=== PATIENT | female | born 1940 | race Caucasian/White ===

== ENCOUNTER → 2017-02-04 | Outpatient (CLI) | payer OTHER ==
[~2017-02-04] MED LIST: ASPCH81; AZIT250T PO; B-COCAP2 PO; BUSP15TA70 PO; CALC-20 PO; CHOL2000 PO; CLTP PO; HYDR25TA5 PO; LISI-461 PO; LISI40TA PO; MULT-506 PO; WLLSRUNK
[2017-02-04 14:19] LABS: ALT/SGPT 26 U/L (12-78); AST/SGOT 15 U/L (15-37); BLOOD UREA NITROGEN 12 mg/dl (7-18); BUN/CREATININE RATIO 14.5 (10-20); CALCIUM 9.7 mg/dl (8.5-10.1); CARBON DIOXIDE 26 mmol/L (21-32); CHLORIDE 102 mmol/L (98-107); CREATININE 0.82 mg/dl (0.60-1.20); GLUCOSE 100 mg/dl (70-99); POTASSIUM 4.6 mmol/L (3.5-5.1); SODIUM 137 mmol/L (136-145)
[2017-02-04 14:21] LABS: ALB/GLOB RATIO 1.2 (0.9-2); ALKALINE PHOSPHATASE 74 U/L (45-117); CHOLESTEROL 214 mg/dl (0-200); HDL CHOLESTEROL 71 mg/dl; LDL CHOLESTEROL CALCULATED 117 mg/dl; TRIGLYCERIDES 128 mg/dl (0-150); VERY LOW DENSITY LIPOPROT CALC 26 mg/dl
[2017-02-04 14:31] LABS: ESTIMATED AVERAGE GLUCOSE 114 mg/dl; HA1C FLAG Normal (Normal)
--- NOTE | 2017-02-11 06:29 | CODING QUERY MEDICAL NECESSITY ---
SUPPORTING DIAGNOSIS NEEDED Jean ANA, A supporting diagnosis is required for the test/procedure performed on this patient in order for us to be reimbursed by the patient's insurance. Please provide a supporting diagnosis for the following test/procedure listed below next to the test name along with your signature. *If there is no additional diagnosis for this patient that would support the following test/procedure please document that below next to the test/procedure. Test(s)/Procedure(s) that require a supporting diagnosis: * 12541 GLYCATED HEMOGLOBIN DIAGNOSIS: DATE OF SERVICE: 02/04/17 Provider Signature: Date: Thank you Sigifredo Baker [facility] Information Management Once completed, please kindly fax back to [phone] For questions please call [phone]
== END | disposition home or self-care (01) ==
LOC: C.LABBC 11:15
PROVIDERS: ATTEND Physician Assistant Medical
DX: Z00.00 Encounter for general adult medical examination without abnormal findings (principal); I10 Essential (primary) hypertension; E78.5 Hyperlipidemia, unspecified; M85.80 Other specified disorders of bone density and structure, unspecified site; R73.03 Prediabetes

== ENCOUNTER 2017-05-15 11:35 | Emergency (ER) | payer OTHER ==
[~2017-05-15] VITALS: Ht 165.1 cm; Wt 69.0 kg
[~2017-05-15 11:35] MED LIST changes: -BUSP15TA70 PO; -CALC-20 PO; -CHOL2000 PO; -HYDR25TA5 PO; -LISI40TA PO
[2017-05-15 11:37] VITALS: TEMP 36.5; Ht 165.1 cm; Wt 69.0 kg
[2017-05-15] MEDS ORDERED: XYLOCAINE 1%/SOD BICARB 20 ML VIAL INFIL ONE (11:50)
[2017-05-15] MEDS ORDERED: BUPIVACAINE 0.5 % 5 MG/1 ML PF 10ML VIAL ONE (11:51)
[2017-05-15] MEDS ORDERED: CALC-20 PO (12:09)
[2017-05-15] MEDS ORDERED: CHOL2000 PO (12:09)
[2017-05-15] MEDS ORDERED: BUSP15TA70 PO (12:09)
[2017-05-15] MEDS ORDERED: MULT-506 PO (12:09)
[2017-05-15] MEDS ORDERED: HYDR25TA5 PO (12:09)
[2017-05-15] MEDS ORDERED: LISI40TA PO (12:09)
--- NOTE | 2017-05-15 13:02 | EMERGENCY ROOM VISIT NOTE ---
ED Visit Note First contact with patient: 11:48 Chief Complaint: "Cut pinky on right hand/knife". History of Present Illness: This patient is a 77-year-old female who presents to the Emergency Department via private vehicle for evaluation of their right fifth digit laceration. Patient sustained the laceration while slicing onions and garlic, and had the knife down in the water to clean it, when she reached her hand into the dishwater and sliced her finger. They report a moderate amount of bleeding initially. They deny any numbness or tingling into the distal extremity. They report no decreased range of motion of the affected digit. Patient rates her current discomfort as a 0/10. Patient's Tetanus status is believed to be currently up-to-date. Medications: As noted below Allergies: Amoxicillin PMH: No pertinent SHx: Patient lives locally. ROS: All pertinent positive and negative review of systems are appropriately documented in the History of Present Illness. Physical Exam: VITAL SIGNS - Vital signs and nursing notes were reviewed. Stable. Hypertensive. GENERAL -77-year-old female appearing her stated age who is in no acute distress. Communicates well with provider and answers questions appropriately. SKIN - There is a 2 cm long laceration noted over the right fifth digit PIP joint. The edges gape apart with traction. No foreign bodies appreciated. Upon further examination there are no deep structures including vessel, tendon, or bony structures appreciated. There is no active bleeding noted. MUSCULOSKELETAL - Laceration as described above. +5/5 strength appreciated of the affected digit. Full range of motion of the affected digit. NEUROLOGIC - Spinothalamic tract was found to be intact with ability to discriminate sharp versus dull sensation. VASCULAR - Capillary refill was brisk. ED Course: Patient was seen and evaluated by myself. Risks and benefits of performing primary wound closure versus no repair were discussed with the patient who verbalizes understanding. Verbal consent was obtained prior to performing the procedure. She was offered x-ray, and declined. 4 cc of 50/50 ratio 1% buffered lidocaine and 0.5% bupivacaine was used to perform a digital block of the right fifth digit. The wound was cleansed and prepped in the typical sterile fashion utilizing normal saline and Betadine. The wound was sterilely draped. Once proper anesthetization was established, the wound was further examined and demonstrated no deep involvement. The wound was copiously irrigated with normal saline and Betadine. The wound was closed using 4 simple, 5-0 nylon sutures with the wound edges being well approximated. Patient tolerated the procedure well. No complications were met. The wound was cleansed and dressed with a Bacitracin dressing. A metal splint was applied to the finger for comfort. Patient educated on worrisome symptoms for return visit to the Emergency Department. Patient discharged to home in good condition. In the evaluation and treatment of this patient, the following differential diagnoses were considered: Finger Fracture, Finger Dislocation, Finger Sprain, Finger Contusion, [place] Finger, or Mallet Finger. Current/Historical Medications Scheduled Buspirone Hcl (Buspar), 15 MG PO DAILY Calcium Carbonate-Vitamin D (Calcium 600 + D), 1 TAB PO DAILY Cholecalciferol (Vitamin D3), 1 CAP PO DAILY Hydrochlorothiazide (Hydrochlorothiazide), Unknown Dose PO DAILY Lisinopril (Zestril), 40 MG PO QAM Multivitamin (Multivitamin), 1 TAB PO DAILY Allergies Coded Allergies: Amoxicillin (Unverified Allergy, Unknown, rash, 05/15/17) Vital Signs Date Time Temp Pulse Resp B/P (MAP) Pulse Ox O2 Delivery O2 Flow Rate FiO2 05/15/17 13:14 73 20 134/80 96 05/15/17 11:37 36.5 98 16 154/75 94 Room Air Departure Information Impression Primary Impression: Laceration Dispostion Home / Self-Care Condition GOOD Referrals Lea Traore M.D. (PCP) Patient Instructions My [facility] Additional Instructions Discharge Instructions: You have received 4 sutures on your finger. These sutures are NOT dissolvable and WILL need to be removed by a health care provider in 12 days. You can return to the Emergency Department or contact your Primary Care Provider to have the sutures removed. Please wear the splint for comfort until the sutures are removed. Proper wound care is essential for adequate wound healing and infection prevention. You can shower and clean the wound with soap and water. Do not scour over the wound, pat dry with a towel. Do not submerse the wound (i.e. bathe or dish wash) until the sutures have been removed. You can use an antibiotic ointment with a dressing over the wound for the next 3-4 days. After this time you may leave the wound dry and open to the air. If crust develops over the wound you can use a Q-tip to apply a 1:1 peroxide:water solution to clean the wound. Look for signs of infection of the wound including: increased pain, swelling, foul discharge, streaking, or increased temperature. If any of these are noticed you should return to the Emergency Department for further assessment and treatment. As with any laceration you may have received nerve damage to the surrounding tissues. This damage may or may not be permanent. You should keep the area covered with sunscreen for the first 6 months to 1 year when at risk for exposure to help minimize scarring. You can also use scar reducing creams or Vitamin E oil to help minimize scarring. For pain control, you can use the following [id number] medicines (if >12 yo): - Regular strength (325mg/tab) Tylenol (acetaminophen) 2 tabs every 4-6 hours as needed. Do not exceed 12 tablets in a 24 hour period. Avoid taking more than 3 grams (3000 mg) of Tylenol per day. This includes any other sources of acetaminophen you may take on a regular basis. Return to the emergency department if your symptoms worsen despite treatment course outlined above.
[2017-05-15 13:14] VITALS: BP 134/80; PULSE 73; O2SAT 96
== END 2017-05-15 13:16 | disposition home or self-care (01) ==
LOC: C.EDB 11:38 → C.EDD 13:16
DX: S61.216A Laceration without foreign body of right little finger without damage to nail, initial encounter (principal); Y93.G1 Activity, food preparation and clean up; Z79.899 Other long term (current) drug therapy

== ENCOUNTER 2017-05-27 10:55 | Emergency (ER) | payer OTHER ==
[~2017-05-27] VITALS: Ht 165.1 cm; Wt 69.4 kg
[~2017-05-27 10:55] MED LIST changes: -ASPCH81; -AZIT250T PO; -B-COCAP2 PO; +BUSP15TA70 PO; +CALC-20 PO; +CHOL2000 PO; -CLTP PO; +HYDR25TA5 PO; -LISI-461 PO; +LISI40TA PO; -WLLSRUNK
[2017-05-27 10:58] VITALS: TEMP 36.6; Ht 165.1 cm; Wt 69.4 kg
[2017-05-27 11:16] VITALS: BP 134/76; PULSE 88; O2SAT 98
--- NOTE | 2017-05-27 22:22 | EMERGENCY ROOM VISIT NOTE ---
History First contact with patient: 11:02 Chief Complaint: SUTURE/STAPLE REMOVAL Stated Complaint: REMOVAL OF STITCHES History of Present Illness The patient is a 77 year old female who presents to the Emergency Room for suture removal from a right fifth finger laceration that was repaired in our department 12 days ago. The patient denies any wound complications. Review of Systems Noncontributory Past Medical/Surgical History Well documented on previous visit Social History Smoking Status: Former Smoker Marital Status: Occupation Status: retired Current/Historical Medications Scheduled Buspirone Hcl (Buspar), 15 MG PO DAILY Calcium Carbonate-Vitamin D (Calcium 600 + D), 1 TAB PO DAILY Cholecalciferol (Vitamin D3), 1 CAP PO DAILY Hydrochlorothiazide (Hydrochlorothiazide), Unknown Dose PO DAILY Lisinopril (Zestril), 40 MG PO QAM Multivitamin (Multivitamin), 1 TAB PO DAILY Physical Exam Vital Signs Date Time Temp Pulse Resp B/P (MAP) Pulse Ox O2 Delivery O2 Flow Rate FiO2 05/27/17 11:16 88 16 98 05/27/17 10:58 36.6 86 18 152/90 96 Room Air Pain Rating (0-10): 0 Physical Exam MUSCULOSKELETAL: Examination of the right fifth finger shows excellent wound healing. All sutures were removed without any complications. Medical Decision & Procedures ED Course The patient was provided additional verbal wound care instructions. Avoid any undue stress on the wound, and follow-up with PCP as needed. Medical Decision Impression Primary Impression: Encounter for removal of sutures Additional Impression: Laceration of right little finger Departure Information Dispostion Home / Self-Care Condition GOOD Referrals No Doctor, Assigned (PCP) Forms HOME CARE DOCUMENTATION FORM, IMPORTANT VISIT INFORMATION Patient Instructions [facility] Problem Qualifiers Additional Impression: Laceration of right little finger Encounter type: subsequent encounter Damage to nail status: without damage Foreign body presence: without foreign body Qualified Codes: S61.216D - Laceration without foreign body of right little finger without damage to nail, subsequent encounter
== END 2017-05-27 11:17 | disposition home or self-care (01) ==
LOC: C.EDB 10:58 → C.EDD 11:17
DX: Z48.02 Encounter for removal of sutures (principal); S61.216D Laceration without foreign body of right little finger without damage to nail, subsequent encounter; Y93.G1 Activity, food preparation and clean up; Z87.891 Personal history of nicotine dependence

== ENCOUNTER → 2017-09-01 | Outpatient (CLI) | payer OTHER | END | disposition home or self-care (01) | LOC: C.MAMM 13:22 | PROVIDERS: ATTEND Internal Medicine | DX: Z12.31 Encounter for screening mammogram for malignant neoplasm of breast (principal); M85.851 Other specified disorders of bone density and structure, right thigh; M85.852 Other specified disorders of bone density and structure, left thigh; M85.88 Other specified disorders of bone density and structure, other site ==

== ENCOUNTER → 2018-01-09 | Outpatient (CLI) | payer OTHER ==
--- NOTE | 2018-01-12 15:09 | MAMMOGRAPHY REPORT ---
BILATERAL DIGITAL SCREENING MAMMOGRAM TOMOSYNTHESIS WITH CAD: 01/09/2018 TECHNIQUE: Breast tomosynthesis in addition to standard 2D mammography was performed. Current study was also evaluated with a Computer Aided Detection (CAD) system. COMPARISON: Comparison is made to exams dated: 04/17/2016 mammogram, 01/24/2014 mammogram, 01/03/2012 ma mmogram, 01/01/2011 mammogram, 12/04/2009 mammogram - [facility], and 07/26/2008. BREAST COMPOSITION: There are scattered areas of fibroglandular density in both breasts. FINDINGS: No suspicious masses, calcifications, or areas of architectural distortion are noted in ei ther breast. There has been no significant interval change compared to prior exams. IMPRESSION: ACR BI-RADS CATEGORY 1: NEGATIVE There is no mammographic evidence of malignancy. A 1 year screening mammogram is recommended. The pa tient will receive written notification of the results. Approximately 10% of breast cancers are not detected with mammography. A negative mammographic report should not delay biopsy if a clinically suggestive mass is present. Emma Gastelum M.D. ah/:01/09/2018 15:57:17 Clinical Application Consultant: Mary PERLA(R)(M), [facility] letter sent: Normal 1/2 BI-RADS Code: ACR BI-RADS Category 1: Negative
== END | disposition home or self-care (01) ==
LOC: C.MAMM 14:50
PROVIDERS: ATTEND Internal Medicine
DX: Z12.31 Encounter for screening mammogram for malignant neoplasm of breast (principal)

== ENCOUNTER 2020-03-20 08:32 | Observation (INO) ==
[2020-03-20] MEDS ORDERED: SODIUM CHLORIDE 0.9% 1000ML 1,000 ML IV ONE (08:55)
[2020-03-20 09:03] LABS: Basophils # (auto) 0.02 K/uL (0-0.2); Basophils % (auto) 0.2 %; Eosinophils # (auto) 0.04 K/uL (0-0.5); Eosinophils % (auto) 0.3 %; Hematocrit (blood only) 42.6 % (37-47); Hemoglobin 14.9 g/dL (12.0-16.0); Immature Granulocytes # (auto) 0.05 K/uL (0.00-0.02); Immature Granulocytes % (auto) 0.4 %; Lymphocytes # (auto) 2.24 K/uL (1.2-3.4); Lymphocytes % (auto) 18.4 %; Mean Corpuscular Hemoglobin 30.8 pg (25-34); Mean Platelet Volume 8.3 fL (7.4-10.4); Monocytes # (auto) 1.27 K/uL (0.11-0.59); Monocytes % (auto) 10.4 %; Neutrophils # (auto) 8.57 K/uL (1.4-6.5); Neutrophils % (auto) 70.3 %; Platelet Count 546 K/uL (130-400); RDW Coefficient of Variation 12.9 % (11.5-14.5); RDW Standard Deviation 41.3 fL (36.4-46.3); Red Blood Count 4.84 M/uL (4.2-5.4); White Blood Count 12.19 K/uL (4.8-10.8)
[2020-03-20] MEDS ORDERED: CEFEPIME 2,000 MG/20 ML VIAL IV STA (09:04)
[2020-03-20] MEDS ORDERED: metroNIDAZOLE 500 MG/100 ML BAG IV STA (09:04)
[2020-03-20 09:21] LABS: Albumin Level 3.5 gm/dl (3.4-5.0); BUN Creatinine Ratio 14.4 (10-20); Calcium 9.4 mg/dl (8.5-10.1); Creatinine Clr Calc Pharmacy 54.9 ml/min; Est GFR (African American) 81.2; Est GFR (Non-African American) 70.1; Potassium 3.8 mmol/L (3.5-5.1)
[2020-03-20 09:24] LABS: Albumin Globulin Ratio 0.7 (0.9-2); Bilirubin,Total 0.4 mg/dl (0.2-1); Globulin 4.8 gm/dl (2.5-4.0); Total Protein 8.3 gm/dl (6.4-8.2)
[2020-03-20 10:02] LABS: Appearance Urine Clear (Clear); Bilirubin Urine Negative (Negative); Blood Urine Negative (Negative); Color Urine Yellow; Glucose Urine UA Negative (Negative); Ketones Urine Negative (Negative); Leukocyte Esterase Urine Negative (Negative); Nitrite Urine Negative (Negative); Protein Urine Negative (Negative); Specific Gravity Urine 1.031 (1.000-1.030); Urobilinogen Urine Negative (Negative); pH Urine 6.5 (4.5-7.5)
--- NOTE | 2020-03-20 11:16 | Emergency Department Note ---
History of Present Illness General Chief Complaint: Abdominal Pain Stated Complaint: ABD PAIN Time Seen by Provider: 03/20/20 08:53 Source: patient Mode of arrival: ambulatory Limitations: no limitations History of Present Illness Maximum Pain Intensity: 3 This is a 79-year-old female who presents to the ED with a chief complaint of a perforated appendix. The patient states that she has had some abdominal discomf ort for a few weeks. For the past week she has felt bloated. The patient had some tenderness when her PCP evaluated her a week ago. A CT scan was done this morning that showed a perforated appendix. The patient states that she did eat Busch for breakfast this morning. Her appetite has not been as good as usual. She denies any nausea, vomiting or diarrhea. No fevers. No other symptoms. Home Medications Home Medications Medication Instructions Recorded Confirmed Type calcium carbonate 600 mg calcium 600 mg PO DAILY tab 02/12/19 03/20/20 History (1,500 mg) tablet cholecalciferol (vitamin D3) 50 2,000 units PO DAILY 03/09/19 03/20/20 History mcg (2,000 unit) capsule diphenhydramine 25 1 tab PO Q6H PRN 03/09/19 03/20/20 History mg-acetaminophen 500 mg tablet lisinopril 40 mg tablet 40 mg PO DAILY #90 tab 03/16/19 03/20/20 Rx buspirone 5 mg tablet 5 mg PO BID #180 tab 08/26/19 03/20/20 Rx amlodipine 5 mg tablet 5 mg PO DAILY #90 tab 09/13/19 03/20/20 Rx loratadine 10 mg capsule 10 mg PO DAILY cap 09/14/19 03/20/20 History multivitamin 1 tab PO DAILY 09/14/19 03/20/20 History albuterol sulfate 90 mcg/actuation 2 puffs INH Q6H PRN #8.5 gm 10/07/19 03/20/20 Rx aerosol inhaler gabapentin 300 mg capsule 300 mg PO HS #90 cap 12/03/19 03/20/20 Rx budesonide-formoterol HFA 160 2 puffs INH BID #10.2 gm 02/15/20 03/20/20 Rx mcg-4.5 mcg/actuation aerosol inhaler Allergies Allergy/AdvReac Type Severity Reaction Status Date / Time amoxicillin Allergy Unknown rash Verified 03/14/20 11:03 Past Med/Surg History Medical History Actinic keratosis (Chronic) Anxiety (Chronic) COPD (chronic obstructive pulmonary disease) (Chronic) Dyslipidemia (Chronic) Hypertension (Chronic) Impaired fasting glucose (Chronic) Osteoporosis (Chronic) not agreeable to Rx Peripheral neuropathy (Chronic) chronic symptoms, no testing has been done to verify Seborrheic keratosis (Chronic) Vitamin D deficiency (Chronic) Surgical History H/O tubal ligation History of section Family History Father Diabetes Other Stroke Social History Smoking Status: Former smoker Tobacco Type: Cigarettes Age Started Using Tobacco: 17; Age Quit Using Tobacco: 65; packs per day: 1; Cigarettes Per Day: 20; Hx Alcohol Use: Yes Alcohol type: wine Alcohol Intake Frequency: 4 or More x per/Week Alcohol Intake Frequency Comment: 2 glasses of wine daily Hx Substance Use: No Preferred Language: Malaysian Communication Ability: Effective Hearing Ability: Normal Desktop Publishing Operator Required: No Beliefs That Will Affect Care: None marital status: Current Living Situation: Spouse current occupational status: retired Other Information That Helps Us Care for You: No Feels Safe at Home: Yes Safety Concerns: Feels Safe At This Time Seatbelt Use: always Sunscreen Use: Yes Review of Systems A total of 10 systems reviewed and were otherwise negative Physical Exam Vital Signs: Vital Signs - 24 hr 03/20/20 08:36 03/20/20 09:57 Temperature 36.9 C Temperature Source Oral Pulse Rate 102 H Respiratory Rate 16 Respiratory Effort / Characteristics Non-Labored Respiratory Depth Normal Blood Pressure 151/84 H Blood Pressure Fabi n 106 Pulse Oximetry 97 95 Oxygen Delivery Me thod Room Air Sepsis Recent Feve r Within 48 Hours No Sepsis New/Unexpla ined Change in Men grazyna Status No Sepsis Action Take n by Nursing No Action Required Physical Exam: CONSTITUTIONAL/VITAL SIGNS: Reviewed / noted above. GENERAL: Non-toxic in appearance. INTEGUMENTARY: Warm, dry, and [place]. HEAD: Normocephalic. EYES: without scleral icterus or trauma. ENT/OROPHARYNX: clear and moist. LYMPHADENOPATHY/NECK: Is supple without lymphadenopathy or meningismus. RESPIRATORY: Lungs clear and equal. CARDIOVASCULAR: Regular rate and rhythm. GI/ABDOMEN: Soft and tender in the right lower quadrant. No organomegaly or pulsatile mass. No rebound or guarding. Normal bowel sounds. EXTREMITIES: Warm and well perfused. BACK: No CVA tenderness. NEUROLOGICAL: Intact without focal deficits. PSYCHIATRIC: normal affect. MUSCULOSKELETAL: Normally developed with good muscle tone. TRIAGE NURSING DOCUMENTATION REVIEWED. Course Administered Medications Ciprofloxacin (Cipro / D5w) 400 mg in 200 mls @ 100 mls/hr IV Q12H OSMAN; Protocol Stop: 03/30/20 11:59 Last Admin: 03/20/20 12:26 Dose: 100 mls/hr Documented by: [id number] Sodium Chloride (Nss 1000ml) 1,000 mls @ 100 mls/hr IV .Q10H OSMAN Stop: 04/19/20 11:59 Last Admin: 03/20/20 12:26 Dose: 100 mls/hr Documented by: [id number] Discontinued Medications Sodium Chloride (Nss 1000ml) 1,000 mls @ 999 mls/hr IV .Q1H1M ONE Stop: 03/20/20 09:55 Last Infusion: 03/20/20 10:31 Dose: 0 mls/hr Documented by: [id number] Admin: 03/20/20 09:26 Dose: 999 mls/hr Documented by: [id number] Cefepime HCl (Maxipime) 2,000 mg in 20 mls @ 5 mls/min IV NOW STA; Protocol Stop: 03/20/20 09:07 Last Admin: 03/20/20 09:26 Dose: 5 mls/min Documented by: [id number] Metronidazole (Flagyl) 500 mg in 100 mls @ 100 mls/hr IV NOW STA Stop: 03/20/20 10:03 Last Infusion: 03/20/20 10:31 Dose: 0 mls/hr Documented by: [id number] Admin: 03/20/20 09:26 Dose: 100 mls/hr Documented by: [id number] Medical Decision Making Differential Diagnosis Differential considered: pancreatitis, hepatitis, acute cholecystitis, AAA, UTI, pyelonephritis, kidney stones, appendicitis, diverticulitis, shingles, bowel obstruction, mesenteric ischemia, intussusception,hernia, testicular torsion, ovarian torsion, ruptured ovarian cyst,ectopic , . Medical Records Attestation: I reviewed the patient's medical records. Home Medications Current Medication List: was personally reviewed by me Laboratory Data Attestation: I reviewed the patient's lab results. Result diagrams: 03/20/20 08:52 03/20/20 08:52 Lab Results 03/20/20 03/20/20 03/20/20 Range/Units 08:52 08:52 09:50 WBC 12.19 H (4.8-10.8) K/uL RBC 4.84 (4.2-5.4) M/uL Hgb 14.9 (12.0-16.0) g/dL Hct 42.6 (37-47) % MCV 88.0 (80-100) fL MCH 30.8 (25-34) pg MCHC 35.0 (32-36) g/dL RDW Std Deviation 41.3 (36.4-46.3) fL RDW Coeff of Kisha 12.9 (11.5-14.5) % Plt Count 546 H (130-400) K/uL MPV 8.3 (7.4-10.4) fL Immature Gran % (Auto) 0.4 % Neut % (Auto) 70.3 % Lymph % (Auto) 18.4 % [place] % (Auto) 10.4 % Eos % (Auto) 0.3 % Baso % (Auto) 0.2 % Neut # (Auto) 8.57 H (1.4-6.5) K/uL Lymph # (Auto) 2.24 (1.2-3.4) K/uL [place] # (Auto) 1.27 H (0.11-0.59) K/uL Eos # (Auto) 0.04 (0-0.5) K/uL Baso # (Auto) 0.02 (0-0.2) K/uL Immature Gran # (Auto) 0.05 H (0.00-0.02) K/uL Sodium 130 L (136-145) mmol/L Potassium 3.8 (3.5-5.1) mmol/L Chloride 97 L (98-107) mmol/L Carbon Dioxide 24 (21-32) mmol/L Anion Gap 9.0 (3-11) BUN 12 (7-18) mg/dl Creatinine 0.81 (0.6-1.2) mg/dl Est Cr Clr Drug Dosing 54.9 ml/min Est GFR ( Amer) 81.2 Est GFR (Non-Af Amer) 70.1 BUN/Creatinine Ratio 14.4 (10-20) Glucose 121 H (70-99) mg/dl Calcium 9.4 (8.5-10.1) mg/dl Total Bilirubin 0.4 (0.2-1) mg/dl AST 14 L (15-37) U/L ALT 33 (12-78) U/L Alkaline Phosphatase 98 (45-117) U/L Total Protein 8.3 H (6.4-8.2) gm/dl Albumin 3.5 (3.4-5.0) gm/dl Globulin 4.8 H (2.5-4.0) gm/dl Albumin/Globulin Ratio 0.7 L (0.9-2) Lipase 366 (73-393) U/L Urine Color Yellow Urine Appearance Clear (Clear) Urine pH 6.5 (4.5-7.5) Ur Specific [place] 1.031 H (1.000-1.030) Urine Protein Negative (Negative) Urine Glucose (UA) Negative (Negative) Urine Ketones Negative (Negative) Urine Blood Negative (Negative) Urine Nitrite Negative (Negative) Urine Bilirubin Negative (Negative) Urine Urobilinogen Negative (Negative) Ur Leukocyte Esterase Negative (Negative) Imaging Data Attestation: I personally reviewed and interpreted this imaging study as follows: Radiologist's Impression: CT scan of the abdomen pelvis: IMPRESSION: Findings suggestive of perforated acute appendicitis with multiple small periappendiceal abscesses adjacent to the appendiceal tip that measure up to 2 cm. Moderate inflammation. No free air. An underlying appendiceal mass is con sidered less likely but cannot be excluded by CT. Prominent ileocolic lymph nodes which are probably reactive. Surgical consultation is recommended. This finding will be called/faxed to the ordering provider at time of dictation. Blood Pressure Blood Pressure Findings: Elevated blood pressure Blood Pressure Disposition: Referred to patients primary care provider MDM Narrative This is a 79-year-old female who presents to the ED with a chief complaint of abdominal pain. A CT scan shows a perforated appendix. The blood work as noted above. The white count is elevated. The patient was started on IV cefepime and IV Flagyl. She was given IV fluids. She was seen by the surgical service who admitted her for inpatient antibiotics. Impression & Plan Acute perforated appendicitis Discharge Plan Visit Data *Final* Discharge Date/Time: 03/20/20 11:08 Chief Complaint: Abdominal Pain Stated Complaint: ABD PAIN ED Provider: Wilmar Garvin Discharge Problem: Acute perforated appendicitis Patient Disposition: Admitted As Inpatient Discharge Instructions Interventions: ED Discharge Assessment Last Done: 03/20/20 11:08
[2020-03-20] MEDS ORDERED: ALBUTEROL HFA 8 GM INHALER INH PRN (11:39)
[2020-03-20] MEDS ORDERED: MoRPHine SULFATE 2 MG/ML CARP IV PRN (11:39)
[2020-03-20] MEDS ORDERED: ACETAMINOPHEN 325 MG TAB PO PRN (11:39)
[2020-03-20] MEDS ORDERED: MoRPHine SULFATE 4 MG/ML 1 ML CARP\\VIAL IV PRN (11:39)
[2020-03-20] MEDS ORDERED: ONDANSETRON INJ 2 MG/ML 2 ML VIAL IV PRN (11:39)
--- NOTE | 2020-03-20 11:47 | Hospitalist Consultation ---
Date of Consultation March 20, 2020 Assessment & Plan (1) Perforated appendicitis: Admitted by general surgery service for perforated appendicitis with periappendiceal abscesses -Admitted to medical/surgical floor -Start IV Cipro and Flagyl, IV fluids -Keeping n.p.o. for surgery likely tomorrow -We will see if needs COVID testing preoperatively -Check preoperative ECG although she is completely asymptomatic from a cardiovascular standpoint is very active, can achieve at least 4 METS without any anginal symptoms, renal function is intact and she is average risk for an intermediate risk procedure to proceed with the procedure especially given the urgent nature with intraperitoneal abscesses -Pain control as needed (2) Hyponatremia: None and review of old labs shows that she is typically mildly hyponatremic -Could be side effect of lisinopril -Likely exacerbated by some dehydration from recent infection -Hydrate with normal saline -Follow BMP in the morning (3) Hypertension: Blood pressures are controlled -Continue home amlodipine and lisinopril (4) Peripheral neuropathy: Continue home gabapentin Question if actually has claudication given long history of smoking and has leg cramps as her symptoms but does say that is relieved with gabapentin (5) Vitamin D deficiency: Continue home calcium plus vitamin D (6) Osteoporosis: On calcium and vitamin D as above (7) Impaired fasting glucose: Recent hemoglobin A1c was 5.7% which is barely into the prediabetes range -Follow as an outpatient No need for Accu-Cheks here (8) Dyslipidemia: Noted in chart but not on medication for this (9) COPD (chronic obstructive pulmonary disease): No acute exacerbation -Continue home Symbicort (10) Anxiety: No acute exacerbation, well controlled -Continue home BuSpar (11) DVT prophylaxis: Add on SCDs, hold on chemical anticoagulation given upcoming surgery Disposition-admitted to medical/surgical floor, hospitalist service will follow along Full code-patient reports that if her prognosis is poor on life support, she would not want prolonged life support was present at the bedside for this discussion and agrees History of Present Illness Reason for Consultation: Medical management Requesting Physician: Dr. Reardon Attending Physician: Torey Reardon MD, FACS History of Present Illness This patient is a 79-year-old female with a history of HTN, anxiety disorder, COPD, peripheral neuropathy, osteoporosis, dyslipidemia, and prediabetes, who presents to the hospital after 3-week subacute presentation of right lower quadrant pain. She reports having a low-grade fever and just not feeling well about 3 weeks ago and actually had a COVID test that was negative at that time. Since then, she is continued to have mild right lower quadrant pain which then progressed to bloating and sharper pains in the last few days. She saw her primary care physician a week ago who ordered blood work which showed a mild leukocytosis. When the pain worsened, she came to the ER was found to have a ruptured appendicitis with multiple periappendiceal abscesses but no free air. She was afebrile. Continue to have a leukocytosis, was mildly hyponatremic. She will be admitted for acute perforated appendicitis with intraperitoneal abscesses. Hospitalist service was consulted for medical management. ROS: Patient denies any lightheadedness or chest pain, no shortness of breath or cough, no bright red blood or melena per rectum, no nausea or vomiting. She has been a little bit more fatigued than usual. Some mild headaches occasionally for which she took Tylenol. Denies any urinary symptoms of urinary urgency or d ysuria or frequency. Allergies Allergy/AdvReac Type Severity Reaction Status Date / Time amoxicillin Allergy Unknown rash Verified 03/14/20 11:03 Home Medications Home Medications Medication Instructions Recorded Confirmed Type calcium carbonate 600 mg calcium 600 mg PO DAILY tab 02/12/19 03/20/20 History (1,500 mg) tablet cholecalciferol (vitamin D3) 50 2,000 units PO DAILY 03/09/19 03/20/20 History mcg (2,000 unit) capsule diphenhydramine 25 1 tab PO Q6H PRN 03/09/19 03/20/20 History mg-acetaminophen 500 mg tablet lisinopril 40 mg tablet 40 mg PO DAILY #90 tab 03/16/19 03/20/20 Rx buspirone 5 mg tablet 5 mg PO BID #180 tab 08/26/19 03/20/20 Rx amlodipine 5 mg tablet 5 mg PO DAILY #90 tab 09/13/19 03/20/20 Rx loratadine 10 mg capsule 10 mg PO DAILY cap 09/14/19 03/20/20 History multivitamin 1 tab PO DAILY 09/14/19 03/20/20 History albuterol sulfate 90 mcg/actuation 2 puffs INH Q6H PRN #8.5 gm 10/07/19 03/20/20 Rx aerosol inhaler gabapentin 300 mg capsule 300 mg PO HS #90 cap 12/03/19 03/20/20 Rx budesonide-formoterol HFA 160 2 puffs INH BID #10.2 gm 02/15/20 03/20/20 Rx mcg-4.5 mcg/actuation aerosol inhaler Patient History Medical History Actinic keratosis (Chronic) Anxiety (Chronic) COPD (chronic obstructive pulmonary disease) (Chronic) Dyslipidemia (Chronic) Hypertension (Chronic) Impaired fasting glucose (Chronic) Osteoporosis (Chronic) not agreeable to Rx Peripheral neuropathy (Chronic) chronic symptoms, no testing has been done to verify Seborrheic keratosis (Chronic) Vitamin D deficiency (Chronic) Surgical History H/O tubal ligation History of section Family History Father Diabetes Other Stroke Social History Smoking Status: Former smoker Tobacco Type: Cigarettes Age Started Using Tobacco: 17; Age Quit Using Tobacco: 65; packs per day: 1; Cigarettes Per Day: 20; Hx Alcohol Use: Yes Alcohol type: wine Alcohol Intake Frequency: 4 or More x per/Week Alcohol Intake Frequency Comment: 2 glasses of wine daily Hx Substance Use: No Preferred Language: British Communication Ability: Effective Hearing Ability: Normal Lab Manager Required: No Beliefs That Will Affect Care: None marital status: Current Living Situation: Spouse current occupational status: retired Other Information That Helps Us Care for You: No Feels Safe at Home: Yes Safety Concerns: Feels Safe At This Time Seatbelt Use: always Sunscreen Use: Yes Review of Systems Review of Systems: All systems reviewed & are unremarkable except as noted in HPI & below Physical Exam Constitutional: WD/WN, vitals as above Eyes: PERRL, conjunctivae normal, anicteric sclerae ENMT: external ear and nose normal, oropharynx normal Neck: trachea midline, no thyromegaly Respiratory: normal respiratory effort, lungs clear to auscultation Cardiovascular: RRR, no murmur, no edema Chest (Breasts): Chest: normal inspection of chest Gastrointestinal (Abdomen): normal bowel sounds, soft, nontender, no hepatosplenomegaly Musculoskeletal: Extremities: extremities normal to inspection; no cyanosis and no clubbing Skin: no rashes, warm and dry Neurologic: moves all extremities and awake; no focal motor deficits Psychiatric: A+Ox3, euthymic affect Lymphatic: no lymphedema Results & Data Results & Data ([facility]) Vital Signs (Past 12 Hours) Vital Signs Temp Pulse Pulse Resp BP BP Pulse Ox 03/20/20 10:32 86 18 155/83 H 96 03/20/20 09:57 95 03/20/20 08:36 36.9 C 102 H 16 151/84 H 97 Laboratory Results 03/20/20 03/20/20 03/20/20 Range/Units 09:50 08:52 08:52 WBC 12.19 H (4.8-10.8) K/uL RBC 4.84 (4.2-5.4) M/uL Hgb 14.9 (12.0-16.0) g/dL Hct 42.6 (37-47) % MCV 88.0 (80-100) fL MCH 30.8 (25-34) pg MCHC 35.0 (32-36) g/dL RDW Std Deviation 41.3 (36.4-46.3) fL RDW Coeff of Kisha 12.9 (11.5-14.5) % Plt Count 546 H (130-400) K/uL MPV 8.3 (7.4-10.4) fL Immature Gran % (Auto) 0.4 % Neut % (Auto) 70.3 % Lymph % (Auto) 18.4 % [place] % (Auto) 10.4 % Eos % (Auto) 0.3 % Baso % (Auto) 0.2 % Neut # (Auto) 8.57 H (1.4-6.5) K/uL Lymph # (Auto) 2.24 (1.2-3.4) K/uL [place] # (Auto) 1.27 H (0.11-0.59) K/uL Eos # (Auto) 0.04 (0-0.5) K/uL Baso # (Auto) 0.02 (0-0.2) K/uL Immature Gran # (Auto) 0.05 H (0.00-0.02) K/uL Sodium 130 L (136-145) mmol/L Potassium 3.8 (3.5-5.1) mmol/L Chloride 97 L (98-107) mmol/L Carbon Dioxide 24 (21-32) mmol/L Anion Gap 9.0 (3-11) BUN 12 (7-18) mg/dl Creatinine 0.81 (0.6-1.2) mg/dl Est Cr Clr Drug Dosing 54.9 ml/min Est GFR ( Amer) 81.2 Est GFR (Non-Af Amer) 70.1 BUN/Creatinine Ratio 14.4 (10-20) Glucose 121 H (70-99) mg/dl Calcium 9.4 (8.5-10.1) mg/dl Total Bilirubin 0.4 (0.2-1) mg/dl AST 14 L (15-37) U/L ALT 33 (12-78) U/L Alkaline Phosphatase 98 (45-117) U/L Total Protein 8.3 H (6.4-8.2) gm/dl Albumin 3.5 (3.4-5.0) gm/dl Globulin 4.8 H (2.5-4.0) gm/dl Albumin/Globulin Ratio 0.7 L (0.9-2) Lipase 366 (73-393) U/L Urine Color Yellow Urine Appearance Clear (Clear) Urine pH 6.5 (4.5-7.5) Ur Specific [place] 1.031 H (1.000-1.030) Urine Protein Negative (Negative) Urine Glucose (UA) Negative (Negative) Urine Ketones Negative (Negative) Urine Blood Negative (Negative) Urine Nitrite Negative (Negative) Urine Bilirubin Negative (Negative) Urine Urobilinogen Negative (Negative) Ur Leukocyte Esterase Negative (Negative) Diagnostic Findings CT OF THE ABDOMEN AND PELVIS WITH CONTRAST CLINICAL HISTORY: R10.31 Right lower quadrant pain. COMPARISON STUDY: Right upper quadrant ultrasound December 03, 2012. TECHNIQUE: Following IV administration of 94 mL of Optiray-320, axial images of the abdomen and pelvis were obtained from the lung bases to the proximal femurs. Images were reviewed in the axial, sagittal, and coronal planes. IV contrast was administered without complication. Automated exposure control was utilized for the study. A dose lowering technique was utilized adhering to the principles of ALARA. Oral contrast was administered. CT DOSE: 476.56 mGy.cm FINDINGS: No pneumatosis, free air or portal venous gas is present. The liver, spleen, adrenal glands and pancreas are unremarkable. There is no biliary or pancreatic ductal dilatation. Gallstones within the gallbladder fundus are noted without evidence for acute cholecystitis. A few bilateral renal cysts are noted. There are multiple subcentimeter renal lesions which are too small to characterize. There is no hydronephrosis. There is no evidence for a bowel obstruction. The appendiceal tip is obscured likely dilated with wall thickening. Multiloculated rim-enhancing fluid collections adjacent to the appendiceal tip are noted. These fluid collections measure up to 2 cm in size. There is moderate adjacent inflammation. There is no free air. Cholecystectomy within the sacrum are incidentally noted. A few prominent ileocolic lymph nodes are noted. Measure up to 8 mm in short axis diameter. IMPRESSION: Findings suggestive of perforated acute appendicitis with multiple small periappendiceal abscesses adjacent to the appendiceal tip that measure up to 2 cm. Moderate inflammation. No free air. An underlying appendiceal mass is considered less likely but cannot be excluded by CT. Prominent ileocolic lymph nodes which are probably reactive. Surgical consultation is recommended. This finding will be called/faxed to the ordering provider at time of dictation. PG Care Time/CCT Total # of Minutes Spent Total Time Spent with Patient: Total time spent is greater than 50% in coordination of care (as documented) at patient's floor/unit and/or counseling patient: Coding Level of Care Code 59773 Inpt Consult Level 3 Diagnoses Perforated appendicitis K35.32 Hyponatremia E87.1 Hypertension I10 Peripheral neuropathy G62.9 Vitamin D deficiency E55.9 Osteoporosis M81.0 Impaired fasting glucose R73.01 Dyslipidemia E78.5 COPD (chronic obstructive pulmonary disease) J44.9 Anxiety F41.9 DVT prophylaxis Z29.9
--- NOTE | 2020-03-20 12:01 | History & Physical Report ---
Date of Service March 20, 2020 Assessment & Plan (1) Perforated appendicitis: This is a 79y M with a PMH of HTN, HLD, anxiety, and COPD who presents to the [facility] ED on 03/20/20 with abdominal discomfort over the past 3 weeks. Her PCP ordered her a CT scan which revealed findings suggestive of perforated acute appendicitis with multiple small periappendiceal abscesses adjacent to the appendiceal tip that measure up to 2 cm. In the ED patient with low grade temp of 37.7 and a WBC: 12. She appears comfortable on examination, but she is mildly bloated and is tender to palpation in the RLQ. Due to findings of perforation with multiple small flo-appendiceal abscesses we will opt for a trial of conservative management as surgical intervention may be made more difficult with the acute inflammation and phlegmounous change. Will keep patient NPO with ice chips and start her on IV Cipro/Flagyl. Pending progress we may obtain a repeat CT scan in a few days. Appreciate medicine consultation for medical management during her hospitalization. Patient agreeable with the plan. Admission and Anticipated Discharge Date Admission Date: March 20, 2020 History of Present Illness Primary Care Provider: Lea Traore MD This is a 79y M with a PMH of HTN, HLD, anxiety, and COPD who presents to the [facility] ED on 03/20/20 with abdominal discomfort. Patient reports she has been feeling unwell for the past 3 weeks. It started with bilateral abdominal discomfort that has now progressed mostly to the right side. She went to her PCP office on 03/14 for a physical and was tender to palpation in the RLQ. Her PCP ordered labs, which revealed an elevated WBC count, so she ordered a CT a/p for further evaluation. The CT a/p showed findings suggestive of perforated acute appendicitis with multiple small periappendiceal abscesses adjacent to the appendiceal tip that measure up to 2 cm. She came to the ED for further eval uation once study was read. Patient reports + bloating & a decrease in appetite. She denies any nausea/vomiting, change in bowel habits, chills, chest pain, or shortness of breath. She believes she may have had a low grade temp a couple wks ago, but nothing since. She has had 2 colonoscopy's, last was in 2011 she says was unremarkable. Her surgical history includes a . Surgery was consult ed for further evaluation. Allergies Allergy/AdvReac Type Severity Reaction Status Date / Time amoxicillin Allergy Unknown rash Verified 03/14/20 11:03 Home Medications Home Medications Medication Instructions Recorded Confirmed Type calcium carbonate 600 mg calcium 600 mg PO DAILY tab 02/12/19 03/20/20 History (1,500 mg) tablet cholecalciferol (vitamin D3) 50 2,000 units PO DAILY 03/09/19 03/20/20 History mcg (2,000 unit) capsule diphenhydramine 25 1 tab PO Q6H PRN 03/09/19 03/20/20 History mg-acetaminophen 500 mg tablet lisinopril 40 mg tablet 40 mg PO DAILY #90 tab 03/16/19 03/20/20 Rx buspirone 5 mg tablet 5 mg PO BID #180 tab 08/26/19 03/20/20 Rx amlodipine 5 mg tablet 5 mg PO DAILY #90 tab 09/13/19 03/20/20 Rx loratadine 10 mg capsule 10 mg PO DAILY cap 09/14/19 03/20/20 History multivitamin 1 tab PO DAILY 09/14/19 03/20/20 History albuterol sulfate 90 mcg/actuation 2 puffs INH Q6H PRN #8.5 gm 10/07/19 03/20/20 Rx aerosol inhaler gabapentin 300 mg capsule 300 mg PO HS #90 cap 12/03/19 03/20/20 Rx budesonide-formoterol HFA 160 2 puffs INH BID #10.2 gm 02/15/20 03/20/20 Rx mcg-4.5 mcg/actuation aerosol inhaler Past Med/Surg History Medical History Actinic keratosis (Chronic) Anxiety (Chronic) COPD (chronic obstructive pulmonary disease) (Chronic) Dyslipidemia (Chronic) Hypertension (Chronic) Impaired fasting glucose (Chronic) Osteoporosis (Chronic) not agreeable to Rx Peripheral neuropathy (Chronic) chronic symptoms, no testing has been done to verify Seborrheic keratosis (Chronic) Vitamin D deficiency (Chronic) Surgical History H/O tubal ligation History of section Family History Father Diabetes Social History Smoking Status: Never smoker Age Started Using Tobacco: 17; Age Quit Using Tobacco: 65; packs per day: 1; Cigarettes Per Day: 20; Hx Alcohol Use: Yes Alcohol type: wine Hx Substance Use: No Preferred Language: Spanish Communication Ability: Effective Hearing Ability: Normal Institute Scientist Required: No Beliefs That Will Affect Care: None marital status: Current Living Situation: Spouse current occupational status: retired Other Information That Helps Us Care for You: No Feels Safe at Home: Yes Safety Concerns: Feels Safe At This Time Seatbelt Use: always Sunscreen Use: Yes Review of Systems Constitutional: + anorexia; no fever and no chills Respiratory: no dyspnea Cardiovascular: no chest pain Gastrointestinal: + abdominal pain (right lower abdominal pain) and + bloating; no nausea, no vomiting and no change in bowel habits Physical Exam Physical Exam: awake/alert Constitutional: well developed and well nourished; no acute distress Respiratory: normal respiratory effort Gastrointestinal (Abdomen): Inspection/Auscultation: + abdomen distended (mild abdominal bloat) and + abdominal surgical scar (infraumbilical midline scar from prior ) Percussion/Palpation: + abdomen tender (ttp RLQ) and abdomen soft Results & Data Results & Data ([facility]) Vital Signs (Past 12 Hours) Vital Signs Temp Pulse Pulse Resp BP BP Pulse Ox 03/20/20 10:32 86 18 155/83 H 96 03/20/20 09:57 95 03/20/20 08:36 36.9 C 102 H 16 151/[address] OF THE ABDOMEN AND PELVIS WITH CONTRAST CLINICAL HISTORY: R10.31 Right lower quadrant pain. COMPARISON STUDY: Right upper quadrant ultrasound December 03, 2012. TECHNIQUE: Following IV administration of 94 mL of Optiray-320, axial images of the abdomen and pelvis were obtained from the lung bases to the proximal femurs. Images were reviewed in the axial, sagittal, and coronal planes. IV contrast was administered without complication. Automated exposure control was utilized for the study. A dose lowering technique was utilized adhering to the principles of ALARA. Oral contrast was administered. CT DOSE: 476.56 mGy.cm FINDINGS: No pneumatosis, free air or portal venous gas is present. The liver, spleen, adrenal glands and pancreas are unremarkable. There is no biliary or pancreatic ductal dilatation. Gallstones within the gallbladder fundus are noted without evidence for acute cholecystitis. A few bilateral renal cysts are noted. There are multiple subcentimeter renal lesions which are too small to characterize. There is no hydronephrosis. There is no evidence for a bowel obstruction. The appendiceal tip is obscured likely dilated with wall thickening. Multiloculated rim-enhancing fluid collections adjacent to the appendiceal tip are noted. These fluid collections measure up to 2 cm in size. There is moderate adjacent inflammation. There is no free air. Cholecystectomy within the sacrum are incidentally noted. A few prominent ileocolic lymph nodes are noted. Measure up to 8 mm in short axis diameter. IMPRESSION: Findings suggestive of perforated acute appendicitis with multiple small periappendiceal abscesses adjacent to the appendiceal tip that measure up to 2 cm. Moderate inflammation. No free air. An underlying appendiceal mass is considered less likely but cannot be excluded by CT. Prominent ileocolic lymph nodes which are probably reactive. Surgical consultation is recommended. This finding will be called/faxed to the ordering provider at time of dictation. ACT 112: Negative or not required by law. Electronically signed by: Mike Traore M.D. 03/20/2020 7:26 AM PG Care Time/CCT Total # of Minutes Spent Total Time Spent with Patient: Total time spent is greater than 50% in coordination of care (as documented) at patient's floor/unit and/or counseling patient: Coding Level of Care Code 09585 Initial Inpt Care Lvl 1 Diagnoses Perforated appendicitis K35.32
[2020-03-20] MEDS: CIPROFLOXACIN / D5W 400 MG/200 ML BAG IV SCH ×2 (12:26→23:57)
[2020-03-20] MEDS: SODIUM CHLORIDE 0.9% 1000ML 1,000 ML IV SCH ×2 (12:26→22:03)
[2020-03-20] MEDS: lisinopriL 40 MG TAB PO SCH (16:14)
[2020-03-20] MEDS: AMLODIPINE BESYLATE 5 MG TAB PO SCH (17:00)
[2020-03-20] MEDS: metroNIDAZOLE 500 MG/100 ML BAG IV SCH (17:37)
[2020-03-20] MEDS: GABAPENTIN 300 MG CAP PO SCH (20:22)
[2020-03-21] MEDS: metroNIDAZOLE 500 MG/100 ML BAG IV SCH ×3 (02:12→17:05)
--- NOTE | 2020-03-21 06:16 | Surgery Progress Note ---
Date of Service March 21, 2020 Assessment & Plan (1) Acute perforated appendicitis: Patient is afebrile and her vital signs are stable She appears normal and is resting without taking any pain medication Her abdomen is soft, some tenderness in the right lower quadrant with deep palpation We will give her clear liquids and possibly advance to full liquids for dinner Add yogurt at her request We will keep on IV antibiotics most of this week Results & Data Vital Signs (Past 12 Hours) Vital Signs Temp Pulse Resp BP Pulse Ox 03/21/20 03:07 36.6 C 69 16 123/70 96 03/20/20 23:49 36.7 C 70 16 126/74 94 03/20/20 20:24 36.7 C 80 16 132/73 97 PG Care Time/CCT Total # of Minutes Spent Total Time Spent with Patient: Total time spent is greater than 50% in coordination of care (as documented) at patient's floor/unit and/or counseling patient: Coding Level of Care Code 22425 Subseq Hosp Care Lvl 3 Diagnoses Acute perforated appendicitis K35.32
[2020-03-21 06:40] LABS: Hematocrit (blood only) 37.8 % (37-47); Hemoglobin 12.8 g/dL (12.0-16.0); Mean Corpuscular Hemoglobin 29.6 pg (25-34); Mean Corpuscular Hgb Conc 33.9 g/dL (32-36); Mean Corpuscular Volume 87.3 fL (80-100); Mean Platelet Volume 8.4 fL (7.4-10.4); Platelet Count 437 K/uL (130-400); RDW Coefficient of Variation 12.8 % (11.5-14.5); RDW Standard Deviation 41.6 fL (36.4-46.3); Red Blood Count 4.33 M/uL (4.2-5.4); White Blood Count 8.91 K/uL (4.8-10.8)
[2020-03-21 07:14] LABS: BUN Creatinine Ratio 13.1 (10-20); Calcium 8.4 mg/dl (8.5-10.1); Creatinine Clr Calc Pharmacy 75.4 ml/min; Est GFR (African American) 102.5; Est GFR (Non-African American) 88.4; Potassium 4.3 mmol/L (3.5-5.1)
--- NOTE | 2020-03-21 07:55 | Hospitalist Progress Note ---
Date of Service March 21, 2020 Assessment & Plan (1) Perforated appendicitis: Admitted by general surgery service for perforated appendicitis with periappendiceal abscesses Cipro and Flagyl, IV fluids -Given CT report patient looks remarkably well. Plans may be for medical management of this however surveillance CT scan in the future could be plan to evaluate for abscess formation. Medical risk optimization is complete the patient can proceed to surgery however general surgery is reevaluating the need for aggressive management versus medical management (2) Hyponatremia: 130->137 now resolved (3) Hypertension: Blood pressures are controlled -Continue home amlodipine and lisinopril (4) Peripheral neuropathy: Continue home gabapentin Question if actually has claudication given long history of smoking and has leg cramps as her symptoms but does say that is relieved with gabapentin (5) Vitamin D deficiency: Continue home calcium plus vitamin D (6) Osteoporosis: On calcium and vitamin D as above (7) Impaired fasting glucose: Recent hemoglobin A1c was 5.7% which is barely into the prediabetes range -Follow as an outpatient No need for Accu-Cheks here (8) Dyslipidemia: Noted in chart but not on medication for this (9) COPD (chronic obstructive pulmonary disease): No acute exacerbation -Continue home Symbicort (10) Anxiety: No acute exacerbation, well controlled -Continue home BuSpar (11) DVT prophylaxis: SCDs, hold on chemical anticoagulation given pending surgery Disposition-admitted to medical/surgical floor, hospitalist service will follow along Full code-patient reports that if her prognosis is poor on life support, she w ould not want prolonged life support was present at the bedside for this discussion and agrees Admission and Anticipated Discharge Date Admission Date: March 20, 2020 Subjective Patient looks remarkably well she is up walking about the room she is little to no abdominal pain at all accompanied by her Review of Systems Review of Systems: Mild distress and fatigue no headache, blurry or double vision no speech or swallowing issues no chest pain, pressure or palpitations no shortness of breath, cough or wheezes Very mild to minimal abdominal pain, without nausea or vomiting, diarrhea no dysuria, hematuria or frequency no focal joint pain or swelling no back pain, CVA tenderness or radicular pain no bruising, bleeding or rashes no focal signs of weakness or numbness or altered sensation no complaints or anxiety or depression Physical Exam Physical Exam: The patient appeared well nourished and normally developed. Vital signs as documented. Head exam is normocephalic atraumatic no scleral icterus Neck is without JVD, thyromegaly, or carotid bruits. Lungs are clear to auscultation, no focal loss of breath sounds Cardiac exam, Rhythm is regular.. No murmurs, rubs or gallops. Abdominal exam reveals normal bowel sounds, soft very mild tenderness right low er quadrant Extremities are nonedematous and both pedal pulses are normal. Neurologic exam is alert and oriented, no focal loss of strength or sensation Skin is without bruises or rashes Psychologically is without concerns for anxiety or depression Results & Data Results & Data ([facility]) Vital Signs (Past 12 Hours) Vital Signs Temp Pulse Resp BP Pulse Ox 03/21/20 07:30 97.9 F 72 16 133/80 98 03/21/20 07:20 97.9 F 72 16 133/80 98 03/21/20 03:07 97.9 F 69 16 123/70 96 03/20/20 23:49 98.1 F 70 16 126/74 94 03/20/20 20:24 98.1 F 80 16 132/73 97 PG Care Time/CCT Total # of Minutes Spent Total Time Spent with Patient: Total time spent is greater than 50% in coordination of care (as documented) at patient's floor/unit and/or counseling p atient: Coding Level of Care Code 33630 Subseq Hosp Care Lvl 2 Diagnoses Perforated appendicitis K35.32 Hyponatremia E87.1 Hypertension I10 Peripheral neuropathy G62.9 Vitamin D deficiency E55.9 Osteoporosis M81.0 Impaired fasting glucose R73.01 Dyslipidemia E78.5 COPD (chronic obstructive pulmonary disease) J44.9 Anxiety F41.9 DVT prophylaxis Z29.9
[2020-03-21] MEDS: lisinopriL 40 MG TAB PO SCH (08:37)
[2020-03-21] MEDS: LORATADINE 10 MG TAB PO SCH (08:37)
[2020-03-21] MEDS: FLUTICASONE/VILANTEROL 100/25MCG 14 PUFFS/INHALER INH SCH (08:37)
[2020-03-21] MEDS: AMLODIPINE BESYLATE 5 MG TAB PO SCH (08:55)
[2020-03-21] MEDS: SODIUM CHLORIDE 0.9% 1000ML 1,000 ML IV SCH ×2 (10:21→23:37)
[2020-03-21] MEDS: CIPROFLOXACIN / D5W 400 MG/200 ML BAG IV SCH ×2 (11:45→23:31)
[2020-03-21] MEDS: GABAPENTIN 300 MG CAP PO SCH (20:53)
[2020-03-22] MEDS: metroNIDAZOLE 500 MG/100 ML BAG IV SCH ×3 (01:31→18:05)
[2020-03-22 06:26] LABS: Hematocrit (blood only) 39.6 % (37-47); Hemoglobin 13.3 g/dL (12.0-16.0); Mean Corpuscular Hemoglobin 29.3 pg (25-34); Mean Corpuscular Hgb Conc 33.6 g/dL (32-36); Mean Corpuscular Volume 87.2 fL (80-100); Mean Platelet Volume 8.2 fL (7.4-10.4); Platelet Count 423 K/uL (130-400); RDW Coefficient of Variation 12.7 % (11.5-14.5); RDW Standard Deviation 41.2 fL (36.4-46.3); Red Blood Count 4.54 M/uL (4.2-5.4); White Blood Count 8.33 K/uL (4.8-10.8)
[2020-03-22 06:54] LABS: BUN Creatinine Ratio 10.2 (10-20); Calcium 8.6 mg/dl (8.5-10.1); Creatinine Clr Calc Pharmacy 75.4 ml/min; Est GFR (African American) 102.5; Est GFR (Non-African American) 88.4; Potassium 4.1 mmol/L (3.5-5.1)
--- NOTE | 2020-03-22 07:34 | Surgery Progress Note ---
Date of Service March 22, 2020 Assessment & Plan (1) Acute perforated appendicitis: Patient is doing very well We will advance her to regular diet Continue her IV antibiotics today and likely change to p.o. antibiotics tomorrow Possible discharge home tomorrow CT scan is scheduled for next Friday unless patient would show clinical changes Subjective Patient is afebrile Alert with no complaints Tolerating full liquids Review of Systems Review of Systems: All systems reviewed & are unremarkable except as noted in HPI & below Physical Exam Constitutional: well developed; no acute distress Respiratory: normal respiratory effort; no respiratory distress Cardiovascular: Rate/Rhythm: regular rate Gastrointestinal (Abdomen): Abdomen is soft min tenderness Skin: no rashes, warm and dry Neurologic: awake Psychiatric: Orientation: alert Results & Data Vital Signs (Past 12 Hours) Vital Signs Temp Pulse Resp BP Pulse Ox 03/21/20 23:40 37.1 C 70 16 153/80 H 97 03/21/20 20:00 36.9 C 77 18 153/73 H 93 PG Care Time/CCT Total # of Minutes Spent Total Time Spent with Patient: Total time spent is greater than 50% in coordination of care (as documented) at patient's floor/unit and/or counseling patient: Coding Level of Care Code 51682 Inpt Consult Level 3 Diagnoses Acute perforated appendicitis K35.32
[2020-03-22] MEDS: FLUTICASONE/VILANTEROL 100/25MCG 14 PUFFS/INHALER INH SCH (08:50)
[2020-03-22] MEDS: lisinopriL 40 MG TAB PO SCH (08:51)
[2020-03-22] MEDS: AMLODIPINE BESYLATE 5 MG TAB PO SCH (08:51)
[2020-03-22] MEDS: LORATADINE 10 MG TAB PO SCH (08:51)
--- NOTE | 2020-03-22 09:04 | Hospitalist Progress Note ---
Date of Service March 22, 2020 Assessment & Plan (1) Perforated appendicitis: Admitted by general surgery service for perforated appendicitis with periappendiceal abscesses Cipro and Flagyl, IV fluids CT Abd/pelvis 03/20/20 IMPRESSION: Findings suggestive of perforated acute appendicitis with multiple small periappendiceal abscesses adjacent to the appendiceal tip that measure up to 2 cm. Moderate inflammation. No free air. An underlying appendiceal mass is considered less likely but cannot be excluded by CT. Prominent ileocolic lymph nodes which are probably reactive. Patient has done well will likely need surveillance CT scan as an outpatient anticipate discharge on oral antibiotics in the next few days based on surgical recommendation (2) Hyponatremia: 130->138 now resolved (3) Hypertension: Blood pressures are controlled -Continue home amlodipine and lisinopril (4) Peripheral neuropathy: Continue home gabapentin Question if actually has claudication given long history of smoking and has leg cramps as her symptoms but does say that is relieved with gabapentin (5) Vitamin D deficiency: Continue home calcium plus vitamin D (6) Osteoporosis: On calcium and vitamin D as above (7) Impaired fasting glucose: Recent hemoglobin A1c was 5.7% which is barely into the prediabetes range -Follow as an outpatient No need for Accu-Cheks here (8) Dyslipidemia: Noted in chart but not on medication for this (9) COPD (chronic obstructive pulmonary disease): No acute exacerbation -Continue home Symbicort (10) Anxiety: No acute exacerbation, well controlled -Continue home BuSpar (11) DVT prophylaxis: SCDs, hold on chemical anticoagulation given pending surgery Disposition-admitted to medical/surgical floor, hospitalist service will follow along Full code-patient reports that if her prognosis is poor on life support, she would not want prolonged life support was present at the bedside for this discussion and agrees Admission and Anticipated Discharge Date Admission Date: March 20, 2020 Subjective Patient active in the room tolerating diet without issue having bowel movements without issue Review of Systems Review of Systems: Mild distress and fatigue no headache, blurry or double vision no speech or swallowing issues no chest pain, pressure or palpitations no shortness of breath, cough or wheezes Resolution of minimal abdominal pain, without nausea or vomiting, diarrhea no dysuria, hematuria or frequency no focal joint pain or swelling no back pain, CVA tenderness or radicular pain no bruising, bleeding or rashes no focal signs of weakness or numbness or altered sensation no complaints or anxiety or depression Physical Exam Physical Exam: The patient appeared well nourished and normally developed. Vital signs as documented. Head exam is normocephalic atraumatic no scleral icterus Neck is without JVD, thyromegaly, or carotid bruits. Lungs are clear to auscultation, no focal loss of breath sounds Cardiac exam, Rhythm is regular.. No murmurs, rubs or gallops. Abdominal exam reveals normal bowel sounds, soft now she is nontender Extremities are nonedematous and both pedal pulses are normal. Neurologic exam is alert and oriented, no focal loss of strength or sensation Skin is without bruises or rashes Psychologically is without concerns for anxiety or depression Results & Data Results & Data ([facility]) Vital Signs (Past 12 Hours) Vital Signs Temp Pulse Resp BP Pulse Ox 03/22/20 08:23 97.5 F L 64 16 166/88 H 97 03/21/20 23:40 98.8 F 70 16 153/80 H 97 PG Care Time/CCT Total # of Minutes Spent Total Time Spent with Patient: Total time spent is greater than 50% in coordination of care (as documented) at patient's floor/unit and/or counseling p atient: Coding Level of Care Code 79306 Subseq Hosp Care Lvl 2 Diagnoses Perforated appendicitis K35.32 Hyponatremia E87.1 Hypertension I10 Peripheral neuropathy G62.9 Vitamin D deficiency E55.9 Osteoporosis M81.0 Impaired fasting glucose R73.01 Dyslipidemia E78.5 COPD (chronic obstructive pulmonary disease) J44.9 Anxiety F41.9 DVT prophylaxis Z29.9
[2020-03-22] MEDS: CIPROFLOXACIN / D5W 400 MG/200 ML BAG IV SCH ×2 (11:53→23:23)
--- NOTE | 2020-03-22 16:44 | Electrocardiogram Report ---
Test Reason : Blood Pressure : / mmHG Vent. Rate : 083 BPM Atrial Rate : 083 BPM P-R Int : 146 ms QRS Dur : 092 ms QT Int : 388 ms P-R-T Axes : 078 074 063 degrees QTc Int : 455 ms Sinus rhythm with occasional Premature ventricular complexes Possible Anterior infarct , age undetermined Abnormal ECG When compared with ECG of 06-JAN-1995 09:50, No significant change was found Confirmed by Rangel Bajwa ([id number]) on 03/22/2020 4:44:33 PM Referred By: REFERRED SELF Confirmed By:Rangel Bajwa
[2020-03-22] MEDS: GABAPENTIN 300 MG CAP PO SCH (20:27)
[2020-03-22] MEDS ORDERED: LORazepam 0.5 MG TAB PO ONE (21:00)
[2020-03-23] MEDS: metroNIDAZOLE 500 MG/100 ML BAG IV SCH (01:29)
[2020-03-23 06:01] LABS: Hematocrit (blood only) 38.7 % (37-47); Hemoglobin 13.2 g/dL (12.0-16.0); Mean Corpuscular Hemoglobin 29.8 pg (25-34); Mean Corpuscular Hgb Conc 34.1 g/dL (32-36); Mean Corpuscular Volume 87.4 fL (80-100); Mean Platelet Volume 8.2 fL (7.4-10.4); Platelet Count 430 K/uL (130-400); RDW Coefficient of Variation 12.6 % (11.5-14.5); RDW Standard Deviation 40.9 fL (36.4-46.3); Red Blood Count 4.43 M/uL (4.2-5.4); White Blood Count 7.63 K/uL (4.8-10.8)
[2020-03-23 06:42] LABS: BUN Creatinine Ratio 13.8 (10-20); Calcium 8.7 mg/dl (8.5-10.1); Creatinine Clr Calc Pharmacy 65.4 ml/min; Est GFR (African American) 97.8; Est GFR (Non-African American) 84.4; Potassium 4.7 mmol/L (3.5-5.1)
[2020-03-23] MEDS: AMLODIPINE BESYLATE 5 MG TAB PO SCH (07:32)
[2020-03-23] MEDS: LORATADINE 10 MG TAB PO SCH (07:32)
[2020-03-23] MEDS: FLUTICASONE/VILANTEROL 100/25MCG 14 PUFFS/INHALER INH SCH (07:32)
[2020-03-23] MEDS: lisinopriL 40 MG TAB PO SCH (07:32)
--- NOTE | 2020-03-23 09:00 | Discharge Summary (DS) ---
DATE OF DISCHARGE: 03/23/2020 PRINCIPAL DIAGNOSIS: Ruptured appendix. HISTORY OF PRESENT ILLNESS: The patient is a 79-year-old female admitted with a ruptured appendix with phlegmon. No drainable abscess. She has been doing quite well on antibiotics IV and we have been able to advance her diet. She is for discharge home today to be followed in the surgical clinic within 1-2 weeks and have a repeat CAT scan next week and be placed on oral ciprofloxacin and Flagyl.
== END 2020-03-23 10:01 | disposition home or self-care (01) ==
LOC: ED 08:32 → INTOOBSV 10:24 → 3E 10:24

== ENCOUNTER 2020-05-08 10:56 | Observation (INO) ==
--- NOTE | 2020-04-26 13:51 | Anesthesiology Consultation ---
Date of Service April 26, 2020 Assessment & Plan (1) Encounter for pre-operative examination: Chart Review Chart Review: Pending: Refer to Additional Notes / Consult section (pending response from PCP re: EKG ) and Patient NOT seen in Pre Admission Testing Discussed EKG showing possible anterior infarct with Dr. Echols. Dr. Echols recommends sending note to PCP inquiring if further work up needed prior to surgery or if patient can proceed as scheduled. Did send note through [email or web address]- will await response. Per nursing assessment 04/26/2020, patient denies any recent travel. No known Covid positive contacts or Covid related symptoms. Scheduled for preop COVID testing 05/03/2020. Colonoscopy 04/05/2020 = done under [facility]. No anesthesia issues noted per record. Patient admitted to [facility] 03/20/2020 = patient with abdominal discomfort x3 weeks. PCP ordered a CT scan which revealed findings suggestive of perforated acute appendicitis with multiple small flo-appendiceal abscesses. It was decided to trial conservative management past surgical intervention may be more difficult with the acute inflammation and phlegmounous change. Patient discharged 03/23/2020had been doing well on IV antibiotics and was able to advance her diet. Patient to continue oral ciprofloxacin and Flagyl and follow-up with surgery in 1 to 2 weeks. History Surgery Operation Date: 05/08/20 11:00 Proposed Procedures p Laparoscopic Appendectomy Possible Open Appendectomy - Torey Reardon MD, FACS Height/Weight Height: 5 ft 5.5 in Weight: 63.503 kg Allergies Allergy/AdvReac Type Severity Reaction Status Date / Time amoxicillin Allergy Mild rash Verified 04/26/20 10:27 Medications Home Medications Medication Instructions Recorded Confirmed Last Taken calcium carbonate 600 mg calcium 600 mg PO QAM tab 02/12/19 04/26/20 03/26/20 (1,500 mg) tablet cholecalciferol (vitamin D3) 50 2,000 units PO DAILY 03/09/19 04/26/20 04/04/20 mcg (2,000 unit) capsule diphenhydramine 25 1 tab PO HS PRN 03/09/19 04/26/20 04/02/20 mg-acetaminophen 500 mg tablet buspirone 5 mg tablet 5 mg PO BID #180 tab 08/26/19 04/26/20 04/05/20 loratadine 10 mg capsule 10 mg PO QAM cap 09/14/19 04/26/20 04/04/20 multivitamin 1 tab PO QAM 09/14/19 04/26/20 04/04/20 albuterol sulfate 90 mcg/actuation 2 puffs INH Q6H PRN #8.5 gm 10/07/19 04/26/20 Unknown aerosol inhaler gabapentin 300 mg capsule 300 mg PO HS #90 cap 12/03/19 04/26/20 04/04/20 budesonide-formoterol HFA 160 2 puffs INH BID #10.2 gm 02/15/20 04/26/20 04/05/20 mcg-4.5 mcg/actuation aerosol inhaler nystatin 100,000 unit/mL oral 5 ml PO QID 10 Days #200 ml 03/28/20 04/26/20 04/05/20 suspension amlodipine 5 mg PO QAM 04/26/20 04/26/20 Unknown lisinopril 40 mg PO QAM 04/26/20 04/26/20 Unknown Past Medical History Medical History Anxiety COPD (chronic obstructive pulmonary disease) Dyslipidemia Hypertension Impaired fasting glucose Hgb A1C on 02/2020= 5.7 Osteoporosis not agreeable to Rx Peripheral neuropathy Vitamin D deficiency Past Family History Family History Father Diabetes Family history of diabetes mellitus Other Stroke Past Surgical History Surgical History H/O tubal ligation History of cataract surgery RT/LEFT History of section X 1 History of colonoscopy 04/05/2020 History of tooth extraction Social History Smoking Status: Former smoker tobacco type: cigarettes Do You Dip or Chew Tobacco: No Smoking End Date: 2005 Hx Alcohol Use: Yes Alcohol type: wine alcohol intake frequency: a few times a week Hx Substance Use: No substance use type: does not use Testing Laboratory Results 03/23/20= WBC: 7.63 H/H: 13.2/38.7 PLATELETS: 430 SODIUM: 138 POTASSIUM: 4.7 CHLORIDE: 108 CO2: 26 BUN: 9 CREATININE: 0.68 GLUCOSE: 96 Electrocardiogram Date: 03/20/20 Sinus rhythm with occasional PVCs at 83 bpm. Possible anterior infarct, age undetermined. Compared to EKG from January 06, 1995no significant change was found per cardio. (EKG done while patient was admittedper hospitalist note patient is very active and can achieve at least 4 METS without any anginal symptoms.)
[2020-05-06 19:12] LABS: SARS CoV2 RNA (COVID-19) NOT DETECTED (NOT DETECTED)
[~2020-05-08 10:56] MED LIST changes: -BUSP15TA70 PO; -CALC-20 PO; -CHOL2000 PO; -HYDR25TA5 PO; -LISI40TA PO; +LR 15ML/HR IV SCH; -MULT-506 PO; +cefOXitin 2,000 MG in DEXTROSE 5% 50 ML IV SCH
[2020-05-08] MEDS ORDERED: DEXAMETHASONE SOD INJ 4 MG/ML VIAL ONE (11:03)
[2020-05-08] MEDS ORDERED: PROPOFOL IV EMULSION 10 MG/ML 20 ML VIAL IV ONE ×2 (11:03→11:15)
[2020-05-08] MEDS ORDERED: LIDOCAINE HCL 2% 2 ML VIAL/AMP(20MG/ML) INFIL ONE (11:03)
[2020-05-08] MEDS ORDERED: ONDANSETRON INJ 2 MG/ML 2 ML VIAL ONE (11:03)
[2020-05-08] MEDS ORDERED: fentaNYL citrate 100 MCG/2 ML VIAL ONE ×2 (11:03→12:26)
--- NOTE | 2020-05-08 11:35 | History & Physical Bridge Note ---
Date of Service May 08, 2020 History & Physical Bridge Note I have examined the patient, reviewed the History & Physical and in the interval since the performance of the History & Physical I have noted the following changes of clinical significance: no changes noted
[2020-05-08] MEDS ORDERED: ATROPINE SULFATE 0.1 MG/ML 10ML SYR IV PRN (11:44)
[2020-05-08] MEDS ORDERED: ONDANSETRON INJ 2 MG/ML 2 ML VIAL IV PRN ×2 (11:44→14:21)
[2020-05-08] MEDS ORDERED: fentaNYL citrate 100 MCG/2 ML VIAL IV PRN (11:44)
[2020-05-08] MEDS ORDERED: ePHEDrine sulfate 50 MG/ML AMP IV PRN (11:44)
[2020-05-08] MEDS ORDERED: PROMETHAZINE HCL 6.25 MG in SODIUM CHLORIDE 0.9% 50 ML IV PRN (11:44)
[2020-05-08] MEDS ORDERED: BUPIVACAINE 0.5 % 5 MG/1 ML MPF 30ML VIAL ONE (11:50)
[2020-05-08] MEDS ORDERED: ROCURONIUM BROMIDE 10 MG/ML 5 ML VIAL IV ONE (12:46)
--- NOTE | 2020-05-08 13:02 | Post Operative Brief Note ---
PG Immediate Post Op with CF Date of Surgery May 08, 2020 Pre & Post Diagnosis Operation Date: 05/08/20 12:10 Pre-Op Diagnosis: Perforated Appendix Post-Op Diagnosis: Perforated Appendix I identified the patient and participated in the time-out.: Yes Procedure Operation Date: 05/08/20 12:10 Actual Procedures p Laparoscopic Appendectomy(Not Applicable) - Torye Reardon MD, FACS Surgeon Torey Reardon MD, FACS Respiratory Care Technician Tono Roa Estimated Blood Loss 10 Findings Consistent with Post-Op Diagnosis Specimens Specimen Description: A. Appendix
[2020-05-08] MEDS ORDERED: ACETAMINOPHEN 1,000 MG/100 ML VIAL IV ONE (13:03)
--- NOTE | 2020-05-08 13:18 | Operative Report (OR) ---
DATE OF OPERATION: 05/08/2020 NAME OF OPERATION: Laparoscopic appendectomy. PREOPERATIVE DIAGNOSIS: History of perforated appendix with phlegmon. POSTOPERATIVE DIAGNOSIS: History of perforated appendix with phlegmon. STAFF SURGEON: Torey Reardon MD. SCRAP METAL PROCESSING WORKER: Sigifredo Roa PA-C. ANESTHESIA: General. DESCRIPTION OF PROCEDURE: The patient was brought in the operating room and placed on the operating table in supine position. Darby catheter was placed. Her abdomen was prepped and draped in usual fashion. My assistant purchasing manager helped with prepping, draping, removal of the appendix and closure of the wounds. 0.5% plain Marcaine was used to anesthetize skin and subcutaneous tissue at all incisions. Incision was made above the umbilicus, carrying dissection down to the fascia, placing a Veress needle producing pneumoperitoneum. An 11 mm port placed at this level under visualization. The patient did have adhesions to the anterior abdominal wall from prior surgery. A 5 mm port was placed suprapubically and a 12 mm port placed in the left lower quadrant. lysis of adhesions was performed and then the cecum was reflected identifying the base of the appendix, which appeared to be normal. It was transected using an Endo-BRIGITTE stapler. Then using 2 more loads, we transected the mesoappendix. The tip of the appendix obviously had ruptured and it was very adherent to the right lateral retroperitoneal area, but it was dissected free and then the appendix placed into an Endobag and removed through the left lower quadrant site. After appropriate irrigation and hemostasis, a #15 round Arnie-Ramos drain was placed in through the 5 mm suprapubic port site into the right lower quadrant, secured using 3-0 nylon suture. All ports were then removed. The fascial defects at the umbilicus and left lower quadrant closed using 0 Vicryl suture. Skin reapproximated using subcuticular 4-0 Monocryl, Steri-Strips in the left lower quadrant, Dermabond at the umbilical site. The patient was transferred to recovery room in stable condition. I attest to the content of the Intraoperative Record and any orders documented therein. Any exception s are noted below.
[2020-05-08] MEDS ORDERED: NEOSTIGMINE METHYLSULFATE 5 MG/5 ML SYR ONE (13:27)
[2020-05-08] MEDS ORDERED: GLYCOPYRROLATE 0.2 MG/ML VIAL ONE (13:27)
--- NOTE | 2020-05-08 13:46 | Anesthesiology Progress Note ---
Date of Service May 08, 2020 Anesthesia Post Procedure Vital Signs Vital Signs: Temp Pulse Pulse Resp BP BP Pulse Ox 05/08/20 13:40 36.7 C 79 16 148/75 H 96 05/08/20 13:30 79 16 150/72 H 100 05/08/20 13:20 79 16 152/85 H 100 05/08/20 13:12 36.8 C 83 16 159/80 H 100 05/08/20 11:28 36.8 C 80 20 157/85 H 95 Transfer of Care Handoff Completed per policy Notes Mental Status: alert / awake / arousable Patient Amnestic to Procedure: Yes Nausea / Vomiting: adequately controlled Pain: adequately controlled Airway Patency, RR, SpO2: stable & adequate BP & HR: stable & adequate Hydration State: stable & adequate Anesthetic Complications: no major complications apparent
[2020-05-08] MEDS ORDERED: PROMETHAZINE HCL 12.5 MG in SODIUM CHLORIDE 0.9% 50 ML IV PRN (14:21)
[2020-05-08] MEDS ORDERED: HYDROCODONE/ACETAMOPHEN 5/325MG TAB PO PRN ×2 (14:21)
[2020-05-08] MEDS ORDERED: HYDROmorphone INJ 1 MG/ML SYRINGE IV PRN (14:21)
[2020-05-08] MEDS ORDERED: HYDROmorphone INJ 0.5 MG/0.5 ML SYR IV PRN (14:21)
[2020-05-08] MEDS ORDERED: ALBUTEROL HFA 8 GM INHALER INH PRN (14:21)
[2020-05-08] MEDS ORDERED: ACETAMINOPHEN 325 MG TAB PO PRN (14:21)
[2020-05-08] MEDS ORDERED: SODIUM CHLORIDE 0.9% 1000ML 1,000 ML IV SCH (15:00)
--- NOTE | 2020-05-08 16:46 | Hospitalist Consultation ---
Date of Consultation May 08, 2020 Assessment & Plan (1) Perforated appendicitis: s/p lap appendectomy Pain control, dvt proph per primary montitor for acute blood loss anemia - cbc am (2) Peripheral neuropathy: Continue home gabapentin (3) Hypertension: Continue home lisinopril, amlodipine (4) COPD (chronic obstructive pulmonary disease): Continue home inhalers (5) Anxiety: Continue home buspar Supervising Physician Co-Signing Physician Notes Patient seen and examined with Cristiana CASE. I agree with their exam findings, review of systems, assessment and plan. I personally reviewed the lab work and imaging as well. patient recovering well from surgery, pain well controlled, tolerating clears breathing well - Acute appendicitis, s/p lap appy: pain control, diet per surgery - HTN, neuropathy, COPD, anxiety chronic issues are stable, continue home medications check labs in the AM, likely will be ready for discharge on 05/09 History of Present Illness Attending Physician: Torey Reardon MD, FACS History of Present Illness Ms. Escamilla is s/p lap appe with Dr. Reardon today. She reports feeling pretty well, no nausea, eating crackers, not passing gas yet. 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 Family: stroke Allergies Allergy/AdvReac Type Severity Reaction Status Date / Time amoxicillin Allergy Mild rash Verified 05/08/20 11:20 Home Medications Home Medications Medication Instructions Recorded Confirmed Type calcium carbonate 600 mg calcium 600 mg PO QAM tab 02/12/19 05/08/20 History (1,500 mg) tablet cholecalciferol (vitamin D3) 50 2,000 units PO DAILY 03/09/19 05/08/20 History mcg (2,000 unit) capsule diphenhydramine 25 1 tab PO HS PRN 03/09/19 05/08/20 History mg-acetaminophen 500 mg tablet buspirone 5 mg tablet 5 mg PO BID #180 tab 08/26/19 05/08/20 Rx loratadine 10 mg capsule 10 mg PO QAM cap 09/14/19 05/08/20 History multivitamin 1 tab PO QAM 09/14/19 05/08/20 History albuterol sulfate 90 mcg/actuation 2 puffs INH Q6H PRN #8.5 gm 10/07/19 05/08/20 Rx aerosol inhaler gabapentin 300 mg capsule 300 mg PO HS #90 cap 12/03/19 05/08/20 Rx budesonide-formoterol HFA 160 2 puffs INH BID #10.2 gm 02/15/20 05/08/20 Rx mcg-4.5 mcg/actuation aerosol inhaler amlodipine 5 mg PO QAM 04/26/20 05/08/20 History lisinopril 40 mg PO QAM 04/26/20 05/08/20 History ciprofloxacin HCl 500 mg PO BID #10 tab 05/09/20 Rx hydrocodone-acetaminophen [[place]] 1 - 2 tab PO Q6H PRN #20 tab 05/09/20 Rx Patient History Medical History Anxiety COPD (chronic obstructive pulmonary disease) Dyslipidemia Hypertension Impaired fasting glucose Hgb A1C on 02/2020= 5.7 Osteoporosis not agreeable to Rx Peripheral neuropathy Vitamin D deficiency Surgical History H/O tubal ligation History of cataract surgery RT/LEFT History of section X 1 History of colonoscopy 04/05/2020 History of tooth extraction Family History Father Diabetes Family history of diabetes mellitus Other Stroke Social History Smoking Status: Former smoker Tobacco Type: Cigarettes Age Started Using Tobacco: 17; Age Quit Using Tobacco: 65; packs per day: 1; Second Hand Exposure: Yes (as a child); Hx Alcohol Use: Yes Alcohol type: wine Alcohol Intake Frequency: 4 or More x per/Week Alcohol Intake Frequency Comment: 2 glasses of wine daily Hx Substance Use: No Preferred Language: Puerto Rican Communication Ability: Effective Visual Impairment: No Limitations Hearing Ability: Normal [employer] Equipment Operator Required: No Beliefs That Will Affect Care: None marital status: Current Living Situation: Spouse current occupational status: retired Feels Safe at Home: Yes Seatbelt Use: always Sunscreen Use: Yes Review of Systems Constitutional: no fever, no chills and no body aches Respiratory: no cough and no dyspnea Cardiovascular: no chest pain, no dyspnea and no palpitations Gastrointestinal: no abdominal pain and no vomiting Genitourinary: no dysuria and no urinary hesitancy Musculoskeletal: no back pain and no joint pain Integumentary: no rash Neurologic: no localized weakness and no loss of sensation Physical Exam Physical Exam: General: no distress Eyes: normal inspection, PERLL Respiratory: chest non tender, clear to auscultation, normal breath sounds, no respiratory distress, no accessory muscle use Cardiac: regular rate and rhythm, no rub or gallop, no murmur, no edema, no jvd GI/: hypoactive bowel sounds, no abd pain or tenderness, soft, non distended Extremities: normal range of motion, normal strength, non tender Neuro/Psych: alert and oriented x 3, normal mood and affect Skin: normal color, dry Results & Data Results & Data ([facility]) Vital Signs (Past 12 Hours) Vital Signs Temp Pulse Pulse Pulse Resp BP BP 05/08/20 15:59 36.5 C 83 16 146/66 H 05/08/20 15:00 36.4 C L 76 16 155/78 H 05/08/20 14:43 36.3 C L 73 16 153/78 H 05/08/20 14:05 36.8 C 74 16 137/75 05/08/20 13:55 78 16 148/78 H 05/08/20 13:40 36.7 C 79 16 148/75 H 05/08/20 13:30 79 16 150/72 H 05/08/20 13:20 79 16 152/85 H 05/08/20 13:12 36.8 C 83 16 159/80 H 05/08/20 11:28 36.8 C 80 20 157/85 H Pulse Ox 05/08/20 15:59 90 05/08/20 15:00 92 05/08/20 14:43 91 05/08/20 14:05 94 05/08/20 13:55 93 05/08/20 13:40 96 05/08/20 13:30 100 05/08/20 13:20 100 05/08/20 13:12 100 05/08/20 11:28 95 PG Care Time/CCT Total # of Minutes Spent Total Time Spent with Patient: Total time spent is greater than 50% in coordination of care (as documented) at patient's floor/unit and/or counseling patient: Coding Level of Care Code 49809 Inpt Consult Level 4 Diagnoses Perforated appendicitis K35.32 Peripheral neuropathy G62.9 Hypertension I10 COPD (chronic obstructive pulmonary disease) J44.9 Anxiety F41.9
[2020-05-08] MEDS ORDERED: GABAPENTIN 300 MG CAP PO SCH (21:00)
[2020-05-09 05:44] LABS: Hematocrit (blood only) 39.1 % (37-47); Hemoglobin 13.2 g/dL (12.0-16.0); Immature Granulocytes # (auto) 0.01 K/uL (0.00-0.02); Immature Granulocytes % (auto) 0.1 %; Lymphocytes # (auto) 1.17 K/uL (1.2-3.4); Lymphocytes % (auto) 16.4 %; Mean Corpuscular Hemoglobin 29.1 pg (25-34); Mean Corpuscular Hgb Conc 33.8 g/dL (32-36); Mean Corpuscular Volume 86.3 fL (80-100); Mean Platelet Volume 8.1 fL (7.4-10.4); Monocytes # (auto) 0.93 K/uL (0.11-0.59); Neutrophils # (auto) 5.04 K/uL (1.4-6.5); Neutrophils % (auto) 70.5 %; Platelet Count 321 K/uL (130-400); RDW Coefficient of Variation 14.5 % (11.5-14.5); RDW Standard Deviation 45.6 fL (36.4-46.3); Red Blood Count 4.53 M/uL (4.2-5.4); White Blood Count 7.15 K/uL (4.8-10.8)
[2020-05-09 06:23] LABS: Albumin Level 3.1 gm/dl (3.4-5.0); BUN Creatinine Ratio 13.7 (10-20); Calcium 8.6 mg/dl (8.5-10.1); Creatinine Clr Calc Pharmacy 55.3 ml/min; Est GFR (African American) 85.7; Potassium 4.2 mmol/L (3.5-5.1)
[2020-05-09 06:26] LABS: Bilirubin,Total 0.5 mg/dl (0.2-1); Globulin 3.2 gm/dl (2.5-4.0); Phosphorus 3.9 mg/dl (2.5-4.9); Total Protein 6.3 gm/dl (6.4-8.2)
[2020-05-09] MEDS ORDERED: HEPARIN SOD 5,000 UNIT/0.5 ML VIAL SQ SCH (09:00)
[2020-05-09] MEDS ORDERED: FLUTICASONE/VILANTEROL 100/25MCG 14 PUFFS/INHALER INH SCH (09:00)
[2020-05-09] MEDS ORDERED: AMLODIPINE BESYLATE 5 MG TAB PO SCH (09:00)
[2020-05-09] MEDS ORDERED: LORATADINE 10 MG TAB PO SCH (09:00)
[2020-05-09] MEDS ORDERED: lisinopriL 40 MG TAB PO SCH (09:00)
[2020-05-09] MEDS ORDERED: CALCIUM CARBONATE 1250MG TAB PO SCH (09:00)
--- NOTE | 2020-05-10 11:26 | Discharge Summary (DS) ---
PRINCIPAL DIAGNOSIS: Appendicitis. HISTORY OF PRESENT ILLNESS: The patient is a 80-year-old female who had been admitted to the hospital with a ruptured appendix and phlegmon, treated with IV antibiotics, then oral antibiotics, now for removal of her appendix. HOSPITAL COURSE: The patient was brought into the hospital on 05/08/2020. She underwent laparoscopic appendectomy with drain placement. She has done very well overnight and felt stable for discharge home with the drain, to be seen in the surgical office within 2-3 days.
== END 2020-05-09 11:05 | disposition home or self-care (01) ==
LOC: ASU 10:56 → 3N 13:03 → INTOOBSV 13:03

== ENCOUNTER 2022-11-27 16:01 | Inpatient (IN) ==
--- NOTE | 2022-11-27 16:11 | ED Triage Note ---
Date of Service November 27, 2022 History of Present Illness This patient was briefly evaluated while in triage. An abbreviated physical exam was performed. This patient is a 82-year-old Female, history of metastatic cancer (primary lung cancer, who presents to the ED for evaluation of jaundice. The patient reports that she has an obstructed common bile duct. She is scheduled for an ERCP tomorrow by Dr. Nielsen. The patient reports generalized lower back pain, rating her discomfort a 4 out of 10 Physical Exam CONSTITUTIONAL: Healthy and well nourished. Alert and oriented X 3. Patient does not appear in any acute distress HEENT: No significant scleral icterus or conjunctival injection/pallor NECK: Full active range of motion without discomfort. LYMPHATICS: No cervical chain adenopathy. RESPIRATORY: Clear to auscultation bilaterally with no wheezing, crackles, rhonchi or stridor. CARDIOVASCULAR: Regular rate and rhythm with no murmurs, rubs or gallops. GASTROINTESTINAL: Bowel sounds present in all quadrants. Patient does not have any focal abdominal tenderness to palpation MUSCULOSKELETAL: Full range of motion of all joints without discomfort. INTEGUMENTARY: No rash or other significant dermatologic conditions noted. HEMATOLOGIC: No ecchymosis or petechiae. PSYCHIATRIC: Positive affect. NEUROLOGIC: No focal neurologic deficits noted. Initial orders for labs and / or imaging were placed and patient was placed in the waiting area until a bed is available. Please see further documentation for the full ED course.
--- NOTE | 2022-11-27 16:15 | Emergency Department Note ---
Impression & Plan Biliary obstruction, Jaundice, Metastatic adenocarcinoma, Transaminitis ED Provider Note NAME: KRISTIE CHAMBERS AGE: 82 SEX: F : 1940 ARRIVES VIA: Walk-In INFORMANT: Patient, ED PROVIDER(S): Uri Wolf MD CHIEF COMPLAINT: Biliary obstruction, jaundice MEDICAL DECISION MAKING: Patient presents due to concern for jaundice as well as a biliary obstruction. Repeat blood work was obtained along with a COVID swab. The patient declined any pain medication at this time. It is through the on-call hospitalist service . Patient was already made aware several subspecialist Dr. Nielsen with GI will plan to perform ERCP tomorrow as well as patient's oncologist Dr. Stokes. Lower today shows a normal white count hemoglobin with mild thrombocytosis of 433. Initial sodium at 124. Total bilirubin today of 18 with alk phos of 1500. I did speak with the on-call hospitalist service Wilmar Reynolds PA-C and the patient was admitted by Dr. Sun. Prior /Outside records reviewed: The patient did have blood work completed yesterday which I reviewed and the patient had a normal white count normal hemoglobin. The patient did have bilirubin of 16 with transaminitis AST ALT alk phos all elevated. Patient did have blood work completed today. Patient did have a CT completed yesterday which shows development of moderate to severe intra and extrahepatic biliary ductal dilatation and abrupt caliber change of the CBD at the level of the pancreatic head likely due to biliary obstruction I did review the patient's most recent's palliative care note from Dr. Howard from yesterday the patient does have a known history of metastatic adenocarcinoma of the lung. Differential diagnosis: Biliary obstruction, biliary stricture, choledocholithiasis, mass, hepatitis among others were considered Diagnostics, as interpreted by me: ECG: None Cardiac monitoring: An order was placed for continuous cardiac monitoring. The monitor shows a rate of 82 with sinus rhythm. Patient was placed on pulse oximetry Medical decision rules: None Imaging studies: See below HPI: Patient presents due to concern for outpatient testing that showed the patient recently does have a biliary obstruction with associated transaminitis and elevated bilirubin. The patient is undergoing treatment currently just radiation for known metastatic adenocarcinoma of the lung. The patient did see Martine Howard with palliative care yesterday and was prescribed pain medication as well as something for sleep. The patient has been taking some Aleve typically twice daily for general aches and pains and the patient states that she primarily does have chronic pain related to back and rib pain. The patient does have known bony metastases. The patient denies any recent falls or trauma. The patient most recently noticed the jaundice approximate 3 days ago which spurred the further testing. Patient is a former smoker. PAST MEDICAL HISTORY: See Below PAST SURGICAL HISTORY: See Below SOCIAL HISTORY: See Below HOME MEDICATIONS: See Below ALLERGIES: See Below VITALS: See Below PHYSICAL EXAMINATION: GENERAL: NAD, wearing a mask, non-toxic. EYE EXAM: Scleral icterus noted PERRL, no anisocoria and EOM's grossly intact w/o pain. NECK: Supple, no nuchal rigidity, no adenopathy, non-tender. No signs of meningismus. FROM of the neck with good chin to chest and neck extension. No stridor. LUNGS: Clear to auscultation. Normal chest wall mechanics. HEART: NSR, no MRG. ABDOMEN: Abdomen soft, non-tender, no masses, no rebound or guarding. BACK: No CVA TTP. SKIN: Jaundice of the skin noted. UPPER EXTREMITIES: Upper extremities are grossly normal. LOWER EXTREMITIES: Grossly normal, no edema. NEURO EXAM: A&O x3, cranial nerves II-XII grossly intact, normal speech, moves all 4 extremities. Past Med/Surg History Medical History Actinic keratosis Anxiety Chronic venous insufficiency COPD (chronic obstructive pulmonary disease) Dyslipidemia GERD (gastroesophageal reflux disease) Hypertension Impaired fasting glucose Osteoporosis Peripheral arterial disease Peripheral neuropathy Seborrheic keratosis Vitamin D deficiency Surgical History H/O tubal ligation History of cataract surgery History of section History of colonoscopy History of tooth extraction S/P laparoscopic appendectomy (04/2020) Family History Father Diabetes Family history of diabetes mellitus Mother No problems noted. Sister No problems noted. Brother Lung cancer Brother No problems noted. Brother No problems noted. Son No problems noted. Daughter No problems noted. Other Stroke Denies family history of Ovarian cancer Prostate cancer Myocardial infarction Breast cancer Colorectal cancer Social History Smoking Status: Light tobacco smoker Tobacco Type: Cigarettes Age Started Using Tobacco: 17; Age Quit Using Tobacco: 65; packs per day: 1; Second Hand Exposure: Yes (as a child); Hx Alcohol Use: Yes Alcohol type: wine Alcohol Intake Frequency: 4 or More x per/Week Alcohol Intake Frequency Comment: 2 glasses of wine daily Hx Substance Use: No Preferred Language: Polish Communication Ability: Effective Visual Impairment: No Limitations Hearing Ability: Normal [employer] Teacher Required: No Beliefs That Will Affect Care: None marital status: Current Living Situation: Spouse current occupational status: retired 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 permanant contacts Allergies Allergies Allergy/AdvReac Type Severity Reaction Status Date / Time amoxicillin Allergy Intermediate rash Verified 11/27/22 17:00 tramadol AdvReac Intermediate loss of Verified 11/27/22 17:00 apetite Home Meds Home Medications Medication Instructions Recorded Confirmed calcium carbonate 600 mg calcium 600 mg PO QAM 02/12/19 11/27/22 (1,500 mg) tablet cholecalciferol (vitamin D3) 50 2,000 units PO DAILY 03/09/19 11/27/22 mcg (2,000 unit) capsule diphenhydramine 25 1 tab PO HS PRN Sleep 03/09/19 11/27/22 mg-acetaminophen 500 mg tablet (Tylenol PM Extra Strength) loratadine 10 mg capsule 10 mg PO QAM 09/14/19 11/27/22 multivitamin 1 tab PO QAM 09/14/19 11/27/22 magnesium oxide 400 mg (241.3 mg 400 mg PO DAILY 05/08/21 11/27/22 magnesium) tablet naproxen sodium 220 mg capsule 220 mg PO BID PRN Pain 10/18/22 11/27/22 (Aleve) hydrocodone 5 mg-acetaminophen 325 1 tab PO Q4H PRN Pain 11/27/22 11/27/22 mg tablet mirtazapine 7.5 mg tablet 7.5 mg PO HS 11/27/22 11/27/22 sennosides 8.6 mg tablet (Senokot) 8.6 mg PO HS 11/27/22 11/27/22 Previous Rx's Medication Instructions Recorded albuterol sulfate 90 mcg/actuation 2 puffs inhalation Q6H PRN 10/07/19 aerosol inhaler (Ventolin HFA) shortness of breath or wheezing #8.5 grams Symbicort 160 mcg-4.5 2 puff inhalation BID #10.2 grams 11/26/21 mcg/actuation HFA aerosol inhaler (budesonide-formoterol) lisinopril 40 mg tablet 40 mg PO DAILY #90 tabs 05/07/22 pantoprazole 40 mg tablet,delayed 40 mg PO DAILY #90 tabs 05/22/22 release buspirone 5 mg tablet 5 mg PO BID #180 tabs 09/02/22 rosuvastatin 10 mg tablet 10 mg PO DAILY #30 tabs 10/01/22 amlodipine 5 mg tablet 5 mg PO DAILY #90 tabs 10/07/22 gabapentin 400 mg capsule 400 mg PO HS #90 caps 11/01/22 Results & Data (ED) Vital Signs Vital Signs - 24 hr 11/27/22 16:07 Temperature 36.6 C Temperature Source Temporal Artery Scan Pulse Rate 90 Respiratory Rate 18 Respiratory Effort / Characteristics Non-Labored Spontaneous Respiratory Depth Normal Respiratory Pattern Regular Blood Pressure 134/76 Blood Pressure Mean 95 Blood Pressure Position Sitting Pulse Oximetry 97 Oxygen Delivery Method Room Air Sepsis Recent Fever Within 48 Hours No Sepsis New/Unexplained Change in Mental Status N/A Sepsis Action Taken by Nursing No Action Required Laboratory Data 11/27/22 16:41 11/27/22 21:38 Lab Results 11/27/22 11/27/22 11/27/22 Range/Units 16:41 16:41 16:41 WBC 8.05 (4.8-10.8) K/ul RBC 4.30 (4.20-5.40) M/uL Hgb 12.4 (12.0-16.0) g/dl Hct 33.5 L (37.0-47.0) % MCV 77.9 L (80.0-100.0) fL MCH 28.8 (25.0-34.0) pg MCHC 37.0 H (32.0-36.0) g/dL RDW Std Deviation 45.4 (36.4-46.3) fL RDW Coeff of Kisha 16.5 H (11.5-14.5) % Plt Count 433 H (130-400) K/uL MPV 8.9 L (9.4-12.4) fL Immature Gran % (Auto) 0.4 % Neut % (Auto) 71.2 % Lymph % (Auto) 10.9 % [place] % (Auto) 15.9 % Eos % (Auto) 1.2 % Baso % (Auto) 0.4 % Neut # (Auto) 5.73 (1.40-6.50) K/uL Lymph # (Auto) 0.88 L (1.2-3.4) K/uL [place] # (Auto) 1.28 H (0.11-0.59) K/uL Eos # (Auto) 0.10 (0-0.50) K/uL Baso # (Auto) 0.03 (0-0.2) K/uL Immature Gran # (Auto) 0.03 (0.01-0.20) K/uL PT 12.4 H (9.0-12.0) Seconds INR 1.2 H (0.9-1.1) Sodium 124 L (136-145) mmol/L Potassium 3.9 (3.5-5.1) mmol/L Chloride 91 L (98-107) mmol/L Carbon Dioxide 24 (21-32) mmol/L Anion Gap 9 (3-11) BUN 18 (6-23) mg/dl Creatinine 0.77 (0.6-1.2) mg/dl Est Cr Clr Drug Dosing Not Reportable Est GFR ( Amer) 84.5 ml/min Est GFR (Non-Af Amer) 72.9 ml/min BUN/Creatinine Ratio 23.4 H (10-20) Glucose 111 H (70-99(Fasting)) mg/dl Calcium 9.4 (8.6-10.3) mg/dl Total Bilirubin 18.2 H (0.2-1.0) mg/dl AST 317 H (13-39) U/L ALT 396 H (7-52) U/L Alkaline Phosphatase 1559 H (34-104) U/L Total Protein 6.1 (6.0-8.3) gm/dl Albumin 3.5 (3.4-5.0) gm/dl Globulin 2.6 (2.5-4.0) gm/dl Albumin/Globulin Ratio 1.3 (0.9-2) Lipase TNP SARS-CoV-2, RNA, NAAT (NEGATIVE) 11/27/22 Range/Units 17:00 WBC (4.8-10.8) K/ul RBC (4.20-5.40) M/uL Hgb (12.0-16.0) g/dl Hct (37.0-47.0) % MCV (80.0-100.0) fL MCH (25.0-34.0) pg MCHC (32.0-36.0) g/dL RDW Std Deviation (36.4-46.3) fL RDW Coeff of Kisha (11.5-14.5) % Plt Count (130-400) K/uL MPV (9.4-12.4) fL Immature Gran % (Auto) % Neut % (Auto) % Lymph % (Auto) % [place] % (Auto) % Eos % (Auto) % Baso % (Auto) % Neut # (Auto) (1.40-6.50) K/uL Lymph # (Auto) (1.2-3.4) K/uL [place] # (Auto) (0.11-0.59) K/uL Eos # (Auto) (0-0.50) K/uL Baso # (Auto) (0-0.2) K/uL Immature Gran # (Auto) (0.01-0.20) K/uL PT (9.0-12.0) Seconds INR (0.9-1.1) Sodium (136-145) mmol/L Potassium (3.5-5.1) mmol/L Chloride (98-107) mmol/L Carbon Dioxide (21-32) mmol/L Anion Gap (3-11) BUN (6-23) mg/dl Creatinine (0.6-1.2) mg/dl Est Cr Clr Drug Dosing Est GFR ( Amer) ml/min Est GFR (Non-Af Amer) ml/min BUN/Creatinine Ratio (10-20) Glucose (70-99(Fasting)) mg/dl Calcium (8.6-10.3) mg/dl Total Bilirubin (0.2-1.0) mg/dl AST (13-39) U/L ALT (7-52) U/L Alkaline Phosphatase (34-104) U/L Total Protein (6.0-8.3) gm/dl Albumin (3.4-5.0) gm/dl Globulin (2.5-4.0) gm/dl Albumin/Globulin Ratio (0.9-2) Lipase SARS-CoV-2, RNA, NAAT NEGATIVE (NEGATIVE) Administered Medications Buspirone HCl (Buspirone 5 Mg Tab) 5 mg PO BID OSMAN Stop: 12/27/22 20:59 Last Admin: 11/27/22 21:21 Dose: 5 mg Documented By: [id number] Gabapentin (Gabapentin 100 Mg Cap) 200 mg PO HS OSMAN Stop: 12/27/22 20:59 Last Admin: 11/27/22 21:21 Dose: 200 mg Documented By: [id number] Mirtazapine (Mirtazapine Tab 15 Mg Tab) 7.5 mg PO HS OSMAN Stop: 12/27/22 20:59 Last Admin: 11/27/22 21:18 Dose: 7.5 mg Documented By: [id number] Morphine Sulfate (Morphine Sulfate 2 Mg/Ml Carp) 1 mg IV Q3H PRN PRN Reason: Pain (4,5,6+) Stop: 12/11/22 18:12 Last Admin: 11/27/22 20:40 Dose: 1 mg Documented By: [id number] Discontinued Medications Pantoprazole Sodium 40 mg/ (Syringe) 10 mls @ 5 mls/min IV NOW ONE Stop: 11/27/22 18:31 Last Admin: 11/27/22 18:36 Dose: 5 mls/min Documented By: [id number] Naproxen (Naproxen 250 Mg Tab) 250 mg PO NOW STA Stop: 11/27/22 18:18 Last Admin: 11/27/22 18:36 Dose: 250 mg Documented By: [id number] Discharge Plan Visit Data Chief Complaint: Referred by Doctor Stated Complaint: JAUNDICE REF BY DR AGARWAL ED Provider: Uri Wolf Discharge Problem: Biliary obstruction, Jaundice, Metastatic adenocarcinoma, Transaminitis Discharge Instructions Interventions: ED Discharge Assessment Last Done: 11/27/22 20:48
[2022-11-27 17:00] LABS: Basophils # (auto) 0.03 K/uL (0-0.2); Basophils % (auto) 0.4 %; Eosinophils % (auto) 1.2 %; Hematocrit (blood only) 33.5 % (37.0-47.0); Hemoglobin 12.4 g/dl (12.0-16.0); Immature Granulocytes # (auto) 0.03 K/uL (0.01-0.20); Immature Granulocytes % (auto) 0.4 %; Lymphocytes # (auto) 0.88 K/uL (1.2-3.4); Lymphocytes % (auto) 10.9 %; Mean Corpuscular Hemoglobin 28.8 pg (25.0-34.0); Mean Corpuscular Volume 77.9 fL (80.0-100.0); Mean Platelet Volume 8.9 fL (9.4-12.4); Monocytes # (auto) 1.28 K/uL (0.11-0.59); Monocytes % (auto) 15.9 %; Neutrophils # (auto) 5.73 K/uL (1.40-6.50); Neutrophils % (auto) 71.2 %; Platelet Count 433 K/uL (130-400); RDW Coefficient of Variation 16.5 % (11.5-14.5); RDW Standard Deviation 45.4 fL (36.4-46.3); White Blood Count 8.05 K/ul (4.8-10.8)
[2022-11-27 17:25] LABS: INR 1.2 (0.9-1.1); Prothrombin Time 12.4 Seconds (9.0-12.0)
--- NOTE | 2022-11-27 17:28 | History & Physical Report ---
Date of Service November 27, 2022 Assessment & Plan (1) Biliary obstruction: Plan: -Admit to med/tele -The patient is currently afebrile, hemodynamically stable, and stable on RA -Patient with significant jaundice with biliary obstruction at the pancreatic head found on CT of the abd/pelvis today -Patient is currently asymptomatic and without abdominal pain -GI (Dr. 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 Stokes and Rad Onc -Had her second dose of radiation therapy today, not currently on chemotherapy -Oncology consulted and following -Continue home pain regimen as prescribed by palliative med but with reduced dose of HS gabapentin due to hepatic function -Will hold tylenol at this time due to her hepatic function (4) GERD (gastroesophageal reflux disease): Plan: -Continue omeprazole (5) Hypertension: Plan: -Stable -Continue amlodipine and lisinopril (6) Dyslipidemia: Plan: -Hold statin with transaminitis (7) COPD (chronic obstructive pulmonary disease): Plan: -Stable on RA -Continue home breathing treatments -Incentive spirometry ordered (8) Anxiety: Plan: -Continue buspar Plan The patient was discussed with Dr. 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 Stokes of Oncology due to abnormal CT results. The patient reportedly had an acute onset of jaundice and labs were obtained yesterday showing significantly elevated LFT's. Due to these results the patient was sent for a CT of the abd/pelvis w/wo contrast which was read as "1. Interval development of moderate to severe intra and extrahepatic biliary ductal dilatation with abrupt caliber change of the CBD at the level the pancreatic head. This biliary obstruction is likely due to a pancreatic head lesion. GI consultation for consideration for ERCP is recommended. 2. Two pancreatic lesions, as described above. Given multiplicity, metastatic lung cancer is favored. However, a pancreatic adenocarcinomas could appear similar. 3. Progression of metastatic disease since CT of October 30, 2022, including adrenal, renal, skeletal and soft tissue metastases.". Due to these results Dr. Stokes contacted Dr. Nielsen of [facility] who is assisting with coordination of an ERCP. In the ED today the patient was found to be afebrile, hemodynamically stable, and stable on RA. Labs were remarkable for a CBC with WBC WNL, stable Hgb, platelets of 433, lymphocyte count of 0.88, cr of 0.77, sodium of 124 (down from 127 on 11/26 and 136 on 11/06), chloride of 91, elevated LFTS with total bili of 18, AST of 315, ALT of 396, and alk phos of 1559. At the time of the exam the patient was sitting in bed in no acute distress with her family sitting bedisde. She confirmed the recent history of acute Jaundice over the past 48 hours. She denies recent fevers, chills, headache, changes in vision, hearing, taste, and smell, chest pain, SOB, abd pain, vomiting, dysuria, hematuria, melena, LE swelling, and recent trauma. She states that her appetite has been very poor lately, she will try and make her self eat when she is not hungry and will occasionally vomit. Please refer to Dr. Sun's attestation for any changes to the treatment plan Allergies Allergy/AdvReac Type Severity Reaction Status Date / Time amoxicillin Allergy Intermediate rash Verified 11/27/22 17:00 tramadol AdvReac Intermediate loss of Verified 11/27/22 17:00 apetite Home Medications Medication Instructions Recorded Confirmed Type calcium carbonate 600 mg calcium 600 mg PO QAM 02/12/19 11/27/22 History (1,500 mg) tablet cholecalciferol (vitamin D3) 50 2,000 units PO DAILY 03/09/19 11/27/22 History mcg (2,000 unit) capsule diphenhydramine 25 1 tab PO HS PRN Sleep 03/09/19 11/27/22 History mg-acetaminophen 500 mg tablet (Tylenol PM Extra Strength) loratadine 10 mg capsule 10 mg PO QAM 09/14/19 11/27/22 History multivitamin 1 tab PO QAM 09/14/19 11/27/22 History albuterol sulfate 90 mcg/actuation 2 puffs inhalation Q6H PRN 10/07/19 11/27/22 Rx aerosol inhaler (Ventolin HFA) shortness of breath or wheezing #8.5 grams magnesium oxide 400 mg (241.3 mg 400 mg PO DAILY 05/08/21 11/27/22 History magnesium) tablet Symbicort 160 mcg-4.5 2 puff inhalation BID #10.2 grams 11/26/21 11/27/22 Rx mcg/actuation HFA aerosol inhaler (budesonide-formoterol) lisinopril 40 mg tablet 40 mg PO DAILY #90 tabs 05/07/22 11/27/22 Rx pantoprazole 40 mg tablet,delayed 40 mg PO DAILY #90 tabs 05/22/22 11/27/22 Rx release buspirone 5 mg tablet 5 mg PO BID #180 tabs 09/02/22 11/27/22 Rx rosuvastatin 10 mg tablet 10 mg PO DAILY #30 tabs 10/01/22 11/27/22 Rx amlodipine 5 mg tablet 5 mg PO DAILY #90 tabs 10/07/22 11/27/22 Rx naproxen sodium 220 mg capsule 220 mg PO BID PRN Pain 10/18/22 11/27/22 History (Aleve) gabapentin 400 mg capsule 400 mg PO HS #90 caps 11/01/22 11/27/22 Rx hydrocodone 5 mg-acetaminophen 325 1 tab PO Q4H PRN Pain 11/27/22 11/27/22 History mg tablet mirtazapine 7.5 mg tablet 7.5 mg PO HS 11/27/22 11/27/22 History sennosides 8.6 mg tablet (Senokot) 8.6 mg PO HS 11/27/22 11/27/22 History Past Med/Surg History Medical History Actinic keratosis Anxiety Chronic venous insufficiency COPD (chronic obstructive pulmonary disease) Dyslipidemia GERD (gastroesophageal reflux disease) Hypertension Impaired fasting glucose Osteoporosis declines Rx Peripheral arterial disease Peripheral neuropathy Seborrheic keratosis Vitamin D deficiency Surgical History H/O tubal ligation History of cataract surgery RT/LEFT History of section X 1 History of colonoscopy 04/05/2020 History of tooth extraction S/P laparoscopic appendectomy (04/2020) Family History Father Diabetes Family history of diabetes mellitus Mother No problems noted. Sister No problems noted. Brother Lung cancer Brother No problems noted. Brother No problems noted. Son No problems noted. Daughter No problems noted. Other Stroke Denies family history of Ovarian cancer Prostate cancer Myocardial infarction Breast cancer Colorectal cancer Social History Smoking Status: Light tobacco smoker Tobacco Type: Cigarettes Age Started Using Tobacco: 17; Age Quit Using Tobacco: 65; packs per day: 1; Second Hand Exposure: Yes (as a child); Hx Alcohol Use: Yes Alcohol type: wine Alcohol Intake Frequency: 4 or More x per/Week Alcohol Intake Frequency Comment: 2 glasses of wine daily Hx Substance Use: No Preferred Language: Maori Communication Ability: Effective Visual Impairment: No Limitations Hearing Ability: Normal Project Structural Engineer Required: No Beliefs That Will Affect Care: None marital status: Current Living Situation: Spouse current occupational status: retired 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 permanant contacts Physical Exam Physical Exam: Physical Exam: General: In no acute distress, stated age, chronically ill appearing HEENT: Normocephalic, atraumatic, + scleral icterus, pupils around round, symmetrical, and reactive to light, dry mucus membranes, trachea midline, no thyromegaly Chest/Pulm: No respiratory distress, symmetrical chest expansion, scattered rhonchi and wheezing throughout Cardiac: RRR, no murmurs noted Abdomen: Negative for ascites and bruising, hyperactive bowel sounds, soft, non-tender to palpation throughout Musculoskeletal: Symmetrical and without signs of acute trauma, upper and lower extremities with full ROM, no atrophy, spasticity, or flaccidity Extremities: Radial, dorsalis pedis, and posterior tibial pulses are intact and symmetrical, no edema noted in the BL LE's Skin: + jaundice throughout Neuro: Alert and oriented to person, place, month, year, and president, no focal defects, no tremors noted Psych: No acute distress, calm and cooperative during the exam Results & Data Results & Data Vital Signs (Past 12 Hours) Vital Signs Temp Pulse Resp BP Pulse Ox O2 Del Method 11/27/22 16:07 36.6 C 90 18 134/76 97 Room Air Laboratory Results Abnormal lab results 11/27/22 11/27/22 11/27/22 Range/Units 16:41 16:41 16:41 Hct 33.5 L (37.0-47.0) % MCV 77.9 L (80.0-100.0) fL MCHC 37.0 H (32.0-36.0) g/dL RDW Coeff of Kisha 16.5 H (11.5-14.5) % Plt Count 433 H (130-400) K/uL MPV 8.9 L (9.4-12.4) fL Lymph # (Auto) 0.88 L (1.2-3.4) K/uL [place] # (Auto) 1.28 H (0.11-0.59) K/uL PT 12.4 H (9.0-12.0) Seconds INR 1.2 H (0.9-1.1) Sodium 124 L (136-145) mmol/L Chloride 91 L (98-107) mmol/L BUN/Creatinine Ratio 23.4 H (10-20) Glucose 111 H (70-99(Fasting)) mg/dl Total Bilirubin 18.2 H (0.2-1.0) mg/dl AST 317 H (13-39) U/L ALT 396 H (7-52) U/L Alkaline Phosphatase 1559 H (34-104) U/L Diagnostic Findings CT OF THE ABDOMEN AND PELVIS WITH AND WITHOUT CONTRAST LIVER PROTOCOL CLINICAL HISTORY: Lung adenocarcinoma (C34.11). Abrupt onset jaundice. COMPARISON STUDY: CT of the abdomen and pelvis October 30, 2022. TECHNIQUE: Unenhanced, arterial and venous phase imaging of the abdomen and pelvis was performed. Intravenous injection of 87 cc of Optiray 350 IV was uneventful. Automated exposure control was utilized for the study. A dose lowering technique was utilized adhering to the principles of ALARA. Oral contrast was administered. CT DOSE: 685.21 mGy.cm FINDINGS: No pneumatosis, free air or portal venous gas is present. There has been interval development of moderate to severe intra and extrahepatic biliary ductal dilatation. The common bile duct measures 1.8 cm in caliber. There is abrupt caliber change of the proximal to mid common bile duct on axial image 122 of 386. This is adjacent to a 1.8 cm hypodense pancreatic head lesion. This lesion probably results in obstruction of the CBD. There is associated pancreatic ductal dilatation. The pancreatic duct measures 7 mm in caliber. There is an additional pancreatic lesion measuring 1.4 cm within the uncinate process. A subtle 1 cm hypervascular segment 8 hepatic lesion is indeterminate. No additional hepatic lesions are present. Liver morphology is normal. Spleen is unremarkable. Bilateral adrenal lesions have increased in size since prior CT of October 30, 2022. The right adrenal lesion measures 2.6 cm. Multiple hypodense bilateral renal lesions suggest renal metastases. There are additional numerous renal cysts. There is no hydronephrosis. No evidence for a bowel obstruction. No ascites is present. Multiple skeletal lesions are again noted with several lower thoracic and lumbar spine pathologic fractures. These lesions have mildly increased since prior CT and MRI. No new pathologic fractures are present. Subcutaneous nodules of the lower back and left anterior abdominal wall likely reflect implants. IMPRESSION: 1. Interval development of moderate to severe intra and extrahepatic biliary ductal dilatation with abrupt caliber change of the CBD at the level the pancreatic head. This biliary obstruction is likely due to a pancreatic head lesion. GI consultation for consideration for ERCP is recommended. 2. Two pancreatic lesions, as described above. Given multiplicity, metastatic lung cancer is favored. However, a pancreatic adenocarcinomas could appear similar. 3. Progression of metastatic disease since CT of October 30, 2022, including adrenal, renal, skeletal and soft tissue metastases. Supervising Physician Co-Signing Physician Notes I personally saw and examined the patient. I verified all garcía points and agree with Wilmar Reynolds PA-C with the following exceptions and/or additions: 82 year old female with metastatic lung adenocarcinoma with increasing jaundice for the last 4 days. Having chronic back pain since diagnosis but no new abdominal pain in the last few days - mild pain over right ribs only. No fever or chills. O/E A&Ox3, icteric sclera, generalized jaundice. HS RRR, no murmurs, Chest CTAB, Abdo SNT A/P Obstructive jaundice / pancreatic mass - elevated bilirubin to pancreatic mass. Stop further NSAIDs. Oncology discussed with GI and planning on ERCP tomorrow. Clear liquids then NPO after midnight Acute hyponatremia -Urine osm/Na low - suspect from poor sodium oral intake and more free water. Should improve with NSS. Repeat Na 126. Overnight to make sure she is ready for surgery will give 50ml hypertonic saline IV and repeat level in AM. PG Care Time/CCT Total # of Minutes Spent Total Time Spent with Patient: Total time spent is greater than 50% in coordination of care (as documented) at patient's floor/unit and/or counseling patient: C[place] [address] INT INP/OBS CARE 3/75MIN Patient Type Established Medical Decision Making High Complexity Diagnoses Biliary obstruction K83.1 Hyponatremia E87.1 Metastatic adenocarcinoma C79.9 GERD (gastroesophageal reflux disease) K21.9 Hypertension I10 Dyslipidemia E78.5 COPD (chronic obstructive pulmonary disease) J44.9 Anxiety F41.9
[2022-11-27 17:31] LABS: Alanine Aminotransferase 396 U/L (7-52); Albumin Globulin Ratio 1.3 (0.9-2); Albumin Level 3.5 gm/dl (3.4-5.0); Alkaline Phosphatase 1559 U/L (34-104); Anion Gap 9 (3-11); Aspartate Aminotransferase 317 U/L (13-39); BUN Creatinine Ratio 23.4 (10-20); Bilirubin,Total 18.2 mg/dl (0.2-1.0); Blood Urea Nitrogen 18 mg/dl (6-23); Calcium 9.4 mg/dl (8.6-10.3); Carbon Dioxide 24 mmol/L (21-32); Chloride 91 mmol/L (98-107); Est GFR (African American) 84.5 ml/min; Est GFR (Non-African American) 72.9 ml/min; Globulin 2.6 gm/dl (2.5-4.0); Glucose 111 mg/dl (70-99(Fasting)); Potassium 3.9 mmol/L (3.5-5.1); Sodium 124 mmol/L (136-145); Total Protein 6.1 gm/dl (6.0-8.3)
[2022-11-27] MEDS ORDERED: MoRPHine SULFATE 2 MG/ML CARP IV PRN (18:13)
[2022-11-27] MEDS ORDERED: NAPROXEN 250 MG TAB PO STA (18:17)
[2022-11-27] MEDS ORDERED: PANTOprazole 40 MG in SYRINGE 0 ML IV ONE (18:30)
[2022-11-27] MEDS ORDERED: ALBUTEROL HFA 8 GM INHALER INH PRN (20:47)
[2022-11-27] MEDS: MIRTAZAPINE TAB 15 MG TAB PO SCH (21:18)
[2022-11-27] MEDS: busPIRone 5 MG TAB PO SCH (21:21)
[2022-11-27] MEDS: GABAPENTIN 100 MG CAP PO SCH (21:21)
[2022-11-27] MEDS ORDERED: PHYTONADIONE 2.5 MG in DEXTROSE 5% 50 ML IV ONE (22:30)
[2022-11-27 22:44] LABS: Appearance Urine Clear (Clear); Bacteria Urine Automated 2+ (Negative); Blood Urine Negative (Negative); Color Urine Dark Yellow; Epithelial Cell Urine Auto 20-30 /lpf (0-5); Glucose Urine UA Negative (Negative); Ketones Urine Negative (Negative); Leukocyte Esterase Urine Trace (Negative); Nitrite Urine Negative (Negative); Protein Urine Negative (Negative); RBC Urine Automated 0-4 /hpf (0-4); Specific Gravity Urine 1.021 (1.000-1.030); Urobilinogen Urine Negative (Negative)
[2022-11-27 22:54] LABS: Bilirubin Urine 2+ (Negative)
[2022-11-28] MEDS ORDERED: STAT IV STA (00:05)
[2022-11-28] MEDS ORDERED: SODIUM CHLORIDE 3 % 50 ML IV ONE (00:05)
--- NOTE | 2022-11-28 06:54 | Anesthesiology Consultation ---
Date of Service November 28, 2022 Assessment & Plan (1) Encounter for pre-operative examination: Chart Review Chart Review: Patient NOT seen in Pre Admission Testing Consults Requested none History Surgery Operation Date: 11/28/22 11:15 Proposed Procedures p Endoscopic Retrograde Cholangiopancreatogram - Tommy Nielsen DO Height/Weight Height: 5 ft 5 in Weight: 57 kg Allergies Allergy/AdvReac Type Severity Reaction Status Date / Time amoxicillin Allergy Intermediate rash Verified 11/27/22 17:00 tramadol AdvReac Intermediate loss of Verified 11/27/22 17:00 apetite Medications Home Medications Medication Instructions Recorded Confirmed Last Taken calcium carbonate 600 mg calcium 600 mg PO QAM 02/12/19 11/27/22 11/26/22 (1,500 mg) tablet cholecalciferol (vitamin D3) 50 2,000 units PO DAILY 03/09/19 11/27/22 11/26/22 mcg (2,000 unit) capsule diphenhydramine 25 1 tab PO HS PRN Sleep 03/09/19 11/27/22 05/07/20 23:00 mg-acetaminophen 500 mg tablet (Tylenol PM Extra Strength) loratadine 10 mg capsule 10 mg PO QAM 09/14/19 11/27/22 11/26/22 multivitamin 1 tab PO QAM 09/14/19 11/27/22 11/27/22 albuterol sulfate 90 mcg/actuation 2 puffs inhalation Q6H PRN 10/07/19 11/27/22 Unknown aerosol inhaler (Ventolin HFA) shortness of breath or wheezing #8.5 grams magnesium oxide 400 mg (241.3 mg 400 mg PO DAILY 05/08/21 11/27/22 11/26/22 magnesium) tablet Symbicort 160 mcg-4.5 2 puff inhalation BID #10.2 grams 11/26/21 11/27/22 11/27/22 08:00 mcg/actuation HFA aerosol inhaler (budesonide-formoterol) lisinopril 40 mg tablet 40 mg PO DAILY #90 tabs 05/07/22 11/27/22 11/27/22 pantoprazole 40 mg tablet,delayed 40 mg PO DAILY #90 tabs 05/22/22 11/27/22 11/27/22 release buspirone 5 mg tablet 5 mg PO BID #180 tabs 09/02/22 11/27/22 11/27/22 08:00 rosuvastatin 10 mg tablet 10 mg PO DAILY #30 tabs 10/01/22 11/27/22 11/27/22 amlodipine 5 mg tablet 5 mg PO DAILY #90 tabs 10/07/22 11/27/22 11/27/22 naproxen sodium 220 mg capsule 220 mg PO BID PRN Pain 10/18/22 11/27/22 Unknown (Aleve) gabapentin 400 mg capsule 400 mg PO HS #90 caps 11/01/22 11/27/22 11/26/22 hydrocodone 5 mg-acetaminophen 325 1 tab PO Q4H PRN Pain 11/27/22 11/27/22 Unknown mg tablet mirtazapine 7.5 mg tablet 7.5 mg PO HS 11/27/22 11/27/22 11/26/22 sennosides 8.6 mg tablet (Senokot) 8.6 mg PO HS 11/27/22 11/27/22 11/26/22 Active Medications Generic Name Dose Route Start Last Admin Trade Name Freq PRN Reason Stop Dose Admin Buspirone HCl 5 mg 11/27/22 21:00 11/27/22 21:21 Buspirone 5 Mg Tab PO 12/27/22 20:59 5 mg BID OSMAN Administration Gabapentin 200 mg 11/27/22 21:00 11/27/22 21:21 Gabapentin 100 Mg Cap PO 12/27/22 20:59 200 mg HS OSMAN Administration Mirtazapine 7.5 mg 11/27/22 21:00 11/27/22 21:18 Mirtazapine Tab 15 Mg Tab PO 12/27/22 20:59 7.5 mg HS OSMAN Administration Morphine Sulfate 1 mg 11/27/22 18:13 11/27/22 20:40 Morphine Sulfate 2 Mg/Ml Carp IV 12/11/22 18:12 1 mg Q3H PRN Administration Pain (4,5,6+) Past Medical History Medical History Actinic keratosis Anxiety Chronic venous insufficiency COPD (chronic obstructive pulmonary disease) Dyslipidemia GERD (gastroesophageal reflux disease) Hypertension Impaired fasting glucose Osteoporosis declines Rx Peripheral arterial disease Peripheral neuropathy Seborrheic keratosis Vitamin D deficiency Past Family History Family History Father Diabetes Family history of diabetes mellitus Mother No problems noted. Sister No problems noted. Brother Lung cancer Brother No problems noted. Brother No problems noted. Son No problems noted. Daughter No problems noted. Other Stroke Denies family history of Ovarian cancer Prostate cancer Myocardial infarction Breast cancer Colorectal cancer Past Surgical History Surgical History H/O tubal ligation History of cataract surgery RT/LEFT History of section X 1 History of colonoscopy 04/05/2020 History of tooth extraction S/P laparoscopic appendectomy (04/2020) Social History Smoking Status: Light tobacco smoker tobacco type: cigarettes Hx Alcohol Use: Yes Alcohol type: wine alcohol intake frequency: other Alcohol Intake Frequency Comment: a glass of wine with dinner but has not had any for a while Hx Substance Use: No substance use type: does not use Physical Exam Vital Signs Last Vital Signs Temp 97.7 F 11/28/22 02:30 Pulse 75 11/28/22 02:30 Resp 18 11/28/22 02:30 BP 114/59 L 11/28/22 02:30 Pulse Ox 96 11/28/22 02:30 O2 Del Method Nasal Cannula 11/28/22 02:30 O2 Flow Rate 1 11/28/22 02:30 Testing Laboratory Results 11/27/22 16:41 11/27/22 21:38 PT 12.4 Seconds (9.0-12.0) H 11/27/22 16:41 INR 1.2 (0.9-1.1) H 11/27/22 16:41 Urine Color Dark Yellow 11/27/22 20:11 Urine Appearance Clear (Clear) 11/27/22 20:11 Urine pH 6.0 (4.5-7.5) 11/27/22 20:11 Ur Specific [place] 1.021 (1.000-1.030) 11/27/22 20:11 Urine Protein Negative (Negative) 11/27/22 20:11 Urine Glucose (UA) Negative (Negative) 11/27/22 20:11 Urine Ketones Negative (Negative) 11/27/22 20:11 Urine Nitrite Negative (Negative) 11/27/22 20:11 Ur Leukocyte Esterase Trace (Negative) H 11/27/22 20:11 Urine WBC (Auto) 1-5 /hpf (0-5) 11/27/22 20:11 Urine RBC (Auto) 0-4 /hpf (0-4) 11/27/22 20:11 U Hyaline Cast (Auto) 1-5 /lpf (0-5) 11/27/22 20:11 U Epithel Cells (Auto) 20-30 /lpf (0-5) H 11/27/22 20:11 Urine Bacteria (Auto) 2+ (Negative) H 11/27/22 20:11 Electrocardiogram Date: 03/20/20 Findings: + NSR @ with PVCs
[2022-11-28 07:38] LABS: Basophils # (auto) 0.03 K/uL (0-0.2); Basophils % (auto) 0.5 %; Eosinophils # (auto) 0.23 K/uL (0-0.50); Hematocrit (blood only) 30.8 % (37.0-47.0); Hemoglobin 11.2 g/dl (12.0-16.0); Immature Granulocytes # (auto) 0.03 K/uL (0.01-0.20); Immature Granulocytes % (auto) 0.5 %; Lymphocytes # (auto) 0.54 K/uL (1.2-3.4); Lymphocytes % (auto) 9.3 %; Mean Corpuscular Hemoglobin 28.8 pg (25.0-34.0); Mean Corpuscular Hgb Conc 36.4 g/dL (32.0-36.0); Mean Corpuscular Volume 79.2 fL (80.0-100.0); Monocytes # (auto) 1.26 K/uL (0.11-0.59); Monocytes % (auto) 21.7 %; Neutrophils # (auto) 3.71 K/uL (1.40-6.50); Platelet Count 405 K/uL (130-400); RDW Coefficient of Variation 16.8 % (11.5-14.5); Red Blood Count 3.89 M/uL (4.20-5.40)
[2022-11-28] MEDS: FLUTICASONE/VILANTEROL 200/25MCG 14 PUFFS/INHALER INH SCH (08:05)
[2022-11-28] MEDS: PANTOprazole 40 MG TAB PO SCH (08:05)
[2022-11-28] MEDS: amLODIPine BESYLATE 5 MG TAB PO SCH (08:05)
[2022-11-28] MEDS: LORATADINE 10 MG TAB PO SCH (08:05)
[2022-11-28 08:09] LABS: INR 1.1 (0.9-1.1); Partial Thromboplastin Time 28.5 Seconds (21.0-31.0); Prothrombin Time 11.2 Seconds (9.0-12.0)
[2022-11-28] MEDS ORDERED: INDOMETHACIN 50 MG SUPP PR ONE (08:20)
[2022-11-28 08:29] LABS: Albumin Globulin Ratio 1.3 (0.9-2); BUN Creatinine Ratio 19.4 (10-20); Creatinine Clr Calc Pharmacy 60.3 ml/min; Est GFR (African American) 96.2 ml/min; Globulin 2.3 gm/dl (2.5-4.0); Magnesium 1.7 mg/dl (1.7-2.4); Potassium 3.8 mmol/L (3.5-5.1); Total Protein 5.3 gm/dl (6.0-8.3)
[2022-11-28] MEDS: busPIRone 5 MG TAB PO SCH ×2 (08:47→21:20)
[2022-11-28] MEDS: SODIUM CHLORIDE 0.9% 1000ML 1,000 ML IV SCH (08:47)
--- NOTE | 2022-11-28 09:17 | Gastrointestinal Consultation ---
Date of Consultation November 28, 2022 Assessment & Plan (1) Metastatic adenocarcinoma: (2) Biliary obstruction: Pt is a 82 yo female w metastatic lung adenocarcinoma currently seen for obstructive jaundice 2/2 pancreas mass. - NPO - ERCP w biliary stent placement today w Dr. Tommy Nielsen - Trend LFTs - Symptomatic management otherwise Supervising Physician Co-Signing Physician Notes I saw and evaluated the patient. We were consulted by medical oncology for evaluation of obstructive for enzymes related to metastatic lung cancer to her pancreas. ERCP has been requested for decompression. PE: Scleral icterus noted No RUQ tenderness Impression: Patient presents with biliary obstruction from metastatic lung cancer, given the situation we will proceed with ERCP for biliary decompression and placement of a permanent metal stent. I discussed the risks and benefits of the procedure with the patient and her to include bleeding, infection, perforation, pain, failed biliary cannulation and need for follow-up studies. History of Present Illness Reason for Consultation: Obstructive jaundice Requesting Physician: Dr. Torey Olson Attending Physician: Dr. Tommy Nielsen History of Present Illness Pt is a 82 yo female w PMHx of lung adenocarcinoma w bone mets, COPD, HTN, dyslipidemia, GERD, anxiety who was referred to ED w new jaundice, and labs showing elevated LFTs. Labs showed mild anemia , LFTs: 17, AST 332, ALT 361, Alk phose 1342. OP CT showed mod to severe intra/extrahepatic biliary ductal dilation w abrup caliber change of CBD at level of pancreas head. Biliary obstruction like related to pancreatic head lesion. Pancreatic lesions x 2 suspected it may be related to lung mets, vs pancreatic adenocarcinoma. Metastasis also noted in adrenal, renal, skeletal, soft tissue areas. Pt denies fever, chills, CP, SOB, abd pain ,n/v. Allergies Allergy/AdvReac Type Severity Reaction Status Date / Time amoxicillin Allergy Intermediate rash Verified 11/27/22 17:00 tramadol AdvReac Intermediate loss of Verified 11/27/22 17:00 apetite Home Medications Medication Instructions Recorded Confirmed Type calcium carbonate 600 mg calcium 600 mg PO QAM 02/12/19 11/27/22 History (1,500 mg) tablet cholecalciferol (vitamin D3) 50 2,000 units PO DAILY 03/09/19 11/27/22 History mcg (2,000 unit) capsule diphenhydramine 25 1 tab PO HS PRN Sleep 03/09/19 11/27/22 History mg-acetaminophen 500 mg tablet (Tylenol PM Extra Strength) loratadine 10 mg capsule 10 mg PO QAM 09/14/19 11/27/22 History multivitamin 1 tab PO QAM 09/14/19 11/27/22 History albuterol sulfate 90 mcg/actuation 2 puffs inhalation Q6H PRN 10/07/19 11/27/22 Rx aerosol inhaler (Ventolin HFA) shortness of breath or wheezing #8.5 grams magnesium oxide 400 mg (241.3 mg 400 mg PO DAILY 05/08/21 11/27/22 History magnesium) tablet Symbicort 160 mcg-4.5 2 puff inhalation BID #10.2 grams 11/26/21 11/27/22 Rx mcg/actuation HFA aerosol inhaler (budesonide-formoterol) lisinopril 40 mg tablet 40 mg PO DAILY #90 tabs 05/07/22 11/27/22 Rx pantoprazole 40 mg tablet,delayed 40 mg PO DAILY #90 tabs 05/22/22 11/27/22 Rx release buspirone 5 mg tablet 5 mg PO BID #180 tabs 09/02/22 11/27/22 Rx rosuvastatin 10 mg tablet 10 mg PO DAILY #30 tabs 10/01/22 11/27/22 Rx amlodipine 5 mg tablet 5 mg PO DAILY #90 tabs 10/07/22 11/27/22 Rx naproxen sodium 220 mg capsule 220 mg PO BID PRN Pain 10/18/22 11/27/22 History (Aleve) gabapentin 400 mg capsule 400 mg PO HS #90 caps 11/01/22 11/27/22 Rx hydrocodone 5 mg-acetaminophen 325 1 tab PO Q4H PRN Pain 11/27/22 11/27/22 History mg tablet mirtazapine 7.5 mg tablet 7.5 mg PO HS 11/27/22 11/27/22 History sennosides 8.6 mg tablet (Senokot) 8.6 mg PO HS 11/27/22 11/27/22 History Patient History Medical History Actinic keratosis Anxiety Chronic venous insufficiency COPD (chronic obstructive pulmonary disease) Dyslipidemia GERD (gastroesophageal reflux disease) Hypertension Impaired fasting glucose Osteoporosis declines Rx Peripheral arterial disease Peripheral neuropathy Seborrheic keratosis Vitamin D deficiency Surgical History H/O tubal ligation History of cataract surgery RT/LEFT History of section X 1 History of colonoscopy 04/05/2020 History of tooth extraction S/P laparoscopic appendectomy (04/2020) Family History Father Diabetes Family history of diabetes mellitus Mother No problems noted. Sister No problems noted. Brother Lung cancer Brother No problems noted. Brother No problems noted. Son No problems noted. Daughter No problems noted. Other Stroke Denies family history of Ovarian cancer Prostate cancer Myocardial infarction Breast cancer Colorectal cancer Social History Smoking Status: Light tobacco smoker Tobacco Type: Cigarettes Age Started Using Tobacco: 17; Age Quit Using Tobacco: 65; packs per day: 1; Second Hand Exposure: Yes (as a child); Hx Alcohol Use: Yes Alcohol type: wine Alcohol Intake Frequency: 4 or More x per/Week Alcohol Intake Frequency Comment: 2 glasses of wine daily Hx Substance Use: No Preferred Language: Tunisian Communication Ability: Effective Visual Impairment: No Limitations Hearing Ability: Normal Project Manager Industrial Required: No Beliefs That Will Affect Care: None marital status: Current Living Situation: Spouse current occupational status: retired 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 permanant contacts Review of Systems Review of Systems: All systems reviewed & are unremarkable except as noted in HPI & below Physical Exam Constitutional: WD/WN, vitals as above well groomed, cooperative and comfortable Eyes: PERLLA, EOMs intact, icteric sclera ENMT: external ear and nose normal, oropharynx normal Respiratory: normal respiratory effort, lungs clear to auscultation Cardiovascular: RRR, no murmur, no edema Gastrointestinal (Abdomen): normal bowel sounds, soft, nontender, no hepatosplenomegaly Skin: no rashes, warm and dry + jaundice Psychiatric: A+Ox3, euthymic affect Lymphatic: no lymphedema Results & Data Vital Signs (Past 12 Hours) Vital Signs Temp Pulse Pulse Pulse Resp BP Pulse Ox 11/28/22 07:49 36.4 C L 80 18 131/72 98 11/28/22 07:25 79 11/28/22 02:30 36.5 C 75 18 114/59 L 96 11/27/22 23:50 97 H 11/28/22 01:18 36.4 C L 73 18 114/65 90 11/28/22 01:01 36.6 C 76 18 104/63 94 11/27/22 23:36 36.6 C 81 18 132/72 93 11/27/22 22:30 80 18 11/27/22 22:00 82 27 H 11/27/22 21:30 79 19 11/27/22 21:30 79 O2 Del Method O2 Flow Rate 11/28/22 07:49 Room Air 11/28/22 07:25 11/28/22 02:30 Nasal Cannula 1 11/27/22 23:50 11/28/22 01:18 Room Air 11/28/22 01:01 Room Air 11/27/22 23:36 Room Air 11/27/22 22:30 11/27/22 22:00 11/27/22 21:30 11/27/22 21:30 Laboratory Results Laboratory Results - last 24 hr 11/27/22 11/27/22 11/27/22 16:41 16:41 16:41 WBC 8.05 RBC 4.30 Hgb 12.4 Hct 33.5 L MCV 77.9 L MCH 28.8 MCHC 37.0 H RDW Std Deviation 45.4 RDW Coeff of Kisha 16.5 H Plt Count 433 H MPV 8.9 L Immature Gran % (Auto) 0.4 Neut % (Auto) 71.2 Lymph % (Auto) 10.9 Nance % (Auto) 15.9 Eos % (Auto) 1.2 Baso % (Auto) 0.4 Neut # (Auto) 5.73 Lymph # (Auto) 0.88 L Nance # (Auto) 1.28 H Eos # (Auto) 0.10 Baso # (Auto) 0.03 Immature Gran # (Auto) 0.03 PT 12.4 H INR 1.2 H APTT PTT Ratio Sodium 124 L Potassium 3.9 Chloride 91 L Carbon Dioxide 24 Anion Gap 9 BUN 18 Creatinine 0.77 Est Cr Clr Drug Dosing Not Reportable Est GFR ( Amer) 84.5 Est GFR (Non-Af Amer) 72.9 BUN/Creatinine Ratio 23.4 H Glucose 111 H Osmolality Calcium 9.4 Magnesium Iron TIBC Unsaturated IBC Transferrin % Sat Total Bilirubin 18.2 H AST 317 H ALT 396 H Alkaline Phosphatase 1559 H Total Protein 6.1 Albumin 3.5 Globulin 2.6 Albumin/Globulin Ratio 1.3 Lipase TNP TSH Cortisol AM Sample Urine Color Urine Appearance Urine pH Ur Specific [place] Urine Protein Urine Glucose (UA) Urine Ketones Urine Blood Urine Nitrite Urine Bilirubin Urine Urobilinogen Ur Leukocyte Esterase Urine WBC (Auto) Urine RBC (Auto) U Hyaline Cast (Auto) U Epithel Cells (Auto) Urine Bacteria (Auto) Urine Osmolality Ur Random Sodium SARS-CoV-2, RNA, NAAT 11/27/22 11/27/22 11/27/22 17:00 18:06 18:06 WBC RBC Hgb Hct MCV MCH MCHC RDW Std Deviation RDW Coeff of Kisha Plt Count MPV Immature Gran % (Auto) Neut % (Auto) Lymph % (Auto) Nance % (Auto) Eos % (Auto) Baso % (Auto) Neut # (Auto) Lymph # (Auto) Nance # (Auto) Eos # (Auto) Baso # (Auto) Immature Gran # (Auto) PT INR APTT PTT Ratio Sodium Potassium Chloride Carbon Dioxide Anion Gap BUN Creatinine Est Cr Clr Drug Dosing Est GFR ( Amer) Est GFR (Non-Af Amer) BUN/Creatinine Ratio Glucose Osmolality 267 L Calcium Magnesium Iron TIBC Unsaturated IBC Transferrin % Sat Total Bilirubin AST ALT Alkaline Phosphatase Total Protein Albumin Globulin Albumin/Globulin Ratio Lipase TNP TSH Cortisol AM Sample Urine Color Urine Appearance Urine pH Ur Specific [place] Urine Protein Urine Glucose (UA) Urine Ketones Urine Blood Urine Nitrite Urine Bilirubin Urine Urobilinogen Ur Leukocyte Esterase Urine WBC (Auto) Urine RBC (Auto) U Hyaline Cast (Auto) U Epithel Cells (Auto) Urine Bacteria (Auto) Urine Osmolality Ur Random Sodium SARS-CoV-2, RNA, NAAT NEGATIVE 11/27/22 11/27/22 11/27/22 18:06 20:11 20:11 WBC RBC Hgb Hct MCV MCH MCHC RDW Std Deviation RDW Coeff of Kisha Plt Count MPV Immature Gran % (Auto) Neut % (Auto) Lymph % (Auto) Nance % (Auto) Eos % (Auto) Baso % (Auto) Neut # (Auto) Lymph # (Auto) Nance # (Auto) Eos # (Auto) Baso # (Auto) Immature Gran # (Auto) PT INR APTT PTT Ratio Sodium Potassium Chloride Carbon Dioxide Anion Gap BUN Creatinine Est Cr Clr Drug Dosing Est GFR ( Amer) Est GFR (Non-Af Amer) BUN/Creatinine Ratio Glucose Osmolality Calcium Magnesium Iron TIBC Unsaturated IBC Transferrin % Sat Total Bilirubin AST ALT Alkaline Phosphatase Total Protein Albumin Globulin Albumin/Globulin Ratio Lipase TSH 0.552 Cortisol AM Sample Urine Color Dark Yellow Urine Appearance Clear Urine pH 6.0 Ur Specific [place] 1.021 Urine Protein Negative Urine Glucose (UA) Negative Urine Ketones Negative Urine Blood Negative Urine Nitrite Negative Urine Bilirubin 2+ H Urine Urobilinogen Negative Ur Leukocyte Esterase Trace H Urine WBC (Auto) 1-5 Urine RBC (Auto) 0-4 U Hyaline Cast (Auto) 1-5 U Epithel Cells (Auto) 20-30 H Urine Bacteria (Auto) 2+ H Urine Osmolality 207 L Ur Random Sodium SARS-CoV-2, RNA, NAAT 11/27/22 11/27/22 11/28/22 20:11 21:38 07:17 WBC 5.80 RBC 3.89 L Hgb 11.2 L Hct 30.8 L MCV 79.2 L MCH 28.8 MCHC 36.4 H RDW Std Deviation 47.0 H RDW Coeff of Kisha 16.8 H Plt Count 405 H MPV 9.0 L Immature Gran % (Auto) 0.5 Neut % (Auto) 64.0 Lymph % (Auto) 9.3 Nance % (Auto) 21.7 Eos % (Auto) 4.0 Baso % (Auto) 0.5 Neut # (Auto) 3.71 Lymph # (Auto) 0.54 L Nance # (Auto) 1.26 H Eos # (Auto) 0.23 Baso # (Auto) 0.03 Immature Gran # (Auto) 0.03 PT INR APTT PTT Ratio Sodium 126 L Potassium Chloride Carbon Dioxide Anion Gap BUN Creatinine Est Cr Clr Drug Dosing Est GFR ( Amer) Est GFR (Non-Af Amer) BUN/Creatinine Ratio Glucose Osmolality Calcium Magnesium Iron TIBC Unsaturated IBC Transferrin % Sat Total Bilirubin AST ALT Alkaline Phosphatase Total Protein Albumin Globulin Albumin/Globulin Ratio Lipase TSH Cortisol AM Sample Urine Color Urine Appearance Urine pH Ur Specific [place] Urine Protein Urine Glucose (UA) Urine Ketones Urine Blood Urine Nitrite Urine Bilirubin Urine Urobilinogen Ur Leukocyte Esterase Urine WBC (Auto) Urine RBC (Auto) U Hyaline Cast (Auto) U Epithel Cells (Auto) Urine Bacteria (Auto) Urine Osmolality Ur Random Sodium 10 SARS-CoV-2, RNA, NAAT 11/28/22 11/28/22 11/28/22 07:17 07:17 07:17 WBC RBC Hgb Hct MCV MCH MCHC RDW Std Deviation RDW Coeff of Kisha Plt Count MPV Immature Gran % (Auto) Neut % (Auto) Lymph % (Auto) Nance % (Auto) Eos % (Auto) Baso % (Auto) Neut # (Auto) Lymph # (Auto) Nance # (Auto) Eos # (Auto) Baso # (Auto) Immature Gran # (Auto) PT 11.2 INR 1.1 APTT 28.5 PTT Ratio 1.0 Sodium 130 L Potassium 3.8 Chloride 97 L Carbon Dioxide 24 Anion Gap 9 BUN 13 Creatinine 0.67 Est Cr Clr Drug Dosing 60.3 Est GFR ( Amer) 96.2 Est GFR (Non-Af Amer) 83.0 BUN/Creatinine Ratio 19.4 Glucose 96 Osmolality Calcium 9.0 Magnesium 1.7 Iron 145 TIBC 230 L Unsaturated IBC 85 L Transferrin % Sat 63 H Total Bilirubin 17.0 H AST 331 H ALT 361 H Alkaline Phosphatase 1342 H Total Protein 5.3 L Albumin 3.0 L Globulin 2.3 L Albumin/Globulin Ratio 1.3 Lipase TSH Cortisol AM Sample 17.82 Urine Color Urine Appearance Urine pH Ur Specific [place] Urine Protein Urine Glucose (UA) Urine Ketones Urine Blood Urine Nitrite Urine Bilirubin Urine Urobilinogen Ur Leukocyte Esterase Urine WBC (Auto) Urine RBC (Auto) U Hyaline Cast (Auto) U Epithel Cells (Auto) Urine Bacteria (Auto) Urine Osmolality Ur Random Sodium SARS-CoV-2, RNA, NAAT Diagnostic Findings [place], [place] [phone] CT Scan Report Patient:KRISTIE CHAMBERS Admit Date:11/27/22 MR#:[id number] Address1:[address] [place] [address] Acct ID:[id number] Address2: Date:1940 [facility] Zip:[place] [id number] Age:82 Location:CT Sex:F Room/Bed: Att Phy:Eriberto Stokes MD Diagnosis:Lung adenoca (C34.11) Brigida Phy:Lea Traore MD Service Date:11/27/22 [facility] Phy: Interpreting Phy:Mike Traore MDAdmit Phy: Ordering Phy:Eriberto Stokes MD cc: ~ CT OF THE ABDOMEN AND PELVIS WITH AND WITHOUT CONTRAST LIVER PROTOCOL CLINICAL HISTORY: Lung adenocarcinoma (C34.11). Abrupt onset jaundice. COMPARISON STUDY: CT of the abdomen and pelvis October 30, 2022. TECHNIQUE: Unenhanced, arterial and venous phase imaging of the abdomen and pelvis was performed. Intravenous injection of 87 cc of Optiray 350 IV was uneventful. Automated exposure control was utilized for the study. A dose lowering technique was utilized adhering to the principles of ALARA. Oral contrast was administered. CT DOSE: 685.21 mGy.cm FINDINGS: No pneumatosis, free air or portal venous gas is present. There has been interval development of moderate to severe intra and extrahepatic biliary ductal dilatation. The common bile duct measures 1.8 cm in caliber. There is abrupt caliber change of the proximal to mid common bile duct on axial image 122 of 386. This is adjacent to a 1.8 cm hypodense pancreatic head lesion. This lesion probably results in obstruction of the CBD. There is associated pancreatic ductal dilatation. The pancreatic duct measures 7 mm in caliber. There is an additional pancreatic lesion measuring 1.4 cm within the uncinate process. A subtle 1 cm hypervascular segment 8 hepatic lesion is indeterminate. No additional hepatic lesions are present. Liver morphology is normal. Spleen is unremarkable. Bilateral adrenal lesions have increased in size since prior CT of October 30, 2022. The right adrenal lesion measures 2.6 cm. Multiple hypodense bilateral renal lesions suggest renal metastases. There are additional numerous renal cysts. There is no hydronephrosis. No evidence for a bowel obstruction. No ascites is present. Multiple skeletal lesions are again noted with several lower thoracic and lumbar spine pathologic fractures. These lesions have mildly increased since prior CT and MRI. No new pathologic fractures are present. Subcutaneous nodules of the lower back and left anterior abdominal wall likely reflect implants. IMPRESSION: 1. Interval development of moderate to severe intra and extrahepatic biliary ductal dilatation with abrupt caliber change of the CBD at the level the pancreatic head. This biliary obstruction is likely due to a pancreatic head lesion. GI consultation for consideration for ERCP is recommended. 2. Two pancreatic lesions, as described above. Given multiplicity, metastatic lung cancer is favored. However, a pancreatic adenocarcinomas could appear similar. 3. Progression of metastatic disease since CT of October 30, 2022, including adrenal, renal, skeletal and soft tissue metastases.
--- NOTE | 2022-11-28 10:03 | Consultation ---
Date of Consultation November 28, 2022 Assessment & Plan (1) Metastatic adenocarcinoma: Widespread metastatic process including bilateral parotid involvement, a suggestive 3 cm right upper lung mass as possible primary though bilateral nodular metastatic-like densities in both lungs, significant mediastinal alley involvement, widespread skeletal metastases, and involvement of the adrenals and kidneys. There is an equivocal liver lesion. At first presentation there were a number of pancreatic lesions none that were particularly enlarged at that time. While a provisional FNA of the left parotid had labeled this as a possible salivary gland tumor, more generous biopsy from the right parotid gland was co nsistent with a lung origin adenocarcinoma. The immediate issue is common bile duct obstruction from a pancreatic head mass but in the context of multiple lesions within the pancreas and other organs, the histology from the right parotid gland biopsy, overall impression is that this may be a lung met to the pancreas rather than a primary pancreatic malignancy. Functionally, immediate management is independent of our academic discussions of the possible underlying pathophysiologic process but have to do more with the mechanical obstruction of the common bile duct which must be relieved for us to be able to entertain possible systemic therapy. Plan is for ERCP and stenting but if that is unsuccessful we will have to consider transfer to an institution where a transhepatic drain can be placed. Patient has been receiving palliative radiation to the back and anticipate that we will complete that next week. As [facility] report becomes available we will transition to a discussion of systemic options. Despite her dramatic presentation she actually has underlying reasonably good health and adequate performance status to consider palliative treatment options. Plan 1. Need to immediately reestablish adequate biliary drainage. Hope we can place a stent with pending ERCP but if not may need transfer for a transhepatic drain 2. If she is sufficiently stable, could continue her palliative radiation even while an inpatient 3. Awaiting additional [facility] for review and based on the indicators for [facility], targeted therapy will be evolving some potential treatment plans that can be offered to her as an outpatient. Would need reestablish adequate hepatic function before we can offer at least some of those options to her. If we can get successful disease response may want to adjunctively give bone directed therapy as well 4. Overall she has a challenging prognosis and yet surprisingly good performance status and underlying functionality at least prior to the specific evolution of issues this week. She is in conversation with palliative care and that will be an important component of her overall management with the an ticipation that at some point based on her choice or further evolution of her case it may become the exclusive focus of care History of Present Illness Reason for Consultation: Patient with metastatic adenocarcinoma presumed of lung origin presenting with acute common bile duct obstruction from a pancreatic head mass Attending Physician: Torey Olson MD History of Present Illness Longtime smoker who had presented with neck masses and widespread skeletal metastases earlier this year. Ultimate biopsy of a right neck/parotid mass showed adenocarcinoma consistent with a lung primary. Liver enzymes were essentially normal November 06, 2022 but have rapidly evolved in obstructive pattern with outpatient labs 11/26/2022 showing a bilirubin of 16.8, alk phos is 1493, AST 258 and ALT 408. This was accompanied by CT scan on 11/27/2022 showing severe common bile duct obstruction with a rapidly enlarging head of the pancreas mass. Allergies Allergy/AdvReac Type Severity Reaction Status Date / Time amoxicillin Allergy Intermediate rash Verified 11/27/22 17:00 tramadol AdvReac Intermediate loss of Verified 11/27/22 17:00 apetite Home Medications Medication Instructions Recorded Confirmed Type calcium carbonate 600 mg calcium 600 mg PO QAM 02/12/19 11/27/22 History (1,500 mg) tablet cholecalciferol (vitamin D3) 50 2,000 units PO DAILY 03/09/19 11/27/22 History mcg (2,000 unit) capsule diphenhydramine 25 1 tab PO HS PRN Sleep 03/09/19 11/27/22 History mg-acetaminophen 500 mg tablet (Tylenol PM Extra Strength) loratadine 10 mg capsule 10 mg PO QAM 09/14/19 11/27/22 History multivitamin 1 tab PO QAM 09/14/19 11/27/22 History albuterol sulfate 90 mcg/actuation 2 puffs inhalation Q6H PRN 10/07/19 11/27/22 Rx aerosol inhaler (Ventolin HFA) shortness of breath or wheezing #8.5 grams magnesium oxide 400 mg (241.3 mg 400 mg PO DAILY 05/08/21 11/27/22 History magnesium) tablet Symbicort 160 mcg-4.5 2 puff inhalation BID #10.2 grams 11/26/21 11/27/22 Rx mcg/actuation HFA aerosol inhaler (budesonide-formoterol) lisinopril 40 mg tablet 40 mg PO DAILY #90 tabs 05/07/22 11/27/22 Rx pantoprazole 40 mg tablet,delayed 40 mg PO DAILY #90 tabs 05/22/22 11/27/22 Rx release buspirone 5 mg tablet 5 mg PO BID #180 tabs 09/02/22 11/27/22 Rx rosuvastatin 10 mg tablet 10 mg PO DAILY #30 tabs 10/01/22 11/27/22 Rx amlodipine 5 mg tablet 5 mg PO DAILY #90 tabs 10/07/22 11/27/22 Rx naproxen sodium 220 mg capsule 220 mg PO BID PRN Pain 10/18/22 11/27/22 History (Aleve) gabapentin 400 mg capsule 400 mg PO HS #90 caps 11/01/22 11/27/22 Rx hydrocodone 5 mg-acetaminophen 325 1 tab PO Q4H PRN Pain 11/27/22 11/27/22 History mg tablet mirtazapine 7.5 mg tablet 7.5 mg PO HS 11/27/22 11/27/22 History sennosides 8.6 mg tablet (Senokot) 8.6 mg PO HS 11/27/22 11/27/22 History Patient History Medical History Actinic keratosis Anxiety Chronic venous insufficiency COPD (chronic obstructive pulmonary disease) Dyslipidemia GERD (gastroesophageal reflux disease) Hypertension Impaired fasting glucose Osteoporosis declines Rx Peripheral arterial disease Peripheral neuropathy Seborrheic keratosis Vitamin D deficiency Surgical History H/O tubal ligation History of cataract surgery RT/LEFT History of section X 1 History of colonoscopy 04/05/2020 History of tooth extraction S/P laparoscopic appendectomy (04/2020) Family History Father Diabetes Family history of diabetes mellitus Mother No problems noted. Sister No problems noted. Brother Lung cancer Brother No problems noted. Brother No problems noted. Son No problems noted. Daughter No problems noted. Other Stroke Denies family history of Ovarian cancer Prostate cancer Myocardial infarction Breast cancer Colorectal cancer Social History Smoking Status: Light tobacco smoker Tobacco Type: Cigarettes Age Started Using Tobacco: 17; Age Quit Using Tobacco: 65; packs per day: 1; Second Hand Exposure: Yes (as a child); Hx Alcohol Use: Yes Alcohol type: wine Alcohol Intake Frequency: 4 or More x per/Week Alcohol Intake Frequency Comment: 2 glasses of wine daily Hx Substance Use: No Preferred Language: Ecuadorean Communication Ability: Effective Visual Impairment: No Limitations Hearing Ability: Normal Gate Guard Required: No Beliefs That Will Affect Care: None marital status: Current Living Situation: Spouse current occupational status: retired 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 permanant contacts Physical Exam Physical Exam: Jaundiced but nontoxic with stable vital signs. Results & Data Vital Signs (Past 12 Hours) Vital Signs Temp Pulse Pulse Pulse Resp BP Pulse Ox 11/28/22 07:49 36.4 C L 80 18 131/72 98 11/28/22 07:25 79 11/28/22 02:30 36.5 C 75 18 114/59 L 96 11/27/22 23:50 97 H 11/28/22 01:18 36.4 C L 73 18 114/65 90 11/28/22 01:01 36.6 C 76 18 104/63 94 11/27/22 23:36 36.6 C 81 18 132/72 93 11/27/22 22:30 80 18 11/27/22 22:00 82 27 H O2 Del Method O2 Flow Rate 11/28/22 07:49 Room Air 11/28/22 07:25 11/28/22 02:30 Nasal Cannula 1 11/27/22 23:50 11/28/22 01:18 Room Air 11/28/22 01:01 Room Air 11/27/22 23:36 Room Air 11/27/22 22:30 11/27/22 22:00 PG Care Time/CCT Total # of Minutes Spent Total Time Spent with Patient: Total time spent is greater than 50% in coordination of care (as documented) at patient's floor/unit and/or counseling patient: Coding Level of Care Code 74736 IN/OBS CONSULT LVL 3,45M Diagnoses Metastatic adenocarcinoma C79.9
[2022-11-28] MEDS ORDERED: fentaNYL citrate PF 100 MCG/2 ML VIAL ONE (11:49)
[2022-11-28] MEDS ORDERED: ONDANSETRON INJ 2 MG/ML 2 ML VIAL ONE (11:53)
[2022-11-28] MEDS ORDERED: PROPOFOL IV EMULSION 10 MG/ML 20 ML VIAL IV ONE (11:53)
[2022-11-28] MEDS ORDERED: SUCCINYLCHOLINE CHLORIDE 20 MG/ML 10 ML VIAL IV ONE (11:53)
[2022-11-28] MEDS ORDERED: ROCURONIUM BROMIDE 10 MG/ML 5 ML VIAL IV ONE (11:53)
[2022-11-28] MEDS ORDERED: LIDOCAINE 2% MPF LOCAL 5 ML VIAL ONE (11:53)
[2022-11-28] MEDS ORDERED: CIPROFLOXACIN 400MG / 200ML D5W IV ONE (12:10)
[2022-11-28] MEDS ORDERED: LARYING-O-JET KIT (LTA) ONE (12:47)
--- NOTE | 2022-11-28 13:22 | GI REPORT ---
Patient Name: Karoline Escamilla Procedure Date: 11/28/2022 12:19 PM Date of : 1940 Admit Type: Inpatient Age: 82 Gender: Female Attending MD: Tommy Nielsen DO, Procedure: ERCP Providers: Tommy Nielsen DO Referring MD: Eriberto Stokes Md, Torey Olson Indications: Jaundice Medicines: General Anesthesia Complications: No immediate complications. Estimated blood loss: Minimal. Estimated Blood Loss: Estimated blood loss was minimal. Procedure: Pre-Anesthesia Assessment: - Prior to the procedure, a History and Physical was performed, and patient medications, allergies and sensitivities were reviewed. The patient's tolerance of previous anesthesia was reviewed. - The risks and benefits of the procedure and the sedation options and risks were discussed with the patient. All questions were answered and informed consent was obtained. - Patient identification and proposed procedure were verified prior to the procedure by the physician, the nurse and the patient support representative. The procedure was verified in the procedure room. - Pre-procedure physical examination revealed no contraindications to sedation. - ASA Grade Assessment: IV - A patient with severe systemic disease that is a constant threat to life. - After reviewing the risks and benefits, the patient was deemed in satisfactory condition to undergo the procedure. - The anesthesia plan was to use general anesthesia. - Immediately prior to administration of medications, the patient was re-assessed for adequacy to receive sedatives. - The heart rate, respiratory rate, oxygen saturations, blood pressure, adequacy of pulmonary ventilation, and response to care were monitored throughout the procedure. - The physical status of the patient was re-assessed after the procedure. After obtaining informed consent, the scope was passed under direct vision. Throughout the procedure, the patient's blood pressure, pulse, and oxygen saturations were monitored continuously. The Duodenoscope was introduced through the mouth, and advanced to the duodenum and used to inject contrast into the bile duct. The ERCP was accomplished without difficulty. The patient tolerated the procedure well. Findings: The benefits sales consultant film was normal. The esophagus was successfully intubated under direct vision without detailed examination of the pharynx, larynx, and associated structures, and upper GI tract. The upper GI tract was grossly normal. The major papilla was on the rim of a diverticulum. The bile duct was deeply cannulated with the short-nosed traction sphincterotome and 0.025 in Angled Acrobat 2 guidewire, PD not cannulated or injected). Contrast was injected. I personally interpreted the bile duct images. Contrast extended to the hepatic ducts. The upper third of the main bile duct contained a single segmental stenosis 20 mm in length. Biliary sphincterotomy was made with a monofilament Fusion OMNI sphincterotome using ERBE electrocautery. There was no post-sphincterotomy bleeding. One 10 Fr by 8 cm biliary stent ([place] Viabil) was placed 8 cm into the common bile duct. Dark bile and contrast flowed through the stent. The stent was in good position. The endoscope was withdrawn from the patient. Impression: - The major papilla was on the rim of a diverticulum. - A single segmental biliary stricture was found in the upper third of the main bile duct. The stricture was malignant appearing. - A biliary sphincterotomy was performed. - One covered metal biliary stent was placed into the common bile duct. Recommendation: - [facility] care. - Clear liquid diet today. - Use broad spectrum antibiotics for 3 days. Tommy Nielsen D.O. Tommy Nielsen, 11/28/2022 1:22:25 PM This report has been signed electronically. Note Initiated On: 11/28/2022 12:19 PM Number of Addenda: 0 I attest to the content of the Intraoperative Record and orders documented therein, exceptions below {[id number]}
--- NOTE | 2022-11-28 13:27 | Post Operative Brief Note ---
Immediate Post Op Note v1 Date of Surgery November 28, 2022 Pre & Post Diagnosis Operation Date: 11/28/22 11:15 Pre-Op Diagnosis: ABNORMAL CT RESULTS Post-Op Diagnosis: Bile duct stent placed I identified the patient and participated in the time-out.: Yes Procedure Operation Date: 11/28/22 11:15 Actual Procedures p Endoscopic Retrograde Cholangiopancreato - Tommy Nielsen DO Surgeon Tommy Nielsen DO Certified Coatings Inspector none Estimated Blood Loss 0 Findings Consistent with Post-Op Diagnosis
--- NOTE | 2022-11-28 13:28 | Communication Note ---
Date of Service: November 28, 2022 Patient underwent ERCP today for biliary stricture as noted on her CT. It appears she has a stricture in the upper portion of her common bile duct consistent with her metastatic disease. We did perform a biliary sphincterotomy and placed a covered metal stent this afternoon. Recommendations Ciprofloxacin x3 days Clear liquid diet today Avoid nonsteroidals and anticoagulation for 5 days please Atarax as needed for itching Please call with any additional questions or concerns
[2022-11-28] MEDS: CIPROFLOXACIN / D5W 400 MG/200 ML BAG IV SCH (14:20)
--- NOTE | 2022-11-28 14:26 | Fluoroscopy Report ---
[place] ERCP biliary ductal CLINICAL HISTORY: Duct exploration for bile duct dilatation. COMPARISON STUDY: Abdomen and pelvis CT 11/27/2022. FLUOROSCOPY TIME: 2.1 minutes. FLUOROSCOPY IMAGES: 6 Ka,r: 25.3 mGy FINDINGS: The ampulla was cannulated and contrast was injected into the common bile duct. Focal stric ture/narrowing within the proximal common bile duct. This is followed by placement of a metallic comm on bile duct stent which traverses the area of narrowing. IMPRESSION: Fluoroscopic assistance as above. ACT 112: Negative or not required by law. Electronically signed by: Jon Shi M.D. 11/28/2022 2:23 PM
[2022-11-28] MEDS ORDERED: LORazepam 2 MG/1 ML VIAL IV PRN (15:14)
--- NOTE | 2022-11-28 15:25 | Hospitalist Progress Note ---
Date of Service November 28, 2022 Assessment & Plan (1) Biliary obstruction: Plan: Appears to be due to metastatic external compression of the common bile duct. She underwent ERCP with placement of a stent today, November 28. Known underlying lung cancer with metastatic disease. Appreciate gastroenterology consultation and assistance. Serial labs ordered. 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 Sodium improved to 130. Serial labs ordered. (3) Metastatic adenocarcinoma: Plan: Following with Dr. Stokes and Rad Onc. Pain control measures. (4) GERD (gastroesophageal reflux disease): Plan: Stable. Continue omeprazole (5) Hypertension: Plan: Stable . Continue amlodipine and lisinopril (6) Dyslipidemia: Plan: -Hold statin temporarily until LFTs normalize (7) COPD (chronic obstructive pulmonary disease): Plan: No current exacerbation. Continue home breathing treatments (8) Anxiety: Plan: Continue buspar. IV Ativan as needed (9) Urinary tract infection: Plan: Gram-negative's isolated. Now on intravenous Cipro, day 1. Will tailor antibiotics according to culture results and sensitivities Plan Hopeful discharge back home when cleared by gastroenterology Admission and Anticipated Discharge Date Admission Date: November 27, 2022 Subjective The patient was seen this morning before she went for ERCP. She was alert and oriented in no acute distress. was in attendance. She subsequently had ERCP today with placement of a common bile duct stent due to a stricture which probably is related to underlying metastatic malignancy. She was also found to have a UTI with gram-negative bacilli. She is now on intravenous Cipro. Ativan has been administered for anxiety. Sodium has improved to 130. Review of Systems Review of Systems: Constitutional-no fever or chills ENT-no blurred vision, no double vision, no epistaxis, no sore throat Respiratory-no cough, no wheezing, no shortness of breath Cardiac-no palpitations, no chest pain, no syncope GI-no nausea, vomiting, diarrhea, melena, hematochezia -no urinary retention, no urinary incontinence, no dysuria, no hematuria Musculoskeletal-no joint pain, no muscle tenderness Skin-mildly pruritic from jaundice Neuro-no isolated weakness, no paresthesia, no weakness Psych-no depression, no anxiety Physical Exam Physical Exam: General-alert and oriented x3, no fevers, no chills HEENT-head atraumatic and normocephalic, scleral icterus noted pupils equal and reactive to light, extraocular muscles intact Neck-no lymphadenopathy or thyromegaly, trachea midline Chest-clear to auscultation percussion. No rales wheezing or rhonchi Cardiac-regular rate and rhythm, normal S1 and S2 Abdomen-normal bowel sounds, nontender, no hepatosplenomegaly Extremities-no cyanosis, clubbing, or edema Neuro-cranial nerves II through XII intact, motor and sensory function within normal limits, strength symmetrical , no focal deficits Psych-normal affect, normal mood Results & Data Results & Data Vital Signs (Past 12 Hours) Vital Signs Temp Pulse Pulse Pulse Resp BP Pulse Ox 11/28/22 14:23 36.4 C L 85 18 116/68 93 11/28/22 13:45 36.5 C 82 12 123/60 92 11/28/22 13:35 85 16 126/61 92 11/28/22 13:25 81 14 142/70 H 98 11/28/22 13:15 87 15 138/70 98 11/28/22 13:08 36.4 C L 92 H 15 103/63 97 11/28/22 12:00 36.9 C 87 16 124/68 92 11/28/22 07:49 36.4 C L 80 18 131/72 98 11/28/22 07:25 79 O2 Del Method O2 Flow Rate 11/28/22 14:23 Room Air 11/28/22 13:45 Room Air 11/28/22 13:35 Room Air 11/28/22 13:25 Oxymask 4 11/28/22 13:15 Oxymask 4 11/28/22 13:08 Oxymask 6 11/28/22 12:00 Room Air 11/28/22 07:49 Room Air 11/28/22 07:25 Laboratory Results 11/28/22 07:17 11/28/22 07:17 PG Care Time/CCT Total # of Minutes Spent Total Time Spent with Patient: Total time spent is greater than 50% in coordination of care (as documented) at patient's floor/unit and/or counseling patient: Coding Level of Care Code 20706 SUB INP/OBS CARE 3/50MIN Diagnoses Biliary obstruction K83.1 Hyponatremia E87.1 Metastatic adenocarcinoma C79.9 GERD (gastroesophageal reflux disease) K21.9 Hypertension I10 Dyslipidemia E78.5 COPD (chronic obstructive pulmonary disease) J44.9 Anxiety F41.9 Urinary tract infection N39.0
[2022-11-28] MEDS: oxyCODONE HCL IR 5 MG TAB (IMMEDIATE RELEASE) PO PRN (18:11)
[2022-11-28] MEDS ORDERED: CIPROFLOXACIN / D5W 200 MG/100 ML BAG IV SCH (21:00)
[2022-11-28] MEDS: MIRTAZAPINE TAB 15 MG TAB PO SCH (21:20)
[2022-11-28] MEDS: GABAPENTIN 100 MG CAP PO SCH (21:20)
[2022-11-29] MEDS: oxyCODONE HCL IR 5 MG TAB (IMMEDIATE RELEASE) PO PRN ×3 (00:05→12:20)
[2022-11-29] MEDS: SODIUM CHLORIDE 0.9% 1000ML 1,000 ML IV SCH ×2 (00:07→13:03)
[2022-11-29] MEDS: CIPROFLOXACIN / D5W 400 MG/200 ML BAG IV SCH ×2 (00:07→12:58)
[2022-11-29 07:02] LABS: Basophils # (auto) 0.02 K/uL (0-0.2); Basophils % (auto) 0.3 %; Eosinophils # (auto) 0.16 K/uL (0-0.50); Eosinophils % (auto) 2.1 %; Hemoglobin 9.5 g/dl (12.0-16.0); Immature Granulocytes # (auto) 0.05 K/uL (0.01-0.20); Immature Granulocytes % (auto) 0.7 %; Lymphocytes # (auto) 0.92 K/uL (1.2-3.4); Mean Corpuscular Hemoglobin 28.6 pg (25.0-34.0); Mean Corpuscular Hgb Conc 35.2 g/dL (32.0-36.0); Mean Corpuscular Volume 81.3 fL (80.0-100.0); Monocytes % (auto) 15.7 %; Neutrophils # (auto) 5.29 K/uL (1.40-6.50); Neutrophils % (auto) 69.2 %; Platelet Count 382 K/uL (130-400); RDW Coefficient of Variation 16.9 % (11.5-14.5); RDW Standard Deviation 49.4 fL (36.4-46.3); Red Blood Count 3.32 M/uL (4.20-5.40); White Blood Count 7.64 K/ul (4.8-10.8)
[2022-11-29 07:32] LABS: Albumin Globulin Ratio 1.3 (0.9-2); Albumin Level 2.7 gm/dl (3.4-5.0); Bilirubin,Total 7.7 mg/dl (0.2-1.0); Creatinine Clr Calc Pharmacy 73.4 ml/min; Est GFR (African American) 102.7 ml/min; Est GFR (Non-African American) 88.6 ml/min; Globulin 2.1 gm/dl (2.5-4.0); Magnesium 1.4 mg/dl (1.7-2.4); Potassium 3.9 mmol/L (3.5-5.1); Total Protein 4.8 gm/dl (6.0-8.3)
[2022-11-29] MEDS: FLUTICASONE/VILANTEROL 200/25MCG 14 PUFFS/INHALER INH SCH (08:05)
[2022-11-29] MEDS: LORATADINE 10 MG TAB PO SCH (08:06)
[2022-11-29] MEDS: busPIRone 5 MG TAB PO SCH (08:06)
[2022-11-29] MEDS: PANTOprazole 40 MG TAB PO SCH (08:06)
[2022-11-29] MEDS: amLODIPine BESYLATE 5 MG TAB PO SCH (08:06)
[2022-11-29] MEDS ORDERED: MAGNESIUM SULFATE / D5W 1 GM/100 ML BAG IV ONE (09:34)
--- NOTE | 2022-11-29 11:47 | Discharge Summary ---
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 Stokes of Oncology due to abnormal CT results. The patient reportedly had an acute onset of jaundice and labs were obtained yesterday showing significantly elevated LFT's. Due to these results the patient was sent for a CT of the abd/pelvis w/wo contrast which was read as "1. Interval development of moderate to severe intra and extrahepatic biliary ductal dilatation with abrupt caliber change of the CBD at the level the pancreatic head. This biliary obstruction is likely due to a pancreatic head lesion. GI consultation for consideration for ERCP is recommended. 2. Two pancreatic lesions, as described above. Given multiplicity, metastatic lung cancer is favored. However, a pancreatic adenocarcinomas could appear similar. 3. Progression of metastatic disease since CT of October 30, 2022, including adrenal, renal, skeletal and soft tissue metastases.". Due to these results Dr. Stokes contacted Dr. Nielsen of [facility] who is assisting with coordination of an ERCP. In the ED today the patient was found to be afebrile, hemodynamically stable, and stable on RA. Labs were remarkable for a CBC with WBC WNL, stable Hgb, platelets of 433, lymphocyte count of 0.88, cr of 0.77, sodium of 124 (down from 127 on 11/26 and 136 on 11/06), chloride of 91, elevated LFTS with total bili of 18, AST of 315, ALT of 396, and alk phos of 1559. At the time of the exam the patient was sitting in bed in no acute distress with her family sitting bedisde. She confirmed the recent history of acute Jaundice over the past 48 hours. She denies recent fevers, chills, headache, changes in vision, hearing, taste, and smell, chest pain, SOB, abd pain, vomiting, dysuria, hematuria, melena, LE swelling, and recent trauma. She states that her appetite has been very poor lately, she will try and make her self eat when she is not hungry and will occasionally vomit. Please refer to Dr. Sun's attestation for any changes to the treatment plan Principal Diagnosis Obstructive jaundice, external compression of common bile duct due to presumed metastatic cancer, Klebsiella UTI, SIADH with hypoosmolar hyponatremia, hypomagnesemia Discharge Exam General-alert and oriented x3, no fevers, no chills HEENT-head atraumatic and normocephalic, scleral icterus noted, pupils equal and reactive to light, extraocular muscles intact Neck-no lymphadenopathy or thyromegaly, trachea midline Chest-clear to auscultation percussion. No rales wheezing or rhonchi Cardiac-regular rate and rhythm, normal S1 and S2 Abdomen-normal bowel sounds, nontender, no hepatosplenomegaly Extremities-no cyanosis, clubbing, or edema Skinjaundiced Neuro-cranial nerves II through XII intact, motor and sensory function within normal limits, strength symmetrical , no focal deficits Psych-normal affect, normal mood Discharge Data Allergies Allergy/AdvReac Type Severity Reaction Status Date / Time amoxicillin Allergy Intermediate rash Verified 11/27/22 17:00 tramadol AdvReac Intermediate loss of Verified 11/27/22 17:00 apetite Consultations 11/27/22 17:31 Consult Gastroenterology Routine Consult Oncology Routine 11/27/22 23:14 ED Decision to Admit Stat Procedures Performed Operation Date: 11/28/22 11:15 Actual Procedures p Endoscopic Retrograde Cholangiopancreato - Tommy Nielsen DO Ordered Studies 11/28/22 [place] ERCP biliary ductal Routine Hospital Course (1) Biliary obstruction: Appears to be due to metastatic external compression of the common bile duct. She underwent ERCP with placement of a stent on November 28. Known underlying lung cancer with metastatic disease. Appreciate gastroenterology consultation and assistance. Serial labs ordered. She is mildly pruritic from the jaundice. 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 Sodium improved to 132. Serial labs ordered. (3) Metastatic adenocarcinoma: Following with Dr. Stokes and Rad Onc. Pain control measures. (4) GERD (gastroesophageal reflux disease): Stable. Continue omeprazole (5) Hypertension: Stable . Continue amlodipine and lisinopril (6) Dyslipidemia: Hold statin temporarily until LFTs normalize (7) COPD (chronic obstructive pulmonary disease): No current exacerbation. Continue home breathing treatments (8) Anxiety: Continue buspar. IV Ativan as needed (9) Urinary tract infection: Gram-negative's isolated. Cultures revealed Klebsiella sensitive to Cipro. She was treated with intravenous Cipro while hospitalized, day 2. Home on oral Cipro for several more days. Plan Discharge to home todayNovember 29 Total Time Total Time Spent Total Time Spent (In Minutes): 40 minutes Discharge Plan Discharge Items Patient Disposition: Home - Self-Care Reason For Visit: ABNORMAL CT RESULTS Discharge Diagnosis: Obstructive jaundice due to external compression of common bile duct from metastatic malignancy, Klebsiella UTI, SIADH with hyponatremia and hyperosmolar state Activity: Resume your previous activity Non-emergency contact: Primary Care Provider Call non-emergency contact if: you have any medication questions and your symptoms worsen Follow-up/Referrals: Lea Traore MD [Primary Care Provider] - Diet: Regular and Heart Healthy Addtl Attending Provider Instructions: Take Cipro antibiotic for 3 more days. Continue radiation treatments. Follow- up with primary care provider within 1 week and your oncologist as scheduled Pending Studies at Discharge: No Stand-Alone Forms: My [facility] [employer], Smoking Cessation Medications and DC Order Prescriptions: New ciprofloxacin HCl [Cipro] 250 mg tablet 250 mg PO BID Qty: 6 0RF Continued albuterol sulfate [Ventolin HFA] 90 mcg/actuation HFA aerosol inhaler 2 puffs INH Q6H PRN (Reason: shortness of breath or wheezing) Qty: 8.5 1RF Symbicort 160-4.5 mcg/actuation HFA aerosol inhaler 2 puff INH BID Qty: 10.2 11RF lisinopril 40 mg tablet 40 mg PO DAILY Qty: 90 3RF buspirone 5 mg tablet 5 mg PO BID Qty: 180 3RF amlodipine 5 mg tablet 5 mg PO DAILY Qty: 90 3RF gabapentin 400 mg capsule 400 mg PO HS Qty: 90 3RF magnesium oxide 400 mg (241.3 mg magnesium) tablet 400 mg PO DAILY pantoprazole 40 mg tablet,delayed release (DR/EC) 40 mg PO DAILY Qty: 90 3RF multivitamin Tablet 1 tab PO QAM calcium carbonate 600 mg calcium (1,500 mg) tablet 600 mg PO QAM diphenhydramine-acetaminophen [Tylenol PM Extra Strength] 25-500 mg tablet 1 tab PO HS PRN (Reason: Sleep) cholecalciferol (vitamin D3) 2,000 unit capsule 2,000 units PO DAILY loratadine 10 mg capsule 10 mg PO QAM Patient Comments: QAM rosuvastatin 10 mg tablet 10 mg PO DAILY Qty: 30 2RF naproxen sodium [Aleve] 220 mg capsule 220 mg PO BID PRN (Reason: Pain) sennosides [Senokot] 8.6 mg Tablet 8.6 mg PO HS hydrocodone-acetaminophen 5-325 mg tablet 1 tab PO Q4H PRN (Reason: Pain) mirtazapine 7.5 mg tablet 7.5 mg PO HS Discharge Orders: Discharge Order (Routine); Ordered 11/29/22 Ordered By: Torey Olson Admission Data Admit Date/Time: 11/27/22 17:30 Attending Provider: Torey Olson Admit Provider: Ventura Sun Primary Care Provider: Lea Traore Other Providers: Tommy Nielsen ; Eriberto Stokes ; Ventura Sun Coding Level of Care Code 95068 INP/OBS DISCH >30 MIN Diagnoses Biliary obstruction K83.1 Hyponatremia E87.1 Metastatic adenocarcinoma C79.9 GERD (gastroesophageal reflux disease) K21.9 Hypertension I10 Dyslipidemia E78.5 COPD (chronic obstructive pulmonary disease) J44.9 Anxiety F41.9 Urinary tract infection N39.0
--- NOTE | 2022-11-29 12:45 | Gastroenterology Progress Note ---
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 Advance diet as tolerated. 2. GI will sign off. 3. Please notify us if new/worsening GI issues. Admission and Anticipated Discharge Date Admission Date: November 27, 2022 Supervising Physician Co-Signing Physician Notes I interviewed and examined pt, reviewed chart and labs. Pt without complaint, improved bili. Follow daily LFT's, hgb. Subjective 82 yr female w metastatic lung adenocarcinoma. Underwent ERCP w stenting yesterday. LFTs much improved today. T Bili 17->7. Pt has chronic abd pain, well controlled at the time of exam. Abd soft, non di stended. Hb 11.2->9.5. BUN normal. No gross Bleeding. Tolerating clear liquids well. Review of Systems Review of Systems: ROS: Gen: Denies weakness, fevers, weight loss Eyes: No eye redness, or pain, no recent vision changes Resp: No SOB, no cough Cardio: No palpitations/irregular beats, no chest pain GI: No abdominal pain, no nausea/vomiting : Denies pain on urination Skin: + jaundice and itching -> improved. Physical Exam Constitutional: WD/WN, vitals as above Eyes: + scleral abnormality (mild icterus) and PERRL ENMT: external ear and nose normal, oropharynx normal Neck: trachea midline, no thyromegaly Respiratory: normal respiratory effort, lungs clear to auscultation Cardiovascular: RRR, no murmur, no edema Gastrointestinal (Abdomen): soft, normal BS, non distended, mild diffuse tenderness Neurologic: patellar DTR's 2+ bilat, sensation intact Lymphatic: no cervical or axillary lymphadenopathy Results & Data Vital Signs (Past 12 Hours) Vital Signs Temp Pulse Pulse Resp BP Pulse Ox O2 Del Method 11/29/22 11:13 36.7 C 86 19 109/66 92 Room Air 11/29/22 08:15 36.8 C 77 18 124/66 93 Room Air 11/29/22 07:03 79 11/29/22 02:57 36.8 C 73 16 121/55 L 92 Room Air Laboratory Results WBC 7.4, Hb 9.5, Hct 27, Plts 382, PT 11, INR 1, Na 132, K 3.9, Cl 101, CO2 26, BUN 11, Cr 55. T Bili 7.7, AST 124, ALT 237, Alk Phos 1060 Diagnostic Findings ERCP yesterday w malignant appearing stricture in upper 1/3 of the main bile duct. Sphincterotomy, stented w a covered metal stent.
== END 2022-11-29 15:49 | disposition home or self-care (01) | DRG 445 ==
LOC: ED 16:01 → EDINP 17:30 → SUATTDRO 17:30 → 2N 20:48

== ENCOUNTER 2022-12-15 10:36 | Observation (INO) ==
--- NOTE | 2022-12-15 11:14 | Emergency Department Note ---
Impression & Plan Pleural effusion, SOB (shortness of breath), Hypoxia ED Provider Note NAME: KRISTIE CHAMBERS AGE: 82 SEX: F : 1940 ARRIVES VIA: Walk-In INFORMANT: Patient, ED PROVIDER(S): João Payan DO CHIEF COMPLAINT: Shortness of breath HPI: The patient is an 82-year-old female who was recently diagnosed with lung cancer who presented to the emergency department for an evaluation of difficulty breathing. At home she is noticed that her oxygen saturation has been dropping. She noticed it to be in the low 80s today. She denies having any hemoptysis. She denies having any new cough but she has had a cough since this diagnosis. She notices no swelling in her legs. She has no chest pain. The patient noticed no fevers. She was told to come to the emergency department if breathing became worse after this diagnosis of lung cancer as well as her recent port placement. ROS: See above HPI for pertinent positives & negatives. A total of 10 systems reviewed and were otherwise negative. PAST MEDICAL HISTORY: See Below PAST SURGICAL HISTORY: See Below FAMILY HISTORY: See Below SOCIAL HISTORY: See Below HOME MEDICATIONS: See Below ALLERGIES: See Below VITALS: See Below PHYSICAL EXAMINATION: GENERAL: Patient is awake alert in no acute distress patient is resting comfortably and showing no signs of anxiety EYES: The conjunctivae are clear. The pupils are round and reactive. EARS, NOSE, MOUTH AND THROAT: The nose is without any evidence of any deformity. Mucous membranes are moist. NECK: The neck is nontender and supple. RESPIRATORY: Diminished breath sounds are noted in the right lung field. There is no tachypnea or conversational dyspnea. CARDIOVASCULAR: Regular rate and rhythm noted there no murmurs rubs or gallops normal S1 normal S2. GASTROINTESTINAL: The abdomen is soft. Abdomen is nontender. MUSCULOSKELETAL/EXTREMITIES: There is no evidence of gross deformity full range of motion is noted in the hips and shoulders. SKIN: There is no obvious evidence of any rash. There are no petechiae, pallor or cyanosis noted. Port was noted in the right chest wall. NEUROLOGIC: Patient is awake alert and oriented x3 MEDICAL DECISION MAKING: The patient is an 82-year-old female who recently was diagnosed with lung cancer. The lung cancer does appear to be metastatic at this point at least to the musculoskeletal system as well as possibly intra-abdominal. She also has positive lymph nodes. The patient's had radiation to some of these metastatic lesions for pain. The patient presented because of shortness of breath and was found to have significant hypoxia. The patient was placed on supplemental oxygen with significant improvement of her symptoms. I discussed the patient's laboratory and radiographic studies with her and her family member. Apparently she does have a large pleural effusion on CT. I discussed this diagnosis with the patient and her family. This may require thoracentesis but also may recur if it is malignant effusion. I discussed patient's condition with the on-call [facility] hospitalist. Triage Nursing notes reviewed. Prior medical records reviewed Vital Signs: reviewed and remarkable for hypoxia Differential diagnosis: Reactive airway disease, pneumonia, pneumothorax, COPD, CHF, infections, cardiac ischemia, pulmonary embolism, musculoskeletal, gastrointestinal, as well as other pathologies. ER treatment provided: See below Diagnostics interpreted by me: ECG: EKG was obtained in the emergency department. My interpretation is normal sinus rhythm at 93 bpm. There was no ectopy. There is no acute ST segment abnormalities noted. This was compared to a tracing from December 10, 2022. No changes were noted. Cardiac Monitoring: An order was placed for continuous cardiac monitoring. The monitor shows a rate of 88 bpm with sinus rhythm. Laboratory studies: As stated above and show below. Imaging studies: See below. Radiographic imaging was reviewed by myself Consultation(s): I discussed this case with Dr. Sun who is on-call for the [facility] hospitalist group. 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 biliary stent placement *2 WEEKS AGO AT [facility] History of tooth extraction Port-A-Cath in place (12/12/22) Insertion of Access Port with Fluoroscopy(Not Applicable) - Ryan Valverde DO S/P laparoscopic appendectomy (04/2020) 05/08/2020 Grade 1 view, MAC 3, ETT 7. Family History Father Diabetes Family history of diabetes mellitus Mother No problems noted. Sister No problems noted. Brother Lung cancer Brother No problems noted. Brother No problems noted. Son No problems noted. Daughter No problems noted. Other No family history of adverse response to anesthesia Stroke Denies family history of Ovarian cancer Prostate cancer Myocardial infarction Breast cancer Colorectal cancer Social History Smoking Status: Former smoker Tobacco Type: Cigarettes Age Started Using Tobacco: 17; Age Quit Using Tobacco: 65; packs per day: 1; Cigarettes Per Day: QUIT A FEW MONTHS AGO; Second Hand Exposure: No; Hx Alcohol Use: Yes Alcohol type: wine Alcohol Intake Frequency: 4 or More x per/Week Alcohol Intake Frequency Comment: 2 glasses of wine daily Hx Substance Use: No Preferred Language: Estonian Communication Ability: Effective Visual Impairment: No Limitations Hearing Ability: Normal Survival Specialist Required: No Beliefs That Will Affect Care: None marital status: Current Living Situation: Spouse current occupational status: retired 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 How many Children do You have: 2 Feels Safe at Home: Yes Childhood Exposure to Second-Hand Smoke: Yes caffeine: Yes during the past year weight has: remained stable Dental Care, Regularly: No Seatbelt Use: always Assistive Devices: Denture - Upper and Denture - Lower Allergies Allergies Allergy/AdvReac Type Severity Reaction Status Date / Time amoxicillin Allergy Intermediate rash Verified 12/15/22 13:13 tramadol AdvReac Intermediate loss of Verified 12/15/22 13:13 apetite Home Meds Home Medications Medication Instructions Recorded Confirmed calcium carbonate 600 mg calcium 600 mg PO QAM 02/12/19 12/15/22 (1,500 mg) tablet loratadine 10 mg capsule 10 mg PO QAM 09/14/19 12/15/22 multivitamin 1 tab PO QAM 09/14/19 12/15/22 magnesium oxide 400 mg (241.3 mg 400 mg PO HS 05/08/21 12/15/22 magnesium) tablet naproxen sodium 220 mg capsule 220 mg PO BID 10/18/22 12/15/22 (Aleve) mirtazapine 7.5 mg tablet 7.5 mg PO HS 11/27/22 12/15/22 sennosides 8.6 mg tablet (Senokot) 8.6 mg PO HS 11/27/22 12/15/22 amlodipine 5 mg tablet 5 mg PO QAM 12/10/22 12/15/22 cholecalciferol (vitamin D3) 25 25 mcg PO BID 12/10/22 12/15/22 mcg (1,000 unit) tablet (Vitamin D3) lisinopril 40 mg tablet 40 mg PO QAM 12/10/22 12/15/22 pantoprazole 40 mg tablet,delayed 40 mg PO QAM 12/10/22 12/15/22 release polyethylene glycol 3350 17 17 g PO QAM PRN Constipation 12/10/22 12/15/22 gram/dose oral powder (Miralax) rosuvastatin 10 mg tablet 10 mg PO QAM 12/10/22 12/15/22 Previous Rx's Medication Instructions Recorded albuterol sulfate 90 mcg/actuation 2 puffs inhalation Q6H PRN 10/07/19 aerosol inhaler (Ventolin HFA) shortness of breath or wheezing #8.5 grams Symbicort 160 mcg-4.5 2 puff inhalation BID #10.2 grams 11/26/21 mcg/actuation HFA aerosol inhaler (budesonide-formoterol) buspirone 5 mg tablet 5 mg PO BID #180 tabs 09/02/22 gabapentin 400 mg capsule 400 mg PO HS #90 caps 11/01/22 hydrocodone 5 mg-acetaminophen 325 1 tab PO Q4H PRN Pain #60 tabs 12/05/22 mg tablet Results & Data (ED) Vital Signs Vital Signs - 24 hr 12/15/22 10:39 12/15/22 11:15 12/15/22 11:15 Temperature 37.0 C Temperature Source Temporal Artery Scan Pulse Rate 102 H Pulse Rate from SpO2 Sensor Respiratory Rate 18 Respiratory Effort / Characteristics Respiratory Depth Normal Respiratory Pattern Blood Pressure 139/57 L Blood Pressure Mean 84 Pulse Oximetry 82 L 92 Oxygen Delivery Method Room Air Nasal Cannula Oxygen Flow Rate 3 Sepsis Recent Fever Within 48 Hours No Sepsis New/Unexplained Change in Mental Status N/A Sepsis Action Taken by Nursing No Action Required Oxygen Flow Rate - Titration 3 Pulse Oximetry Post Tiitration 92 12/15/22 11:14 12/15/22 11:44 12/15/22 11:30 Temperature Temperature Source Pulse Rate 90 85 Pulse Rate from SpO2 Sensor 86 Respiratory Rate 21 Respiratory Effort / Characteristics Spontaneous Short of Breath SOB on Exertion Respiratory Depth Shallow Respiratory Pattern Regular Blood Pressure Blood Pressure Mean Pulse Oximetry 93 Oxygen Delivery Method Nasal Cannula Nasal Cannula Oxygen Flow Rate 2 2 Sepsis Recent Fever Within 48 Hours Sepsis New/Unexplained Change in Mental Status Sepsis Action Taken by Nursing Oxygen Flow Rate - Titration Pulse Oximetry Post Tiitration 12/15/22 12:00 12/15/22 12:30 12/15/22 12:34 Temperature Temperature Source Pulse Rate 85 88 Pulse Rate from SpO2 Sensor 84 88 Respiratory Rate 24 21 Respiratory Effort / Characteristics Respiratory Depth Respiratory Pattern Blood Pressure 145/80 H Blood Pressure Mean 101 Pulse Oximetry 93 91 Oxygen Delivery Method Oxygen Flow Rate Sepsis Recent Fever Within 48 Hours Sepsis New/Unexplained Change in Mental Status Sepsis Action Taken by Nursing Oxygen Flow Rate - Titration Pulse Oximetry Post Tiitration 12/15/22 12:34 Temperature Temperature Source Pulse Rate 88 Pulse Rate from SpO2 Sensor 88 Respiratory Rate 22 Respiratory Effort / Characteristics Respiratory Depth Respiratory Pattern Blood Pressure Blood Pressure Mean Pulse Oximetry 93 Oxygen Delivery Method Nasal Cannula Oxygen Flow Rate 2 Sepsis Recent Fever Within 48 Hours Sepsis New/Unexplained Change in Mental Status Sepsis Action Taken by Nursing Oxygen Flow Rate - Titration Pulse Oximetry Post Tiitration Home Medications Current Medication List: was personally reviewed by me Laboratory Data Attestation: I reviewed the patient's lab results. 12/15/22 10:52 12/15/22 10:52 Lab Results 12/15/22 12/15/22 12/15/22 Range/Units 10:52 10:52 10:53 WBC 5.79 (4.8-10.8) K/ul RBC 3.21 L (4.20-5.40) M/uL Hgb 9.7 L (12.0-16.0) g/dl Hct 29.5 L (37.0-47.0) % MCV 91.9 (80.0-100.0) fL MCH 30.2 (25.0-34.0) pg MCHC 32.9 (32.0-36.0) g/dL RDW Std Deviation 56.2 H (36.4-46.3) fL RDW Coeff of Kisha 17.4 H (11.5-14.5) % Plt Count 244 (130-400) K/uL MPV 8.7 L (9.4-12.4) fL Immature Gran % (Auto) 0.3 % Neut % (Auto) 78.8 % Lymph % (Auto) 2.8 % [place] % (Auto) 16.8 % Eos % (Auto) 1.0 % Baso % (Auto) 0.3 % Neut # (Auto) 4.56 (1.40-6.50) K/uL Lymph # (Auto) 0.16 L (1.2-3.4) K/uL [place] # (Auto) 0.97 H (0.11-0.59) K/uL Eos # (Auto) 0.06 (0-0.50) K/uL Baso # (Auto) 0.02 (0-0.2) K/uL Immature Gran # (Auto) 0.02 (0.01-0.20) K/uL PT 11.0 (9.0-12.0) Seconds INR 1.0 (0.9-1.1) APTT 31.7 H (21.0-31.0) Seconds PTT Ratio 1.1 VBG pH (7.36-7.41) VBG pCO2 (38-50) mmHg VBG pO2 mmHg VBG HCO3 mmol/L VBG O2 Saturation % VBG Base Excess mEq/L Sodium 134 L (136-145) mmol/L Potassium 3.8 (3.5-5.1) mmol/L Chloride 103 (98-107) mmol/L Carbon Dioxide 25 (21-32) mmol/L Anion Gap 6 (3-11) BUN 12 (6-23) mg/dl Creatinine 0.44 L (0.6-1.2) mg/dl Est Cr Clr Drug Dosing Not Reportable Est GFR ( Amer) 110.5 ml/min Est GFR (Non-Af Amer) 95.3 ml/min BUN/Creatinine Ratio 27.3 H (10-20) Glucose 116 H (70-99(Fasting)) mg/dl Calcium 8.4 L (8.6-10.3) mg/dl Magnesium 1.7 (1.7-2.4) mg/dl Total Bilirubin 1.8 H (0.2-1.0) mg/dl AST 18 (13-39) U/L ALT 17 (7-52) U/L Alkaline Phosphatase 178 H (34-104) U/L Troponin I High Sens 15.8 H (0-14) pg/ml B-Natriuretic Peptide (0-100) pg/ml Total Protein 5.5 L (6.0-8.3) gm/dl Albumin 3.2 L (3.4-5.0) gm/dl Globulin 2.3 L (2.5-4.0) gm/dl Albumin/Globulin Ratio 1.4 (0.9-2) Procalcitonin (0-0.5) ng/ml Urine Color Urine Appearance (Clear) Urine pH (4.5-7.5) Ur Specific Lester (1.000-1.030) Urine Protein (Negative) Urine Glucose (UA) (Negative) Urine Ketones (Negative) Urine Blood (Negative) Urine Nitrite (Negative) Urine Bilirubin (Negative) Urine Urobilinogen (Negative) Ur Leukocyte Esterase (Negative) SARS-CoV-2 (PCR) (Negative) Influenza Type A (PCR) (Neg) Influenza Type B (PCR) (Neg) RSV (RT-PCR) (Neg) 12/15/22 12/15/22 12/15/22 Range/Units 11:03 11:15 11:38 WBC (4.8-10.8) K/ul RBC (4.20-5.40) M/uL Hgb (12.0-16.0) g/dl Hct (37.0-47.0) % MCV (80.0-100.0) fL MCH (25.0-34.0) pg MCHC (32.0-36.0) g/dL RDW Std Deviation (36.4-46.3) fL RDW Coeff of Kisha (11.5-14.5) % Plt Count (130-400) K/uL MPV (9.4-12.4) fL Immature Gran % (Auto) % Neut % (Auto) % Lymph % (Auto) % [place] % (Auto) % Eos % (Auto) % Baso % (Auto) % Neut # (Auto) (1.40-6.50) K/uL Lymph # (Auto) (1.2-3.4) K/uL [place] # (Auto) (0.11-0.59) K/uL Eos # (Auto) (0-0.50) K/uL Baso # (Auto) (0-0.2) K/uL Immature Gran # (Auto) (0.01-0.20) K/uL PT (9.0-12.0) Seconds INR (0.9-1.1) APTT (21.0-31.0) Seconds PTT Ratio VBG pH (7.36-7.41) VBG pCO2 (38-50) mmHg VBG pO2 mmHg VBG HCO3 mmol/L VBG O2 Saturation % VBG Base Excess mEq/L Sodium (136-145) mmol/L Potassium (3.5-5.1) mmol/L Chloride (98-107) mmol/L Carbon Dioxide (21-32) mmol/L Anion Gap (3-11) BUN (6-23) mg/dl Creatinine (0.6-1.2) mg/dl Est Cr Clr Drug Dosing Est GFR ( Amer) ml/min Est GFR (Non-Af Amer) ml/min BUN/Creatinine Ratio (10-20) Glucose (70-99(Fasting)) mg/dl Calcium (8.6-10.3) mg/dl Magnesium (1.7-2.4) mg/dl Total Bilirubin (0.2-1.0) mg/dl AST (13-39) U/L ALT (7-52) U/L Alkaline Phosphatase (34-104) U/L Troponin I High Sens (0-14) pg/ml B-Natriuretic Peptide 96 (0-100) pg/ml Total Protein (6.0-8.3) gm/dl Albumin (3.4-5.0) gm/dl Globulin (2.5-4.0) gm/dl Albumin/Globulin Ratio (0.9-2) Procalcitonin 0.08 (0-0.5) ng/ml Urine Color Urine Appearance (Clear) Urine pH (4.5-7.5) Ur Specific Lester (1.000-1.030) Urine Protein (Negative) Urine Glucose (UA) (Negative) Urine Ketones (Negative) Urine Blood (Negative) Urine Nitrite (Negative) Urine Bilirubin (Negative) Urine Urobilinogen (Negative) Ur Leukocyte Esterase (Negative) SARS-CoV-2 (PCR) NEGATIVE (Negative) Influenza Type A (PCR) Negative (Neg) Influenza Type B (PCR) Negative (Neg) RSV (RT-PCR) Negative (Neg) 12/15/22 12/15/22 12/15/22 Range/Units 11:38 13:30 13:58 WBC (4.8-10.8) K/ul RBC (4.20-5.40) M/uL Hgb (12.0-16.0) g/dl Hct (37.0-47.0) % MCV (80.0-100.0) fL MCH (25.0-34.0) pg MCHC (32.0-36.0) g/dL RDW Std Deviation (36.4-46.3) fL RDW Coeff of Kisha (11.5-14.5) % Plt Count (130-400) K/uL MPV (9.4-12.4) fL Immature Gran % (Auto) % Neut % (Auto) % Lymph % (Auto) % [place] % (Auto) % Eos % (Auto) % Baso % (Auto) % Neut # (Auto) (1.40-6.50) K/uL Lymph # (Auto) (1.2-3.4) K/uL [place] # (Auto) (0.11-0.59) K/uL Eos # (Auto) (0-0.50) K/uL Baso # (Auto) (0-0.2) K/uL Immature Gran # (Auto) (0.01-0.20) K/uL PT (9.0-12.0) Seconds INR (0.9-1.1) APTT (21.0-31.0) Seconds PTT Ratio VBG pH 7.42 H (7.36-7.41) VBG pCO2 41 (38-50) mmHg VBG pO2 43 mmHg VBG HCO3 27 mmol/L VBG O2 Saturation 73.1 % VBG Base Excess 1.9 mEq/L Sodium (136-145) mmol/L Potassium (3.5-5.1) mmol/L Chloride (98-107) mmol/L Carbon Dioxide (21-32) mmol/L Anion Gap (3-11) BUN (6-23) mg/dl Creatinine (0.6-1.2) mg/dl Est Cr Clr Drug Dosing Est GFR ( Amer) ml/min Est GFR (Non-Af Amer) ml/min BUN/Creatinine Ratio (10-20) Glucose (70-99(Fasting)) mg/dl Calcium (8.6-10.3) mg/dl Magnesium (1.7-2.4) mg/dl Total Bilirubin (0.2-1.0) mg/dl AST (13-39) U/L ALT (7-52) U/L Alkaline Phosphatase (34-104) U/L Troponin I High Sens 19.3 H (0-14) pg/ml B-Natriuretic Peptide (0-100) pg/ml Total Protein (6.0-8.3) gm/dl Albumin (3.4-5.0) gm/dl Globulin (2.5-4.0) gm/dl Albumin/Globulin Ratio (0.9-2) Procalcitonin (0-0.5) ng/ml Urine Color Yellow Urine Appearance Clear (Clear) Urine pH 6.5 (4.5-7.5) Ur Specific Lester 1.022 (1.000-1.030) Urine Protein Negative (Negative) Urine Glucose (UA) Negative (Negative) Urine Ketones Negative (Negative) Urine Blood Negative (Negative) Urine Nitrite Negative (Negative) Urine Bilirubin Negative (Negative) Urine Urobilinogen Negative (Negative) Ur Leukocyte Esterase Negative (Negative) SARS-CoV-2 (PCR) (Negative) Influenza Type A (PCR) (Neg) Influenza Type B (PCR) (Neg) RSV (RT-PCR) (Neg) Administered Medications Albuterol (Albut/Ipratrop 3mg/0.5mg Neb 3 Ml Vial) 3 ml NEB QIDR OSMAN; Protocol Stop: 01/14/23 14:59 Last Admin: 12/15/22 14:57 Dose: 3 ml Documented By: HEW Discontinued Medications Hydrocodone Bitart/Acetaminophen (Hydrocodone/Acetaminophen 10/325 Tab) 1 tab PO NOW STA Stop: 12/15/22 14:14 Last Admin: 12/15/22 14:57 Dose: 1 tab Documented By: JUAN JOSE Sodium Chloride (Nss) 500 mls @ 999 mls/hr IV .Q31M ONE Stop: 12/15/22 12:11 Last Infusion: 12/15/22 13:10 Dose: 0 mls/hr Documented By: JUAN JOSE Admin: 12/15/22 12:35 Dose: 999 mls/hr Documented By: JUAN JOSE Ioversol (Optiray 320 500ml) 116 ml IV ONCE ONE Stop: 12/15/22 12:19 Last Admin: 12/15/22 12:19 Dose: 116 ml Documented By: ARABELLAK Imaging Data Attestation: I personally reviewed and interpreted this imaging study as follows: My Impression: Chest x-ray was obtained in the emergency department. My interpretation is port was noted, no pneumothorax was noted, large right pleural effusion was noted, final report below. Radiologist's Impression: Chest X-Ray 12/15/22 10:52 XR chest 1V portable HISTORY: 82 years-old Female Dyspnea acute shortness of breath COMPARISON: 12/12/2022 TECHNIQUE: AP view of the chest FINDINGS: Unchanged appearance of the right upper lung. Stable positioning of the right subclavian Cbelhw-y-Apth catheter. Cardiac silhouette is enlarged. No pneumothorax. Right greater left pleural effusions with bibasilar consolidation. Pulmonary vascular congestion with interstitial coarsening. Degenerative changes of the shoulders and spine. IMPRESSION: 1. Cardiomegaly with mild pulmonary edema. 2. Right greater than left pleural effusions with bibasilar consolidation again noted. 3. Postoperative changes of the right upper lung. ACT 112: Negative or not required by law. The above report was generated using voice recognition software. It may contain grammatical, syntax or spelling errors. Electronically signed by: Atul Canales M.D. 12/15/2022 11:23 AM Chest CTA 12/15/22 11:36 CT angio chest PE protocol CT DOSE: 247.45 mGy.cm HISTORY: 82 years-old Female with PE, requested by ONC. Acute shortness of breath TECHNIQUE: Multiple CTA images of the chest were obtained after the intravenous administration of 116 ml Optiray. Coronal and sagittal MIPS were obtained from the axial data set and were submitted for review. All measurements were obtained according to NASCET criteria. A dose lowering technique was utilized adhering to the principles of ALARA. COMPARISON: Chest radiograph of same day, chest CT 10/30/2022 FINDINGS: CTA: Moderate cardiomegaly. No pericardial effusion. Mild coronary artery calcifications. Atherosclerosis of the thoracic aorta without aneurysm. Patency of the imaged great vessels. Right subclavian Ofdabk-p-Sncq catheter distal tip terminates within the mid SVC. No definite pulmonary emboli identified. CT CHEST: Thyroid nodules are stable from prior measuring up to 1.8 cm on the left. Partially imaged subcentimeter right supraclavicular lymph node. Pathologic adenopathy of the chest includes subcarinal adenopathy measuring up to 2.5 x 3.5 cm and right hilar adenopathy measuring up to 3.1 cm, similar to prior. Severe pulmonary emphysema. Respiratory motion artifact limits the study. Trace left and moderate right pleural effusions are new from prior. No pneumothorax. There is an irregular sub-solid nodular density within the left upper lobe abutting and retracting the adjacent fissure on image 210 measuring approximately 2.7 cm, similar to prior. Spiculated 0.9 x 0.7 cm irregular nodule within the lingula on image 185 is stable. 1.4 cm groundglass nodular density of the lingula on image 155 again noted. 2.7 cm irregular nodular area of consolidation within the right upper lobe on image 206 is similar to prior. Spiculated irregular 2.7 x 1.5 x 3.1 cm mass within the right upper lobe on im age 89 is also stable. This is contiguous with and opacifies adjacent right upper lobe bronchus. Right lower lobe volume loss with mild consolidation. Metastatic focus within the right retroperitoneum measures 2.1 x 1.5 cm on image 288, likely adrenal. Indeterminate 1.0 cm hypodensity of the right hepatic lobe is unchanged suggestive of a benign cyst. Pneumobilia with surgical clips seen within the dominguez hepatis. There are numerous enhancing metastatic nodules throughout the body wall (please see bookmarks), the largest within the right upper breast measuring 1.7 cm on image 169. A left posterior shoulder lesion is seen on image 281. The remainder of the lesions predominantly appear to be subcutaneous and most of which have increased in size. A subtle osteolytic lesion is again noted involving the T3 vertebral body and pedicle on the left, image 251. This lesion appears to have increased in size. No large epidural component identified. Small osteolytic lesion of the anterior right sixth rib with small associated acute to subacute appearing nondisplaced pathologic fracture. 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 The lesion measures 2.7 cm, previously 2.5 cm. Additional acute nondisplaced fracture of the anterior right seventh rib. Mild compression fracture of the inferior T12 endplate again noted. Chronic appearing superior endplate compression/Schmorl's node at T11. There is an acute burst fracture at T7 with 4 mm retropulsion increased size of an osteolytic lesion at T5 with mild acute superior endplate compression without retropulsion. IMPRESSION: 1. No pulmonary emboli identified. 2. New moderate right pleural effusion with right basilar atelectasis. 3. 3 cm right upper lobe mass again suggestive of primary bronchogenic malignancy. 4. Additional irregular nodular foci of the lungs are suspicious for numerous adenomatous lesions. 5. Metastatic mediastinal and hilar lymphadenopathy is similar to prior with progressive body wall and osteolytic skeletal metastasis. 6. Acute pathologic rib fractures with acute pathologic T7 burst fracture demonstrating 4 mm retropulsion. Mild acute pathologic fracture of the T5 superior endplate without retropulsion. 7. Additional findings as above. ACT 112: Negative or not required by law. The above report was generated using voice recognition software. It may contain grammatical, syntax or spelling errors. Electronically signed by: Atul Canales M.D. 12/15/2022 12:47 PM Discharge Plan Visit Data Chief Complaint: Shortness of Breath/Dyspnea Stated Complaint: DIFFICULTY BREATHING ED Provider: João Payan Discharge Problem: Pleural effusion, SOB (shortness of breath), Hypoxia Patient Disposition: Being Evaluated by Hospitalist Forms Stand Alone Forms: My [facility] [place] [employer] Prescriptions Prescriptions: No Action albuterol sulfate [Ventolin HFA] 90 mcg/actuation HFA aerosol inhaler 2 puffs INH Q6H PRN (Reason: shortness of breath or wheezing) Qty: 8.5 1RF Symbicort 160-4.5 mcg/actuation HFA aerosol inhaler 2 puff INH BID Qty: 10.2 11RF buspirone 5 mg tablet 5 mg PO BID Qty: 180 3RF gabapentin 400 mg capsule 400 mg PO HS Qty: 90 3RF magnesium oxide 400 mg (241.3 mg magnesium) tablet 400 mg PO HS hydrocodone-acetaminophen 5-325 mg tablet 1 tab PO Q4H PRN (Reason: Pain) Qty: 60 0RF multivitamin Tablet 1 tab PO QAM calcium carbonate 600 mg calcium (1,500 mg) tablet 600 mg PO QAM loratadine 10 mg capsule 10 mg PO QAM Patient Comments: QAM naproxen sodium [Aleve] 220 mg capsule 220 mg PO BID sennosides [Senokot] 8.6 mg Tablet 8.6 mg PO HS mirtazapine 7.5 mg tablet 7.5 mg PO HS cholecalciferol (vitamin D3) [Vitamin D3] 25 mcg (1,000 unit) Tablet 25 mcg PO BID amlodipine 5 mg tablet 5 mg PO QAM pantoprazole 40 mg tablet,delayed release (DR/EC) 40 mg PO QAM lisinopril 40 mg tablet 40 mg PO QAM rosuvastatin 10 mg tablet 10 mg PO QAM polyethylene glycol 3350 [Miralax] 17 gram/dose Powder 17 g PO QAM PRN (Reason: Constipation) Referrals Referrals: Lea Traore MD [Primary Care Provider] -
--- NOTE | 2022-12-15 11:24 | XRay Report ---
XR chest 1V portable HISTORY: 82 years-old Female Dyspnea acute shortness of breath COMPARISON: 12/12/2022 TECHNIQUE: AP view of the chest FINDINGS: Unchanged appearance of the right upper lung. Stable positioning of the right subclavian [id number]-Wim t catheter. Cardiac silhouette is enlarged. No pneumothorax. Right greater left pleural effusions wit h bibasilar consolidation. Pulmonary vascular congestion with interstitial coarsening. Degenerative c hanges of the shoulders and spine. IMPRESSION: 1. Cardiomegaly with mild pulmonary edema. 2. Right greater than left pleural effusions with bibasilar consolidation again noted. 3. Postoperative changes of the right upper lung. ACT 112: Negative or not required by law. The above report was generated using voice recognition software. It may contain grammatical, syntax o r spelling errors. Electronically signed by: Atul Canales M.D. 12/15/2022 11:23 AM
[2022-12-15 11:25] LABS: Basophils # (auto) 0.02 K/uL (0-0.2); Basophils % (auto) 0.3 %; Eosinophils # (auto) 0.06 K/uL (0-0.50); Hematocrit (blood only) 29.5 % (37.0-47.0); Hemoglobin 9.7 g/dl (12.0-16.0); Immature Granulocytes # (auto) 0.02 K/uL (0.01-0.20); Immature Granulocytes % (auto) 0.3 %; Lymphocytes # (auto) 0.16 K/uL (1.2-3.4); Lymphocytes % (auto) 2.8 %; Mean Corpuscular Hemoglobin 30.2 pg (25.0-34.0); Mean Corpuscular Hgb Conc 32.9 g/dL (32.0-36.0); Mean Corpuscular Volume 91.9 fL (80.0-100.0); Mean Platelet Volume 8.7 fL (9.4-12.4); Monocytes # (auto) 0.97 K/uL (0.11-0.59); Monocytes % (auto) 16.8 %; Neutrophils # (auto) 4.56 K/uL (1.40-6.50); Neutrophils % (auto) 78.8 %; Platelet Count 244 K/uL (130-400); RDW Coefficient of Variation 17.4 % (11.5-14.5); RDW Standard Deviation 56.2 fL (36.4-46.3); Red Blood Count 3.21 M/uL (4.20-5.40); White Blood Count 5.79 K/ul (4.8-10.8)
[2022-12-15] MEDS ORDERED: SODIUM CHLORIDE 0.9% 500 ML IV ONE (11:41)
[2022-12-15 11:44] LABS: Alanine Aminotransferase 17 U/L (7-52); Albumin Globulin Ratio 1.4 (0.9-2); Albumin Level 3.2 gm/dl (3.4-5.0); Alkaline Phosphatase 178 U/L (34-104); Anion Gap 6 (3-11); Aspartate Aminotransferase 18 U/L (13-39); BUN Creatinine Ratio 27.3 (10-20); Bilirubin,Total 1.8 mg/dl (0.2-1.0); Blood Urea Nitrogen 12 mg/dl (6-23); Calcium 8.4 mg/dl (8.6-10.3); Carbon Dioxide 25 mmol/L (21-32); Chloride 103 mmol/L (98-107); Est GFR (African American) 110.5 ml/min; Est GFR (Non-African American) 95.3 ml/min; Globulin 2.3 gm/dl (2.5-4.0); Glucose 116 mg/dl (70-99(Fasting)); Magnesium 1.7 mg/dl (1.7-2.4); Potassium 3.8 mmol/L (3.5-5.1); Sodium 134 mmol/L (136-145); Total Protein 5.5 gm/dl (6.0-8.3)
[2022-12-15 11:49] LABS: Troponin I High Sensitivity 15.8 pg/ml (0-14)
[2022-12-15 11:53] LABS: Partial Thromboplastin Ratio 1.1; Partial Thromboplastin Time 31.7 Seconds (21.0-31.0)
[2022-12-15 12:06] LABS: Base Excess VBG 1.9 mEq/L; HCO3 VBG 27 mmol/L; Oxygen Saturation VBG 73.1 %; PCO2 VBG 41 mmHg (38-50); PO2 VBG 43 mmHg; pH VBG 7.42 (7.36-7.41)
[2022-12-15 12:07] LABS: Influenza A virus by PCR Negative (Neg); Influenza B virus by PCR Negative (Neg); RSV by PCR Negative (Neg); SARS CoV2 RNA(COVID-19) Ceph NEGATIVE (Negative)
[2022-12-15] MEDS ORDERED: OPTIRAY 320 500ml IV ONE (12:18)
--- NOTE | 2022-12-15 12:50 | CT Scan Report ---
CT angio chest PE protocol CT DOSE: 247.45 mGy.cm HISTORY: 82 years-old Female with PE, requested by ONC. Acute shortness of breath TECHNIQUE: Multiple CTA images of the chest were obtained after the intravenous administration of 116 ml Optiray. Coronal and sagittal MIPS were obtained from the axial data set and were submitted for review. All measurements were obtained according to NASCET criteria. A dose lowering technique was u tilized adhering to the principles of ALARA. COMPARISON: Chest radiograph of same day, chest CT 10/30/2022 FINDINGS: CTA: Moderate cardiomegaly. No pericardial effusion. Mild coronary artery calcifications. Atherosclerosis of the thoracic aorta without aneurysm. Patency of the imaged great vessels. Right subclavian Infuse- a-Port catheter distal tip terminates within the mid SVC. No definite pulmonary emboli identified. CT CHEST: Thyroid nodules are stable from prior measuring up to 1.8 cm on the left. Partially imaged subcentime ter right supraclavicular lymph node. Pathologic adenopathy of the chest includes subcarinal adenopat hy measuring up to 2.5 x 3.5 cm and right hilar adenopathy measuring up to 3.1 cm, similar to prior. Severe pulmonary emphysema. Respiratory motion artifact limits the study. Trace left and moderate rig ht pleural effusions are new from prior. No pneumothorax. There is an irregular sub-solid nodular density within the left upper lobe abutting and retracting th e adjacent fissure on image 210 measuring approximately 2.7 cm, similar to prior. Spiculated 0.9 x 0. 7 cm irregular nodule within the lingula on image 185 is stable. 1.4 cm groundglass nodular density o f the lingula on image 155 again noted. 2.7 cm irregular nodular area of consolidation within the rig ht upper lobe on image 206 is similar to prior. Spiculated irregular 2.7 x 1.5 x 3.1 cm mass within t he right upper lobe on image 206 is also stable. This is contiguous with and opacifies adjacent right upper lobe bronchus. Right lower lobe volume loss with mild consolidation. Metastatic focus within the right retroperitoneum measures 2.1 x 1.5 cm on image 288, likely adrenal. Indeterminate 1.0 cm hypodensity of the right hepatic lobe is unchanged suggestive of a benign cyst. Pneumobilia with surgical clips seen within the dominguez hepatis. There are numerous enhancing metastat ic nodules throughout the body wall (please see bookmarks), the largest within the right upper breast measuring 1.7 cm on image 169. A left posterior shoulder lesion is seen on image 281. The remainder of the lesions predominantly appear to be subcutaneous and most of which have increased in size. A craig btle osteolytic lesion is again noted involving the T3 vertebral body and pedicle on the left, image 251. This lesion appears to have increased in size. No large epidural component identified. Small ost eolytic lesion of the anterior right sixth rib with small associated acute to subacute appearing nond isplaced pathologic fracture. 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 The lesion measures 2.7 cm, previously 2.5 cm. Additional acute nondis placed fracture of the anterior right seventh rib. Mild compression fracture of the inferior T12 endp late again noted. Chronic appearing superior endplate compression/Schmorl's node at T11. There is an acute burst fracture at T7 with 4 mm retropulsion increased size of an osteolytic lesion at T5 with m ild acute superior endplate compression without retropulsion. IMPRESSION: 1. No pulmonary emboli identified. 2. New moderate right pleural effusion with right basilar atelectasis. 3. 3 cm right upper lobe mass again suggestive of primary bronchogenic malignancy. 4. Additional irregular nodular foci of the lungs are suspicious for numerous adenomatous lesions. 5. 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 6. Acute pathologic rib fractures with acute pathologic T7 burst fracture demonstrating 4 mm retropul maxwell. Mild acute pathologic fracture of the T5 superior endplate without retropulsion. 7. Additional findings as above. ACT 112: Negative or not required by law. The above report was generated using voice recognition software. It may contain grammatical, syntax o r spelling errors. Electronically signed by: Atul Canales M.D. 12/15/2022 12:47 PM
--- NOTE | 2022-12-15 13:15 | History & Physical Report ---
Date of Service December 15, 2022 Assessment & Plan (1) Acute respiratory failure with hypoxia: Plan: -Admit to med/tele on continuous pulse ox -Currently stable on 2L NC, goal is 88-92% with her hx of COPD -CTA of the chest with PE protcol negative for PE, shows right > left pleural effusions -Low suspicion for CHF at this time as she appears euvolemic with asymmetric pleural effusion -Incentive spirometry, flutter therapy, Scheduled DuoNebs (2) Pleural effusion, right: Plan: -Looks as though it has been ongoing since before her mediport was placed -Mediport is functioning well -Likely due to her known lung cancer as it is right-sided -Still hypoxic after switching finger pulse ox for forehead sticker as her nails are painted -Pulmonology consulted for possible thoracentesis, patient not on anticoagulation -No obvious sign of pneumonia at this time, will add on procal but hold antibiotics for now (3) Elevated troponin: Plan: -Initial high sen trop elevated at 15.8 -Patient is without chest pain and acute ECG changes -Likely due to her hypoxia, will repeat a second high sen trop on admission and monitor on tele (4) Metastatic lung cancer (metastasis from lung to other site): Plan: -Follows with Dr. 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 In the ED the patient was noted to be hypoxic at 82% on RA, otherwise v itals were stable. Labs were significant for a VBG pH of 7.42, sodium of 134 (stable), initial high sen trop of 15.8. Chest xray shows mild pulm edema and right > left pleural effusions. CTA of the chest with PE protocol was negative for PE, confirmed her pleural effusions, and also showed "Acute pathologic rib fractures with acute pathologic T7 burst fracture demonstrating 4 mm retropulsion. Mild acute pathologic fracture of the T5 superior endplate without retropulsion.". Prior to admission the patient was given 500 mL of NSS. At the time of the exam the patient was sitting in bed in no acute distress with family sitting bedside, currently saturating at 95% on 3L NC. She states that she has been having progressive SOB over the past week. She denies recent fever, chills, chest pain, cough, abd pain, nausea, vomiting, diarrhea, dysuria, hematuria, melena, LE swelling and recent trauma. She had her Mediport placed with general surgery on 12/12 and has been without irritation/swelling/ erythema/or pain at the site. She is due to get her first dose of Keytruda next . She does not typically wear O2 at home. Her family states that she was hypoxic when first waking up after anesthesia for the port placement but did not drop low enough to qualify for O2 at that time. She is currently feeling some improvement in her SOB with oxygen. She has had to use her albuterol more freque ntly at home over the past week, this provides temporary improvement in her symptoms. She was trying to eat lunch at the end of my exam, she has been experiencing some dysphagia since her last radiation treatment to her chest last week. She denies having food stuck while swallowing or chocking on food or liquids recently. She is a DNR/DNI and would want her to make medical decisions for her if she cannot make them herself. Please refer to Dr. Sun's attestation for any changes to the treatment plan. Allergies Allergy/AdvReac Type Severity Reaction Status Date / Time amoxicillin Allergy Intermediate rash Verified 12/15/22 13:13 tramadol AdvReac Intermediate loss of Verified 12/15/22 13:13 apetite Home Medications Medication Instructions Recorded Confirmed Type calcium carbonate 600 mg calcium 600 mg PO QAM 02/12/19 12/15/22 History (1,500 mg) tablet loratadine 10 mg capsule 10 mg PO QAM 09/14/19 12/15/22 History multivitamin 1 tab PO QAM 09/14/19 12/15/22 History albuterol sulfate 90 mcg/actuation 2 puffs inhalation Q6H PRN 10/07/19 12/15/22 Rx aerosol inhaler (Ventolin HFA) shortness of breath or wheezing #8.5 grams magnesium oxide 400 mg (241.3 mg 400 mg PO HS 05/08/21 12/15/22 History magnesium) tablet Symbicort 160 mcg-4.5 2 puff inhalation BID #10.2 grams 11/26/21 12/15/22 Rx mcg/actuation HFA aerosol inhaler (budesonide-formoterol) buspirone 5 mg tablet 5 mg PO BID #180 tabs 09/02/22 12/15/22 Rx naproxen sodium 220 mg capsule 220 mg PO BID 10/18/22 12/15/22 History (Aleve) gabapentin 400 mg capsule 400 mg PO HS #90 caps 11/01/22 12/15/22 Rx mirtazapine 7.5 mg tablet 7.5 mg PO HS 11/27/22 12/15/22 History sennosides 8.6 mg tablet (Senokot) 8.6 mg PO HS 11/27/22 12/15/22 History hydrocodone 5 mg-acetaminophen 325 1 tab PO Q4H PRN Pain #60 tabs 12/05/22 12/15/22 Rx mg tablet amlodipine 5 mg tablet 5 mg PO QAM 12/10/22 12/15/22 History cholecalciferol (vitamin D3) 25 25 mcg PO BID 12/10/22 12/15/22 History mcg (1,000 unit) tablet (Vitamin D3) lisinopril 40 mg tablet 40 mg PO QAM 12/10/22 12/15/22 History pantoprazole 40 mg tablet,delayed 40 mg PO QAM 12/10/22 12/15/22 History release polyethylene glycol 3350 17 17 g PO QAM PRN Constipation 12/10/22 12/15/22 History gram/dose oral powder (Miralax) rosuvastatin 10 mg tablet 10 mg PO QAM 12/10/22 12/15/22 History Past Med/Surg History Medical History Actinic keratosis Adenocarcinoma WITH METS Anxiety Chronic venous insufficiency COPD (chronic obstructive pulmonary disease) Dyslipidemia GERD (gastroesophageal reflux disease) History of COVID-19 "A LONG TIME AGO">RESOLVED Hypertension Impaired fasting glucose Lung cancer RADIATION TX>SCHEDULED FOR LAST TX TODAY *WILL HAVE TOTAL 10 TREATMENTS Peripheral arterial disease Peripheral neuropathy 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 biliary stent placement *2 WEEKS AGO AT [facility] History of tooth extraction Port-A-Cath in place (12/12/22) Insertion of Access Port with Fluoroscopy(Not Applicable) - Ryan Valverde DO S/P laparoscopic appendectomy (04/2020) 05/08/2020 Grade 1 view, MAC 3, ETT 7. Family History Father Diabetes Family history of diabetes mellitus Mother No problems noted. Sister No problems noted. Brother Lung cancer Brother No problems noted. Brother No problems noted. Son No problems noted. Daughter No problems noted. Other No family history of adverse response to anesthesia Stroke Denies family history of Ovarian cancer Prostate cancer Myocardial infarction Breast cancer Colorectal cancer Social History Smoking Status: Former smoker Tobacco Type: Cigarettes Age Started Using Tobacco: 17; Age Quit Using Tobacco: 65; packs per day: 1; Cigarettes Per Day: QUIT A FEW MONTHS AGO; Second Hand Exposure: No; Hx Alcohol Use: No Hx Substance Use: No Preferred Language: Sudanese Communication Ability: Effective Visual Impairment: No Limitations Hearing Ability: Normal Director Print Required: No Beliefs That Will Affect Care: None marital status: Current Living Situation: Spouse current occupational status: retired 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 How many Children do You have: 2 Feels Safe at Home: Yes Childhood Exposure to Second-Hand Smoke: Yes caffeine: Yes during the past year weight has: remained stable Dental Care, Regularly: No Seatbelt Use: always Assistive Devices: Denture - Upper and Denture - Lower Physical Exam Physical Exam: Physical Exam: General: In no acute distress, stated age, cachectic, non-toxic appearing HEENT: Normocephalic, atraumatic, no scleral icterus, pupils around round, symmetrical, and reactive to light, dry mucus membranes, trachea midline, no thyromegaly Chest/Pulm: Mediport located in the right upper chest is without signs of infection, currently being used without issue, No respiratory distress, symmetrical chest expansion, decreased breath sounds in the BL lower lung maya, decreased breath sounds in the right middle lobs, expiratory wheezing in all other lung maya Cardiac: RRR, no murmurs noted Abdomen: Negative for ascites and bruising, normoactive bowel sounds, soft, non-tender to palpation throughout Musculoskeletal: Symmetrical and without signs of acute trauma, upper and lower extremities with full ROM, no atrophy, spasticity, or flaccidity Extremities: Radial, dorsalis pedis, and posterior tibial pulses are intact and symmetrical, no edema noted in the BL LE's Skin: Warm, dry, no rashes , lesions, or scars noted; previous jaundice on last admission has resolved Neuro: Alert and oriented to person, place, month, year, and president, no focal defects, CN II-XII tested and intact, no tremors noted Psych: No acute distress, calm and cooperative during the exam Results & Data Results & Data Vital Signs (Past 12 Hours) Vital Signs Temp Pulse Resp BP Pulse Ox O2 Del Method O2 Flow Rate 12/15/22 12:34 88 22 93 Nasal Cannula 2 12/15/22 12:34 145/80 H 12/15/22 12:30 88 21 91 12/15/22 12:00 85 24 93 12/15/22 11:30 85 21 93 Nasal Cannula 2 12/15/22 11:44 Nasal Cannula 2 12/15/22 11:14 90 12/15/22 11:15 92 Nasal Cannula 3 12/15/22 10:39 37.0 C 102 H 18 139/57 L 82 L Room Air Laboratory Results Abnormal lab results 12/15/22 12/15/22 12/15/22 Range/Units 10:52 10:52 10:53 RBC 3.21 L (4.20-5.40) M/uL Hgb 9.7 L (12.0-16.0) g/dl Hct 29.5 L (37.0-47.0) % RDW Std Deviation 56.2 H (36.4-46.3) fL RDW Coeff of Kisha 17.4 H (11.5-14.5) % MPV 8.7 L (9.4-12.4) fL Lymph # (Auto) 0.16 L (1.2-3.4) K/uL Russell # (Auto) 0.97 H (0.11-0.59) K/uL APTT 31.7 H (21.0-31.0) Seconds VBG pH (7.36-7.41) Sodium 134 L (136-145) mmol/L Creatinine 0.44 L (0.6-1.2) mg/dl BUN/Creatinine Ratio 27.3 H (10-20) Glucose 116 H (70-99(Fasting)) mg/dl Calcium 8.4 L (8.6-10.3) mg/dl Total Bilirubin 1.8 H (0.2-1.0) mg/dl Alkaline Phosphatase 178 H (34-104) U/L Troponin I High Sens 15.8 H (0-14) pg/ml Total Protein 5.5 L (6.0-8.3) gm/dl Albumin 3.2 L (3.4-5.0) gm/dl Globulin 2.3 L (2.5-4.0) gm/dl 12/15/22 Range/Units 11:38 RBC (4.20-5.40) M/uL Hgb (12.0-16.0) g/dl Hct (37.0-47.0) % RDW Std Deviation (36.4-46.3) fL RDW Coeff of Kisha (11.5-14.5) % MPV (9.4-12.4) fL Lymph # (Auto) (1.2-3.4) K/uL Russell # (Auto) (0.11-0.59) K/uL APTT (21.0-31.0) Seconds VBG pH 7.42 H (7.36-7.41) Sodium (136-145) mmol/L Creatinine (0.6-1.2) mg/dl BUN/Creatinine Ratio (10-20) Glucose (70-99(Fasting)) mg/dl Calcium (8.6-10.3) mg/dl Total Bilirubin (0.2-1.0) mg/dl Alkaline Phosphatase (34-104) U/L Troponin I High Sens (0-14) pg/ml Total Protein (6.0-8.3) gm/dl Albumin (3.4-5.0) gm/dl Globulin (2.5-4.0) gm/dl Diagnostic Findings Chest X-Ray 12/15/22 10:52 XR chest 1V portable HISTORY: 82 years-old Female Dyspnea acute shortness of breath COMPARISON: 12/12/2022 TECHNIQUE: AP view of the chest FINDINGS: Unchanged appearance of the right upper lung. Stable positioning of the right subclavian Clmypp-r-[id number] catheter. Cardiac silhouette is enlarged. No pneumoth orax. Right greater left pleural effusions with bibasilar consolidation. Pulmonary vascular congestion with interstitial coarsening. Degenerative changes of the shoulders and spine. IMPRESSION: 1. Cardiomegaly with mild pulmonary edema. 2. Right greater than left pleural effusions with bibasilar consolidation again noted. 3. Postoperative changes of the right upper lung. ACT 112: Negative or not required by law. The above report was generated using voice recognition software. It may contain grammatical, syntax or spelling errors. Electronically signed by: Atul Canales M.D. 12/15/2022 11:23 AM Chest CTA 12/15/22 11:36 CT angio chest PE protocol CT DOSE: 247.45 mGy.cm HISTORY: 82 years-old Female with PE, requested by ONC. Acute shortness of breath TECHNIQUE: Multiple CTA images of the chest were obtained after the intravenous administration of 116 ml Optiray. Coronal and sagittal MIPS were obtained from the axial data set and were submitted for review. All measurements were obtained according to NASCET criteria. A dose lowering technique was utilized adhering to the principles of ALARA. COMPARISON: Chest radiograph of same day, chest CT 10/30/2022 FINDINGS: CTA: Moderate cardiomegaly. No pericardial effusion. Mild coronary artery calcifications. Atherosclerosis of the thoracic aorta without aneurysm. Patency of the imaged great vessels. Right subclavian Grrsrk-d-Rtet catheter distal tip terminates within the mid SVC. No definite pulmonary emboli identified. CT CHEST: Thyroid nodules are stable from prior measuring up to 1.8 cm on the left. Partially imaged subcentimeter right supraclavicular lymph node. Pathologic adenopathy of the chest includes subcarinal adenopathy measuring up to 2.5 x 3.5 cm and right hilar adenopathy measuring up to 3.1 cm, similar to prior. Severe pulmonary emphysema. Respiratory motion artifact limits the study. Trace left and moderate right pleural effusions are new from prior. No pneumothorax. There is an irregular sub-solid nodular density within the left upper lobe abutting and retracting the adjacent fissure on image 210 measuring approximately 2.7 cm, similar to prior. Spiculated 0.9 x 0.7 cm irregular nodule within the lingula on image 185 is stable. 1.4 cm groundglass nodular density of the lingula on image 155 again noted. 2.7 cm irregular nodular area of consolidation within the right upper lobe on image 206 is similar to prior. Spiculated irregular 2.7 x 1.5 x 3.1 cm mass within the right upper lobe on image 206 is also stable. This is contiguous with and opacifies adjacent right upper lobe bronchus. Right lower lobe volume loss with mild consolidation. Metastatic focus within the right retroperitoneum measures 2.1 x 1.5 cm on image 288, likely adrenal. Indeterminate 1.0 cm hypodensity of the right hepatic lobe is unchanged suggestive of a benign cyst. Pneumobilia with surgical clips seen within the dominguez hepatis. There are numerous enhancing metastatic nodules throughout the body wall (please see bookmarks), the largest within the right upper breast measuring 1.7 cm on image 169. A left posterior shoulder lesion is seen on image 281. The remainder of the lesions predominantly appear to be subcutaneous and most of which have increased in size. A subtle osteolytic lesion is again noted involving the T3 vertebral body and pedicle on the left, image 251. This lesion appears to have increased in size. No large epidural component identified. Small osteolytic lesion of the anterior right sixth rib with small associated acute to subacute appearing nondisplaced pathologic fracture. 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 The lesion measures 2.7 cm, previously 2.5 cm. Additional acute nondisplaced fracture of the anterior right seventh rib. Mild compression fracture of the inferior T12 endplate again noted. Chronic appearing superior endplate compression/Schmorl's node at T11. There is an acute burst fracture at T7 with 4 mm retropulsion increased size of an osteolytic lesion at T5 with mild acute superior endplate compression without retropulsion. IMPRESSION: 1. No pulmonary emboli identified. 2. New moderate right pleural effusion with right basilar atelectasis. 3. 3 cm right upper lobe mass again suggestive of primary bronchogenic malignancy. 4. Additional irregular nodular foci of the lungs are suspicious for numerous adenomatous lesions. 5. Metastatic mediastinal and hilar lymphadenopathy is similar to prior with progressive body wall and osteolytic skeletal metastasis. 6. Acute pathologic rib fractures with acute pathologic T7 burst fracture demonstrating 4 mm retropulsion. Mild acute pathologic fracture of the T5 superior endplate without retropulsion. 7. Additional findings as above. ACT 112: Negative or not required by law. The above report was generated using voice recognition software. It may contain grammatical, syntax or spelling errors. Electronically signed by: Atul Canales M.D. 12/15/2022 12:47 PM ECG Additional Comments: Normal sinus rhythm Normal ECG When compared with ECG of 10-DEC-2022 11:31, Premature ventricular complexes are no longer Present T wave inversion now evident in Inferior leads Code Status & VTE Plan Code Status DNR/DNI VTE Prophylaxis Plan VTE Prophylaxis will be ordered: Yes Supervising Physician Co-Signing Physician Notes I personally saw and examined the patient. I verified all garcía points and agree with Wilmar Reynolds PA-C with the following exceptions and/or additions: 82 year old female presents with progressive worsening shortness of breath since her port placement. She does report it took a while for her oxygenation to improve following this procedure. O/E Frail appearing, HS RRR, no murmurs, Chest absent right base, no crackles, Abdo SNT A/P Acute hypoxia due to pleural effusion - suspect progressive worsening due to pleural effusion which is likely malignant, may just be managed with home O2 if unable to have thoracentesis with close pulmonology follow up as likely to get larger and needing thoracentesis at some point. Pleural effusion present for the first time s/p port placement but CT not suggestive of complication from this, suspect she was developing this prior to port. Consult pulmonology - discussed care with Dr Garcia. History, imaging and labs not consistent with infection causing this. PG Care Time/CCT Total # of Minutes Spent Total Time Spent with Patient: Total time spent is greater than 50% in coordination of care (as documented) at patient's floor/unit and/or counseling patient: Coding [place] [address] INT INP/OBS CARE 3/75MIN Patient Type Established Medical Decision Making High Complexity Diagnoses Acute respiratory failure with hypoxia J96.01 Pleural effusion, right J90 Elevated troponin R77.8 Metastatic lung cancer (metastasis from lung to other site) C34.90 Dysphagia R13.10 Hyponatremia E87.1 GERD (gastroesophageal reflux disease) K21.9 Hypertension I10 Dyslipidemia E78.5 COPD (chronic obstructive pulmonary disease) J44.9 Anxiety F41.9
[2022-12-15] MEDS ORDERED: HYDROcodone/ACETAMINOPHEN 10/325 TAB PO STA (14:13)
[2022-12-15 14:21] LABS: Appearance Urine Clear (Clear); Bilirubin Urine Negative (Negative); Blood Urine Negative (Negative); Color Urine Yellow; Glucose Urine UA Negative (Negative); Ketones Urine Negative (Negative); Leukocyte Esterase Urine Negative (Negative); Nitrite Urine Negative (Negative); Protein Urine Negative (Negative); Specific Gravity Urine 1.022 (1.000-1.030); Urobilinogen Urine Negative (Negative); pH Urine 6.5 (4.5-7.5)
--- NOTE | 2022-12-15 14:25 | Electrocardiogram Report ---
Test Reason : Blood Pressure : / mmHG Vent. Rate : 093 BPM Atrial Rate : 093 BPM P-R Int : 132 ms QRS Dur : 090 ms QT Int : 360 ms P-R-T Axes : 072 076 022 degrees QTc Int : 447 ms Normal sinus rhythm Normal ECG When compared with ECG of 10-DEC-2022 11:31, Premature ventricular complexes are no longer Present T wave inversion now evident in Inferior leads Confirmed by João Kirby ([id number]) on 12/15/2022 2:25:29 PM Referred By: Confirmed By:João Kirby
[2022-12-15] MEDS: ALBUT/IPRATROP 3MG/0.5MG NEB 3 ML VIAL NEB SCH ×2 (14:57→19:42)
--- NOTE | 2022-12-15 15:23 | Pulmonary Consultation ---
Date of Consultation December 15, 2022 Assessment & Plan (1) SOB (shortness of breath): (2) Pleural effusion: (3) Hypoxia: Plan Her shortness of breath and hypoxemia is multifactorial related to COPD, metastatic lung cancer and possible diastolic heart failure. I did a thoracic ultrasound. No significant effusion seen on the left. A small right pleural effusion seen with some mild compressive atelectasis. We discussed risks and benefits and elected to defer thoracentesis at this time given the small size. I would be happy to follow her up in the clinic and reevaluate thoracentesis if the effusion gets bigger. Pleural ultrasound images are saved in the PACS system and are available for review. She would benefit from She would benefit from being set up with home oxygen, home nebulizer and DuoNebs. I discussed with her daughter who is a casework specialist in the ER. I also discussed the case with the hospitalist. Pulmonary to continue to follow while the patient remains hospitalized. History of Present Illness Reason for Consultation: Right pleural effusion History of Present Illness 82-year-old female with a history of metastatic adenocarcinoma of the lung who presented to the hospital due to increasing shortness of breath. She was seen by palliative care 12/03/22. She notes increasing shortness of breath over the past week. She is set to start Keytruda next week. She had a port placed recently. She had a chest CTA completed today which revealed a new moderate- sized right pleural effusion. 3 cm right upper lobe mass seen. Metastatic mediastinal and hilar lymphadenopathy. Acute pathological rib fractures with acute pathologic T7 burst fracture. She has evidence of diffuse metastatic disease. She is followed by Dr. Stokes of cancer care [facility]. Pulmonary is consulted to assist with management of the pleural effusion. Patient easily desaturates to 87% while wearing nasal cannula at 2 L/min with ambulation. She notes that symptomatically she is feeling better since receiving the DuoNeb. She denies any fevers, chills or night sweats. She notes that she has not fully recovered since her port placement earlier this month. Allergies Allergy/AdvReac Type Severity Reaction Status Date / Time amoxicillin Allergy Intermediate rash Verified 12/15/22 13:13 tramadol AdvReac Intermediate loss of Verified 12/15/22 13:13 apetite Home Medications Medication Instructions Recorded Confirmed Type calcium carbonate 600 mg calcium 600 mg PO QAM 02/12/19 12/15/22 History (1,500 mg) tablet loratadine 10 mg capsule 10 mg PO QAM 09/14/19 12/15/22 History multivitamin 1 tab PO QAM 09/14/19 12/15/22 History albuterol sulfate 90 mcg/actuation 2 puffs inhalation Q6H PRN 10/07/19 12/15/22 Rx aerosol inhaler (Ventolin HFA) shortness of breath or wheezing #8.5 grams magnesium oxide 400 mg (241.3 mg 400 mg PO HS 05/08/21 12/15/22 History magnesium) tablet Symbicort 160 mcg-4.5 2 puff inhalation BID #10.2 grams 11/26/21 12/15/22 Rx mcg/actuation HFA aerosol inhaler (budesonide-formoterol) buspirone 5 mg tablet 5 mg PO BID #180 tabs 09/02/22 12/15/22 Rx naproxen sodium 220 mg capsule 220 mg PO BID 10/18/22 12/15/22 History (Aleve) gabapentin 400 mg capsule 400 mg PO HS #90 caps 11/01/22 12/15/22 Rx mirtazapine 7.5 mg tablet 7.5 mg PO HS 11/27/22 12/15/22 History sennosides 8.6 mg tablet (Senokot) 8.6 mg PO HS 11/27/22 12/15/22 History hydrocodone 5 mg-acetaminophen 325 1 tab PO Q4H PRN Pain #60 tabs 12/05/22 12/15/22 Rx mg tablet amlodipine 5 mg tablet 5 mg PO QAM 12/10/22 12/15/22 History cholecalciferol (vitamin D3) 25 25 mcg PO BID 12/10/22 12/15/22 History mcg (1,000 unit) tablet (Vitamin D3) lisinopril 40 mg tablet 40 mg PO QAM 12/10/22 12/15/22 History pantoprazole 40 mg tablet,delayed 40 mg PO QAM 12/10/22 12/15/22 History release polyethylene glycol 3350 17 17 g PO QAM PRN Constipation 12/10/22 12/15/22 History gram/dose oral powder (Miralax) rosuvastatin 10 mg tablet 10 mg PO QAM 12/10/22 12/15/22 History Patient History Medical History Actinic keratosis Adenocarcinoma WITH METS Anxiety Chronic venous insufficiency COPD (chronic obstructive pulmonary disease) Dyslipidemia GERD (gastroesophageal reflux disease) History of COVID-19 "A LONG TIME AGO">RESOLVED Hypertension Impaired fasting glucose Lung cancer RADIATION TX>SCHEDULED FOR LAST TX TODAY *WILL HAVE TOTAL 10 TREATMENTS Peripheral arterial disease Peripheral neuropathy 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 biliary stent placement *2 WEEKS AGO AT [facility] History of tooth extraction Port-A-Cath in place (12/12/22) Insertion of Access Port with Fluoroscopy(Not Applicable) - Ryan Valverde DO S/P laparoscopic appendectomy (04/2020) 05/08/2020 Grade 1 view, MAC 3, ETT 7. Family History Father Diabetes Family history of diabetes mellitus Mother No problems noted. Sister No problems noted. Brother Lung cancer Brother No problems noted. Brother No problems noted. Son No problems noted. Daughter No problems noted. Other No family history of adverse response to anesthesia Stroke Denies family history of Ovarian cancer Prostate cancer Myocardial infarction Breast cancer Colorectal cancer Social History Smoking Status: Former smoker Tobacco Type: Cigarettes Age Started Using Tobacco: 17; Age Quit Using Tobacco: 65; packs per day: 1; Cigarettes Per Day: QUIT A FEW MONTHS AGO; Second Hand Exposure: No; Hx Alcohol Use: Yes Alcohol type: wine Alcohol Intake Frequency: 4 or More x per/Week Alcohol Intake Frequency Comment: 2 glasses of wine daily Hx Substance Use: No Preferred Language: Jamaican Communication Ability: Effective Visual Impairment: No Limitations Hearing Ability: Normal Mechanical Service Technician Required: No Beliefs That Will Affect Care: None marital status: Current Living Situation: Spouse current occupational status: retired 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 Eyes: Pupils are equal round and reactive to light. Conjunctivae are normal. Anicteric sclera. Ears nose, mouth and throat: Mallampati class 1. Normal posterior oropharynx. Uvula is midline. Neck: Trachea is midline. Visual inspection is normal. Respiratory: Prolonged phase of exhalation. Diminished bilaterally. Crackles in the right lung. Cardiovascular: Regular rate and rhythm. No murmurs. No edema. Gastrointestinal: Normal bowel sounds, soft, nontender and nondistended. No hepatosplenomegaly noted. Musculoskeletal: No cyanosis. Patient is able to move all extremities. Strength is 5 out of 5 in the upper and lower extremities. Skin: No rashes, warm dry and intact. Neurologic: No obvious focal neurological deficits seen. Psychiatric: Alert and oriented x3 with a euthymic affect. Results & Data Results & Data Vital Signs (Past 12 Hours) Vital Signs Temp Pulse Resp BP Pulse Ox O2 Del Method O2 Flow Rate 12/15/22 12:34 88 22 93 Nasal Cannula 2 12/15/22 12:34 145/80 H 12/15/22 12:30 88 21 91 12/15/22 12:00 85 24 93 12/15/22 11:30 85 21 93 Nasal Cannula 2 12/15/22 11:44 Nasal Cannula 2 12/15/22 11:14 90 12/15/22 11:15 92 Nasal Cannula 3 12/15/22 10:39 37.0 C 102 H 18 139/57 L 82 L Room Air PG Care Time/CCT Total # of Minutes Spent Total Time Spent with Patient: Total time spent is greater than 50% in coordination of care (as documented) at patient's floor/unit and/or counseling patient: Coding Level of Care Code 25695 INT INP/OBS CARE 3/75MIN Diagnoses SOB (shortness of breath) R06.02 Pleural effusion J90 Hypoxia R09.02
[2022-12-15] MEDS ORDERED: POLYETHYLENE (MIRALAX) 17 GM PACK PO PRN (17:13)
[2022-12-15] MEDS: busPIRone 5 MG TAB PO SCH (20:06)
[2022-12-15] MEDS ORDERED: MIRTAZAPINE TAB 15 MG TAB PO SCH (21:00)
[2022-12-15] MEDS ORDERED: GABAPENTIN 400 MG CAP PO SCH (21:00)
[2022-12-15] MEDS ORDERED: SENNA 8.6 MG TAB PO SCH (21:00)
[2022-12-15] MEDS ORDERED: ALBUT/IPRATROP 3MG/0.5MG NEB 3 ML VIAL NEB PRN (23:03)
[2022-12-15] MEDS: HYDROCODONE/ACETAMOPHEN 5/325MG TAB PO PRN (23:13)
[2022-12-16] MEDS: busPIRone 5 MG TAB PO SCH (08:11)
[2022-12-16] MEDS: HEPARIN 100 UNIT/ML 5ML FLUSH FLUSH PRN ×2 (08:39→13:47)
[2022-12-16] MEDS ORDERED: ROSUVASTATIN CALCIUM 10 MG TAB PO SCH (09:00)
[2022-12-16] MEDS ORDERED: PANTOprazole 40 MG TAB PO SCH (09:00)
[2022-12-16] MEDS ORDERED: amLODIPine BESYLATE 5 MG TAB PO SCH (09:00)
[2022-12-16] MEDS ORDERED: lisinopril 40 MG TAB PO SCH (09:00)
[2022-12-16] MEDS ORDERED: FLUTICASONE/VILANTEROL 200/25MCG 14 PUFFS/INHALER INH SCH (09:00)
[2022-12-16 09:21] LABS: Basophils # (auto) 0.03 K/uL (0-0.2); Basophils % (auto) 0.4 %; Eosinophils # (auto) 0.12 K/uL (0-0.50); Eosinophils % (auto) 1.8 %; Hematocrit (blood only) 25.6 % (37.0-47.0); Hemoglobin 8.5 g/dl (12.0-16.0); Immature Granulocytes # (auto) 0.02 K/uL (0.01-0.20); Immature Granulocytes % (auto) 0.3 %; Lymphocytes # (auto) 0.19 K/uL (1.2-3.4); Lymphocytes % (auto) 2.8 %; Mean Corpuscular Hemoglobin 29.9 pg (25.0-34.0); Mean Corpuscular Hgb Conc 33.2 g/dL (32.0-36.0); Mean Corpuscular Volume 90.1 fL (80.0-100.0); Mean Platelet Volume 8.9 fL (9.4-12.4); Monocytes # (auto) 1.45 K/uL (0.11-0.59); Monocytes % (auto) 21.7 %; Neutrophils # (auto) 4.87 K/uL (1.40-6.50); Platelet Count 238 K/uL (130-400); RDW Coefficient of Variation 17.3 % (11.5-14.5); Red Blood Count 2.84 M/uL (4.20-5.40); White Blood Count 6.68 K/ul (4.8-10.8)
[2022-12-16 09:35] LABS: Albumin Globulin Ratio 1.3 (0.9-2); Albumin Level 3.1 gm/dl (3.4-5.0); BUN Creatinine Ratio 17.8 (10-20); Bilirubin,Total 1.6 mg/dl (0.2-1.0); Calcium 8.3 mg/dl (8.6-10.3); Creatinine Clr Calc Pharmacy 89.7 ml/min; Est GFR (African American) 109.7 ml/min; Est GFR (Non-African American) 94.6 ml/min; Globulin 2.3 gm/dl (2.5-4.0); Magnesium 1.6 mg/dl (1.7-2.4); Potassium 3.5 mmol/L (3.5-5.1); Total Protein 5.4 gm/dl (6.0-8.3)
[2022-12-16 10:01] LABS: Prothrombin Time 11.1 Seconds (9.0-12.0)
[2022-12-16] MEDS ORDERED: MAGNESIUM SULFATE / D5W 1 GM/100 ML BAG IV ONE (10:34)
[2022-12-16] MEDS: HYDROCODONE/ACETAMOPHEN 5/325MG TAB PO PRN (12:34)
--- NOTE | 2022-12-16 12:50 | Orthopedic Consultation ---
Date of Consultation December 16, 2022 Assessment & Plan (1) Thoracic compression fracture: Assessment thoracic lumbar compression fractures. Plan at this time her symptoms are controlled. We discussed possible bracing versus surgical intervention by way of a kyphoplasty. At this point she is not interested in either modality. We discussed that if her symptoms progress and become limiting in nature we will certainly revisit this issue and make further recommendations at that time. This time was to follow as needed. History of Present Illness Reason for Consultation: Compression fractures of the thoracic and lumbar spine Attending Physician: Elizabeth Perez MD History of Present Illness This a very pleasant 82-year-old female who presents yesterday with shortness of breath. Today she feels much improved. She is in the room with her . This time her back pain does not limit her her ability to stand and ambulate. She denies any numbness or tingling into the legs. Allergies Allergy/AdvReac Type Severity Reaction Status Date / Time amoxicillin Allergy Intermediate rash Verified 12/15/22 13:13 tramadol AdvReac Intermediate loss of Verified 12/15/22 13:13 apetite Home Medications Medication Instructions Recorded Confirmed Type calcium carbonate 600 mg calcium 600 mg PO QAM 02/12/19 12/15/22 History (1,500 mg) tablet loratadine 10 mg capsule 10 mg PO QAM 09/14/19 12/15/22 History multivitamin 1 tab PO QAM 09/14/19 12/15/22 History albuterol sulfate 90 mcg/actuation 2 puffs inhalation Q6H PRN 10/07/19 12/15/22 Rx aerosol inhaler (Ventolin HFA) shortness of breath or wheezing #8.5 grams magnesium oxide 400 mg (241.3 mg 400 mg PO HS 05/08/21 12/15/22 History magnesium) tablet Symbicort 160 mcg-4.5 2 puff inhalation BID #10.2 grams 11/26/21 12/15/22 Rx mcg/actuation HFA aerosol inhaler (budesonide-formoterol) buspirone 5 mg tablet 5 mg PO BID #180 tabs 09/02/22 12/15/22 Rx naproxen sodium 220 mg capsule 220 mg PO BID 10/18/22 12/15/22 History (Aleve) gabapentin 400 mg capsule 400 mg PO HS #90 caps 11/01/22 12/15/22 Rx mirtazapine 7.5 mg tablet 7.5 mg PO HS 11/27/22 12/15/22 History sennosides 8.6 mg tablet (Senokot) 8.6 mg PO HS 11/27/22 12/15/22 History hydrocodone 5 mg-acetaminophen 325 1 tab PO Q4H PRN Pain #60 tabs 12/05/22 12/15/22 Rx mg tablet amlodipine 5 mg tablet 5 mg PO QAM 12/10/22 12/15/22 History cholecalciferol (vitamin D3) 25 25 mcg PO BID 12/10/22 12/15/22 History mcg (1,000 unit) tablet (Vitamin D3) lisinopril 40 mg tablet 40 mg PO QAM 12/10/22 12/15/22 History pantoprazole 40 mg tablet,delayed 40 mg PO QAM 12/10/22 12/15/22 History release polyethylene glycol 3350 17 17 g PO QAM PRN Constipation 12/10/22 12/15/22 History gram/dose oral powder (Miralax) rosuvastatin 10 mg tablet 10 mg PO QAM 12/10/22 12/15/22 History Patient History Medical History Actinic keratosis Adenocarcinoma WITH METS Anxiety Chronic venous insufficiency COPD (chronic obstructive pulmonary disease) Dyslipidemia GERD (gastroesophageal reflux disease) History of COVID-19 "A LONG TIME AGO">RESOLVED Hypertension Impaired fasting glucose Lung cancer RADIATION TX>SCHEDULED FOR LAST TX TODAY *WILL HAVE TOTAL 10 TREATMENTS Peripheral arterial disease Peripheral neuropathy 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 biliary stent placement *2 WEEKS AGO AT [facility] History of tooth extraction Port-A-Cath in place (12/12/22) Insertion of Access Port with Fluoroscopy(Not Applicable) - Ryan Valverde, S/P laparoscopic appendectomy (04/2020) 05/08/2020 Grade 1 view, MAC 3, ETT 7. Family History Father Diabetes Family history of diabetes mellitus Mother No problems noted. Sister No problems noted. Brother Lung cancer Brother No problems noted. Brother No problems noted. Son No problems noted. Daughter No problems noted. Other No family history of adverse response to anesthesia Stroke Denies family history of Ovarian cancer Prostate cancer Myocardial infarction Breast cancer Colorectal cancer Social History Smoking Status: Former smoker Tobacco Type: Cigarettes Age Started Using Tobacco: 17; Age Quit Using Tobacco: 65; packs per day: 1; Cigarettes Per Day: QUIT A FEW MONTHS AGO; Second Hand Exposure: No; Hx Alcohol Use: No Hx Substance Use: No Preferred Language: Honduran Communication Ability: Effective Visual Impairment: No Limitations Hearing Ability: Normal Associate Store Director Required: No Beliefs That Will Affect Care: None marital status: Current Living Situation: Spouse current occupational status: retired 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 She has no pain to percussion or palpation of the thoracolumbar spine. No abnormal skin markings. She is can strength testing lower extremities. Results & Data Vital Signs (Past 12 Hours) Vital Signs Temp Pulse Pulse Resp BP Pulse Ox O2 Del Method 12/16/22 11:00 36.8 C 95 H 16 125/70 97 Room Air 12/16/22 08:16 Nasal Cannula 12/16/22 07:50 36.8 C 93 H 16 145/76 H 94 Nasal Cannula 12/16/22 06:45 85 12/16/22 05:52 86 18 95 Nasal Cannula 12/16/22 03:03 36.4 C L 82 16 114/62 90 Nasal Cannula O2 Flow Rate 12/16/22 11:00 2 12/16/22 08:16 4 12/16/22 07:50 4 12/16/22 06:45 12/16/22 05:52 4 12/16/22 03:03 2.5
--- NOTE | 2022-12-16 12:55 | Pulmonology Progress Note ---
Date of Service December 16, 2022 Assessment & Plan (1) SOB (shortness of breath): (2) Pleural effusion: (3) Hypoxia: Plan IMPRESSION: 82-year-old female with diagnosis of COPD and metastatic lung cancer presented with shortness of breath and hypoxia and is now requiring 2 L nasal c annula. Patient noted to have a large RIGHT-sided pleural effusion on CT. Patient is clinically improving today and down to 2 L nasal cannula. RECOMMENDATIONS: 1. Hypoxia - * Multifactorial in the COPD patient with metastatic lung CA and pleural effusion. * Effusion was evaluated yesterday and felt too small and risky to be tapped at this point. Thankfully, the patient's breathing stabilized and she is currently requiring 2 L nasal cannula. She does not favor undergoing thoracentesis at this time anyway as she reports that she just completed radiation therapy and would rather avoid an additional invasive procedure possible. * At this point, as her oxygen requirement has stabilized at 2 L, we can hold off attempt at this point. * I offered that the patient follow-up in our clinic in the outpatient setting to establish herself with our department. That way, in the event that there is any changes in her status, we could evaluate her for thoracentesis in the outpatient setting. Patient and family seem agreeable to this plan moving forward. * Primary service managing oxygen therapy. 2. COPD - * Appears to be well controlled this time. * Not bronchospastic on exam and without significant dyspnea. 3. Metastatic lung CA - * Follows with Dr. Stokes. * First Keytruda treatment scheduled for . Thank you for allowing us to participate in the care of this patient. Pulmonary medicine will sign off at this time. We would be happy to see the patient in the outpatient setting in follow-up from recent hospitalization. Admission and Anticipated Discharge Date Admission Date: December 15, 2022 Supervising Physician Co-Signing Physician Notes Patient seen and examined. EMR reviewed. The patient is doing well clinically. She has minimal respiratory complaints. She would like to go home. I think it is reasonable to discharge her and have her follow-up in pulmonary clinic in the outpatient setting in 1 to 2 weeks with a follow-up chest x-ray. She was advised to contact our outpatient pulmonary office if she experiences increasing chest pain or shortness of breath and we could consider diagnostic/therapeutic thoracentesis at that time. The patient and her expressed understanding and are in agreement with the plan as outlined. Subjective Patient seen and evaluated at bedside today. She reports that her breathing has felt much better this morning. She did require a little bit more oxygen earlier, however this did resolve and she is back down to 2 L and feels comfortable at this point. We did discuss thoracentesis as the effusion was too small yesterday. She would rather avoid this if possible. She is interested in following up with our clinic for Review of Systems Review of Systems: A complete 6 point review of systems was reviewed with the patient with pertinent positives and negatives as per history of present illness. All else were negative. Physical Exam Physical Exam: VITAL SIGNS - Vital signs and nursing notes were reviewed. GENERAL - 82-year-old female appearing her stated age who is in no acute distress. Communicates well with provider and answers questions appropriately. NOSE - Midline and without cyanosis. MOUTH/OROPHARYNX - Without perioral cyanosis. NECK - Neck with FROM. LUNGS - Chest wall evaluation demonstrates normal chest wall A:P diameter. Auscultation reveals diminished breath sounds at the RIGHT sided base. Otherwise, no wheezing, rales, or rhonchi appreciated. CARDIAC - RRR with S1/S2. No murmur, rubs, or gallops appreciated. ABDOMEN - Abdominal inspection demonstrates flat abdomen. BS normoactive all four quadrants. No tenderness, palpable masses, or ascites noted. EXTREMITIES - No pretibial edema present. +3/5 radial palpated throughout. PSYCH - A&Ox3 and cooperates fully with examiner. Pt is very pleasant and interacts well with examiner. Results & Data Results & Data Vital Signs (Past 12 Hours) Vital Signs Temp Pulse Pulse Resp BP Pulse Ox O2 Del Method 12/16/22 11:00 36.8 C 95 H 16 125/70 97 Room Air 12/16/22 08:16 Nasal Cannula 12/16/22 07:50 36.8 C 93 H 16 145/76 H 94 Nasal Cannula 12/16/22 06:45 85 12/16/22 05:52 86 18 95 Nasal Cannula 12/16/22 03:03 36.4 C L 82 16 114/62 90 Nasal Cannula O2 Flow Rate 12/16/22 11:00 2 12/16/22 08:16 4 12/16/22 07:50 4 12/16/22 06:45 04/24/23 05:52 4 12/16/22 03:03 2.5 PG Care Time/CCT Total # of Minutes Spent Total Time Spent with Patient: Total time spent is greater than 50% in coordination of care (as documented) at patient's floor/unit and/or counseling patient: Coding Level of Care Code 88714 SUB INP/OBS CARE 3/50MIN Diagnoses SOB (shortness of breath) R06.02 Pleural effusion J90 Hypoxia R09.02
--- NOTE | 2022-12-16 14:47 | Discharge Summary ---
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 In the ED the patient was noted to be hypoxic at 82% on RA, otherwise vitals were stable. Labs were significant for a VBG pH of 7.42, sodium of 134 (stable), initial high sen trop of 15.8. Chest xray shows mild pulm edema and right > left pleural effusions. CTA of the chest with PE protocol was negative for PE, confirmed her pleural effusions, and also showed "Acute pathologic rib fractures with acute pathologic T7 burst fracture demonstrating 4 mm retropulsion. Mild acute pathologic fracture of the T5 superior endplate without retropulsion.". Prior to admission the patient was given 500 mL of NSS. At the time of the exam the patient was sitting in bed in no acute distress with family sitting bedside, currently saturating at 95% on 3L NC. She states that she has been having progressive SOB over the past week. She denies recent fever, chills, chest pain, cough, abd pain, nausea, vomiting, diarrhea, dysuria, hematuria, melena, LE swelling and recent trauma. She had her Mediport placed with general surgery on 12/12 and has been without irritation/swelling/erythema/or pain at the site. She is due to get her first dose of Keytruda next . She does not typically wear O2 at home. Her family states that she was hypoxic when first waking up after anesthesia for the port placement but did not drop low enough to qualify for O2 at that time. She is currently feeling some improvement in her SOB with oxygen. She has had to use her albuterol more frequently at home over the past week, this provides temporary improvement in her symptoms. She was trying to eat lunch at the end of my exam, she has been experiencing some dysphagia since her last radiation treatment to her chest last week. She denies having food stuck while swallowing or chocking on food or liquids recently. She is a DNR/DNI and would want her to make medical decisions for her if she cannot make them herself. Please refer to Dr. Sun's attestation for any changes to the treatment plan. Principal Diagnosis Acute respiratory failure with hypoxia Metastatic lung cancer T7 acute vertebral fracture Discharge Exam Constitutional WD/WN, vitals as above Neck palpable masses submandibular regions Respiratory normal respiratory effort; no cough Auscultation: + diminished lung sounds (right base); no crackles and no wheezes Cardiovascular RRR, no murmur, no edema Gastrointestinal (Abdomen) normal bowel sounds, soft, nontender, no hepatosplenomegaly Neurologic moves all extremities; no focal motor deficits and not confused Gait: no ataxic gait and no staggering gait Psychiatric A+Ox3, euthymic affect Discharge Data Allergies Allergy/AdvReac Type Severity Reaction Status Date / Time amoxicillin Allergy Intermediate rash Verified 12/15/22 13:13 tramadol AdvReac Intermediate loss of Verified 12/15/22 13:13 apetite Consultations 12/15/22 13:10 ED Decision to Admit Stat 12/15/22 13:33 Consult Pulmonology Routine 12/16/22 10:30 Consult Orthopedic Surgery Routine Ordered Studies 12/15/22 11:36 CT angio chest PE protocol Stat 12/15/22 15:23 US point of care ultrasound Urgent Hospital Course (1) Acute respiratory failure with hypoxia: 2/2 pleural effusion, lung CA No evidence of infection -CTA of the chest with PE protcol negative for PE, shows right > left pleural effusions -Low suspicion for CHF at this time as she appears euvolemic with asymmetric pleural effusion -Incentive spirometry, flutter therapy, Scheduled DuoNebs and home nebulizer machine ordered -2 step walk test performed and needs home O2 continuously on discharge-arranged -Seen by PULM and right pleural effusion too small to tap--> assume malignant effusion, f/u as outpt (2) Pleural effusion, right: -Looks as though it has been ongoing since before her mediport was placed -Mediport is functioning well -Likely due to her known lung cancer as it is right-sided as above (3) Thoracic compression fracture: T7 with 4mm retropulsion has back painin mid back but no focal neuro deficits Consulted Ortho Spine who offered back bracing vs kyphoplasty-pt declines at this time as she has too much going on gave precautions to watch out for neurological deficits, worsening pain, etc. f/u with Ortho Spine as outpt d/w Rad Onc Dr. Lang who recommend Spine Surgery consultation Pt hoping Keytruda will help with bony mets (4) Metastatic lung cancer (metastasis from lung to other site): -Follows with Dr. Long -Recent mediport placement, starting Keytruda in a few days -Continue home pain regimen, bowel regimen (5) Elevated troponin: -Initial high sen trop elevated at 15.8 and repeat 19 myocardial demand ischemia -Patient is without chest pain and acute ECG changes -Likely due to her hypoxia (6) Dysphagia: -Patient has experienced dysphagia since her last radiation treatment to the chest last week -No signs of thrush on exam, no symptoms such as food getting stuck or aspi ration -Continue pantoprazole for now and continue monitoring as outpt (7) Hyponatremia: -Has been chronic due to SIADH -Currently stable at 134 -Continue to monitor electrolytes as outpt (8) GERD (gastroesophageal reflux disease): -Continue pantoprazole (9) Hypertension: -Stable -Continue amlodipine and lisinopril (10) Dyslipidemia: -Continue crestor (11) COPD (chronic obstructive pulmonary disease): -Continue breathing treatments (12) Anxiety: -Continue buspar, and remeron Plan Dispo-stable for dc to home with home O2 and close f/u Discussed all care with pt and at bedside Total Time Total Time Spent Total Time Spent (In Minutes): 40 min Discharge Plan Discharge Items Patient Disposition: Home - Self-Care Reason For Visit: SOB Discharge Diagnosis: Hypoxia, pleural effusions T7 vertebral fracture Metastatic lung cancer Activity: As commented below Lifting: None Bathing: No limitations Exercise/Sports: As tolerated Non-emergency contact: Primary Care Provider, Surgeon, Oncologist and Metal Treater Call non-emergency contact if: you have any medication questions, your symptoms worsen, your pain is not controlled and your pain is worsening Follow-up/Referrals: Lea Traore MD [Primary Care Provider] - 12/24/22 3:00 pm Stu Garcia MD [Physician] - (Follow up within 1-2 weeks with PULMONOLOGY) Leroy Dutton DO [Surgeon] - (Follow up as needed if back pain worsens or desire kyphoplasty procedure for back.) Diet: Regular Addtl Attending Provider Instructions: You were admitted for low oxygen levels and have been provided with oxygen and a nebulizer machine for home use. This is related to fluid around the lungs from your lung cancer. You will need to wear oxygen via nasal cannula at all times. You were also found to have a fracture of the T7 vertebrae in your back-if you decide to try a back brace or want to have a procedure to relieve pain from this, please call Dr. Dutton's office at [facility]. If you develop weakness, numbness, tingling down the legs or bowel/bladder incontinence, please go to the hospital right away. Keep your scheduled appointment with Oncology for this . Pending Studies at Discharge: Yes Studies:: Blood cultures-no growth to date Stand-Alone Forms: My [facility] HeartFlow, Smoking Cessation Medications and DC Order Prescriptions: New ipratropium-albuterol 0.5 mg-3 mg(2.5 mg base)/3 mL Solution For Nebulization 3 ml NEB QIDR PRN (Reason: shortness of breath or wheezing) Qty: 90 0RF Continued albuterol sulfate [Ventolin HFA] 90 mcg/actuation HFA aerosol inhaler 2 puffs INH Q6H PRN (Reason: shortness of breath or wheezing) Qty: 8.5 1RF Symbicort 160-4.5 mcg/actuation HFA aerosol inhaler 2 puff INH BID Qty: 10.2 11RF buspirone 5 mg tablet 5 mg PO BID Qty: 180 3RF gabapentin 400 mg capsule 400 mg PO HS Qty: 90 3RF magnesium oxide 400 mg (241.3 mg magnesium) tablet 400 mg PO HS hydrocodone-acetaminophen 5-325 mg tablet 1 tab PO Q4H PRN (Reason: Pain) Qty: 60 0RF multivitamin Tablet 1 tab PO QAM calcium carbonate 600 mg calcium (1,500 mg) tablet 600 mg PO QAM loratadine 10 mg capsule 10 mg PO QAM Patient Comments: QAM naproxen sodium [Aleve] 220 mg capsule 220 mg PO BID sennosides [Senokot] 8.6 mg Tablet 8.6 mg PO HS mirtazapine 7.5 mg tablet 7.5 mg PO HS cholecalciferol (vitamin D3) [Vitamin D3] 25 mcg (1,000 unit) Tablet 25 mcg PO BID amlodipine 5 mg tablet 5 mg PO QAM pantoprazole 40 mg tablet,delayed release (DR/EC) 40 mg PO QAM lisinopril 40 mg tablet 40 mg PO QAM rosuvastatin 10 mg tablet 10 mg PO QAM polyethylene glycol 3350 [Miralax] 17 gram/dose Powder 17 g PO QAM PRN (Reason: Constipation) Discharge Orders: Discharge Order (Routine); Ordered 12/16/22 Ordered By: Elizabeth Perez Admission Data Admit Date/Time: 12/15/22 13:16 Attending Provider: Elizabeth Perez Admit Provider: Ventura Sun Primary Care Provider: Lea Traore Other Providers: Ventura Sun ; Stu Garcia ; Leroy Dutton Coding Level of Care Code 47091 INP/OBS DISCH >30 MIN Diagnoses Acute respiratory failure with hypoxia J96.01 Pleural effusion, right J90 Thoracic compression fracture S22.000A Metastatic lung cancer (metastasis from lung to other site) C34.90 Elevated troponin R77.8 Dysphagia R13.10 Hyponatremia E87.1 GERD (gastroesophageal reflux disease) K21.9 Hypertension I10 Dyslipidemia E78.5 COPD (chronic obstructive pulmonary disease) J44.9 Anxiety F41.9
== END 2022-12-16 15:50 | disposition home or self-care (01) | DRG 180 ==
LOC: ED 10:36 → 2N 13:16 → INTOOBSV 13:16 → SUATTDRO 13:16 → 2N 17:22

== ENCOUNTER 2023-07-28 17:54 | Inpatient (IN) ==
[2023-07-28] MEDS ORDERED: SODIUM CHLORIDE 0.9% 1,000 ML IV SCH (18:00)
[2023-07-28] MEDS ORDERED: ACETAMINOPHEN 325 MG TAB PO STA (18:13)
[2023-07-28 18:26] LABS: Appearance Urine Clear (Clear); Bacteria Urine Automated Negative (Negative); Bilirubin Urine Negative (Negative); Blood Urine Negative (Negative); Color Urine Yellow; Epithelial Cell Urine Auto 20-30 /lpf (0-5); Glucose Urine UA Negative (Negative); Ketones Urine Trace (Negative); Leukocyte Esterase Urine Trace (Negative); Nitrite Urine Negative (Negative); Protein Urine 1+ (Negative); RBC Urine Automated 0-4 /hpf (0-4); Specific Gravity Urine 1.013 (1.000-1.030); Urobilinogen Urine Negative (Negative)
[2023-07-28 18:40] LABS: Base Excess VBG -3.3 mEq/L; HCO3 VBG 20 mmol/L; Oxygen Saturation VBG 77.5 %; PCO2 VBG 30 mmHg (38-50); PO2 VBG 46 mmHg; pH VBG 7.43 (7.36-7.41)
[2023-07-28 18:54] LABS: Hematocrit (blood only) 31.7 % (37.0-47.0); Mean Corpuscular Hemoglobin 27.2 pg (25.0-34.0); Mean Corpuscular Hgb Conc 34.7 g/dL (32.0-36.0); Mean Corpuscular Volume 78.3 fL (80.0-100.0); Mean Platelet Volume 8.8 fL (9.4-12.4); Platelet Count 330 K/uL (130-400); RDW Coefficient of Variation 15.9 % (11.5-14.5); RDW Standard Deviation 45.3 fL (36.4-46.3); Red Blood Count 4.05 M/uL (4.20-5.40); White Blood Count 30.79 K/ul (4.8-10.8)
[2023-07-28] MEDS ORDERED: SODIUM CHLORIDE 0.9% 500 ML IV ONE (18:58)
[2023-07-28] MEDS ORDERED: CEFEPIME 2,000 MG/20 ML VIAL IV STA (18:58)
[2023-07-28 19:02] LABS: Albumin Level 3.2 gm/dl (3.4-5.0); Bilirubin Direct 0.2 mg/dl (0-0.2); Bilirubin,Total 0.9 mg/dl (0.2-1.0); Calcium 8.3 mg/dl (8.6-10.3); Creatinine Clr Calc Pharmacy 30.9 ml/min; Est GFR (African American) 65.1 ml/min; Est GFR (Non-African American) 56.2 ml/min; Magnesium 1.5 mg/dl (1.7-2.4); Potassium 3.8 mmol/L (3.5-5.1); Total Protein 6.1 gm/dl (6.0-8.3)
[2023-07-28 19:08] LABS: Troponin I High Sensitivity 91.6 pg/ml (0-14)
[2023-07-28] MEDS ORDERED: VANCOMYCIN HCL 750 MG in SODIUM CHLORIDE 0.9% 500 ML IV STA (19:13)
[2023-07-28] MEDS ORDERED: VANCOMYCIN CONSULT ACTIVE PRN ×2 (19:13→20:21)
[2023-07-28 19:22] LABS: INR 1.1 (0.9-1.1); Partial Thromboplastin Ratio 1.2; Partial Thromboplastin Time 33.7 Seconds (21.0-31.0); Prothrombin Time 12.1 Seconds (9.0-12.0)
--- NOTE | 2023-07-28 19:27 | XRay Report ---
SINGLE VIEW CHEST CLINICAL HISTORY: Sepsis. FINDINGS: An AP, portable, upright chest radiograph is compared to study dated 12/15/2022 and correlat ed with chest CT dated 06/19/2023. A right subclavian central venous infusion port is unchanged in po sition. The heart is enlarged noting atherosclerotic calcification of the thoracic aorta. The pulmona ry vasculature is noncongested. Emphysema and chronic interstitial thickening is similar to previous. Right upper lobe nodularity/scarring is seen at the site of a previously characterized mass lesion. There is chronic elevation of right hemidiaphragm. No airspace consolidation or large pleural effusio n is identified. No pneumothorax is seen. The skeletal structures are osteopenic. The bony thorax is grossly intact. Degenerative change and scoliosis is noted in the spine. IMPRESSION: 1. Cardiomegaly and emphysema with no acute cardiopulmonary abnormality identified. 2. Scarring/nodularity is seen in the right upper lobe at the site of a previously characterized lung mass. ACT 112: Negative or not required by law. Electronically signed by: Amando Knox M.D. 07/28/2023 7:26 PM
[2023-07-28 19:28] LABS: ALC (manual) 0.31 K/uL (1.2-3.4); ANC (manual) 29.25 K/uL (1.4-6.5); Lymphocytes # (manual) 0.31 K/uL (1.2-3.4); Lymphocytes % (manual) 1 %; Monocytes # (manual) 1.23 K/uL (0.11-0.59); Monocytes % (manual) 4 %; Neutrophils # (manual) 29.25 K/uL (1.40-6.50); Neutrophils % (manual) 95 %
[2023-07-28 20:01] LABS: Adenovirus PCR Not Detected (NotDetected); Bordetella parapertussis PCR Not Detected (NotDetected); Bordetella pertussis PCR Not Detected (NotDetected); Chlamydia pneumoniae PCR Not Detected (NotDetected); Coronavirus 229E PCR Not Detected (NotDetected); Coronavirus CoV-2 (COVID19)PCR Not Detected (NotDetected); Coronavirus HKU1 PCR Not Detected (NotDetected); Coronavirus NL63 PCR Not Detected (NotDetected); Coronavirus OC43PCR Not Detected (NotDetected); Human Metapneumovirus PCR Not Detected (NotDetected); Influenza A PCR Not Detected (NotDetected); Influenza B PCR Not Detected (NotDetected); Mycoplasma pneumoniae PCR Not Detected (NotDetected); Parainfluenza Virus 1 PCR Not Detected (NotDetected); Parainfluenza Virus 2 PCR Not Detected (NotDetected); Parainfluenza Virus 3 PCR Not Detected (NotDetected); Parainfluenza Virus 4 PCR Not Detected (NotDetected); Respiratory Syncytial VirusPCR Not Detected (NotDetected); Rhinovirus/Enterovirus PCR Not Detected (NotDetected)
--- NOTE | 2023-07-28 20:20 | History & Physical Report ---
Date of Service July 28, 2023 Assessment & Plan (1) Elevated troponin: (2) Sepsis: (3) Chronic hypoxemic respiratory failure: (4) Metastatic lung cancer (metastasis from lung to other site): (5) Metastatic non-small cell lung cancer: (6) COPD (chronic obstructive pulmonary disease): (7) Hypertension: (8) Hypomagnesemia: Plan Febrile illness/leukocytosis/metastatic non-small cell lung CA on Keytruda- Follow all cultures and sensitivities Empiric IV antibiotics with vancomycin IV and Zosyn IV x 48 hours Lactate initially 2.5 with repeat pending Order CT scan of chest, abdomen and pelvis with contrast BioFire test negative Elevated troponin/hypertension- Troponin initially 91.6, with follow-up 175 The patient will be admitted to telemetry for serial cardiac enzymes, serial EKG's, cardiac rhythm monitoring and a 2-D echocardiogram with Dopplers. Likely type II supply/demand mismatch Continue amlodipine, but changed from 5 mg every morning to 2.5 p.o. twice daily Hold lisinopril Hypomagnesemia- Magnesium 1.5 on admission Give magnesium sulfate 2 g IV NSS plus KCl 20 mill equivalents at 80 mL/h x 1 L History of Present Illness Chief Complaint: The patient presents to the emergency department with approximately 1 week of generalized fatigue, decreased appetite due to nausea, and developed a temperature to maximum of 102 degrees over the past few days Primary Care Provider: Lea Traore MD The patient is an 83-year-old female with a past medical history including chronic hypoxemic respiratory failure, pleural effusion, hyponatremia, acute respiratory failure, metastatic non-small cell lung cancer to bone and liver, GERD, COPD, hypertension and anxiety. She had been diagnosed with lung cancer as noted, with involvement of right upper lobe. She had undergone lung resection and chemotherapy, and had continued to have worsening disease until she began Keytruda. Since Keytruda, she has been able to wean off oxygen, has had less shortness of breath, and general had a much better lifestyle. This is the first time that she has had any type of illness while on Keytruda. She has no specific symptoms of infection such as GI or urinary symptoms. She has had a 50 pound weight loss since her diagnosis of cancer, but has been since been stable on Keytruda Allergies Allergy/AdvReac Type Severity Reaction Status Date / Time amoxicillin Allergy Intermediate rash Verified 12/18/22 09:55 tramadol AdvReac Intermediate loss of Verified 12/18/22 09:55 apetite Home Medications Medication Instructions Recorded Confirmed Type calcium carbonate 600 mg calcium 600 mg PO QAM 02/12/19 05/27/23 History (1,500 mg) tablet loratadine 10 mg capsule 10 mg PO QAM 09/14/19 05/27/23 History multivitamin 1 tab PO QAM 09/14/19 05/27/23 History albuterol sulfate 90 mcg/actuation 2 puffs inhalation Q6H PRN 10/07/19 05/27/23 Rx aerosol inhaler (Ventolin HFA) shortness of breath or wheezing #8.5 grams magnesium oxide 400 mg (241.3 mg 400 mg PO HS 05/08/21 05/27/23 History magnesium) tablet buspirone 5 mg tablet 5 mg PO BID #180 tabs 09/02/22 05/27/23 Rx naproxen sodium 220 mg capsule 220 mg PO BID 10/18/22 05/27/23 History (Aleve) sennosides 8.6 mg tablet (Senokot) 8.6 mg PO HS 11/27/22 05/27/23 History hydrocodone 5 mg-acetaminophen 325 1 tab PO Q4H PRN Pain #60 tabs 12/05/22 05/27/23 Rx mg tablet amlodipine 5 mg tablet 5 mg PO QAM 12/10/22 05/27/23 History cholecalciferol (vitamin D3) 25 25 mcg PO BID 12/10/22 05/27/23 History mcg (1,000 unit) tablet (Vitamin D3) polyethylene glycol 3350 17 17 g PO QAM PRN Constipation 12/10/22 05/27/23 History gram/dose oral powder (Miralax) ipratropium 0.5 mg-albuterol 3 mg 3 ml NEB QIDR PRN shortness of 12/16/22 05/27/23 Rx (2.5 mg base)/3 mL nebulization breath or wheezing #90 mL soln ipratropium 0.5 mg-albuterol 3 mg 3 ml inhalation Q6H PRN wheezing 12/16/22 05/27/23 Rx (2.5 mg base)/3 mL nebulization #90 mL soln TENS 502 (TENS units) #1 ea 05/05/23 10/03/23 Rx Portable Oxygen #1 ea 01/01/23 05/27/23 Rx rosuvastatin 10 mg tablet 10 mg PO DAILY #90 tabs 01/21/23 05/27/23 Rx Symbicort 160 mcg-4.5 2 puff inhalation BID #10.2 grams 02/11/23 05/27/23 Rx mcg/actuation HFA aerosol inhaler (budesonide-formoterol) pantoprazole 40 mg tablet,delayed 40 mg PO QAM #90 tabs 05/22/23 05/27/23 Rx release Medical Marijuana sublingual 05/27/23 05/27/23 History gabapentin 100 mg capsule 200 mg (2 x 100 mg) PO HS #60 caps 05/27/23 05/27/23 Rx lisinopril 10 mg tablet 10 mg PO DAILY #90 tabs 05/27/23 05/27/23 Rx mirtazapine 7.5 mg tablet 7.5 mg PO HS #90 tabs 06/09/23 Rx Past Med/Surg History Medical History Physical deconditioning Chronic hypoxemic respiratory failure Acute on chronic respiratory failure with hypoxemia 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 biliary stent placement *2 WEEKS AGO AT [facility] S/P laparoscopic appendectomy (04/2020) 05/08/2020 Grade 1 view, MAC 3, ETT 7. History of colonoscopy 04/05/2020 History of tooth extraction History of cataract surgery RT/LEFT H/O tubal ligation History of section X 1 Family History Father Diabetes Family history of diabetes mellitus Mother No problems noted. Sister No problems noted. Brother Lung cancer Brother No problems noted. Brother No problems noted. Son No problems noted. Daughter No problems noted. Other No family history of adverse response to anesthesia Stroke Denies family history of Ovarian cancer Prostate cancer Myocardial infarction Breast cancer Colorectal cancer Social History Smoking Status: Former smoker Tobacco Type: Cigarettes Age Started Using Tobacco: 17; Age Quit Using Tobacco: 65; packs per day: 1; Cigarettes Per Day: QUIT A FEW MONTHS AGO; Second Hand Exposure: No; Do You Dip or Chew Tobacco: No; Hx Alcohol Use: No Hx Substance Use: No Preferred Language: Samoan Communication Ability: Effective Visual Impairment: No Limitations Hearing Ability: Normal Deliverer Food Required: No Beliefs That Will Affect Care: None marital status: Current Living Situation: Spouse current occupational status: retired 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 How many Children do You have: 2 Feels Safe at Home: Yes Childhood Exposure to Second-Hand Smoke: Yes Diet: regular caffeine: Yes during the past year weight has: remained stable Dental Care, Regularly: No Seatbelt Use: always Assistive Devices: None Review of Systems Review of Systems: The patient denies chest pain, palpitations, shortness of breath, dyspnea on exertion, cough, lower extremity swelling, sore throat, chills, sweats, vomiting, diarrhea, constipation, abdominal/pelvic pain, blood in urine or stool, dysuria, urinary frequency or urgency, lightheadedness, dizziness, headache, memory loss, loss of consciousness, rash, abnormal bruising or bleeding, imbalance, focal weakness, numbness or tingling in arms or legs, generalized arthralgias or myalgias, back or neck pain, or night sweats. The review of systems is otherwise negative other than for that already noted above, and at least 10 systems have been reviewed. Physical Exam Physical Exam: The patient is awake, alert and oriented 3, well developed and well nourished, normocephalic and atraumatic, lying in bed and in no acute distress. HEENT--PERRL, EOMI, mucous membranes and oropharynx mildly dry. Neck--supple. No JVD. No bruits. Thyroid normal, trachea midline, no fernando opathy. Heart--normal S1 and S2. No murmurs, rubs or gallops. Lungs--crackles at the bases bilaterally. No respiratory distress, no accessory muscle use. Abdomen--normal bowel sounds and soft. Nontender. Nondistended, no hernias or masses, no organomegaly. Extremities--no cyanosis or clubbing. No edema. Dermatologic--normal skin turgor, normal color, no abnormal lymph nodes, no rash. Neurologic--cranial nerves II through XII grossly intact. Rheumatologic--normal range of motion. Psychiatric--normal affect. Results & Data Results & Data Vital Signs (Past 12 Hours) Vital Signs Temp Pulse Pulse Resp BP BP Pulse Ox 07/28/23 20:12 85 18 124/68 92 07/28/23 19:18 95 H 07/28/23 18:49 92 07/28/23 18:49 37.8 C H 94 H 18 117/69 07/28/23 18:49 37.8 C H 82 18 117/69 93 O2 Del Method 07/28/23 20:12 Room Air 07/28/23 19:18 07/28/23 18:49 Room Air 07/28/23 18:49 07/28/23 18:49 Room Air Laboratory Results Laboratory Results WBC 30.79 K/ul (4.8-10.8) H* 07/28/23 18:21 RBC 4.05 M/uL (4.20-5.40) L 07/28/23 18:21 Hgb 11.0 g/dl (12.0-16.0) L 07/28/23 18:21 Hct 31.7 % (37.0-47.0) L 07/28/23 18:21 MCV 78.3 fL (80.0-100.0) L 07/28/23 18:21 MCH 27.2 pg (25.0-34.0) 07/28/23 18:21 MCHC 34.7 g/dL (32.0-36.0) 07/28/23 18:21 RDW Std Deviation 45.3 fL (36.4-46.3) 07/28/23 18:21 RDW Coeff of Kisha 15.9 % (11.5-14.5) H 07/28/23 18:21 Plt Count 330 K/uL (130-400) 07/28/23 18:21 MPV 8.8 fL (9.4-12.4) L 07/28/23 18:21 Neutrophils % (Manual) 95 % 07/28/23 18:21 Lymphocytes % (Manual) 1 % 07/28/23 18:21 Monocytes % (Manual) 4 % 07/28/23 18:21 Neutrophils # (Manual) 29.25 K/uL (1.40-6.50) H 07/28/23 18:21 Total Absolute Neuts 29.25 K/uL (1.4-6.5) H 07/28/23 18:21 Lymphocytes # (Manual) 0.31 K/uL (1.2-3.4) L 07/28/23 18:21 Total Abs Lymphocytes 0.31 K/uL (1.2-3.4) L 07/28/23 18:21 Monocytes # (Manual) 1.23 K/uL (0.11-0.59) H 07/28/23 18:21 PT 12.1 Seconds (9.0-12.0) H 07/28/23 18:21 INR 1.1 (0.9-1.1) 07/28/23 18:21 APTT 33.7 Seconds (21.0-31.0) H 07/28/23 18:21 PTT Ratio 1.2 07/28/23 18:21 VBG pH 7.43 (7.36-7.41) H 07/28/23 18:21 VBG pCO2 30 mmHg (38-50) L 07/28/23 18:21 VBG pO2 46 mmHg 07/28/23 18:21 VBG HCO3 20 mmol/L 07/28/23 18:21 VBG O2 Saturation 77.5 % 07/28/23 18:21 VBG Base Excess -3.3 mEq/L 07/28/23 18:21 Sodium 131 mmol/L (136-145) L 07/28/23 18:21 Potassium 3.8 mmol/L (3.5-5.1) 07/28/23 18:21 Chloride 100 mmol/L (98-107) 07/28/23 18:21 Carbon Dioxide 19 mmol/L (21-32) L 07/28/23 18:21 Anion Gap 12 (3-11) H 07/28/23 18:21 BUN 19 mg/dl (6-23) 07/28/23 18:21 Creatinine 0.95 mg/dl (0.6-1.2) 07/28/23 18:21 Est Cr Clr Drug Dosing 30.9 ml/min 07/28/23 18:21 Est GFR ( Amer) 65.1 ml/min 07/28/23 18:21 Est GFR (Non-Af Amer) 56.2 ml/min 07/28/23 18:21 BUN/Creatinine Ratio 20.0 (10-20) 07/28/23 18:21 Glucose 158 mg/dl (70-99(Fasting)) H 07/28/23 18:21 Lactate 0.7 mmol/L (0.4-2.0) 07/28/23 20:42 Calcium 8.3 mg/dl (8.6-10.3) L 07/28/23 18:21 Magnesium 1.5 mg/dl (1.7-2.4) L 07/28/23 18:21 Total Bilirubin 0.9 mg/dl (0.2-1.0) 07/28/23 18:21 Direct Bilirubin 0.2 mg/dl (0-0.2) 07/28/23 18:21 AST 17 U/L (13-39) 07/28/23 18:21 ALT 13 U/L (7-52) 07/28/23 18:21 Alkaline Phosphatase 155 U/L (34-104) H 07/28/23 18:21 Total Creatine Kinase 28 U/L (26-192) 07/28/23 18:21 Troponin I High Sens 179.0 pg/ml (0-14) H* D 07/28/23 20:42 Total Protein 6.1 gm/dl (6.0-8.3) 07/28/23 18:21 Albumin 3.2 gm/dl (3.4-5.0) L 07/28/23 18:21 Procalcitonin 2.16 ng/ml (0-0.5) H 07/28/23 18:21 Urine Color Yellow 07/28/23 18:09 Urine Appearance Clear (Clear) 07/28/23 18:09 Urine pH 6.0 (4.5-7.5) 07/28/23 18:09 Ur Specific [place] 1.013 (1.000-1.030) 07/28/23 18:09 Urine Protein 1+ (Negative) H 07/28/23 18:09 Urine Glucose (UA) Negative (Negative) 07/28/23 18:09 Urine Ketones Trace (Negative) H 07/28/23 18:09 Urine Blood Negative (Negative) 07/28/23 18:09 Urine Nitrite Negative (Negative) 07/28/23 18:09 Urine Bilirubin Negative (Negative) 07/28/23 18:09 Urine Urobilinogen Negative (Negative) 07/28/23 18:09 Ur Leukocyte Esterase Trace (Negative) H 07/28/23 18:09 Urine WBC (Auto) 1-5 /hpf (0-5) 07/28/23 18:09 Urine RBC (Auto) 0-4 /hpf (0-4) 07/28/23 18:09 U Hyaline Cast (Auto) 1-5 /lpf (0-5) 07/28/23 18:09 U Epithel Cells (Auto) 20-30 /lpf (0-5) H 07/28/23 18:09 Urine Bacteria (Auto) Negative (Negative) 07/28/23 18:09 Adenovirus (PCR) Not Detected (NotDetected) 07/28/23 18:29 B. pertussis DNA (PCR) Not Detected (NotDetected) 07/28/23 18:29 B.parapertussis DNA PCR Not Detected (NotDetected) 07/28/23 18:29 C. pneumoniae DNA (PCR) Not Detected (NotDetected) 07/28/23 18:29 Coronavirus OC43 (PCR) Not Detected (NotDetected) 07/28/23 18:29 Coronavirus HKU1 (PCR) Not Detected (NotDetected) 07/28/23 18:29 Coronavirus 229E (PCR) Not Detected (NotDetected) 07/28/23 18:29 SARS-CoV-2 (PCR) Not Detected (NotDetected) 07/28/23 18:29 Coronavirus NL63 (PCR) Not Detected (NotDetected) 07/28/23 18:29 Human Metapneumovir PCR Not Detected (NotDetected) 07/28/23 18:29 Influenza Type A (PCR) Not Detected (NotDetected) 07/28/23 18:29 Influenza Type B (PCR) Not Detected (NotDetected) 07/28/23 18:29 M. pneumoniae (PCR) Not Detected (NotDetected) 07/28/23 18:29 Parainfluenza 1 (PCR) Not Detected (NotDetected) 07/28/23 18:29 Parainfluenza 2 (PCR) Not Detected (NotDetected) 07/28/23 18:29 Parainfluenza 3 (PCR) Not Detected (NotDetected) 07/28/23 18:29 Parainfluenza 4 (PCR) Not Detected (NotDetected) 07/28/23 18:29 RSV (PCR) Not Detected (NotDetected) 07/28/23 18:29 Entero/Rhino (PCR) Not Detected (NotDetected) 07/28/23 18:29 Impressions Chest X-Ray 07/28/23 17:56 SINGLE VIEW CHEST CLINICAL HISTORY: Sepsis. FINDINGS: An AP, portable, upright chest radiograph is compared to study dated 12/15/2022 and correlated with chest CT dated 06/19/2023. A right subclavian central venous infusion port is unchanged in position. The heart is enlarged noting atherosclerotic calcification of the thoracic aorta. The pulmonary vasculature is noncongested. Emphysema and chronic interstitial thickening is similar to previous. Right upper lobe nodularity/scarring is seen at the site of a previously characterized mass lesion. There is chronic elevation of right hemidiaphragm. No airspace consolidation or large pleural effusion is identified. No pneumothorax is seen. The skeletal structures are osteopenic. The bony thorax is grossly intact. Degenerative change and scoliosis is noted in the spine. IMPRESSION: 1. Cardiomegaly and emphysema with no acute cardiopulmonary abnormality identified. 2. Scarring/nodularity is seen in the right upper lobe at the site of a previously characterized lung mass. ACT 112: Negative or not required by law. Electronically signed by: Amando Knox M.D. 07/28/2023 7:26 PM Code Status & VTE Plan Code Status Full code VTE Prophylaxis Plan VTE Prophylaxis will be ordered: Yes PG Care Time/CCT Total # of Minutes Spent Total Time Spent with Patient: Total time spent is greater than 50% in coordination of care (as documented) at patient's floor/unit and/or counseling patient: Coding Level of Care Code 49191 INT INP/OBS CARE MIN Diagnoses Elevated troponin R79.89 Sepsis A41.9 Sepsis acute organ dysfunction status: unspecified Sepsis type: sepsis due to unspecified organism Chronic hypoxemic respiratory failure J96.11 Metastatic lung cancer (metastasis from lung to other site) C34.90 Metastatic non-small cell lung cancer C34.90 COPD (chronic obstructive pulmonary disease) J44.9 Hypertension I10 Hypomagnesemia E83.42 (2) Sepsis Sepsis acute organ dysfunction status: unspecified Sepsis type: sepsis due to unspecified organism Qualified Code(s): A41.9 - Sepsis, unspecified organism
[2023-07-28] MEDS ORDERED: HYDROCODONE/ACETAMOPHEN 5/325MG TAB PO STA (20:54)
[2023-07-28] MEDS: MAGNESIUM SULFATE / D5W 1 GM/100 ML BAG IV SCH ×2 (22:04→23:59)
--- NOTE | 2023-07-28 22:18 | Emergency Department Note ---
History of Present Illness General Chief complaint: Illness History of Present Illness Provider complaint: Fever Onset (ago): day(s) 2 83-year-old female presents emergency department for fever. Patient reports she has had fever for the last 2 days Tmax 102. She reports nausea. No headache chest pain difficulty breathing cough nausea vomiting diarrhea abdominal pain dysuria hematuria melena or hematochezia. Patient is currently being treated with Keytruda for metastatic lung cancer. Home Medications Medication Instructions Recorded Confirmed Type calcium carbonate 600 mg calcium 600 mg PO QAM 02/12/19 05/27/23 History (1,500 mg) tablet loratadine 10 mg capsule 10 mg PO QAM 09/14/19 05/27/23 History multivitamin 1 tab PO QAM 09/14/19 05/27/23 History albuterol sulfate 90 mcg/actuation 2 puffs inhalation Q6H PRN 10/07/19 05/27/23 Rx aerosol inhaler (Ventolin HFA) shortness of breath or wheezing #8.5 grams magnesium oxide 400 mg (241.3 mg 400 mg PO HS 05/08/21 05/27/23 History magnesium) tablet buspirone 5 mg tablet 5 mg PO BID #180 tabs 09/02/22 05/27/23 Rx naproxen sodium 220 mg capsule 220 mg PO BID 10/18/22 05/27/23 History (Aleve) sennosides 8.6 mg tablet (Senokot) 8.6 mg PO HS 11/27/22 05/27/23 History hydrocodone 5 mg-acetaminophen 325 1 tab PO Q4H PRN Pain #60 tabs 12/05/22 05/27/23 Rx mg tablet amlodipine 5 mg tablet 5 mg PO QAM 12/10/22 05/27/23 History cholecalciferol (vitamin D3) 25 25 mcg PO BID 12/10/22 05/27/23 History mcg (1,000 unit) tablet (Vitamin D3) polyethylene glycol 3350 17 17 g PO QAM PRN Constipation 12/10/22 05/27/23 History gram/dose oral powder (Miralax) ipratropium 0.5 mg-albuterol 3 mg 3 ml NEB QIDR PRN shortness of 12/16/22 05/27/23 Rx (2.5 mg base)/3 mL nebulization breath or wheezing #90 mL soln ipratropium 0.5 mg-albuterol 3 mg 3 ml inhalation Q6H PRN wheezing 12/16/22 05/27/23 Rx (2.5 mg base)/3 mL nebulization #90 mL soln TENS 502 (TENS units) #1 ea 12/27/22 05/27/23 Rx Portable Oxygen #1 ea 01/01/23 05/27/23 Rx rosuvastatin 10 mg tablet 10 mg PO DAILY #90 tabs 01/21/23 05/27/23 Rx Symbicort 160 mcg-4.5 2 puff inhalation BID #10.2 grams 02/11/23 05/27/23 Rx mcg/actuation HFA aerosol inhaler (budesonide-formoterol) pantoprazole 40 mg tablet,delayed 40 mg PO QAM #90 tabs 05/22/23 05/27/23 Rx release Medical Marijuana sublingual 05/27/23 05/27/23 History gabapentin 100 mg capsule 200 mg (2 x 100 mg) PO HS #60 caps 05/27/23 05/27/23 Rx lisinopril 10 mg tablet 10 mg PO DAILY #90 tabs 05/27/23 05/27/23 Rx mirtazapine 7.5 mg tablet 7.5 mg PO HS #90 tabs 06/09/23 Rx Allergies Allergy/AdvReac Type Severity Reaction Status Date / Time amoxicillin Allergy Intermediate rash Verified 12/18/22 09:55 tramadol AdvReac Intermediate loss of Verified 12/18/22 09:55 apetite Past Med/Surg History Medical History Physical deconditioning Chronic hypoxemic respiratory failure Acute on chronic respiratory failure with hypoxemia 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 biliary stent placement *2 WEEKS AGO AT [facility] S/P laparoscopic appendectomy (04/2020) 05/08/2020 Grade 1 view, MAC 3, ETT 7. History of colonoscopy 04/05/2020 History of tooth extraction History of cataract surgery RT/LEFT H/O tubal ligation History of section X 1 Family History Father Diabetes Family history of diabetes mellitus Mother No problems noted. Sister No problems noted. Brother Lung cancer Brother No problems noted. Brother No problems noted. Son No problems noted. Daughter No problems noted. Other No family history of adverse response to anesthesia Stroke Denies family history of Ovarian cancer Prostate cancer Myocardial infarction Breast cancer Colorectal cancer Social History Smoking Status: Former smoker Tobacco Type: Cigarettes Age Started Using Tobacco: 17; Age Quit Using Tobacco: 65; packs per day: 1; Cigarettes Per Day: QUIT A FEW MONTHS AGO; Second Hand Exposure: No; Do You Dip or Chew Tobacco: No; Hx Alcohol Use: No Hx Substance Use: No Preferred Language: Swedish Communication Ability: Effective Visual Impairment: No Limitations Hearing Ability: Normal Voltmeter Operator Required: No Beliefs That Will Affect Care: None marital status: Current Living Situation: Spouse current occupational status: retired 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 How many Children do You have: 2 Feels Safe at Home: Yes Childhood Exposure to Second-Hand Smoke: Yes Diet: regular caffeine: Yes during the past year weight has: remained stable Dental Care, Regularly: No Seatbelt Use: always Assistive Devices: None Physical Exam Vital Signs Vital Signs - 24 hr 07/28/23 18:49 07/28/23 18:49 07/28/23 18:49 Temperature 37.8 C H 37.8 C H Temperature Source Oral Oral Pulse Rate 82 Pulse Rate [Apical] 94 H Pulse Rhythm [Apical] Respiratory Rate 18 18 Respiratory Effort / Characteristics Respiratory Depth Respiratory Pattern Blood Pressure 117/69 Blood Pressure [Right Arm] 117/69 Blood Pressure Mean 85 Blood Pressure Mean [Right Arm] 85 Blood Pressure Position [Right Arm] Pulse Oximetry 93 92 Oxygen Delivery Method Room Air Room Air Sepsis Recent Fever Within 48 Hours Yes Sepsis New/Unexplained Change in Mental Status No Sepsis Action Taken by Nursing No Action Required 07/28/23 19:18 07/28/23 20:12 Temperature Temperature Source Pulse Rate 95 H Pulse Rate [Apical] 85 Pulse Rhythm [Apical] Regular Respiratory Rate 18 Respiratory Effort / Characteristics Non-Labored Spontaneous Respiratory Depth Normal Respiratory Pattern Regular Blood Pressure Blood Pressure [Right Arm] 124/68 Blood Pressure Mean Blood Pressure Mean [Right Arm] 86 Blood Pressure Position [Right Arm] Lying Pulse Oximetry 92 Oxygen Delivery Method Room Air Sepsis Recent Fever Within 48 Hours Sepsis New/Unexplained Change in Mental Status Sepsis Action Taken by Nursing Physical Exam GENERAL: Cachectic. HENT: Exam performed. - Head: Normocephalic and atraumatic. EYES: Conjunctivae and EOM are normal. Right eye exhibits no discharge. Left eye exhibits no discharge. No scleral icterus. NECK: Normal range of motion. Neck supple. No JVD present. CV: Normal rate, regular rhythm, normal heart sounds and intact distal pulses. There is no peripheral edema. Palpable radial pulses bue. PULM/CHEST: Effort normal and breath sounds normal. No respiratory distress. No stridor. no wheezes. no rales. ABD: The abdomen is soft. There is no tenderness. NEURO: Motor and sensation grossly intact. SKIN: Skin is warm and dry. He is not diaphoretic. PSYCH: normal mood and affect. Behavior is normal. Judgment and thought content normal. Course Course 1754: The patient was evaluated in room A9. A complete history and physical exam was performed Cardiac monitoring: An order was placed for continuous cardiac monitoring. The monitor shows a rate of 90 with sinus rhythm interpreted by me 1915: Vital signs stable. Labs show leukocytosis of 30. Lactic acid 2.5. Patient's troponin elevated 91.6 urinalysis chest x-ray negative. Patient treated with broad-spectrum antibiotics cefepime and vancomycin discussed with pharmacy and they state that the patient has had cefepime in the past, had a pharmacist. Patient treated with 30 cc/kg normal saline bolus 1500 cc. [facility] 2134: Vital signs stable. Patient in no acute distress. On reassessment patient is resting comfortably. She reports no chest pain difficulty breathing or abdominal pain. Patient's lactic acid improved after IV fluids. Patient's troponin elevated to 179. Patient continues to report no chest pain or difficulty breathing. [facility] hospitalist Dr. Duenas was made aware of these results. I called and updated patient's daughter about these results on her listed phone #[phone] after obtaining verbal consent from the patient to update the patient's daughter about her results. Administered Medications Magnesium Sulfate/Dextrose (Magnesium Sulfate / D5w) 1 gm in 100 mls @ 50 mls/hr IV Q2H OSMAN Stop: 07/29/23 00:14 Last Admin: 07/28/23 22:04 Dose: 50 mls/hr Documented By: MICHELLE Discontinued Medications Acetaminophen (Acetaminophen 325 Mg Tab) 650 mg PO NOW STA Stop: 07/28/23 18:14 Last Admin: 07/28/23 18:46 Dose: 650 mg Documented By: FISH Hydrocodone Bitart/Acetaminophen (Hydrocodone/Acetamophen 5/325mg Tab) 1 tab PO NOW STA Stop: 07/28/23 20:55 Last Admin: 07/28/23 22:04 Dose: 1 tab Documented By: MICHELLE Sodium Chloride (Nss) 1,000 mls @ 999 mls/hr IV .Q1H1M OSMAN Stop: 07/28/23 19:00 Last Infusion: 07/28/23 19:48 Dose: Infused Documented By: Admin: 07/28/23 18:46 Dose: 999 mls/hr Documented By: FISH Cefepime HCl (Maxipime) 2,000 mg in 20 mls @ 5 mls/min IV NOW STA; Protocol Stop: 07/28/23 19:01 Last Admin: 07/28/23 19:15 Dose: 5 mls/min Documented By: SELMA Sodium Chloride (Nss) 500 mls @ 999 mls/hr IV .Q31M ONE Stop: 07/28/23 19:28 Last Infusion: 07/28/23 20:26 Dose: Infused Documented By: Admin: 07/28/23 19:15 Dose: 999 mls/hr Documented By: SELMA Vancomycin HCl 750 mg/ Sodium (Chloride) 515 mls @ 200 mls/hr IV NOW STA Stop: 07/28/23 21:47 Last Admin: 07/28/23 19:15 Dose: 200 mls/hr Documented By: SELMA Medical Decision Making Laboratory Data Attestation: I reviewed the patient's lab results. 07/28/23 18:21 07/28/23 18:21 Lab Results 07/28/23 07/28/23 07/28/23 Range/Units 18:09 18:21 18:29 WBC 30.79 H* (4.8-10.8) K/ul RBC 4.05 L (4.20-5.40) M/uL Hgb 11.0 L (12.0-16.0) g/dl Hct 31.7 L (37.0-47.0) % MCV 78.3 L (80.0-100.0) fL MCH 27.2 (25.0-34.0) pg MCHC 34.7 (32.0-36.0) g/dL RDW Std Deviation 45.3 (36.4-46.3) fL RDW Coeff of Kisha 15.9 H (11.5-14.5) % Plt Count 330 (130-400) K/uL MPV 8.8 L (9.4-12.4) fL Neutrophils % (Manual) 95 % Lymphocytes % (Manual) 1 % Monocytes % (Manual) 4 % Neutrophils # (Manual) 29.25 H (1.40-6.50) K/uL Total Absolute Neuts 29.25 H (1.4-6.5) K/uL Lymphocytes # (Manual) 0.31 L (1.2-3.4) K/uL Total Abs Lymphocytes 0.31 L (1.2-3.4) K/uL Monocytes # (Manual) 1.23 H (0.11-0.59) K/uL PT 12.1 H (9.0-12.0) Seconds INR 1.1 (0.9-1.1) APTT 33.7 H (21.0-31.0) Seconds PTT Ratio 1.2 VBG pH 7.43 H (7.36-7.41) VBG pCO2 30 L (38-50) mmHg VBG pO2 46 mmHg VBG HCO3 20 mmol/L VBG O2 Saturation 77.5 % VBG Base Excess -3.3 mEq/L Sodium 131 L (136-145) mmol/L Potassium 3.8 (3.5-5.1) mmol/L Chloride 100 (98-107) mmol/L Carbon Dioxide 19 L (21-32) mmol/L Anion Gap 12 H (3-11) BUN 19 (6-23) mg/dl Creatinine 0.95 (0.6-1.2) mg/dl Est Cr Clr Drug Dosing 30.9 ml/min Est GFR ( Amer) 65.1 ml/min Est GFR (Non-Af Amer) 56.2 ml/min BUN/Creatinine Ratio 20.0 (10-20) Glucose 158 H (70-99(Fasting)) mg/dl Lactate 2.5 H* (0.4-2.0) mmol/L Calcium 8.3 L (8.6-10.3) mg/dl Magnesium 1.5 L (1.7-2.4) mg/dl Total Bilirubin 0.9 (0.2-1.0) mg/dl Direct Bilirubin 0.2 (0-0.2) mg/dl AST 17 (13-39) U/L ALT 13 (7-52) U/L Alkaline Phosphatase 155 H (34-104) U/L Total Creatine Kinase 28 (26-192) U/L Troponin I High Sens 91.6 H* (0-14) pg/ml Total Protein 6.1 (6.0-8.3) gm/dl Albumin 3.2 L (3.4-5.0) gm/dl Procalcitonin 2.16 H (0-0.5) ng/ml Urine Color Yellow Urine Appearance Clear (Clear) Urine pH 6.0 (4.5-7.5) Ur Specific Roosevelt 1.013 (1.000-1.030) Urine Protein 1+ H (Negative) Urine Glucose (UA) Negative (Negative) Urine Ketones Trace H (Negative) Urine Blood Negative (Negative) Urine Nitrite Negative (Negative) Urine Bilirubin Negative (Negative) Urine Urobilinogen Negative (Negative) Ur Leukocyte Esterase Trace H (Negative) Urine WBC (Auto) 1-5 (0-5) /hpf Urine RBC (Auto) 0-4 (0-4) /hpf U Hyaline Cast (Auto) 1-5 (0-5) /lpf U Epithel Cells (Auto) 20-30 H (0-5) /lpf Urine Bacteria (Auto) Negative (Negative) Adenovirus (PCR) Not Detected (NotDetected) B. pertussis DNA (PCR) Not Detected (NotDetected) B.parapertussis DNA PCR Not Detected (NotDetected) C. pneumoniae DNA (PCR) Not Detected (NotDetected) Coronavirus OC43 (PCR) Not Detected (NotDetected) Coronavirus HKU1 (PCR) Not Detected (NotDetected) Coronavirus 229E (PCR) Not Detected (NotDetected) SARS-CoV-2 (PCR) Not Detected (NotDetected) Coronavirus NL63 (PCR) Not Detected (NotDetected) Human Metapneumovir PCR Not Detected (NotDetected) Influenza Type A (PCR) Not Detected (NotDetected) Influenza Type B (PCR) Not Detected (NotDetected) M. pneumoniae (PCR) Not Detected (NotDetected) Parainfluenza 1 (PCR) Not Detected (NotDetected) Parainfluenza 2 (PCR) Not Detected (NotDetected) Parainfluenza 3 (PCR) Not Detected (NotDetected) Parainfluenza 4 (PCR) Not Detected (NotDetected) RSV (PCR) Not Detected (NotDetected) Entero/Rhino (PCR) Not Detected (NotDetected) 07/28/23 Range/Units 20:42 WBC (4.8-10.8) K/ul RBC (4.20-5.40) M/uL Hgb (12.0-16.0) g/dl Hct (37.0-47.0) % MCV (80.0-100.0) fL MCH (25.0-34.0) pg MCHC (32.0-36.0) g/dL RDW Std Deviation (36.4-46.3) fL RDW Coeff of Kisha (11.5-14.5) % Plt Count (130-400) K/uL MPV (9.4-12.4) fL Neutrophils % (Manual) % Lymphocytes % (Manual) % Monocytes % (Manual) % Neutrophils # (Manual) (1.40-6.50) K/uL Total Absolute Neuts (1.4-6.5) K/uL Lymphocytes # (Manual) (1.2-3.4) K/uL Total Abs Lymphocytes (1.2-3.4) K/uL Monocytes # (Manual) (0.11-0.59) K/uL PT (9.0-12.0) Seconds INR (0.9-1.1) APTT (21.0-31.0) Seconds PTT Ratio VBG pH (7.36-7.41) VBG pCO2 (38-50) mmHg VBG pO2 mmHg VBG HCO3 mmol/L VBG O2 Saturation % VBG Base Excess mEq/L Sodium (136-145) mmol/L Potassium (3.5-5.1) mmol/L Chloride (98-107) mmol/L Carbon Dioxide (21-32) mmol/L Anion Gap (3-11) BUN (6-23) mg/dl Creatinine (0.6-1.2) mg/dl Est Cr Clr Drug Dosing ml/min Est GFR ( Amer) ml/min Est GFR (Non-Af Amer) ml/min BUN/Creatinine Ratio (10-20) Glucose (70-99(Fasting)) mg/dl Lactate 0.7 (0.4-2.0) mmol/L Calcium (8.6-10.3) mg/dl Magnesium (1.7-2.4) mg/dl Total Bilirubin (0.2-1.0) mg/dl Direct Bilirubin (0-0.2) mg/dl AST (13-39) U/L ALT (7-52) U/L Alkaline Phosphatase (34-104) U/L Total Creatine Kinase (26-192) U/L Troponin I High Sens 179.0 H* D (0-14) pg/ml Total Protein (6.0-8.3) gm/dl Albumin (3.4-5.0) gm/dl Procalcitonin (0-0.5) ng/ml Urine Color Urine Appearance (Clear) Urine pH (4.5-7.5) Ur Specific Roosevelt (1.000-1.030) Urine Protein (Negative) Urine Glucose (UA) (Negative) Urine Ketones (Negative) Urine Blood (Negative) Urine Nitrite (Negative) Urine Bilirubin (Negative) Urine Urobilinogen (Negative) Ur Leukocyte Esterase (Negative) Urine WBC (Auto) (0-5) /hpf Urine RBC (Auto) (0-4) /hpf U Hyaline Cast (Auto) (0-5) /lpf U Epithel Cells (Auto) (0-5) /lpf Urine Bacteria (Auto) (Negative) Adenovirus (PCR) (NotDetected) B. pertussis DNA (PCR) (NotDetected) B.parapertussis DNA PCR (NotDetected) C. pneumoniae DNA (PCR) (NotDetected) Coronavirus OC43 (PCR) (NotDetected) Coronavirus HKU1 (PCR) (NotDetected) Coronavirus 229E (PCR) (NotDetected) SARS-CoV-2 (PCR) (NotDetected) Coronavirus NL63 (PCR) (NotDetected) Human Metapneumovir PCR (NotDetected) Influenza Type A (PCR) (NotDetected) Influenza Type B (PCR) (NotDetected) M. pneumoniae (PCR) (NotDetected) Parainfluenza 1 (PCR) (NotDetected) Parainfluenza 2 (PCR) (NotDetected) Parainfluenza 3 (PCR) (NotDetected) Parainfluenza 4 (PCR) (NotDetected) RSV (PCR) (NotDetected) Entero/Rhino (PCR) (NotDetected) Imaging Data Attestation: I personally reviewed and interpreted this imaging study as follows: My Impression: Chest x-ray negative. Airway clear. No pneumothorax. No consolidation. No cardiomegaly or cephalization.. No free air under the diaphragm. No fractures of the skeletal structures. Radiologist's Impression: Chest X-Ray 07/28/23 17:56 SINGLE VIEW CHEST CLINICAL HISTORY: Sepsis. FINDINGS: An AP, portable, upright chest radiograph is compared to study dated 12/15/2022 and correlated with chest CT dated 06/19/2023. A right subclavian central venous infusion port is unchanged in position. The heart is enlarged noting atherosclerotic calcification of the thoracic aorta. The pulmonary vasculature is noncongested. Emphysema and chronic interstitial thickening is similar to previous. Right upper lobe nodularity/scarring is seen at the site of a previously characterized mass lesion. There is chronic elevation of right hemidiaphragm. No airspace consolidation or large pleural effusion is identified. No pneumothorax is seen. The skeletal structures are osteopenic. The bony thorax is grossly intact. Degenerative change and scoliosis is noted in the spine. IMPRESSION: 1. Cardiomegaly and emphysema with no acute cardiopulmonary abnormality identified. 2. Scarring/nodularity is seen in the right upper lobe at the site of a previously characterized lung mass. ACT 112: Negative or not required by law. Electronically signed by: Amando Knox M.D. 07/28/2023 7:26 PM ECG Data Attestation: I personally reviewed and interpreted this ECG as follows: Rate (beats per minute): 95 Rhythm: + sinus with SA ECG Intervals/blocks: + Normal QRS, + Normal AK and + Normal QT-c ECG ST segments: + Normal ST segments MDM Narrative 1755: The patient was evaluated in room A9. A complete history and physical exam was performed Cardiac monitoring: An order was placed for continuous cardiac monitoring. The monitor shows a rate of 90 with sinus rhythm interpreted by me 1915: Vital signs stable. Labs show leukocytosis of 30. Lactic acid 2.5. Patient's troponin elevated 91.6 urinalysis chest x-ray negative. Patient treated with broad-spectrum antibiotics cefepime and vancomycin discussed with pharmacy and they state that the patient has had cefepime in the past, had a pharmacist. Patient treated with 30 cc/kg normal saline bolus 1500 cc. [facility] 2134: Vital signs stable. Patient in no acute distress. On reassessment patient is resting comfortably. She reports no chest pain difficulty breathing or abdominal pain. Patient's lactic acid improved after IV fluids. Patient's troponin elevated to 179. Patient continues to report no chest pain or difficulty breathing. [facility] hospitalist Dr. Duenas was made aware of these results. I called and updated patient's daughter about these results on her listed phone #[phone] after obtaining verbal consent from the patient to update the patient's daughter about her results. Impression & Plan Sepsis, Elevated troponin Discharge Plan Visit Data Chief Complaint: Illness ED Provider: Thomas Hernandez Discharge Problem: Sepsis, Elevated troponin Patient Disposition: Admitted As Inpatient Forms Stand Alone Forms: My [facility] Prescriptions Prescriptions: No Action albuterol sulfate [Ventolin HFA] 90 mcg/actuation HFA aerosol inhaler 2 puffs INH Q6H PRN (Reason: shortness of breath or wheezing) Qty: 8.5 1RF buspirone 5 mg tablet 5 mg PO BID Qty: 180 3RF rosuvastatin 10 mg tablet 10 mg PO DAILY Qty: 90 3RF Symbicort 160-4.5 mcg/actuation HFA aerosol inhaler 2 puff INH BID Qty: 10.2 11RF pantoprazole 40 mg tablet,delayed release (DR/EC) 40 mg PO QAM Qty: 90 3RF mirtazapine 7.5 mg tablet 7.5 mg PO HS Qty: 90 3RF magnesium oxide 400 mg (241.3 mg magnesium) tablet 400 mg PO HS hydrocodone-acetaminophen 5-325 mg tablet 1 tab PO Q4H PRN (Reason: Pain) Qty: 60 0RF (DME) TENS 502 Device See Rx Instructions .Route Qty: 1 0RF Rx Instructions: As directed multivitamin Tablet 1 tab PO QAM (DME) Portable Oxygen Misc See Rx Instructions .Route Qty: 1 0RF Rx Instructions: Portable oxygen concentrator flow rate of 4 L/min to be used at all times Medical Marijuana sublingual Rx Instructions: Sublingual Oil lisinopril 10 mg tablet 10 mg PO DAILY Qty: 90 3RF gabapentin 100 mg capsule 200 mg PO HS Qty: 60 1RF calcium carbonate 600 mg calcium (1,500 mg) tablet 600 mg PO QAM loratadine 10 mg capsule 10 mg PO QAM Patient Comments: QAM naproxen sodium [Aleve] 220 mg capsule 220 mg PO BID ipratropium-albuterol 0.5 mg-3 mg(2.5 mg base)/3 mL Solution For Nebulization 3 ml NEB QIDR PRN (Reason: shortness of breath or wheezing) Qty: 90 0RF ipratropium-albuterol 0.5 mg-3 mg(2.5 mg base)/3 mL solution for nebulization 3 ml inhalation Q6H PRN (Reason: wheezing) Qty: 90 0RF sennosides [Senokot] 8.6 mg Tablet 8.6 mg PO HS cholecalciferol (vitamin D3) [Vitamin D3] 25 mcg (1,000 unit) Tablet 25 mcg PO BID amlodipine 5 mg tablet 5 mg PO QAM polyethylene glycol 3350 [Miralax] 17 gram/dose Powder 17 g PO QAM PRN (Reason: Constipation) Referrals Referrals: Lea Traore MD [Primary Care Provider] - Discharge Problem: Sepsis Qualifiers: Sepsis type: sepsis due to unspecified organism Sepsis acute organ dysfunction status: unspecified Qualified Code(s): A41.9 - Sepsis, unspecified organism
[2023-07-28] MEDS ORDERED: ALBUT/IPRATROP 3MG/0.5MG NEB 3 ML VIAL NEB PRN (22:25)
[2023-07-28] MEDS ORDERED: ALBUTEROL HFA 8 GM INHALER INH PRN (22:25)
[2023-07-28] MEDS ORDERED: POLYETHYLENE (MIRALAX) 17 GM PACK PO PRN (22:25)
[2023-07-28] MEDS ORDERED: ONDANSETRON INJ 2 MG/ML 2 ML VIAL IV PRN (22:25)
[2023-07-28] MEDS ORDERED: ACETAMINOPHEN 325 MG TAB PO PRN (22:25)
[2023-07-28] MEDS: SENNA 8.6 MG TAB PO SCH (23:39)
[2023-07-28] MEDS: MIRTAZAPINE TAB 15 MG TAB PO SCH (23:39)
[2023-07-28] MEDS: busPIRone 5 MG TAB PO SCH (23:39)
[2023-07-28] MEDS: CHOLECALCIFEROL 1,000 UNITS 25 MCG TAB PO SCH (23:40)
[2023-07-28] MEDS: GABAPENTIN 100 MG CAP PO SCH (23:40)
[2023-07-28] MEDS: MAGNESIUM OXIDE 400 MG TAB PO SCH (23:40)
[2023-07-28] MEDS ORDERED: NSS + 20MEQ KCL 20 MEQ/1,000 ML BAG IV SCH (23:45)
[2023-07-29] MEDS: HEPARIN SOD 5,000 UNIT/0.5 ML VIAL SQ SCH ×3 (00:01→21:46)
[2023-07-29] MEDS ORDERED: OPTIRAY 320 500ml IV ONE (03:50)
[2023-07-29 05:37] LABS: Albumin Globulin Ratio 1.2 (0.9-2); Albumin Level 2.7 gm/dl (3.4-5.0); BUN Creatinine Ratio 22.2 (10-20); Bilirubin,Total 0.7 mg/dl (0.2-1.0); Calcium 7.6 mg/dl (8.6-10.3); Creatinine Clr Calc Pharmacy 40.8 ml/min; Est GFR (Non-African American) 78.5 ml/min; Globulin 2.2 gm/dl (2.5-4.0); Magnesium 2.3 mg/dl (1.7-2.4); Potassium 3.4 mmol/L (3.5-5.1); Total Protein 4.9 gm/dl (6.0-8.3)
[2023-07-29 05:43] LABS: Troponin I High Sensitivity 478.6 pg/ml (0-14)
[2023-07-29 05:46] LABS: ALC (manual) 0.75 K/uL (1.2-3.4); Dohle Bodies 1+; Echinocytes 1+; Hematocrit (blood only) 28.1 % (37.0-47.0); Hemoglobin 9.5 g/dl (12.0-16.0); Lymphocytes # (manual) 0.75 K/uL (1.2-3.4); Lymphocytes % (manual) 2 %; Mean Corpuscular Hemoglobin 27.2 pg (25.0-34.0); Mean Corpuscular Hgb Conc 33.8 g/dL (32.0-36.0); Mean Corpuscular Volume 80.5 fL (80.0-100.0); Mean Platelet Volume 8.8 fL (9.4-12.4); Monocytes # (manual) 1.12 K/uL (0.11-0.59); Monocytes % (manual) 3 %; Neutrophils % (manual) 95 %; Platelet Count 249 K/uL (130-400); Polychromasia 1+; RDW Coefficient of Variation 16.3 % (11.5-14.5); Red Blood Count 3.49 M/uL (4.20-5.40)
[2023-07-29 05:47] LABS: White Blood Count 37.47 K/ul (4.8-10.8)
--- NOTE | 2023-07-29 06:44 | CT Scan Report ---
Exam(s): CT ABDOMEN + PELVIS With Contrast IV Amt: 86 ML OPTIRAY 320 EXAM: CT Chest, Abdomen and Pelvis With Intravenous Contrast CLINICAL HISTORY: Reason for exam: elevated temp and WBC on Keytruda. TECHNIQUE: Axial computed tomography images of the chest, abdomen and pelvis with intravenous contrast. Automated exposure control was utilized for the study. A dose lowering technique was utilized adhering to the principles of ALARA. CONTRAST: Patient received 86 ML OPTIRAY 320 of IV contrast COMPARISON: CT chest dated june 19 2023 (only axial images provided) FINDINGS: CHEST: Lungs: Dominant upper lobe spiculated nodule measuring up to 2.0 cm. Additional smaller nodules noted. Please note that the smaller nodules appear to be increased in conspicuity from prior examination. Recommend continued attention on follow-up imaging as dictated per patient's primary malignancy. Dependent airspace disease within the lungs which may relate to atelectatic changes. Severe upper lobe prominent centrilobular emphysema. Pleural space: Unremarkable. No significant effusion. No pneumothorax. Heart: Unremarkable. No cardiomegaly. No significant pericardial effusion. No significant coronary artery calcifications. ABDOMEN: Liver: New foci of hepatic metastatic disease noted, the largest in the left hepatic lobe measuring up to 3.6 m. Central necrosis noted within this dominant focus. Periportal edema in the liver which is a nonspecific finding. Gallbladder and bile ducts: Stenting noted within the common duct. Associated pneumobilia noted. No calcified stones. Pancreas: Unremarkable. No ductal dilation. No mass. Spleen: Unremarkable. No splenomegaly. Adrenals: Unremarkable. No mass. Kidneys and ureters: Multiple low attenuation lesions in the kidneys some of which appear to be due to simple renal cysts while others are too small to characterize. No follow-up is necessary. No hydronephrosis. Stomach and bowel: Unremarkable. No obstruction. No mucosal thickening. PELVIS: Appendix: Suspected appendectomy changes. Bladder: Unremarkable. No mass. Reproductive: Unremarkable as visualized. CHEST, ABDOMEN and PELVIS: Intraperitoneal space: Unremarkable. No significant fluid collection. No free air. Bones/joints: Degenerative changes in the spine. Findings suspicious for osseous metastatic disease with age-indeterminate impression fractures of T6, T8, T11, T12, and L1. Consider correlation with point tenderness. If there is further concern, consider MRI with contrast. These may be due to a combination of osteoporotic and pathologic compression fractures. Tarlov cysts within the sacrum. No dislocation. Soft tissues: Soft tissue thickening within the mediastinum which likely relates to metastatic lymph nodes. Vasculature: Atherosclerotic disease. No aortic aneurysm. Lymph nodes: See above. Tubes, lines and devices: Right chest port terminates within the cavoatrial junction. Other findings: Please note that no history of metastatic disease was provided. IMPRESSION: 1. Please note that no history of metastatic disease was provided. 2. Dominant upper lobe spiculated nodule measuring up to 2.0 cm. Additional smaller nodules noted. Please note that the smaller nodules appear to be increased in conspicuity from prior examination. Recommend continued attention on follow-up imaging as dictated per patient's primary malignancy. 3. Soft tissue thickening within the mediastinum which likely relates to metastatic lymph nodes. 4. New foci of hepatic metastatic disease noted, the largest in the left hepatic lobe measuring up to 3.6 m. Central necrosis noted within this dominant focus. 5. Periportal edema in the liver which is a nonspecific finding. Correlation with any clinical signs of congestive heart failure or hepatitis may be helpful. 6. Stenting noted within the common duct. Associated pneumobilia noted. 7. Findings suspicious for osseous metastatic disease with age- indeterminate impression fractures of T6, T8, T11, T12, and L1. Consider correlation with point tenderness. If there is further concern, consider MRI with contrast. These may be due to a combination of osteoporotic and pathologic compression fractures. Electronically signed by: Ryan Schroeder MD 07/29/23 06:43 AM
[2023-07-29] MEDS: CEFEPIME 2,000 MG in SYRINGE 0 ML IV SCH ×2 (09:10→21:36)
[2023-07-29] MEDS: FLUTICASONE/VILANTEROL 200/25MCG 14 PUFFS/INHALER INH SCH (09:11)
[2023-07-29] MEDS: MULTIVITAMIN TAB PO SCH (09:12)
[2023-07-29] MEDS: CALCIUM CARBONATE 1250MG TAB PO SCH (09:12)
[2023-07-29] MEDS: CHOLECALCIFEROL 1,000 UNITS 25 MCG TAB PO SCH ×2 (09:12→21:38)
[2023-07-29] MEDS: busPIRone 5 MG TAB PO SCH ×2 (09:12→21:38)
[2023-07-29] MEDS: MAGNESIUM OXIDE 400 MG TAB PO SCH ×2 (09:12→21:38)
[2023-07-29] MEDS: ROSUVASTATIN CALCIUM 10 MG TAB PO SCH (09:12)
[2023-07-29] MEDS: LORATADINE 10 MG TAB PO SCH (09:12)
[2023-07-29] MEDS: amLODIPine BESYLATE 5 MG TAB PO SCH (09:12)
[2023-07-29] MEDS: PANTOprazole 40 MG TAB PO SCH (09:13)
[2023-07-29 09:57] LABS: Toxic Vacuolation Occasional
[2023-07-29 10:08] LABS: Toxic Vacuolation 1+
--- NOTE | 2023-07-29 10:32 | Pharmacy Report ---
Pharmacy PK ABX Note - Date of Service July 29, 2023 - Assessment and Plan Assessment 83 year old F receiving empiric vancomycin/cefepime for treatment of fever. Patient has a history of metastatic lung cancer on Keytruda. Pertinent microbiologic data includes: Blood cultures pending. WBC significantly elevated 37, Tmax 37.8. Procal elevated 2.16. Plan Vancomycin * Loading dose: 750 mg IV x 1 * Maintenance dose: 750 mg IV every 18 hours * Regimen is predicted to achieve target AUC/DEBORAH of 400-600 mg/L.hr * Random level ordered for: 07/31 with AM labs (current order ends 07/31 @1159 will need reviewed at that time) Pharmacy will continue to follow and will adjust dose/frequency as necessary. Thank you. Pharmacy has transitioned to AUC monitoring for vancomycin. AUC/DEBORAH is the preferred PK/PD target and is associated with decreased risk of nephrotoxicity compared to traditional trough targets.
[2023-07-29] MEDS ORDERED: VANCOMYCIN HCL 750 MG in SODIUM CHLORIDE 0.9% 250 ML IV SCH (12:00)
--- NOTE | 2023-07-29 12:06 | XCELERA ---
[id number] [id number]
--- NOTE | 2023-07-29 13:41 | Electrocardiogram Report ---
Test Reason : Blood Pressure : / mmHG Vent. Rate : 095 BPM Atrial Rate : 095 BPM P-R Int : 142 ms QRS Dur : 084 ms QT Int : 364 ms P-R-T Axes : 079 064 062 degrees QTc Int : 457 ms Sinus rhythm with occasional Premature ventricular complexes and Premature atrial complexes Septal infarct , age undetermined Abnormal ECG When compared with ECG of 15-DEC-2022 10:52, Premature ventricular complexes are now Present Premature atrial complexes are now Present Confirmed by João Kirby ([id number]) on 07/29/2023 1:40:58 PM Referred By: REFERRED SELF Confirmed By:João Kirby
--- NOTE | 2023-07-29 13:41 | Hospitalist Progress Note ---
Date of Service July 29, 2023 Assessment & Plan (1) Sepsis: Plan: Febrile illness w/ significant leukocytosis, tachycardia, elevated procal, elevated lactate now improved in setting of metastatic non-small cell lung CA on Keytruda- Biofire neg, no other symptoms other than fevers and fatigue. No PNA, UTI, diarrhea/colitis Liver lesions could be abscesses, especially the larger left anterior one--> discussed care with Radiology and will plan for IR drainage to see if abscess vs malignancy Fortunately, clinically improving, no further fevers. WBC count further elevated but will likely improve by tomorrow. Diff mostly neutrophils Follow BCxs COntinue Empiric IV antibiotics with vancomycin IV and Cefepime, and add Flagyl for anaerobic coverage APAP prn fever continue IVFs (2) Elevated troponin: Plan: Elevated troponin initially 91.6,175,478,292 No CP, ECG without evidence of ischemia. 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 twice daily Hold lisinopril (7) Hypomagnesemia: Plan: Hypomagnesemia- and hypokalemia Magnesium 1.5 on admission-replaced K+ slightly low today-continue IVFs with K follow bMP, mag (8) Anemia: Plan: hgb 9.5 down from 11, microcytic, likely hemodilutional drop, no bleeding from anywhere that is obvious likely Fe def check Fe studies (9) Liver mass: Plan: as noted above, malignant vs infectious plan for IR (10) Thoracic compression fracture: Plan: known, multiple, uses ice and heat for pain control at home Plan Dispo-continued stay Discussed care with and daughter at bedside Admission and Anticipated Discharge Date Admission Date: July 28, 2023 Subjective Pt feeling much better. Denies any further rigors or nausea. Denies abd pain. No headache, neck pain, sore throat, rhinorrhea, cough, SOB, CP, diarrhea, joint pains, myalgias, or rash. Was doing well until the last week when started feeling fatigued and then had 2 days of fevers to 102 at home. Physical Exam Constitutional: WD/WN, vitals as above Eyes: PERRL, conjunctivae normal, anicteric sclerae ENMT: external ear and nose normal, oropharynx normal Neck: trachea midline, no thyromegaly Respiratory: normal respiratory effort, lungs clear to auscultation Cardiovascular: RRR, no murmur, no edema Chest (Breasts): Chest: + vascular access device or port (Right chest wall, no erythema or drainage) Gastrointestinal (Abdomen): normal bowel sounds, soft, nontender, no hepatosplenomegaly Musculoskeletal: Extremities: extremities normal to inspection; no cyanosis and no clubbing Skin: no rashes, warm and dry Neurologic: moves all extremities and awake; no focal motor deficits Psychiatric: A+Ox3, euthymic affect Lymphatic: no lymphedema Results & Data Results & Data Vital Signs (Past 12 Hours) Vital Signs Temp Pulse Pulse Resp BP Pulse Ox O2 Del Method 07/29/23 12:27 86 17 100/62 92 Room Air 07/29/23 07:00 81 07/29/23 05:44 36.5 C 86 22 106/67 95 Room Air 07/29/23 02:27 86 18 Laboratory Results CBC, CMP, troponin, blood cultures reviewed Diagnostic Findings CT chest abd pel reviewed images personally reviewed PG Care Time/CCT Total # of Minutes Spent Total Time Spent with Patient: Total time spent is greater than 50% in coordination of care (as documented) at patient's floor/unit and/or counseling patient: Coding Level of Care Code 33714 SUB INP/OBS CARE 3/50MIN Diagnoses Sepsis A41.9 Sepsis acute organ dysfunction status: unspecified Sepsis type: sepsis due to unspecified organism Elevated troponin R79.89 Metastatic non-small cell lung cancer C34.90 Chronic hypoxemic respiratory failure J96.11 COPD (chronic obstructive pulmonary disease) J44.9 Hypertension I10 Hypomagnesemia E83.42 Anemia D64.9 Liver mass R16.0 Thoracic compression fracture S22.000A (1) Sepsis Sepsis acute organ dysfunction status: unspecified Sepsis type: sepsis due to unspecified organism Qualified Code(s): A41.9 - Sepsis, unspecified organism
[2023-07-29] MEDS: metroNIDAZOLE 500 MG/100 ML BAG IV SCH (18:19)
[2023-07-29] MEDS: MIRTAZAPINE TAB 15 MG TAB PO SCH (21:36)
[2023-07-29] MEDS: SENNA 8.6 MG TAB PO SCH (21:37)
[2023-07-29] MEDS: GABAPENTIN 100 MG CAP PO SCH (21:39)
[2023-07-30] MEDS: metroNIDAZOLE 500 MG/100 ML BAG IV SCH ×4 (00:30→23:50)
[2023-07-30] MEDS: VANCOMYCIN HCL 750 MG in SODIUM CHLORIDE 0.9% 250 ML IV SCH ×2 (02:00→20:45)
[2023-07-30] MEDS ORDERED: HEPARIN 100 UNIT/ML 5ML FLUSH FLUSH PRN (03:28)
[2023-07-30 03:45] LABS: Basophils # (auto) 0.03 K/uL (0.00-0.20); Basophils % (auto) 0.1 %; Eosinophils # (auto) 0.02 K/uL (0.00-0.50); Eosinophils % (auto) 0.1 %; Hematocrit (blood only) 28.8 % (37.0-47.0); Hemoglobin 9.6 g/dl (12.0-16.0); Immature Granulocytes # (auto) 0.17 K/uL (0.01-0.20); Immature Granulocytes % (auto) 0.7 %; Lymphocytes # (auto) 0.67 K/uL (1.20-3.40); Lymphocytes % (auto) 2.8 %; Mean Corpuscular Hemoglobin 26.8 pg (25.0-34.0); Mean Corpuscular Hgb Conc 33.3 g/dL (32.0-36.0); Mean Corpuscular Volume 80.4 fL (80.0-100.0); Mean Platelet Volume 9.1 fL (9.4-12.4); Monocytes # (auto) 2.94 K/uL (0.11-0.59); Monocytes % (auto) 12.5 %; Neutrophils # (auto) 19.75 K/uL (1.40-6.50); Neutrophils % (auto) 83.8 %; Platelet Count 295 K/uL (130-400); RDW Coefficient of Variation 16.7 % (11.5-14.5); RDW Standard Deviation 49.1 fL (36.4-46.3); Red Blood Count 3.58 M/uL (4.20-5.40); White Blood Count 23.58 K/ul (4.8-10.8)
[2023-07-30 04:01] LABS: Alanine Aminotransferase 18 U/L (7-52); Albumin Level 2.6 gm/dl (3.4-5.0); Alkaline Phosphatase 166 U/L (34-104); Anion Gap 5 (3-11); Aspartate Aminotransferase 18 U/L (13-39); BUN Creatinine Ratio 20.3 (10-20); Bilirubin,Total 0.4 mg/dl (0.2-1.0); Blood Urea Nitrogen 13 mg/dl (6-23); Calcium 7.4 mg/dl (8.6-10.3); Carbon Dioxide 22 mmol/L (21-32); Chloride 109 mmol/L (98-107); Creatinine Clr Calc Pharmacy 45.9 ml/min; Est GFR (Non-African American) 83.7 ml/min; Globulin 2.5 gm/dl (2.5-4.0); Glucose 99 mg/dl (70-99(Fasting)); Potassium 3.7 mmol/L (3.5-5.1); Sodium 136 mmol/L (136-145); Total Protein 5.1 gm/dl (6.0-8.3)
--- NOTE | 2023-07-30 06:27 | Consultation ---
Date of Consultation July 29, 2023 Assessment & Plan (1) Metastatic lung cancer (metastasis from lung to other site): Strongly PDL1 positive metastatic lung adenocarcinoma with involvement of the parotid gland, mediastinal lymph nodes, right adrenal, bilateral lung nodules, but without dramatic liver involvement at first diagnosis (though there was a pancreatic lesion of uncertain significance that could represent a separate process). She had thus far responded dramatically to pembrolizumab and until the last week had had significant clinical improvement over her baseline status though still with moderate performance status compromise based on poor conditioning, weight loss (the weight has been more recently stable), and underlying COPD. CT scans at the end of May also seem to show a strong overall response. Unclear whether the liver lesions are directly related to her previous karlene nocarcinoma as discussed below (2) Liver mass: Abrupt onset with rigors and leukocytosis certainly suggests an infectious process though blood cultures are negative thus far and it is not entirely clear why she should have a multifocal infection in her liver. She has improved through the initial hospitalization after start of antibiotics further offering some support for an infectious etiology As above, her metastatic lung cancer has been responding quite well to ICI therapy and it would be somewhat unusual for a relapse to happen so abruptly and to be associated with rigors and such a leukocytosis. Potential relevance is the pancreatic lesion which had also been stable through the spring and summer but may represent a different malignant process and certainly 1 that could frequently metastasize to the liver though again even with aggressive pancreatic lesions, the transition from relative stability in May to this dramatic presentation would be unusual. Anticipate needle aspiration for culture and cytology and that will be pivotal here. Importantly, not finding malignancy does not rule that out and finding malignancy does not suggest that that is the sole cause of the current presentation. If there are malignant cells seen it will be critically important to compare those to the original pathology of her metastatic lung cancer to see if we are dealing with same or different process Plan Would continue with empiric antibiotics and suggest needle aspiration being sure that ample material is obtained for both culture and cytologic review. If malignant cells are identified, it will be critical to compare those to the original lung cancer diagnosis to see if they are concordant or suggestive of another process The lack of positive cultures does not completely exclude a significant infection since she will have been on antibiotics for > 24 hours prior to the performance of the needle aspiration As we can better establish the primary etiology of her liver lesions we will reassess prognosis and treatment options from a cancer standpoint. Given the possibility for infection, systemic cancer treatment will remain on hold pending further review History of Present Illness Reason for Consultation: Necrotic liver mass, rigors, marked leukocytosis Attending Physician: Elizabeth Perez MD History of Present Illness Karoline Escamilla is an 83-year-old woman with a diagnosis of metastatic lung adenocarcinoma. This was first diagnosed in October of this year with widespread metastatic involvement including skeletal involvement, parotid gland involvement, mediastinal lymph nodes, right adrenal, possible pancreatic disease as well as bilateral lung nodules. Tumor was PTL1 100%. With poor additional performance as she was not felt to be a good candidate for cytotoxic chemotherapy but was started on pembrolizumab in November, and with that she has had an excellent response. While still thin and with somewhat limited performance status due to her cancer and COPD, her weight is stabilized and a 06/19/2023 CT scan of the chest, abdomen, pelvis showed significant improvement in disease overall. She had relatively precipitous onset of malaise and rigors over the 1 week prior to admission without traumatic abdominal pain or major changes in bowel habits except to note some increased constipation. Comorbidities include previous biliary obstruction for which a stent was placed, history of COPD and hypertension. She additionally has a history of actinic keratoses, anemia, dyslipidemia, gastroesophageal reflux, early metabolic syndrome, osteoporosis, and peripheral arterial She was a longtime 1 pack/day smoker but stopped in 2005 Allergies Allergy/AdvReac Type Severity Reaction Status Date / Time amoxicillin Allergy Intermediate rash Verified 07/29/23 09:15 tramadol AdvReac Intermediate loss of Verified 07/29/23 09:15 apetite Home Medications Medication Instructions Recorded Confirmed Type calcium carbonate 600 mg calcium 600 mg PO QAM 02/12/19 07/29/23 History (1,500 mg) tablet loratadine 10 mg capsule 10 mg PO QAM 09/14/19 07/29/23 History multivitamin 1 tab PO QAM 09/14/19 07/29/23 History albuterol sulfate 90 mcg/actuation 2 puffs inhalation Q6H PRN 10/07/19 07/29/23 Rx aerosol inhaler (Ventolin HFA) shortness of breath or wheezing #8.5 grams magnesium oxide 400 mg (241.3 mg 400 mg PO HS 05/08/21 07/29/23 History magnesium) tablet buspirone 5 mg tablet 5 mg PO BID #180 tabs 09/02/22 07/29/23 Rx sennosides 8.6 mg tablet (Senokot) 8.6 mg PO HS 11/27/22 07/29/23 History hydrocodone 5 mg-acetaminophen 325 1 tab PO Q4H PRN Pain #60 tabs 12/05/22 07/29/23 Rx mg tablet amlodipine 5 mg tablet 5 mg PO QAM 12/10/22 07/29/23 History cholecalciferol (vitamin D3) 25 25 mcg PO BID 12/10/22 07/29/23 History mcg (1,000 unit) tablet (Vitamin D3) polyethylene glycol 3350 17 17 g PO QAM PRN Constipation 12/10/22 07/29/23 History gram/dose oral powder (Miralax) TENS 502 (TENS units) #1 ea 12/27/22 07/30/23 Rx Portable Oxygen #1 ea 01/01/23 07/30/23 Rx rosuvastatin 10 mg tablet 10 mg PO DAILY #90 tabs 01/21/23 07/29/23 Rx Symbicort 160 mcg-4.5 2 puff inhalation BID #10.2 grams 02/11/23 07/29/23 Rx mcg/actuation HFA aerosol inhaler (budesonide-formoterol) pantoprazole 40 mg tablet,delayed 40 mg PO QAM #90 tabs 05/22/23 07/29/23 Rx release Medical Marijuana 1 dose sublingual DAILY PRN Pain 05/27/23 07/29/23 History lisinopril 10 mg tablet 10 mg PO DAILY #90 tabs 05/27/23 07/29/23 Rx gabapentin 100 mg capsule 100 mg PO HS 07/29/23 07/29/23 History mirtazapine 7.5 mg tablet 3.75 mg PO HS 07/29/23 07/29/23 History ondansetron HCl 8 mg tablet 8 mg PO Q8H PRN Nausea And Vomiting 07/29/23 07/29/23 History vitamin B complex 1 tab PO DAILY 07/29/23 07/29/23 History Patient History Medical History Physical deconditioning Chronic hypoxemic respiratory failure Acute on chronic respiratory failure with hypoxemia 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 biliary stent placement *2 WEEKS AGO AT [facility] S/P laparoscopic appendectomy (04/2020) 05/08/2020 Grade 1 view, MAC 3, ETT 7. History of colonoscopy 04/05/2020 History of tooth extraction History of cataract surgery RT/LEFT H/O tubal ligation History of section X 1 Family History Father Diabetes Family history of diabetes mellitus Mother No problems noted. Sister No problems noted. Brother Lung cancer Brother No problems noted. Brother No problems noted. Son No problems noted. Daughter No problems noted. Other No family history of adverse response to anesthesia Stroke Denies family history of Ovarian cancer Prostate cancer Myocardial infarction Breast cancer Colorectal cancer Social History Smoking Status: Former smoker Tobacco Type: Cigarettes Age Started Using Tobacco: 17; Age Quit Using Tobacco: 65; packs per day: 1; Cigarettes Per Day: QUIT A FEW MONTHS AGO; Second Hand Exposure: No; Do You Dip or Chew Tobacco: No; Hx Alcohol Use: Yes Alcohol type: wine Alcohol Intake Frequency: 4 or More x per/Week Alcohol Intake Frequency Comment: 2 glasses of wine daily Hx Substance Use: No Preferred Language: [place] Communication Ability: Effective Visual Impairment: No Limitations Hearing Ability: Normal Ethanol Operator Required: No Beliefs That Will Affect Care: None marital status: Current Living Situation: Spouse current occupational status: retired 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 Oxygenation is in the low to mid 90% range on 2 L nasal cannula and other vital signs are stable. She is sitting up in bed currently seems alert and in no acute distress. There is no pocked peripheral pathologic adenopathy in the cervical supraclavicular or axillary regions. Breath sounds are decreased but she is moving air well in all zones without marked rales rubs or wheezes. Her cardiac rhythm is regular without pathological murmur Abdomen shows no widespread tenderness guarding or rigidity. There is only mild tenderness to deep palpation to the right upper quadrant currently. She has no signs of ascites or pathological palpable mass. Extremities are symmetric without clear compression tenderness or cords and although she is diffusely weak her neurologic exam is nonfocal. Cognitive function and cranial nerves are specifically intact and she has good capacity for medical decision making Results & Data Vital Signs (Past 12 Hours) Vital Signs Pulse Pulse Resp BP BP Pulse Ox Pulse Ox 07/30/23 04:30 83 19 96 07/30/23 04:20 85 24 95 07/30/23 04:10 90 21 92 07/30/23 04:00 81 21 92 07/30/23 03:50 86 20 93 07/30/23 03:43 127/78 07/30/23 03:20 89 22 95 07/30/23 03:10 79 25 H 95 07/30/23 03:00 122/72 07/30/23 03:00 89 26 H 96 07/30/23 02:50 74 23 89 L 07/30/23 02:40 77 25 H 91 07/30/23 02:30 78 18 91 07/30/23 02:20 81 19 94 07/30/23 02:10 80 19 96 07/30/23 02:01 78 18 94 07/30/23 02:01 111/64 07/30/23 02:00 79 16 92 07/30/23 02:00 80 18 111/64 95 07/30/23 01:50 72 15 94 07/30/23 01:40 73 18 96 07/30/23 01:30 75 21 93 07/30/23 01:20 74 20 93 07/30/23 01:10 74 20 93 07/30/23 01:00 77 21 93 07/30/23 01:00 94/52 L 07/30/23 01:00 76 17 94/52 L 94 07/30/23 00:54 72 07/30/23 00:54 93 07/30/23 00:50 71 19 94 07/30/23 00:40 69 20 97 07/30/23 00:30 75 24 93 07/30/23 00:23 110/58 L 07/30/23 00:23 83 23 07/30/23 00:20 80 23 07/30/23 00:10 74 22 07/30/23 00:00 77 21 07/29/23 23:50 76 22 07/29/23 23:40 77 22 07/29/23 23:33 79 07/29/23 23:30 78 26 H 07/29/23 23:20 79 21 07/29/23 23:10 80 24 07/29/23 23:00 82 16 07/29/23 22:50 83 22 07/29/23 22:40 85 26 H 07/29/23 22:30 90 25 H 07/29/23 22:20 84 27 H 07/29/23 22:10 89 18 07/29/23 22:00 88 29 H 07/29/23 21:52 102 H 20 07/29/23 21:46 121/75 07/29/23 21:46 90 19 07/29/23 21:40 91 H 26 H 07/29/23 21:30 85 22 93 07/29/23 21:20 91 H 28 H 07/29/23 21:10 84 28 H 07/29/23 21:00 89 30 H 07/29/23 20:50 88 31 H 07/29/23 20:40 89 25 H 07/29/23 20:30 93 H 19 07/29/23 20:20 92 H 30 H 07/29/23 20:10 91 H 33 H 07/29/23 20:00 94 H 31 H 07/29/23 19:50 98 H 20 07/29/23 19:40 96 H 22 94 07/29/23 19:30 116 H 23 92 07/29/23 19:20 100 H 20 07/29/23 19:10 94 H 24 95 07/29/23 19:00 99 H 21 93 07/29/23 18:50 94 H 26 H 96 07/29/23 18:40 98 H 22 96 07/29/23 18:30 100 H 24 O2 Del Method O2 Del Method O2 Flow Rate 07/30/23 04:30 07/30/23 04:20 07/30/23 04:10 07/30/23 04:00 07/30/23 03:50 07/30/23 03:43 07/30/23 03:20 07/30/23 03:10 07/30/23 03:00 07/30/23 03:00 07/30/23 02:50 07/30/23 02:40 07/30/23 02:30 07/30/23 02:20 07/30/23 02:10 07/30/23 02:01 07/30/23 02:01 07/30/23 02:00 07/30/23 02:00 Nasal Cannula 2 07/30/23 01:50 07/30/23 01:40 07/30/23 01:30 07/30/23 01:20 07/30/23 01:10 07/30/23 01:00 07/30/23 01:00 07/30/23 01:00 Room Air 07/30/23 00:54 07/30/23 00:54 Room Air 07/30/23 00:50 07/30/23 00:40 07/30/23 00:30 07/30/23 00:23 07/30/23 00:23 07/30/23 00:20 07/30/23 00:10 07/30/23 00:00 07/29/23 23:50 07/29/23 23:40 07/29/23 23:33 07/29/23 23:30 07/29/23 23:20 07/29/23 23:10 07/29/23 23:00 07/29/23 22:50 07/29/23 22:40 07/29/23 22:30 07/29/23 22:20 07/29/23 22:10 07/29/23 22:00 07/29/23 21:52 07/29/23 21:46 07/29/23 21:46 07/29/23 21:40 07/29/23 21:30 07/29/23 21:20 07/29/23 21:10 07/29/23 21:00 07/29/23 20:50 07/29/23 20:40 07/29/23 20:30 07/29/23 20:20 07/29/23 20:10 07/29/23 20:00 07/29/23 19:50 07/29/23 19:40 07/29/23 19:30 07/29/23 19:20 07/29/23 19:10 07/29/23 19:00 07/29/23 18:50 07/29/23 18:40 07/29/23 18:30 Laboratory Results Laboratory Results - last 24 hr 07/28/23 07/29/23 07/29/23 18:21 04:57 10:41 WBC RBC Hgb Hct MCV MCH MCHC RDW Std Deviation RDW Coeff of Kisha Plt Count MPV Immature Gran % (Auto) Neut % (Auto) Lymph % (Auto) [place] % (Auto) Eos % (Auto) Baso % (Auto) Neut # (Auto) Lymph # (Auto) [place] # (Auto) Eos # (Auto) Baso # (Auto) Immature Gran # (Auto) Toxic Vacuolation 1+ Occasional Sodium Potassium Chloride Carbon Dioxide Anion Gap BUN Creatinine Est Cr Clr Drug Dosing Est GFR ( Amer) Est GFR (Non-Af Amer) BUN/Creatinine Ratio Glucose Calcium Magnesium Total Bilirubin AST ALT Alkaline Phosphatase Troponin I High Sens 292.5 H* D Total Protein Albumin Globulin Albumin/Globulin Ratio Procalcitonin 07/30/23 03:22 WBC 23.58 H RBC 3.58 L Hgb 9.6 L Hct 28.8 L MCV 80.4 MCH 26.8 MCHC 33.3 RDW Std Deviation 49.1 H RDW Coeff of Kisha 16.7 H Plt Count 295 MPV 9.1 L Immature Gran % (Auto) 0.7 Neut % (Auto) 83.8 Lymph % (Auto) 2.8 [place] % (Auto) 12.5 Eos % (Auto) 0.1 Baso % (Auto) 0.1 Neut # (Auto) 19.75 H Lymph # (Auto) 0.67 L [place] # (Auto) 2.94 H Eos # (Auto) 0.02 Baso # (Auto) 0.03 Immature Gran # (Auto) 0.17 Toxic Vacuolation Sodium 136 Potassium 3.7 Chloride 109 H Carbon Dioxide 22 Anion Gap 5 BUN 13 Creatinine 0.64 Est Cr Clr Drug Dosing 45.9 Est GFR ( Amer) 97.0 Est GFR (Non-Af Amer) 83.7 BUN/Creatinine Ratio 20.3 H Glucose 99 Calcium 7.4 L Magnesium 2.0 Total Bilirubin 0.4 AST 18 ALT 18 Alkaline Phosphatase 166 H Troponin I High Sens Total Protein 5.1 L Albumin 2.6 L Globulin 2.5 Albumin/Globulin Ratio 1.0 Procalcitonin 8.58 H Diagnostic Findings Chest X-Ray 07/28/23 17:56 SINGLE VIEW CHEST CLINICAL HISTORY: Sepsis. FINDINGS: An AP, portable, upright chest radiograph is compared to study dated 12/15/2022 and correlated with chest CT dated 06/19/2023. A right subclavian central venous infusion port is unchanged in position. The heart is enlarged noting atherosclerotic calcification of the thoracic aorta. The pulmonary vasculature is noncongested. Emphysema and chronic interstitial thickening is similar to previous. Right upper lobe nodularity/scarring is seen at the site of a previously characterized mass lesion. There is chronic elevation of right hemidiaphragm. No airspace consolidation or large pleural effusion is identified. No pneumothorax is seen. The skeletal structures are osteopenic. The bony thorax is grossly intact. Degenerative change and scoliosis is noted in the spine. IMPRESSION: 1. Cardiomegaly and emphysema with no acute cardiopulmonary abnormality identified. 2. Scarring/nodularity is seen in the right upper lobe at the site of a previously characterized lung mass. ACT 112: Negative or not required by law. Electronically signed by: Amando Knox M.D. 07/28/2023 7:26 PM Abdomen/Pelvis CT 07/29/23 02:53 Exam(s): CT ABDOMEN + PELVIS With Contrast IV Amt: 86 ML OPTIRAY 320 EXAM: CT Chest, Abdomen and Pelvis With Intravenous Contrast CLINICAL HISTORY: Reason for exam: elevated temp and WBC on Keytruda. TECHNIQUE: Axial computed tomography images of the chest, abdomen and pelvis with intravenous contrast. Automated exposure control was utilized for the study. A dose lowering technique was utilized adhering to the principles of ALARA. CONTRAST: Patient received 86 ML OPTIRAY 320 of IV contrast COMPARISON: CT chest dated june 19 2023 (only axial images provided) FINDINGS: CHEST: Lungs: Dominant upper lobe spiculated nodule measuring up to 2.0 cm. Additional smaller nodules noted. Please note that the smaller nodules appear to be increased in conspicuity from prior examination. Recommend continued attention on follow-up imaging as dictated per patient's primary malignancy. Dependent airspace disease within the lungs which may relate to atelectatic changes. Severe upper lobe prominent centrilobular emphysema. Pleural space: Unremarkable. No significant effusion. No pneumothorax. Heart: Unremarkable. No cardiomegaly. No significant pericardial effusion. No significant coronary artery calcifications. ABDOMEN: Liver: New foci of hepatic metastatic disease noted, the largest in the left hepatic lobe measuring up to 3.6 m. Central necrosis noted within this dominant focus. Periportal edema in the liver which is a nonspecific finding. Gallbladder and bile ducts: Stenting noted within the common duct. Associated pneumobilia noted. No calcified stones. Pancreas: Unremarkable. No ductal dilation. No mass. Spleen: Unremarkable. No splenomegaly. Adrenals: Unremarkable. No mass. Kidneys and ureters: Multiple low attenuation lesions in the kidneys some of which appear to be due to simple renal cysts while others are too small to characterize. No follow-up is necessary. No hydronephrosis. Stomach and bowel: Unremarkable. No obstruction. No mucosal thickening. PELVIS: Appendix: Suspected appendectomy changes. Bladder: Unremarkable. No mass. Reproductive: Unremarkable as visualized. CHEST, ABDOMEN and PELVIS: Intraperitoneal space: Unremarkable. No significant fluid collection. No free air. Bones/joints: Degenerative changes in the spine. Findings suspicious for osseous metastatic disease with age-indeterminate impression fractures of T6, T8, T11, T12, and L1. Consider correlation with point tenderness. If there is further concern, consider MRI with contrast. These may be due to a combination of osteoporotic and pathologic compression fractures. Tarlov cysts within the sacrum. No dislocation. Soft tissues: Soft tissue thickening within the mediastinum which likely relates to metastatic lymph nodes. Vasculature: Atherosclerotic disease. No aortic aneurysm. Lymph nodes: See above. Tubes, lines and devices: Right chest port terminates within the cavoatrial junction. Other findings: Please note that no history of metastatic disease was provided. IMPRESSION: 1. Please note that no history of metastatic disease was provided. 2. Dominant upper lobe spiculated nodule measuring up to 2.0 cm. Additional smaller nodules noted. Please note that the smaller nodules appear to be increased in conspicuity from prior examination. Recommend continued attention on follow-up imaging as dictated per patient's primary malignancy. 3. Soft tissue thickening within the mediastinum which likely relates to metastatic lymph nodes. 4. New foci of hepatic metastatic disease noted, the largest in the left hepatic lobe measuring up to 3.6 m. Central necrosis noted within this dominant focus. 5. Periportal edema in the liver which is a nonspecific finding. Correlation with any clinical signs of congestive heart failure or hepatitis may be helpful. 6. Stenting noted within the common duct. Associated pneumobilia noted. 7. Findings suspicious for osseous metastatic disease with age- indeterminate impression fractures of T6, T8, T11, T12, and L1. Consider correlation with point tenderness. If there is further concern, consider MRI with contrast. These may be due to a combination of osteoporotic and pathologic compression fractures. Electronically signed by: Ryan Schroeder MD 07/29/23 06:[address] 07/29/23 02:53 Exam(s): CT CHEST With Contrast IV Amt: 86 ML OPTIRAY 320 EXAM: CT Chest, Abdomen and Pelvis With Intravenous Contrast CLINICAL HISTORY: Reason for exam: elevated temp and WBC on Keytruda. TECHNIQUE: Axial computed tomography images of the chest, abdomen and pelvis with intravenous contrast. Automated exposure control was utilized for the study. A dose lowering technique was utilized adhering to the principles of ALARA. CONTRAST: Patient received 86 ML OPTIRAY 320 of IV contrast COMPARISON: CT chest dated june 19 2023 (only axial images provided) FINDINGS: CHEST: Lungs: Dominant upper lobe spiculated nodule measuring up to 2.0 cm. Additional smaller nodules noted. Please note that the smaller nodules appear to be increased in conspicuity from prior examination. Recommend continued attention on follow-up imaging as dictated per patient's primary malignancy. Dependent airspace disease within the lungs which may relate to atelectatic changes. Severe upper lobe prominent centrilobular emphysema. Pleural space: Unremarkable. No significant effusion. No pneumothorax. Heart: Unremarkable. No cardiomegaly. No significant pericardial effusion. No significant coronary artery calcifications. ABDOMEN: Liver: New foci of hepatic metastatic disease noted, the largest in the left hepatic lobe measuring up to 3.6 m. Central necrosis noted within this dominant focus. Periportal edema in the liver which is a nonspecific finding. Gallbladder and bile ducts: Stenting noted within the common duct. Associated pneumobilia noted. No calcified stones. Pancreas: Unremarkable. No ductal dilation. No mass. Spleen: Unremarkable. No splenomegaly. Adrenals: Unremarkable. No mass. Kidneys and ureters: Multiple low attenuation lesions in the kidneys some of which appear to be due to simple renal cysts while others are too small to characterize. No follow-up is necessary. No hydronephrosis. Stomach and bowel: Unremarkable. No obstruction. No mucosal thickening. PELVIS: Appendix: Suspected appendectomy changes. Bladder: Unremarkable. No mass. Reproductive: Unremarkable as visualized. CHEST, ABDOMEN and PELVIS: Intraperitoneal space: Unremarkable. No significant fluid collection. No free air. Bones/joints: Degenerative changes in the spine. Findings suspicious for osseous metastatic disease with age-indeterminate impression fractures of T6, T8, T11, T12, and L1. Consider correlation with point tenderness. If there is further concern, consider MRI with contrast. These may be due to a combination of osteoporotic and pathologic compression fractures. Tarlov cysts within the sacrum. No dislocation. Soft tissues: Soft tissue thickening within the mediastinum which likely relates to metastatic lymph nodes. Vasculature: Atherosclerotic disease. No aortic aneurysm. Lymph nodes: See above. Tubes, lines and devices: Right chest port terminates within the cavoatrial junction. Other findings: Please note that no history of metastatic disease was provided. IMPRESSION: 1. Please note that no history of metastatic disease was provided. 2. Dominant upper lobe spiculated nodule measuring up to 2.0 cm. Additional smaller nodules noted. Please note that the smaller nodules appear to be increased in conspicuity from prior examination. Recommend continued attention on follow-up imaging as dictated per patient's primary malignancy. 3. Soft tissue thickening within the mediastinum which likely relates to metastatic lymph nodes. 4. New foci of hepatic metastatic disease noted, the largest in the left hepatic lobe measuring up to 3.6 m. Central necrosis noted within this dominant focus. 5. Periportal edema in the liver which is a nonspecific finding. Correlation with any clinical signs of congestive heart failure or hepatitis may be helpful. 6. Stenting noted within the common duct. Associated pneumobilia noted. 7. Findings suspicious for osseous metastatic disease with age- indeterminate impression fractures of T6, T8, T11, T12, and L1. Consider correlation with point tenderness. If there is further concern, consider MRI with contrast. These may be due to a combination of osteoporotic and pathologic compression fractures. Electronically signed by: Ryan Schroeder MD 07/29/23 06:44 AM PG Care Time/CCT Total # of Minutes Spent Total Time Spent with Patient: Total time spent is greater than 50% in coordination of care (as documented) at patient's floor/unit and/or counseling patient: [place] [address] IN/OBS CONSULT LVL 3,45M Patient Type New History Expanded Problem Focused Exam Expanded Problem Focused Medical Decision Making High Complexity Diagnoses Metastatic lung cancer (metastasis from lung to other site) C34.90 Liver mass R16.0
[2023-07-30] MEDS: MAGNESIUM OXIDE 400 MG TAB PO SCH ×2 (09:14→21:50)
[2023-07-30] MEDS: CHOLECALCIFEROL 1,000 UNITS 25 MCG TAB PO SCH ×2 (09:14→21:50)
[2023-07-30] MEDS: busPIRone 5 MG TAB PO SCH ×2 (09:14→21:49)
[2023-07-30] MEDS: LORATADINE 10 MG TAB PO SCH (09:15)
[2023-07-30] MEDS: MULTIVITAMIN TAB PO SCH (09:15)
[2023-07-30] MEDS: CALCIUM CARBONATE 1250MG TAB PO SCH (09:15)
[2023-07-30] MEDS: ROSUVASTATIN CALCIUM 10 MG TAB PO SCH (09:15)
[2023-07-30] MEDS: amLODIPine BESYLATE 5 MG TAB PO SCH (09:16)
[2023-07-30] MEDS: PANTOprazole 40 MG TAB PO SCH (09:16)
[2023-07-30] MEDS: CEFEPIME 2,000 MG in SYRINGE 0 ML IV SCH ×2 (09:17→20:45)
[2023-07-30] MEDS: FLUTICASONE/VILANTEROL 200/25MCG 14 PUFFS/INHALER INH SCH (09:20)
[2023-07-30] MEDS: HEPARIN SOD 5,000 UNIT/0.5 ML VIAL SQ SCH (09:20)
[2023-07-30] MEDS ORDERED: LACTATED RINGER'S 1,000 ML IV SCH (09:30)
[2023-07-30 10:26] LABS: Lyme Ab IgG w/WB Rflx Negative (Negative); Lyme Ab IgM w/WB Rflx Negative (Negative)
[2023-07-30 10:29] LABS: Iron < 10 mcg/dl (35-150); Unsaturated Iron Binding Cap 123 mcg/dl (155-355)
[2023-07-30] MEDS ORDERED: GELATIN SPONGE 12-7MM ONE (10:35)
[2023-07-30] MEDS: HYDROCODONE/ACETAMOPHEN 5/325MG TAB PO PRN ×2 (11:31→20:46)
--- NOTE | 2023-07-30 12:14 | Hospitalist Progress Note ---
Date of Service July 30, 2023 Assessment & Plan (1) Sepsis: Plan: Febrile illness w/ significant leukocytosis, tachycardia, elevated procal, elevated lactate now improved in setting of metastatic non-small cell lung CA on Keytruda- Biofire neg, no other symptoms other than fevers and fatigue. No PNA, UTI, diarrhea/colitis Liver lesions could be abscesses, especially the larger left anterior one--> discussed care with Radiology and now s/p IR drainage to see if abscess vs malignancy--> 11mL of purulent fluid aspirated and samples taken with FNA for biopsy to rule out malignancy as well as AFB and fungal cxs as per Oncology recommendation Fortunately, clinically improving, no further fevers. WBC count down to 23. Procal elevated but likely will also improve BCxs remain NGTD Vitals stable COntinue broad spectrum empiric IV antibiotics with vancomycin IV, Cefepime, and Flagyl for anaerobic coverage APAP prn fever continue IVFs x 1 L of LR today and then stop follow CBC, CMP Check Lyme titer--> negative (2) Elevated troponin: Plan: Elevated troponin initially 91.6,175,478,292 No CP, ECG without evidence of ischemia. ECHO here normal, without WMAs Demand ischemia from sepsis tele monitoring with NSR only (3) Metastatic non-small cell lung cancer: Plan: met lung adenocarcinoma w/ mets to bone, liver, parotid gland, mediastinal LNs, right adrenal gland, bilat lung nodules, and possible pancreas on Keytruda consult Oncology-discussed care with Oncology (4) Chronic hypoxemic respiratory failure: Plan: not needing O2 lately at home but is requiring here intermittently (5) COPD (chronic obstructive pulmonary disease): Plan: no acute issues (6) Hypertension: Plan: Continue amlodipine, but changed from 5 mg every morning to 2.5 p.o. once daily continue to hold lisinopril (7) Hypomagnesemia: Plan: Hypomagnesemia- and hypokalemia-resolved with replacement follow BMP, mag (8) Anemia: Plan: hgb 9.6 down from 11 on admission, microcytic, likely hemodilutional drop, no bleeding from anywhere that is obvious checked Fe studies-very low serum Fe, TIBC and transferrin sat not calculated Likely Fe deficiency-start po iron (9) Liver mass: Plan: as noted above, malignant vs infectious plan for IR (10) Thoracic compression fracture: Plan: known, multiple, uses ice and heat for pain control at home hydrocodone prn (11) Severe protein-calorie malnutrition: Plan: Severe malnutrition in the setting of metastatic lung cancer 83-year-old female with a history of widely metastatic lung cancer and a confirmed history of 50 pound weight loss since being diagnosed. Clinical Indicators: Wt. 42.2 kg, BMI 15.5, cachectic. RBCs 3.49, hemoglobin 9.5, hematocrit 20.1, calcium 7.6, magnesium 1.5, albumin 2.7, Risk Factor(s): Metastatic cancer Treatment: RD consultation, regular diet, calcium supplementation, magnesium supplementation, potassium supplementation Plan Dispo-continued stay Discussed care with daughter at bedside Admission and Anticipated Discharge Date Admission Date: July 28, 2023 Subjective Feeling better today even than yesterday. No further fevers except low temp last night. Had IR drain today for 11mL of purulent fluid as per my d/w IR PA. Also discussed her care with Oncology and daughter at bedside. She had 3 loose stools last evening. She also reports she has been refusing the heparin SQ shots as she didn't think they were necessary. Tele reviewed and shows NSR w/ normal rates, a few PVCs Physical Exam Constitutional: WD/WN, vitals as above Neck: trachea midline, no thyromegaly Respiratory: normal respiratory effort, lungs clear to auscultation Cardiovascular: RRR, no murmur, no edema Chest (Breasts): Chest: normal inspection of chest and + vascular access device or port (Right chest wall, no erythema or drainage) Gastrointestinal (Abdomen): normal bowel sounds, soft, nontender, no hepatosplenomegaly small band aid in place in upper mid abdomen Musculoskeletal: Extremities: extremities normal to inspection; no cyanosis and no clubbing Skin: no rashes, warm and dry Neurologic: moves all extremities and awake; no focal motor deficits Psychiatric: A+Ox3, euthymic affect Lymphatic: no lymphedema Results & Data Results & Data Vital Signs (Past 12 Hours) Vital Signs Pulse Pulse Resp BP BP Pulse Ox Pulse Ox 07/30/23 12:00 79 20 96 07/30/23 12:00 107/65 07/30/23 11:45 127/75 07/30/23 11:45 78 23 97 12/06/23 11:30 117/75 07/30/23 11:30 79 16 92 07/30/23 11:25 124/71 07/30/23 11:25 81 15 07/30/23 11:24 85 19 07/30/23 08:01 84 07/30/23 06:00 74 18 116/58 L 93 07/30/23 05:30 77 27 H 93 07/30/23 05:20 78 23 93 07/30/23 05:10 76 23 93 07/30/23 05:00 77 22 94 07/30/23 04:50 76 25 H 96 07/30/23 04:40 77 26 H 95 07/30/23 04:30 83 19 96 07/30/23 04:20 85 24 95 07/30/23 04:10 90 21 92 07/30/23 04:00 81 21 92 07/30/23 03:50 86 20 93 07/30/23 03:43 127/78 07/30/23 03:20 89 22 95 07/30/23 03:10 79 25 H 95 07/30/23 03:00 122/72 07/30/23 03:00 89 26 H 96 07/30/23 02:50 74 23 89 L 07/30/23 02:40 77 25 H 91 07/30/23 02:30 78 18 91 07/30/23 02:20 81 19 94 07/30/23 02:10 80 19 96 07/30/23 02:01 78 18 94 07/30/23 02:01 111/64 07/30/23 02:00 79 16 92 07/30/23 02:00 80 18 111/64 95 07/30/23 01:50 72 15 94 07/30/23 01:40 73 18 96 07/30/23 01:30 75 21 93 07/30/23 01:20 74 20 93 07/30/23 01:10 74 20 93 07/30/23 01:00 77 21 93 07/30/23 01:00 94/52 L 07/30/23 01:00 76 17 94/52 L 94 07/30/23 00:54 72 07/30/23 00:54 93 07/30/23 00:50 71 19 94 07/30/23 00:40 69 20 97 07/30/23 00:30 75 24 93 07/30/23 00:23 110/58 L 07/30/23 00:23 83 23 07/30/23 00:20 80 23 O2 Del Method O2 Del Method O2 Flow Rate 07/30/23 12:00 07/30/23 12:00 07/30/23 11:45 07/30/23 11:45 07/30/23 11:30 07/30/23 11:30 07/30/23 11:25 07/30/23 11:25 07/30/23 11:24 07/30/23 08:01 07/30/23 06:00 Nasal Cannula 2 07/30/23 05:30 07/30/23 05:20 07/30/23 05:10 07/30/23 05:00 07/30/23 04:50 07/30/23 04:40 07/30/23 04:30 07/30/23 04:20 07/30/23 04:10 07/30/23 04:00 07/30/23 03:50 07/30/23 03:43 07/30/23 03:20 07/30/23 03:10 07/30/23 03:00 07/30/23 03:00 07/30/23 02:50 07/30/23 02:40 07/30/23 02:30 07/30/23 02:20 07/30/23 02:10 07/30/23 02:01 07/30/23 02:01 07/30/23 02:00 07/30/23 02:00 Nasal Cannula 2 07/30/23 01:50 07/30/23 01:40 07/30/23 01:30 07/30/23 01:20 07/30/23 01:10 07/30/23 01:00 07/30/23 01:00 07/30/23 01:00 Room Air 07/30/23 00:54 07/30/23 00:54 Room Air 07/30/23 00:50 07/30/23 00:40 07/30/23 00:30 07/30/23 00:23 07/30/23 00:23 07/30/23 00:20 Laboratory Results CBC, CMP,Procal PG Care Time/CCT Total # of Minutes Spent Total Time Spent with Patient: Total time spent is greater than 50% in coordination of care (as documented) at patient's floor/unit and/or counseling patient: Coding Level of Care Code 49220 SUB INP/OBS CARE 50MIN Diagnoses Sepsis A41.9 Sepsis acute organ dysfunction status: unspecified Sepsis type: sepsis due to unspecified organism Elevated troponin R79.89 Metastatic non-small cell lung cancer C34.90 Chronic hypoxemic respiratory failure J96.11 COPD (chronic obstructive pulmonary disease) J44.9 Hypertension I10 Hypomagnesemia E83.42 Anemia D64.9 Liver mass R16.0 Thoracic compression fracture S22.000A Severe protein-calorie malnutrition E43 (1) Sepsis Sepsis acute organ dysfunction status: unspecified Sepsis type: sepsis due to unspecified organism Qualified Code(s): A41.9 - Sepsis, unspecified organism
--- NOTE | 2023-07-30 13:54 | Ultrasound Report ---
Ultrasound-guided liver lesion aspiration/core biopsy INDICATION: 3.6 cm left lobe liver lesion; hepatic abscess versus necrotic metastatic lesion PROCEDURE: Procedure and risks were explained. Informed consent was obtained. A final timeout was com pleted. The abdomen was prepped and draped in sterile fashion. 1% buffered lidocaine was utilized for skin anesthesia. Utilizing ultrasound guidance, a 19-gauge coaxial needle was advanced into the left lobe liver lesion . Ultrasound images were obtained. Approximately 11 mL of purulent fluid was aspirated and sent to [facility] for culture analysis. A 20-gauge core biopsy needle was then advanced through the coaxial needl e, and one core was obtained and placed into formalin. The needle was removed and Band-Aid applied. T he patient tolerated the procedure well. Vital signs we be monitored postprocedure. IMPRESSION: Ultrasound-guided liver lesion aspiration/core biopsy as above. Performed, dictated, and signed by Ryan Leigh PA-C; to be co-signed by Dr. Lyle Luis. Electronically signed by: Lyle Luis M.D. 07/30/2023 6:55 PM
[2023-07-30] MEDS ORDERED: SENNA 8.6 MG TAB PO PRN (14:40)
--- NOTE | 2023-07-30 18:56 | Ultrasound Report ---
Ultrasound-guided liver lesion aspiration/core biopsy INDICATION: 3.6 cm left lobe liver lesion; hepatic abscess versus necrotic metastatic lesion PROCEDURE: Procedure and risks were explained. Informed consent was obtained. A final timeout was com pleted. The abdomen was prepped and draped in sterile fashion. 1% buffered lidocaine was utilized for skin anesthesia. Utilizing ultrasound guidance, a 19-gauge coaxial needle was advanced into the left lobe liver lesion . Ultrasound images were obtained. Approximately 11 mL of purulent fluid was aspirated and sent to [facility] for culture analysis. A 20-gauge core biopsy needle was then advanced through the coaxial needl e, and one core was obtained and placed into formalin. The needle was removed and Band-Aid applied. T he patient tolerated the procedure well. Vital signs we be monitored postprocedure. IMPRESSION: Ultrasound-guided liver lesion aspiration/core biopsy as above. Performed, dictated, and signed by Ryan Leigh PA-C; to be co-signed by Dr. Lyle Luis. Electronically signed by: Lyle Luis M.D. 07/30/2023 6:55 PM
[2023-07-30] MEDS: MIRTAZAPINE TAB 15 MG TAB PO SCH (21:49)
[2023-07-30] MEDS: GABAPENTIN 100 MG CAP PO SCH (21:49)
[2023-07-30] MEDS: ENOXAPARIN INJ 40 MG/0.4 ML SYR SQ SCH (23:50)
[2023-07-31 06:10] LABS: Basophils # (auto) 0.02 K/uL (0.00-0.20); Basophils % (auto) 0.1 %; Eosinophils # (auto) 0.09 K/uL (0.00-0.50); Eosinophils % (auto) 0.6 %; Hematocrit (blood only) 29.4 % (37.0-47.0); Immature Granulocytes # (auto) 0.07 K/uL (0.01-0.20); Immature Granulocytes % (auto) 0.5 %; Lymphocytes # (auto) 1.01 K/uL (1.20-3.40); Lymphocytes % (auto) 6.7 %; Mean Corpuscular Hemoglobin 26.7 pg (25.0-34.0); Mean Corpuscular Volume 78.4 fL (80.0-100.0); Mean Platelet Volume 8.8 fL (9.4-12.4); Monocytes # (auto) 2.23 K/uL (0.11-0.59); Monocytes % (auto) 14.7 %; Neutrophils # (auto) 11.73 K/uL (1.40-6.50); Neutrophils % (auto) 77.4 %; Platelet Count 345 K/uL (130-400); RDW Coefficient of Variation 16.6 % (11.5-14.5); RDW Standard Deviation 47.4 fL (36.4-46.3); Red Blood Count 3.75 M/uL (4.20-5.40); White Blood Count 15.15 K/ul (4.8-10.8)
[2023-07-31 06:26] LABS: Albumin Globulin Ratio 1.1 (0.9-2); Albumin Level 2.8 gm/dl (3.4-5.0); BUN Creatinine Ratio 16.7 (10-20); Bilirubin,Total 0.4 mg/dl (0.2-1.0); Calcium 7.5 mg/dl (8.6-10.3); Creatinine Clr Calc Pharmacy 69.4 ml/min; Est GFR (African American) 106.6 ml/min; Globulin 2.6 gm/dl (2.5-4.0); Magnesium 1.8 mg/dl (1.7-2.4); Potassium 3.1 mmol/L (3.5-5.1); Total Protein 5.4 gm/dl (6.0-8.3)
[2023-07-31] MEDS: PANTOprazole 40 MG TAB PO SCH (07:59)
[2023-07-31] MEDS: MULTIVITAMIN TAB PO SCH (07:59)
[2023-07-31] MEDS: CHOLECALCIFEROL 1,000 UNITS 25 MCG TAB PO SCH ×2 (07:59→20:31)
[2023-07-31] MEDS: LORATADINE 10 MG TAB PO SCH (08:00)
[2023-07-31] MEDS: busPIRone 5 MG TAB PO SCH ×2 (08:00→20:30)
[2023-07-31] MEDS: MAGNESIUM OXIDE 400 MG TAB PO SCH ×2 (08:00→20:29)
[2023-07-31] MEDS: CALCIUM CARBONATE 1250MG TAB PO SCH (08:00)
[2023-07-31] MEDS: amLODIPine BESYLATE 5 MG TAB PO SCH (08:00)
[2023-07-31] MEDS: metroNIDAZOLE 500 MG/100 ML BAG IV SCH ×3 (08:01→23:24)
[2023-07-31] MEDS: ROSUVASTATIN CALCIUM 10 MG TAB PO SCH (08:01)
[2023-07-31] MEDS: FLUTICASONE/VILANTEROL 200/25MCG 14 PUFFS/INHALER INH SCH (08:01)
[2023-07-31] MEDS: CEFEPIME 2,000 MG in SYRINGE 0 ML IV SCH ×3 (08:05→23:24)
[2023-07-31] MEDS: HYDROCODONE/ACETAMOPHEN 5/325MG TAB PO PRN ×2 (09:12→15:17)
--- NOTE | 2023-07-31 09:48 | Pharmacy Report ---
Pharmacy PK ABX Note - Date of Service July 31, 2023 - Assessment and Plan Assessment 07/31: Today is day 4 of Vancomycin therapy. WBC improved but still elevated above normal. Blood cultures no growth. Awaiting liver abscess culture results. Vancomycin continued for ongoing therapy. Vanc level obtained this morning = 8.6 mcg/ml at 05:52 AM. Last dose of Vancomycin was at 8:45 pm last night. 07/29: 83 year old F receiving empiric vancomycin/cefepime for treatment of feve r. Patient has a history of metastatic lung cancer on Keytruda. Pertinent microbiologic data includes: Blood cultures pending. WBC significantly elevated 37, Tmax 37.8. Procal elevated 2.16. Plan Vancomycin * Current regimen: 750 mg IV every 18 hours * Random level obtained today resulted as 8.6 mcg/mL. This is predicted to achieve less than target AUC/DEBORAH of 400-600 mg/L.hr * Predicted AUC at steady state: 269 mg/L.hr * Vancomycin regimen changed to 1000 mg IV q12h this AM. Expect this to achieve target AUC/DEBORAH of 400-600 mg/L.hr * Repeat random level ordered for: tomorrow with AM labs Pharmacy will continue to follow and will adjust dose/frequency as necessary. Thank you. Pharmacy has transitioned to AUC monitoring for vancomycin. AUC/DEBORAH is the preferred PK/PD target and is associated with decreased risk of nephrotoxicity compared to traditional trough targets.
[2023-07-31] MEDS: VANCOMYCIN HCL 1,000 MG in SODIUM CHLORIDE 0.9% 250 ML IV SCH ×2 (10:24→20:40)
--- NOTE | 2023-07-31 13:35 | Gastrointestinal Consultation ---
Date of Consultation July 31, 2023 Assessment & Plan (1) Liver mass: (2) Physical deconditioning: (3) Metastatic lung cancer (metastasis from lung to other site): (4) Metastatic adenocarcinoma: (5) History of biliary stent insertion: Plan This is an 83 y/o female with PMHx widely metastatic lung CA, currently tx with Keytruda, admitted w/ fever, chills, and imaging concerning for hepatic metastases vs abscess. S/p IR drainage of left hepatic lobe lesion yesterday; initial cytology results suggestive of infection, the rest of her results are still pending. We were consulted given her h/o CBD stent placement for metastatic biliary stricture, whether this is contributing to her suspected liver infection. Given her stent appears to be in position on CT (no mention of migration), and her LFTs/ bilirubin have been WNL which suggests stent patency, low suspicion for the stent being the source of infection. She is predisposed to infection given her underlying cancer, treatment and resultant immunocompromised state. On exam she appears to be doing well abd soft, nontender, no fever or jaundice. - Would await the rest of her results from the IR drainage (path, cultures, etc). - Would trend daily LFTs and CBC - Monitor clinically for any worsening fever, chills, rigors, abd pain etc - GI will sign off, please call with questions or changes in pt condition Thank you for allowing us to participate in the care of this patient. Please call with any acute changes, questions or concerns. Please see addendum below with additional recommendation from my supervising physician. Supervising Physician Co-Signing Physician Notes Agree with pe and plan as documented CBD stent appears to be in place, tb is normal. Worsening metastatic disease and now a hepatic abscess - await results, empiric abx. Unclear etiology at this time other than being immunocompromised as the source for her abscess - no recent travel. Agree with plan as documented. History of Present Illness Reason for Consultation: liver abscess,CBD stent Requesting Physician: Dr. Perez Attending Physician: Elizabeth Perez MD History of Present Illness The patient is an 83-year-old female with a PMHx COPD, HTN, anxiety, GERD, DLD, widely metastatic non-small cell lung cancer to bone and liver, and others. She is s/p CBD stent in 11/2022 for biliary stricture related to metastatic dz. She has been on Keytruda with good improvement in her metastatic dz. She presented to the ER 12/ w/ fatigue, decreased appetite, nausea, fever for several days. Found to have sepsis, leukocytosis, and placed on ABX. On CT she was found to have suggestion of new foci of hepatic metastatic disease, largest being 3.6 cm in the left lobe. Biliary stent and pneumobilia noted. Resp viral lab and Lyme dx neg. No recent travel, no sick contacts. LFTs.bilirubin have been normal. GIven her presenting of fever, sepsis, there is concern that the liver lesion could be an abscess. Yesterday she underwent FNA and s/p 11 mL drainage of purulent fluid aspirated. Initial cytology report = negative for malignancy, abundant acute inflammatory cells present c/w abscess; bx pending. Infectious w/u - gram stain - no organisms; dilan/aero culture = pinpoint growth, reincubating, and AFB and fungal cultures pending. Since then she has clinically improved. She has defervesced, and WBC has improved. She no longer feels ill; feels much better. Appetite is very good. no abd pain, nausea, vomiting, melena, hematochezia. No BMs today; yesterday had some loose stools. Bcx no growth. UA was not suspicious of UTI; no reflex culture sent. No PNA, diarrhea/colitis. Allergies Allergy/AdvReac Type Severity Reaction Status Date / Time amoxicillin Allergy Intermediate rash Verified 07/29/23 09:15 tramadol AdvReac Intermediate loss of Verified 07/29/23 09:15 apetite Home Medications Medication Instructions Recorded Confirmed Type calcium carbonate 600 mg calcium 600 mg PO QAM 02/12/19 07/29/23 History (1,500 mg) tablet loratadine 10 mg capsule 10 mg PO QAM 09/14/19 07/29/23 History multivitamin 1 tab PO QAM 09/14/19 07/29/23 History albuterol sulfate 90 mcg/actuation 2 puffs inhalation Q6H PRN 10/07/19 07/29/23 Rx aerosol inhaler (Ventolin HFA) shortness of breath or wheezing #8.5 grams magnesium oxide 400 mg (241.3 mg 400 mg PO HS 05/08/21 07/29/23 History magnesium) tablet buspirone 5 mg tablet 5 mg PO BID #180 tabs 09/02/22 07/29/23 Rx sennosides 8.6 mg tablet (Senokot) 8.6 mg PO HS 11/27/22 07/29/23 History hydrocodone 5 mg-acetaminophen 325 1 tab PO Q4H PRN Pain #60 tabs 12/05/22 07/29/23 Rx mg tablet amlodipine 5 mg tablet 5 mg PO QAM 12/10/22 07/29/23 History cholecalciferol (vitamin D3) 25 25 mcg PO BID 12/10/22 07/29/23 History mcg (1,000 unit) tablet (Vitamin D3) polyethylene glycol 3350 17 17 g PO QAM PRN Constipation 12/10/22 07/29/23 History gram/dose oral powder (Miralax) TENS 502 (TENS units) #1 ea 12/27/22 07/30/23 Rx Portable Oxygen #1 ea 01/01/23 07/30/23 Rx rosuvastatin 10 mg tablet 10 mg PO DAILY #90 tabs 01/21/23 07/29/23 Rx Symbicort 160 mcg-4.5 2 puff inhalation BID #10.2 grams 02/11/23 07/29/23 Rx mcg/actuation HFA aerosol inhaler (budesonide-formoterol) pantoprazole 40 mg tablet,delayed 40 mg PO QAM #90 tabs 05/22/23 07/29/23 Rx release Medical Marijuana 1 dose sublingual DAILY PRN Pain 05/27/23 07/29/23 History lisinopril 10 mg tablet 10 mg PO DAILY #90 tabs 05/27/23 07/29/23 Rx gabapentin 100 mg capsule 100 mg PO HS 07/29/23 07/29/23 History mirtazapine 7.5 mg tablet 3.75 mg PO HS 07/29/23 07/29/23 History ondansetron HCl 8 mg tablet 8 mg PO Q8H PRN Nausea And Vomiting 07/29/23 07/29/23 History vitamin B complex 1 tab PO DAILY 07/29/23 07/29/23 History Patient History Medical History Physical deconditioning Chronic hypoxemic respiratory failure Acute on chronic respiratory failure with hypoxemia 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 biliary stent placement *2 WEEKS AGO AT [facility] S/P laparoscopic appendectomy (04/2020) 05/08/2020 Grade 1 view, MAC 3, ETT 7. History of colonoscopy 04/05/2020 History of tooth extraction History of cataract surgery RT/LEFT H/O tubal ligation History of section X 1 Family History Father Diabetes Family history of diabetes mellitus Mother No problems noted. Sister No problems noted. Brother Lung cancer Brother No problems noted. Brother No problems noted. Son No problems noted. Daughter No problems noted. Other No family history of adverse response to anesthesia Stroke Denies family history of Ovarian cancer Prostate cancer Myocardial infarction Breast cancer Colorectal cancer Social History Smoking Status: Former smoker Tobacco Type: Cigarettes Age Started Using Tobacco: 17; Age Quit Using Tobacco: 65; packs per day: 1; Cigarettes Per Day: QUIT A FEW MONTHS AGO; Second Hand Exposure: No; Do You Dip or Chew Tobacco: No; Hx Alcohol Use: Yes Alcohol type: wine Alcohol Intake Frequency: 4 or More x per/Week Alcohol Intake Frequency Comment: 2 glasses of wine daily Hx Substance Use: No Preferred Language: Belarusian Communication Ability: Effective Visual Impairment: No Limitations Hearing Ability: Normal General Cleaner Required: No Beliefs That Will Affect Care: None marital status: Current Living Situation: Spouse current occupational status: retired 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 How many Children do You have: 2 Feels Safe at Home: Yes Childhood Exposure to Second-Hand Smoke: Yes Diet: regular caffeine: Yes during the past year weight has: remained stable Dental Care, Regularly: No Seatbelt Use: always Assistive Devices: Oxygen - Continuous and Walker Review of Systems Review of Systems: All systems reviewed & are unremarkable except as noted in HPI & below Physical Exam Constitutional: well developed and comfortable; no acute distress Eyes: Sclera anicteric, no conjunctival injection ENMT: moist mucous membranes, no pallor Neck: trachea midline supple Respiratory: normal respiratory effort, lungs clear to auscultation Cardiovascular: RRR, no murmur, no edema Gastrointestinal (Abdomen): normal bowel sounds, soft, nontender, no hepatosplenomegaly Inspection/Auscultation: abdomen not distended Skin: no rashes, warm and dry Neurologic: alert and oriented x 3, no obvious focal neuro deficit Psychiatric: normal mood and affect Results & Data Vital Signs (Past 12 Hours) Vital Signs Temp Pulse Pulse Resp BP BP Pulse Ox 07/31/23 11:35 37.3 C 85 17 115/62 91 07/31/23 08:00 07/31/23 07:49 36.6 C 85 17 126/71 91 07/31/23 07:00 85 07/31/23 04:08 36.8 C 82 20 119/58 L 91 O2 Del Method 07/31/23 11:35 Room Air 07/31/23 08:00 Room Air 07/31/23 07:49 Room Air 07/31/23 07:00 07/31/23 04:08 Room Air Laboratory Results 07/31/23 Range/Units 05:52 WBC 15.15 H (4.8-10.8) K/ul RBC 3.75 L (4.20-5.40) M/uL Hgb 10.0 L (12.0-16.0) g/dl Hct 29.4 L (37.0-47.0) % MCV 78.4 L (80.0-100.0) fL MCH 26.7 (25.0-34.0) pg MCHC 34.0 (32.0-36.0) g/dL RDW Std Deviation 47.4 H (36.4-46.3) fL RDW Coeff of Kisha 16.6 H (11.5-14.5) % Plt Count 345 (130-400) K/uL MPV 8.8 L (9.4-12.4) fL Immature Gran % (Auto) 0.5 % Neut % (Auto) 77.4 % Lymph % (Auto) 6.7 % [place] % (Auto) 14.7 % Eos % (Auto) 0.6 % Baso % (Auto) 0.1 % Neut # (Auto) 11.73 H (1.40-6.50) K/uL Lymph # (Auto) 1.01 L (1.20-3.40) K/uL [place] # (Auto) 2.23 H (0.11-0.59) K/uL Eos # (Auto) 0.09 (0.00-0.50) K/uL Baso # (Auto) 0.02 (0.00-0.20) K/uL Immature Gran # (Auto) 0.07 (0.01-0.20) K/uL Sodium 138 (136-145) mmol/L Potassium 3.1 L (3.5-5.1) mmol/L Chloride 108 H (98-107) mmol/L Carbon Dioxide 23 (21-32) mmol/L Anion Gap 7 (3-11) BUN 8 (6-23) mg/dl Creatinine 0.48 L (0.6-1.2) mg/dl Est Cr Clr Drug Dosing 69.4 ml/min Est GFR ( Amer) 106.6 ml/min Est GFR (Non-Af Amer) 92.0 ml/min BUN/Creatinine Ratio 16.7 (10-20) Glucose 81 (70-99(Fasting)) mg/dl Calcium 7.5 L (8.6-10.3) mg/dl Magnesium 1.8 (1.7-2.4) mg/dl Total Bilirubin 0.4 (0.2-1.0) mg/dl AST 13 (13-39) U/L ALT 16 (7-52) U/L Alkaline Phosphatase 167 H (34-104) U/L Total Protein 5.4 L (6.0-8.3) gm/dl Albumin 2.8 L (3.4-5.0) gm/dl Globulin 2.6 (2.5-4.0) gm/dl Albumin/Globulin Ratio 1.1 (0.9-2) Random Vancomycin 8.6 L (10-20) mcg/ml Diagnostic Findings CTAP: FINDINGS: CHEST: Lungs: Dominant upper lobe spiculated nodule measuring up to 2.0 cm. Additional smaller nodules noted. Please note that the smaller nodules appear to be increased in conspicuity from prior examination. Recommend continued attention on follow-up imaging as dictated per patient's primary malignancy. Dependent airspace disease within the lungs which may relate to atelectatic changes. Severe upper lobe prominent centrilobular emphysema. Pleural space: Unremarkable. No significant effusion. No pneumothorax. Heart: Unremarkable. No cardiomegaly. No significant pericardial effusion. No significant coronary artery calcifications. ABDOMEN: Liver: New foci of hepatic metastatic disease noted, the largest in the left hepatic lobe measuring up to 3.6 m. Central necrosis noted within this dominant focus. Periportal edema in the liver which is a nonspecific finding. Gallbladder and bile ducts: Stenting noted within the common duct. Associated pneumobilia noted. No calcified stones. Pancreas: Unremarkable. No ductal dilation. No mass. Spleen: Unremarkable. No splenomegaly. Adrenals: Unremarkable. No mass. Kidneys and ureters: Multiple low attenuation lesions in the kidneys some of which appear to be due to simple renal cysts while others are too small to characterize. No follow-up is necessary. No hydronephrosis. Stomach and bowel: Unremarkable. No obstruction. No mucosal thickening. PELVIS: Appendix: Suspected appendectomy changes. Bladder: Unremarkable. No mass. Reproductive: Unremarkable as visualized. CHEST, ABDOMEN and PELVIS: Intraperitoneal space: Unremarkable. No significant fluid collection. No free air. Bones/joints: Degenerative changes in the spine. Findings suspicious for osseous metastatic disease with age-indeterminate impression fractures of T6, T8, T11, T12, and L1. Consider correlation with point tenderness. If there is further concern, consider MRI with contrast. These may be due to a combination of osteoporotic and pathologic compression fractures. Tarlov cysts within the sacrum. No dislocation. Soft tissues: Soft tissue thickening within the mediastinum which likely relates to metastatic lymph nodes. Vasculature: Atherosclerotic disease. No aortic aneurysm. Lymph nodes: See above. Tubes, lines and devices: Right chest port terminates within the cavoatrial junction. Other findings: Please note that no history of metastatic disease was provided. IMPRESSION: 1. Please note that no history of metastatic disease was provided. 2. Dominant upper lobe spiculated nodule measuring up to 2.0 cm. Additional smaller nodules noted. Please note that the smaller nodules appear to be increased in conspicuity from prior examination. Recommend continued attention on follow-up imaging as dictated per patient's primary malignancy. 3. Soft tissue thickening within the mediastinum which likely relates to metastatic lymph nodes. 4. New foci of hepatic metastatic disease noted, the largest in the left hepatic lobe measuring up to 3.6 m. Central necrosis noted within this dominant focus. 5. Periportal edema in the liver which is a nonspecific finding. Correlation with any clinical signs of congestive heart failure or hepatitis may be helpful. 6. Stenting noted within the common duct. Associated pneumobilia noted. 7. Findings suspicious for osseous metastatic disease with age- indeterminate impression fractures of T6, T8, T11, T12, and L1. Consider correlation with point tenderness. If there is further concern, consider MRI with contrast. These may be due to a combination of osteoporotic and pathologic compression fractures. Chest CT: INDINGS: CHEST: Lungs: Dominant upper lobe spiculated nodule measuring up to 2.0 cm. Additional smaller nodules noted. Please note that the smaller nodules appear to be increased in conspicuity from prior examination. Recommend continued attention on follow-up imaging as dictated per patient's primary malignancy. Dependent airspace disease within the lungs which may relate to atelectatic changes. Severe upper lobe prominent centrilobular emphysema. Pleural space: Unremarkable. No significant effusion. No pneumothorax. Heart: Unremarkable. No cardiomegaly. No significant pericardial effusion. No significant coronary artery calcifications. ABDOMEN: Liver: New foci of hepatic metastatic disease noted, the largest in the left hepatic lobe measuring up to 3.6 m. Central necrosis noted within this dominant focus. Periportal edema in the liver which is a nonspecific finding. Gallbladder and bile ducts: Stenting noted within the common duct. Associated pneumobilia noted. No calcified stones. Pancreas: Unremarkable. No ductal dilation. No mass. Spleen: Unremarkable. No splenomegaly. Adrenals: Unremarkable. No mass. Kidneys and ureters: Multiple low attenuation lesions in the kidneys some of which appear to be due to simple renal cysts while others are too small to characterize. No follow-up is necessary. No hydronephrosis. Stomach and bowel: Unremarkable. No obstruction. No mucosal thickening. PELVIS: Appendix: Suspected appendectomy changes. Bladder: Unremarkable. No mass. Reproductive: Unremarkable as visualized. CHEST, ABDOMEN and PELVIS: Intraperitoneal space: Unremarkable. No significant fluid collection. No free air. Bones/joints: Degenerative changes in the spine. Findings suspicious for osseous metastatic disease with age-indeterminate impression fractures of T6, T8, T11, T12, and L1. Consider correlation with point tenderness. If there is further concern, consider MRI with contrast. These may be due to a combination of osteoporotic and pathologic compression fractures. Tarlov cysts within the sacrum. No dislocation. Soft tissues: Soft tissue thickening within the mediastinum which likely relates to metastatic lymph nodes. Vasculature: Atherosclerotic disease. No aortic aneurysm. Lymph nodes: See above. Tubes, lines and devices: Right chest port terminates within the cavoatrial junction. Other findings: Please note that no history of metastatic disease was provided.
--- NOTE | 2023-07-31 14:31 | Infectious Disease Consult ---
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 ID is consulted for suspected liver abscess. Suspect bacterial/pyogenic liver abscess, noting fevers, rigors, and leukocytosis to WBC 37, and rapid improvement while on antibiotics. Was placed on vancomycin, cefepime, and metronidazole for ~2 days prior to liver bx. Potential source could be malignant obstruction, and note history of biliary obstruction (2/2 metastatic compression) in 11/2022 s/p ERCP and stenting. Appreciate GI evaluationpatients stent appears to be in position on CT and with bili/LFTs wnl thus no intervention at this time. It is possible that she had transient malignant obstruction or translocation given her underlying cancer. BCx NGTD and TTE negative for vegetations, thus lower suspicion for IE/h ematogenous source at this time. No well water, no recent travel outside the country though has been to [place], can check E. histolytica serologies. Can continue vancomycin, cefepime, and metronidazole for now, while awaiting cultures. Anticipate at least 2-3 weeks of treatment, with final regimen pending cultures. Although reimaging is not typically necessary (imaging will likely lag behind clinical improvement), would recommend repeat CT in ~2-3 weeks given the patients concurrent malignancy to ensure stability/resolution of the lesions that are suspected to be infectious. ID Problem List: 1.New liver mass, suspected to be liver abscess 2.Sepsis 3.History of metastatic lung cancer on checkpoint inhibitor immunotherapy 4.History of biliary obstruction requiring stent Recommendations: - Can continue IV vancomycin for now - Continue cefepime, change to 2g IV Q8H (noting improved renal function, continue to follow CrCl) - Continue metronidazole 500 mg IV Q8H - F/u 07/30 liver bx/aspiration path and cx - F/u E. histolytica serologies - Repeat CT abdomen/pelvis in ~2-3 weeks ID will continue to follow. Amrita Temple MD, M[facility] Infectious Diseases [facility] Connect ID Connect direct line: [phone] Consultation Information Consultation was provided via telemedicine using two-way real-time interactive telecommunication between the patient and the telemedicine provider. For the duration of the visit, the provider was performing the assessment from a different facility than the patient. This includesuse of bluetooth stethoscope forauscultationperformed by the telepresenter that the telemedicine provider can hear if described in the physical exam. Oven Operator contact information: Please call ID Connect Call Center [phone]. (Phone Number For Physician Use Only) After establishing a telemedicine visit, patient was: Patient was verified with two unique identifiers, Patient/authorized rep acknowledged consent and understanding and Gave permission to continue telehealth session Time Spent with Patient: Initial => 75 min History of Present Illness Reason for Consultation: Liver abscess Attending Physician: Elizabeth Perez MD History of Present Illness Karoline Escamilla is an 83-year-old woman with widely metastatic non-small cell lung cancer dx 10/2022 (mets to bone, parotid, mediastinal LN, R adrenal, ?pancreatic, bilateral lung nodules; s/p lung resection, radiation 11/2022, on pembrolizumab since 11/2022, port in place since 11/2022), 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 ID is consulted for suspected liver abscess. Her cancer was diagnosed 10/2022 with widespread mets (bone, parotid, mediastinal LN, R adrenal, ?pancreatic, bilateral lung nodules). She was not felt to be a good candidate for cytotoxic chemo due to her performance status. Strongly PD- L1+ and thus was started on pembrolizumab 11/2022. Since beginning pembrolizumab, she has had improvement, including being able to wean off O2, and with improvement in dyspnea and energy levels. She has not previously had an infection or complication while on pembrolizumab. Per oncology, her 06/19/23 CT C/A/P showed significant improvement in disease. She developed 1 week of generalized fatigue, decreased appetite, nausea, and in the last few days [employer] developed fevers (TMax 102F at home) and rigors. No URI symptoms, chest pain, coughing, shortness of breath, abdominal pain, no diarrhea, headaches, joint pain. Chronic back pain. She presented to the ED. 07/29 CT A/P showing new liver lesions (up to 3.6 cm) with central necrosis. She was placed on vancomycin and cefepime on 07/28, then metronidazole was added on 07.29. 07/28 WBC of 30.79 -> 37 on 07/29 -> 24 on 07/30 -> 15 on 07/31. 07/29 troponin elevation to 292.5. 07/30 procal of 8.58. 07/28 QTc of 457. On 07/30/23 she underwent Ultrasound-guided liver lesion aspiration/core biopsy, negative cytology for malignancy and bacterial and fungal stains neg; cx pending. Per oncology, the patients pancreatic lesion may represent a different malignancy (?2nd primary). At the time of evaluation, some tenderness in her mid-abdomen. Having a few somewhat loose stools starting yesterday. Overall, she feels much better than when she was admitted to the hospital. She denies any recent antibiotics or steroids. She lives with her . She has close contact with her children and grandchildren and has attended multiple social gatherings. To her knowledge, she has not had any sick contacts. No significant outdoor activities, including no hiking, fishing, or camping. No ingestion of raw fish or meats. No well water, no drinking of fresh water. 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 She has traveled to [place] and [place], and her last travel outside the country was seven years ago. Her hobbies include gardening, reading, and travel. She has no known TB exposures, and had no positive TB tests in the past when she was working. She was a longtime 1 pack/day smoker but stopped in 2005. Allergies Allergy/AdvReac Type Severity Reaction Status Date / Time amoxicillin Allergy Intermediate rash Verified 07/29/23 09:15 tramadol AdvReac Intermediate loss of Verified 07/29/23 09:15 apetite Home Medications Medication Instructions Recorded Confirmed Type calcium carbonate 600 mg calcium 600 mg PO QAM 02/12/19 07/29/23 History (1,500 mg) tablet loratadine 10 mg capsule 10 mg PO QAM 09/14/19 07/29/23 History multivitamin 1 tab PO QAM 09/14/19 07/29/23 History albuterol sulfate 90 mcg/actuation 2 puffs inhalation Q6H PRN 10/07/19 07/29/23 Rx aerosol inhaler (Ventolin HFA) shortness of breath or wheezing #8.5 grams magnesium oxide 400 mg (241.3 mg 400 mg PO HS 05/08/21 07/29/23 History magnesium) tablet buspirone 5 mg tablet 5 mg PO BID #180 tabs 09/02/22 07/29/23 Rx sennosides 8.6 mg tablet (Senokot) 8.6 mg PO HS 11/27/22 07/29/23 History hydrocodone 5 mg-acetaminophen 325 1 tab PO Q4H PRN Pain #60 tabs 12/05/22 07/29/23 Rx mg tablet amlodipine 5 mg tablet 5 mg PO QAM 12/10/22 07/29/23 History cholecalciferol (vitamin D3) 25 25 mcg PO BID 12/10/22 07/29/23 History mcg (1,000 unit) tablet (Vitamin D3) polyethylene glycol 3350 17 17 g PO QAM PRN Constipation 12/10/22 07/29/23 History gram/dose oral powder (Miralax) TENS 502 (TENS units) #1 ea 12/27/22 07/30/23 Rx Portable Oxygen #1 ea 01/01/23 07/30/23 Rx rosuvastatin 10 mg tablet 10 mg PO DAILY #90 tabs 01/21/23 07/29/23 Rx Symbicort 160 mcg-4.5 2 puff inhalation BID #10.2 grams 02/11/23 07/29/23 Rx mcg/actuation HFA aerosol inhaler (budesonide-formoterol) pantoprazole 40 mg tablet,delayed 40 mg PO QAM #90 tabs 05/22/23 07/29/23 Rx release Medical Marijuana 1 dose sublingual DAILY PRN Pain 05/27/23 07/29/23 History lisinopril 10 mg tablet 10 mg PO DAILY #90 tabs 05/27/23 07/29/23 Rx gabapentin 100 mg capsule 100 mg PO HS 07/29/23 07/29/23 History mirtazapine 7.5 mg tablet 3.75 mg PO HS 07/29/23 07/29/23 History ondansetron HCl 8 mg tablet 8 mg PO Q8H PRN Nausea And Vomiting 07/29/23 07/29/23 History vitamin B complex 1 tab PO DAILY 07/29/23 07/29/23 History Patient History Medical History Physical deconditioning Chronic hypoxemic respiratory failure Acute on chronic respiratory failure with hypoxemia 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 biliary stent placement *2 WEEKS AGO AT [facility] S/P laparoscopic appendectomy (04/2020) 05/08/2020 Grade 1 view, MAC 3, ETT 7. History of colonoscopy 04/05/2020 History of tooth extraction History of cataract surgery RT/LEFT H/O tubal ligation History of section X 1 Family History Father Diabetes Family history of diabetes mellitus Mother No problems noted. Sister No problems noted. Brother Lung cancer Brother No problems noted. Brother No problems noted. Son No problems noted. Daughter No problems noted. Other No family history of adverse response to anesthesia Stroke Denies family history of Ovarian cancer Prostate cancer Myocardial infarction Breast cancer Colorectal cancer Social History Smoking Status: Former smoker Tobacco Type: Cigarettes Age Started Using Tobacco: 17; Age Quit Using Tobacco: 65; packs per day: 1; Cigarettes Per Day: QUIT A FEW MONTHS AGO; Second Hand Exposure: No; Do You Dip or Chew Tobacco: No; Hx Alcohol Use: Yes Alcohol type: wine Alcohol Intake Frequency: 4 or More x per/Week Alcohol Intake Frequency Comment: 2 glasses of wine daily Hx Substance Use: No Preferred Language: [place] Communication Ability: Effective Visual Impairment: No Limitations Hearing Ability: Normal Chha Required: No Beliefs That Will Affect Care: None marital status: Current Living Situation: Spouse current occupational status: retired 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 General: Thin, Well-appearing, no acute distress HEENT: Conjunctivae non-injected, sclerae anicteric, MMM, OP clear. CV: RRR, faint systolic murmur. Resp: CTAB; no wheezes, rales, or rhonchi. Respirations nonlabored. Abd: Soft, nondistended. Normal bowel sounds throughout. No masses or organomegaly. Liver biopsy site with bandage. +RUQ and mid-epigastric tenderness. Back: Mild tenderness to palpation along spine (same as chronic pain from known mets) Ext: Warm and well-perfused, no edema. No joint warmth or effusions noted. Skin: No rashes or lesions. Port c/d/i. Neuro: Alert & interactive. Grossly non-focal. Psych: Pleasant, appropriate. Results & Data Vital Signs (Past 12 Hours) Vital Signs Temp Pulse Pulse Resp BP BP Pulse Ox 07/31/23 11:35 37.3 C 85 17 115/62 91 07/31/23 08:00 12/07/23 07:49 36.6 C 85 17 126/71 91 07/31/23 07:00 85 07/31/23 04:08 36.8 C 82 20 119/58 L 91 O2 Del Method 07/31/23 11:35 Room Air 07/31/23 08:00 Room Air 07/31/23 07:49 Room Air 07/31/23 07:00 07/31/23 04:08 Room Air Diagnostic Findings Diagnostics: 07/30/23 Liver aspirate cytology Liver, ultrasound-guided aspiration: - Negative for malignancy. - Abundant acute inflammatory cells present consistent with an abscess 07/30/23 Liver bx path: pending 07/29/23 TTE: moderate aortic valve sclerosis with trace AR. Mild TR. No vegetations visualized. 07/29/23 CT chest/abdomen/pelvis 1. Please note that no history of metastatic disease was provided. 2. Dominant upper lobe spiculated nodule measuring up to 2.0 cm. Additional smaller nodules noted. Please note that the smaller nodules appear to be increased in conspicuity from prior examination. Recommend continued attention on follow-up imaging as dictated per patient's primary malignancy. 3. Soft tissue thickening within the mediastinum which likely relates to metastatic lymph nodes. 4. New foci of hepatic metastatic disease noted, the largest in the left hepatic lobe measuring up to 3.6 m. Central necrosis noted within this dominant focus. 5. Periportal edema in the liver which is a nonspecific finding. Correlation with any clinical signs of congestive heart failure or hepatitis may be helpful. 6. Stenting noted within the common duct. Associated pneumobilia noted. 7. Findings suspicious for osseous metastatic disease with age- indeterminate impression fractures of T6, T8, T11, T12, and L1. Consider correlation with point tenderness. If there is further concern, consider MRI with contrast. These may be due to a combination of osteoporotic and pathologic compression fractures. Micro Summary: 07/30 Liver aspirate: bact g/s many polys, rare monos, no organisms; cx pending AFB pending fungal smear neg 07/30 Lyme IgG Ab neg, IgM Ab neg 07/28 full respiratory panel pathogen: neg 07/28 BCx x2 NGTD Prior 11/27/22 UCx: >100k Klebsiella oxytoca (I-cefazolin otherwise espinoza-S) Antibiotic Summary: vancomycin (07/28-present) cefepime (07/28-present) metronidazole (07/29-present) Abx Allergies: amoxicillin (rash ~35 years ago, no airway/throat symptoms) (3) Sepsis Sepsis acute organ dysfunction status: unspecified Sepsis type: sepsis due to unspecified organism Qualified Code(s): A41.9 - Sepsis, unspecified organism
--- NOTE | 2023-07-31 18:15 | Hospitalist Progress Note ---
Date of Service July 31, 2023 Assessment & Plan (1) Sepsis: Plan: Febrile illness w/ significant leukocytosis, tachycardia, elevated procal, elevated lactate now improved in setting of metastatic non-small cell lung CA on Keytruda- Biofire neg, no other symptoms other than fevers and fatigue. No PNA, UTI, diarrhea/colitis Check Lyme titer--> negative Found to have liver lesions on CT initially read as mets but now known to have liver abscess based on IR drainge of purulent fluid. Liver abscesses likely from GI source given underlying CA, immunosuppression, and with CBD stent LFTs normal Cytology no malignant cells and with +WBCs consistent with abscess FNA biopsy liver pending Liver fluid cx pending BCxs NGTD AFB and fungal smears neg and cxs pending Fortunately, improved very quickly on antibiotics, no further fevers. WBC count down to 15 from 37. Procal elevated but likely will also improve Appreciate GI consult-CBD stent functioning, no intervention needed unless LFTs rise, fevers return etc Appreciate ID consult-plan to continue same abx now and await culture results, check Entamoeba histolytica, anticipate 2-3 weeks of abx and repeat CT abd/pel in 2-3 weeks to ensure resolving abscess Continue vancomycin IV, Cefepime, and Flagyl for anaerobic coverage APAP prn fever follow CBC, CMP, and procal in the AM Continue to follow liver and blood cxs (2) Elevated troponin: Plan: Elevated troponin initially 91.6,175,478,292 No CP, ECG without evidence of ischemia. ECHO here normal, without WMAs Demand ischemia from sepsis tele monitoring with NSR only-can downgrade off tele (3) Metastatic non-small cell lung cancer: Plan: met lung adenocarcinoma w/ mets to bone, liver, parotid gland, mediastinal LNs, right adrenal gland, bilat lung nodules, and possible pancreas on Keytruda consult Oncology-discussed care with Oncology (4) Chronic hypoxemic respiratory failure: Plan: not needing O2 lately at home but is requiring here intermittently (5) COPD (chronic obstructive pulmonary disease): Plan: no acute issues, continue prn nebs, maintenance inhaler (6) Hypertension: Plan: Continue amlodipine, but decreased from 5 mg every morning to 2.5 p.o. once daily BPs now rising resume home lisinopril for tomorrow (7) Hypomagnesemia: Plan: Hypomagnesemia- and hypokalemia-resolved with replacement follow BMP, mag (8) Anemia: Plan: hgb 9.6 down from 11 on admission, but now back up to 10 microcytic, likely hemodilutional drop, no bleeding from anywhere that is obvious checked Fe studies-very low serum Fe, TIBC and transferrin sat not calculated Likely Fe deficiency-start po iron (9) Liver mass: Plan: as noted above, likely infectious repeat CT abd/pel in 2-3 weeks after treatment with abx (10) Thoracic compression fracture: Plan: known, multiple, uses ice and heat for pain control at home hydrocodone prn coninue home gabapentin (11) Severe protein-calorie malnutrition: Plan: Severe malnutrition in the setting of metastatic lung cancer 83-year-old female with a history of widely metastatic lung cancer and a confirmed history of 50 pound weight loss since being diagnosed. Clinical Indicators: Wt. 42.2 kg, BMI 15.5, cachectic. RBCs 3.49, hemoglobin 9.5, hematocrit 20.1, calcium 7.6, magnesium 1.5, albumin 2.7, Risk Factor(s): Metastatic cancer Treatment: RD consultation, regular diet, calcium supplementation, magnesium supplementation, potassium supplementation (12) Anxiety state: Plan: continue home mirtazapine, buspar (13) Peripheral neuropathy: Plan: continue gabapentin (14) Dyslipidemia: Plan: continue statin Plan DVT prophylaxis-Lovenox SQ Dispo-continued stay but improving. Downgrade to med/surg. Dc to home once cultures finalized and antibiotic regimen worked out, likely in 1-2 days Admission and Anticipated Discharge Date Admission Date: July 28, 2023 Anticipated date of discharge: 08/01/23 Subjective Feeling well, appetite good, had small loose BM this AM but nothing since. No fevers. I discussed her care with GI PA and with ID Tele with NSR, PVCs, rates 80s Physical Exam Constitutional: WD/WN, vitals as above Neck: trachea midline, no thyromegaly Respiratory: normal respiratory effort, lungs clear to auscultation Cardiovascular: RRR, no murmur, no edema Chest (Breasts): Chest: normal inspection of chest and + vascular access device or port (Right chest wall, no erythema or drainage) Gastrointestinal (Abdomen): normal bowel sounds, soft, nontender, no hepatosplenomegaly Musculoskeletal: Extremities: extremities normal to inspection; no cyanosis and no clubbing Skin: no rashes, warm and dry Neurologic: moves all extremities and awake; no focal motor deficits Psychiatric: A+Ox3, euthymic affect Lymphatic: no lymphedema Results & Data Results & Data Vital Signs (Past 12 Hours) Vital Signs Temp Pulse Pulse Resp BP BP Pulse Ox 07/31/23 16:06 36.8 C 86 18 149/70 H 91 07/31/23 14:28 91 H 07/31/23 11:35 37.3 C 85 17 115/62 91 07/31/23 08:00 07/31/23 07:49 36.6 C 85 17 126/71 91 07/31/23 07:00 85 O2 Del Method 07/31/23 16:06 Room Air 07/31/23 14:28 07/31/23 11:35 Room Air 07/31/23 08:00 Room Air 07/31/23 07:49 Room Air 07/31/23 07:00 PG Care Time/CCT Total # of Minutes Spent Total Time Spent with Patient: Total time spent is greater than 50% in coordination of care (as documented) at patient's floor/unit and/or counseling patient: Coding Level of Care Code 91673 SUB INP/OBS CARE 2MIN Diagnoses Sepsis A41.9 Sepsis acute organ dysfunction status: unspecified Sepsis type: sepsis due to unspecified organism Elevated troponin R79.89 Metastatic non-small cell lung cancer C34.90 Chronic hypoxemic respiratory failure J96.11 COPD (chronic obstructive pulmonary disease) J44.9 Hypertension I10 Hypomagnesemia E83.42 Anemia D64.9 Liver mass R16.0 Thoracic compression fracture S22.000A Severe protein-calorie malnutrition E43 Anxiety state F41.1 Peripheral neuropathy G62.9 Dyslipidemia E78.5 (1) Sepsis Sepsis acute organ dysfunction status: unspecified Sepsis type: sepsis due to unspecified organism Qualified Code(s): A41.9 - Sepsis, unspecified organism
[2023-07-31] MEDS: GABAPENTIN 100 MG CAP PO SCH (20:29)
[2023-07-31] MEDS: ENOXAPARIN INJ 40 MG/0.4 ML SYR SQ SCH (20:29)
[2023-07-31] MEDS: MIRTAZAPINE TAB 15 MG TAB PO SCH (20:30)
[2023-08-01 07:30] LABS: Basophils # (auto) 0.03 K/uL (0.00-0.20); Basophils % (auto) 0.3 %; Eosinophils # (auto) 0.09 K/uL (0.00-0.50); Hematocrit (blood only) 28.5 % (37.0-47.0); Hemoglobin 9.9 g/dl (12.0-16.0); Immature Granulocytes # (auto) 0.04 K/uL (0.01-0.20); Immature Granulocytes % (auto) 0.4 %; Lymphocytes % (auto) 7.6 %; Mean Corpuscular Hemoglobin 27.2 pg (25.0-34.0); Mean Corpuscular Hgb Conc 34.7 g/dL (32.0-36.0); Mean Corpuscular Volume 78.3 fL (80.0-100.0); Mean Platelet Volume 8.5 fL (9.4-12.4); Monocytes % (auto) 18.4 %; Neutrophils # (auto) 6.69 K/uL (1.40-6.50); Neutrophils % (auto) 72.3 %; Platelet Count 329 K/uL (130-400); RDW Coefficient of Variation 16.1 % (11.5-14.5); RDW Standard Deviation 45.8 fL (36.4-46.3); Red Blood Count 3.64 M/uL (4.20-5.40); White Blood Count 9.25 K/ul (4.8-10.8)
[2023-08-01 07:53] LABS: Albumin Level 2.6 gm/dl (3.4-5.0); BUN Creatinine Ratio 13.3 (10-20); Bilirubin,Total 0.5 mg/dl (0.2-1.0); Calcium 7.4 mg/dl (8.6-10.3); Est GFR (African American) 108.9 ml/min; Globulin 2.5 gm/dl (2.5-4.0); Magnesium 1.6 mg/dl (1.7-2.4); Total Protein 5.1 gm/dl (6.0-8.3)
[2023-08-01] MEDS: CEFEPIME 2,000 MG in SYRINGE 0 ML IV SCH (08:41)
[2023-08-01] MEDS: metroNIDAZOLE 500 MG/100 ML BAG IV SCH (08:42)
[2023-08-01] MEDS: MULTIVITAMIN TAB PO SCH (08:50)
[2023-08-01] MEDS: CALCIUM CARBONATE 1250MG TAB PO SCH (08:50)
[2023-08-01] MEDS: CHOLECALCIFEROL 1,000 UNITS 25 MCG TAB PO SCH (08:50)
[2023-08-01] MEDS: LORATADINE 10 MG TAB PO SCH (08:50)
[2023-08-01] MEDS: busPIRone 5 MG TAB PO SCH (08:51)
[2023-08-01] MEDS: PANTOprazole 40 MG TAB PO SCH (08:52)
[2023-08-01] MEDS: MAGNESIUM OXIDE 400 MG TAB PO SCH (08:52)
[2023-08-01] MEDS: ROSUVASTATIN CALCIUM 10 MG TAB PO SCH (08:52)
[2023-08-01] MEDS: amLODIPine BESYLATE 5 MG TAB PO SCH (08:53)
[2023-08-01] MEDS: FLUTICASONE/VILANTEROL 200/25MCG 14 PUFFS/INHALER INH SCH (08:54)
[2023-08-01] MEDS: HYDROCODONE/ACETAMOPHEN 5/325MG TAB PO PRN (08:56)
[2023-08-01] MEDS: POTASSIUM CHLORIDE CRTAB 20 MEQ TABCR PO SCH ×2 (08:56→14:07)
[2023-08-01] MEDS: MAGNESIUM SULFATE / D5W 1 GM/100 ML BAG IV SCH ×2 (08:59→10:46)
[2023-08-01] MEDS ORDERED: VITAMIN B COMPLEX TAB PO SCH (09:00)
[2023-08-01] MEDS ORDERED: lisinopril 10 MG TAB PO SCH (09:00)
[2023-08-01] MEDS ORDERED: FERROUS SULFATE 325 MG TAB PO SCH (09:00)
--- NOTE | 2023-08-01 09:10 | Pharmacy Report ---
Pharmacy PK ABX Note - Date of Service August 01, 2023 - Assessment and Plan Assessment 08/01: Day 5 of Vancomycin therapy. WBC normalized today. Renal function stable. Cultures pending. Vanc level obtained after two doses of the new dosing regimen which was changed yesterday. Random level today AM = 11.8 mcg/ml which is improved from yesterday's level. However, this level is not at steady state. 07/31: Today is day 4 of Vancomycin therapy. WBC improved but still elevated a jesús normal. Blood cultures no growth. Awaiting liver abscess culture results. Vancomycin continued for ongoing therapy. Vanc level obtained this morning = 8.6 mcg/ml at 05:52 AM. Last dose of Vanco mycin was at 8:45 pm last night. 07/29: 83 year old F receiving empiric vancomycin/cefepime for treatment of fever. Patient has a history of metastatic lung cancer on Keytruda. Pertinent microbiologic data includes: Blood cultures pending. WBC significantly elevated 37, Tmax 37.8. Procal elevated 2.16. Plan Vancomycin * Current regimen: 1000 mg IV q12h. * Random level obtained today resulted as 11.8 mcg/mL at 07:03 AM. This is predicted to achieve target AUC/DEBORAH of 400-600 mg/L.hr * Predicted AUC at steady state: 506 mg/L.hr * Currently level is not at steady state. * Will plan on repeating Vancomycin level in around 2 days if patient is continued on therapy. Pharmacy will continue to follow and will adjust dose/frequency as necessary. Thank you. Pharmacy has transitioned to AUC monitoring for vancomycin. AUC/DEBORAH is the preferred PK/PD target and is associated with decreased risk of nephrotoxicity compared to traditional trough targets.
[2023-08-01] MEDS: VANCOMYCIN HCL 1,000 MG in SODIUM CHLORIDE 0.9% 250 ML IV SCH (09:50)
--- NOTE | 2023-08-01 14:04 | Discharge Summary ---
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 She had been diagnosed with lung cancer as noted, with involvement of right upper lobe. She had undergone lung resection and chemotherapy, and had continued to have worsening disease until she began Keytruda. Since Keytruda, she has been able to wean off oxygen, has had less shortness of breath, and general had a much better lifestyle. This is the first time that she has had any type of illness while on Keytruda. She has no specific symptoms of infection such as GI or urinary symptoms. She has had a 50 pound weight loss since her diagnosis of cancer, but has been since been stable on Keytruda Principal Dx & Hospital Course #1 = Principal Diagnosis (1) Sepsis: Febrile illness w/ significant leukocytosis, tachycardia, elevated procal, elevated lactate now improved in setting of metastatic non-small cell lung CA on Keytruda- Biofire neg, no other symptoms other than fevers and fatigue. No PNA, UTI, diarrhea/colitis Checked Lyme titer--> negative Found to have liver lesions on CT initially read as mets but now known to have liver abscess based on IR drainage of purulent fluid from largest one which was 3.6cm. Others were phlegmon and all < 2 cm Liver abscesses likely from GI source given underlying CA, immunosuppression, and with CBD stent LFTs normal Cytology no malignant cells and with +WBCs consistent with abscess FNA biopsy liver pending Liver fluid cx with Alpha Strep,not Enterococcus, sensitivities to PCN pending at time of discharge BCxs remain NGTD AFB and fungal smears neg and cxs pending Fortunately, improved very quickly on antibiotics, no further fevers. WBC count now normal down from 37. Procal elevated at 8 and now down to 1.7 Appreciate GI consult-CBD stent functioning, no intervention needed unless LFTs rise, fevers return etc Appreciate ID consult- check Entamoeba histolytica-pending at time of discharge; received IV Vanco,Cefepime, and Flagyl and convert to po Augmentin 875mg po bid x 2-3 weeks total until repeat CT abd/pel in 2-3 weeks to ensure resolving abscess-then can stop antibiotics (2) Elevated troponin: Elevated troponin initially 91.6,175,478,292 No CP, ECG without evidence of ischemia. ECHO here normal, without WMAs Demand ischemia from sepsis tele monitoring with NSR only (3) Metastatic non-small cell lung cancer: met lung adenocarcinoma w/ mets to bone, liver, parotid gland, mediastinal LNs, right adrenal gland, bilat lung nodules, and possible pancreas on Keytruda which will be on hold until infection treated consult Oncology-discussed care with Oncology (4) Chronic hypoxemic respiratory failure: not needing O2 lately at home but is requiring here intermittently (5) COPD (chronic obstructive pulmonary disease): no acute issues, continue prn nebs, maintenance inhaler (6) Hypertension: Continue amlodipine, lisinopril (7) Hypomagnesemia: Hypomagnesemia- and hypokalemia-replaced, likely from poorer po intake follow BMP, mag as outpt in 5 days-lab Rx given (8) Anemia: hgb 9.9 down from 11 on admission microcytic, likely somewhat from hemodilutional drop, no bleeding from anywhere that is obvious checked Fe studies-very low serum Fe, TIBC and transferrin sat not calculated Likely Fe deficiency-start po iron and f/u with Heme/Onc (9) Liver mass: as noted above, infectious repeat CT abd/pel in 2-3 weeks after treatment with abx to ensure resolution (10) Thoracic compression fracture: known, multiple, uses ice and heat for pain control at home hydrocodone prn coninue home gabapentin (11) Severe protein-calorie malnutrition: Severe malnutrition in the setting of metastatic lung cancer 83-year-old female with a history of widely metastatic lung cancer and a conf irmed history of 50 pound weight loss since being diagnosed. Clinical Indicators: Wt. 42.2 kg, BMI 15.5, cachectic. RBCs 3.49, hemoglobin 9.5, hematocrit 20.1, calcium 7.6, magnesium 1.5, albumin 2.7, Risk Factor(s): Metastatic cancer Treatment: RD consultation, regular diet, calcium supplementation, magnesium supplementation, potassium supplementation (12) Anxiety state: continue home mirtazapine, buspar (13) Peripheral neuropathy: continue gabapentin (14) Dyslipidemia: continue statin Plan DVT prophylaxis-Lovenox SQ Dispo-dc to home today Discussed care with Radiology, ID Discharge Exam Constitutional WD/WN, vitals as above ENMT external ear and nose normal, oropharynx normal Neck trachea midline, no thyromegaly Respiratory normal respiratory effort, lungs clear to auscultation Cardiovascular RRR, no murmur, no edema Chest (Breasts) Chest: normal inspection of chest and + vascular access device or port (Right chest wall, no erythema or drainage) Gastrointestinal (Abdomen) normal bowel sounds, soft, nontender, no hepatosplenomegaly Musculoskeletal Extremities: extremities normal to inspection; no cyanosis and no clubbing Skin no rashes, warm and dry Neurologic moves all extremities and awake; no focal motor deficits Psychiatric A+Ox3, euthymic affect Lymphatic no lymphedema Updated Medication List Medication Instructions Recorded Confirmed Type calcium carbonate 600 mg calcium 600 mg PO QAM 02/12/19 07/29/23 History (1,500 mg) tablet loratadine 10 mg capsule 10 mg PO QAM 09/14/19 07/29/23 History multivitamin 1 tab PO QAM 09/14/19 07/29/23 History albuterol sulfate 90 mcg/actuation 2 puffs inhalation Q6H PRN 10/07/19 07/29/23 Rx aerosol inhaler (Ventolin HFA) shortness of breath or wheezing #8.5 grams magnesium oxide 400 mg (241.3 mg 400 mg PO HS 05/08/21 07/29/23 History magnesium) tablet buspirone 5 mg tablet 5 mg PO BID #180 tabs 09/02/22 07/29/23 Rx sennosides 8.6 mg tablet (Senokot) 8.6 mg PO HS 11/27/22 07/29/23 History hydrocodone 5 mg-acetaminophen 325 1 tab PO Q4H PRN Pain #60 tabs 12/05/22 07/29/23 Rx mg tablet amlodipine 5 mg tablet 5 mg PO QAM 12/10/22 07/29/23 History cholecalciferol (vitamin D3) 25 25 mcg PO BID 12/10/22 07/29/23 History mcg (1,000 unit) tablet (Vitamin D3) polyethylene glycol 3350 17 17 g PO QAM PRN Constipation 12/10/22 07/29/23 History gram/dose oral powder (Miralax) TENS 502 (TENS units) #1 ea 12/27/22 07/30/23 Rx Portable Oxygen #1 ea 01/01/23 07/30/23 Rx rosuvastatin 10 mg tablet 10 mg PO DAILY #90 tabs 01/21/23 07/29/23 Rx Symbicort 160 mcg-4.5 2 puff inhalation BID #10.2 grams 02/11/23 07/29/23 Rx mcg/actuation HFA aerosol inhaler (budesonide-formoterol) pantoprazole 40 mg tablet,delayed 40 mg PO QAM #90 tabs 05/22/23 07/29/23 Rx release Medical Marijuana 1 dose sublingual DAILY PRN Pain 05/27/23 07/29/23 History lisinopril 10 mg tablet 10 mg PO DAILY #90 tabs 05/27/23 07/29/23 Rx gabapentin 100 mg capsule 200 mg PO HS 07/29/23 08/01/23 History mirtazapine 7.5 mg tablet 7.5 mg PO HS 07/29/23 08/01/23 History ondansetron HCl 8 mg tablet 8 mg PO Q8H PRN Nausea And Vomiting 07/29/23 07/29/23 History vitamin B complex 1 tab PO DAILY 07/29/23 07/29/23 History amoxicillin 875 mg-potassium 1 tab PO BID #42 tabs 08/01/23 Rx clavulanate 125 mg tablet ferrous sulfate 325 mg (65 mg 325 mg PO QAM #30 tabs 08/01/23 Rx iron) tablet,delayed release Hospital Stay Data Consultations 07/28/23 19:17 ED Decision to Admit Stat 07/29/23 13:10 Consult Oncology Routine 07/31/23 08:32 Consult Infectious Diseases Routine 07/31/23 10:25 Consult Gastroenterology Routine Diagnostic Imagining Performed 07/29/23 02:53 CT abd pelvis IV con only Stat CT chest with contrast [CT chest diagnostic w con] Stat 07/30/23 IR FNA w/img 1st lesion US Routine 07/30/23 10:30 IR biopsy liver US Routine Pending Results Patient Have Any Pending Studies at Discharge: Yes (Entamoeba histolytica titer,final blood cultures,sensitivities on Strep) Discharge Instructions Given to Patient (Per Discharging Provider) Please finish out 3 more weeks of the antibiotic called Augmentin twice a day. You should have blood work checked in 1 week and this can be done at the cancer center. You will need a repeat CT scan of your abdomen/pelvis in 2-3 weeks-this can be ordered either by your PCP or by Dr. Stokes of Oncology to ensure the liver abscess is resolved. Remain on the antibiotic until your CT scan is performed. The biopsy of the liver is still pending at the time of discharge. Your oncologist or PCP can follow up on this result. Total Time Total Time Spent Total Time Spent (In Minutes): 45 min Coding Level of Care Code 44683 INP/OBS DISCH >30 MIN Diagnoses Sepsis A41.9 Sepsis acute organ dysfunction status: unspecified Sepsis type: sepsis due to unspecified organism Elevated troponin R79.89 Metastatic non-small cell lung cancer C34.90 Chronic hypoxemic respiratory failure J96.11 COPD (chronic obstructive pulmonary disease) J44.9 Hypertension I10 Hypomagnesemia E83.42 Anemia D64.9 Liver mass R16.0 Thoracic compression fracture S22.000A Severe protein-calorie malnutrition E43 Anxiety state F41.1 Peripheral neuropathy G62.9 Dyslipidemia E78.5
--- NOTE | 2023-08-01 14:13 | Infectious Disease Progress Nt ---
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 ID is consulted for suspected liver abscess. 07/30 aspiration cx thus far positive only for alpha Strep. Clinical picture most c/w bacterial/pyogenic liver abscess, noting fevers, rigors, and leukocytosis to WBC 37, and rapid improvement while on antibiotics. Was placed on vancomycin, cefepime, and metronidazole for ~2 days prior to liver bx. Potential source could be malignant obstruction, and note history of biliary obstruction (2/2 metastatic compression) in 11/2022 s/p ERCP and stenting. Appreciate GI evaluationpatients stent appears to be in position on CT and with bili/LFTs wnl thus no intervention at this time. It is possible that she had transient malignant obstruction or translocation given her underlying cancer. BCx NGTD and TTE negative for vegetations, thus lower suspicion for IE/hematogenous source at this time. No well water, no recent travel outside the country though has been to [place], E. histolytica serologies pending. 07/30 aspiration cultures thus far growing alpha Strep. Although she received ~1- 2 days of abx (vanc/cefepime/metronidazole) prior to aspiration, given her lack of prior resistant organisms/infections, she is at low risk for infection from MRSA or PsA. Will cover for alpha Strep with Augmentin. She had a history of remote amoxicillin mild rash and leg weaknessgiven her low PEN-FAST score of 0, she received a test dose of Augmentin on 08/01 and tolerated it well prior to discharge. Have requested penicillin susceptibilities from the lab, and both the hospitalist and I have agreed to follow these results to ensure that the Strep is PCN-susceptible. Have discussed with ID pharmacist, and given her age and relatively small size will use standard Augmentin dosing. It appears that the patients 3.6 cm lesion was well-drained, and other lesions are either from prior (?malignancy) or are small phlegmon, and thus will transition to PO antibiotics for remainder of treatment course. Will write for a tentative 3-week course of antibiotics. Consideration could be given to stopping abx earlier if full resolution of imaging findings upon follow-up. Although reimaging is not typically necessary (imaging will likely lag behind clinical improvement), would recommend repeat CT in ~2-3 weeks given the patien ts concurrent malignancy to ensure stability/resolution of the lesions that are suspected to be infectious, and to reevaluate phlegmonous changes to ensure they improve. Upon follow-up, if she has fevers or clinical worsening, would obtain BCx and repeat imagingif progression/formation of abscess then would resample and ensure resampling is sent for cx. ID Problem List: 1.New liver masses, liver abscess s/p aspiration with cx + alpha Strep 2.Sepsis 3.History of metastatic lung cancer on checkpoint inhibitor immunotherapy 4.History of biliary obstruction requiring stent Recommendations: - Can change to Augmentin 875 mg PO Q12H for a tentative 3-week course (07/28/23- 08/18/23) - Repeat CT abdomen/pelvis in ~2-3 weeks, prior to stopping antibiotics, to ensure improvement - F/u 07/30 liver bx/aspiration path and cx until finalized - F/u / alpha Strep susceptibilities to ensure penicillin-susceptible - F/u E. histolytica serologies - Close follow-up with PCP and oncology (no local ID follow-up available) Plan discussed with hospitalist. Thank you for letting ID participate in the care of this patient. The patient will likely discharge today, and ID will sign off at this time. If questions, [facility] at [phone]. Amrita Temple MD, MHS Infectious Diseases [facility] direct line: [phone] Admission and Anticipated Discharge Date Admission Date: July 28, 2023 Subjective Subsequent visit was provided via telemedicine using two-way real-time interactive telecommunication between the patient and the telemedicine provider. For the duration of the visit, the provider was performing the assessment from a different facility than the patient. This includesuse of bluetooth stethoscope forauscultationperformed by the telepresenter that the telemedicine provider can hear if described in the physical exam. [facility] [employer] contact information: Please call [facility] Call Center . (Phone Number For Physician Use Only) After establishing a telemedicine visit, patient was: Patient was verified with two unique identifiers, Patient/authorized rep acknowledged consent and understanding and Gave permission to continue telehealth session Time Spent with Patient: Subsequent => 55 min - Afebrile, WBC of 9 - Having nausea but is able to take PO. Having some moderate midline and RUQ pain, similar to yesterday. Had night sweats overnight but feeling well today. Overall feeling much better. Physical Exam Physical Exam: Exam obtained with aid of in-person telepresenter. General: Thin, Well-appearing, no acute distress HEENT: Conjunctivae non-injected, sclerae anicteric, MMM, OP clear. Respirations nonlabored. Abd: Soft, nondistended. Normal bowel sounds throughout. No masses or organom egaly. Liver biopsy site with bandage. +RUQ and mid-epigastric tenderness. Ext: Warm and well-perfused, no edema. No joint warmth or effusions noted. Skin: No rashes or lesions. Port c/d/i. Neuro: Alert & interactive. Grossly non-focal. Psych: Pleasant, appropriate. Results & Data Vital Signs (Past 12 Hours) Vital Signs Temp Pulse Resp BP Pulse Ox O2 Del Method 08/01/23 11:21 Room Air 08/01/23 08:03 36.6 C 113 H 16 116/67 94 Room Air Diagnostic Findings Diagnostics: 07/30/23 Liver aspirate cytology Liver, ultrasound-guided aspiration: - Negative for malignancy. - Abundant acute inflammatory cells present consistent with an abscess 07/30/23 Liver bx path: pending 07/29/23 TTE: moderate aortic valve sclerosis with trace AR. Mild TR. No vegetations visualized. 07/29/23 CT chest/abdomen/pelvis 1. Please note that no history of metastatic disease was provided. 2. Dominant upper lobe spiculated nodule measuring up to 2.0 cm. Additional smaller nodules noted. Please note that the smaller nodules appear to be increased in conspicuity from prior examination. Recommend continued attention on follow-up imaging as dictated per patient's primary malignancy. 3. Soft tissue thickening within the mediastinum which likely relates to metastatic lymph nodes. 4. New foci of hepatic metastatic disease noted, the largest in the left hepatic lobe measuring up to 3.6 m. Central necrosis noted within this dominant focus. 5. Periportal edema in the liver which is a nonspecific finding. Correlation with any clinical signs of congestive heart failure or hepatitis may be helpful. 6. Stenting noted within the common duct. Associated pneumobilia noted. 7. Findings suspicious for osseous metastatic disease with age- indeterminate impression fractures of T6, T8, T11, T12, and L1. Consider correlation with point tenderness. If there is further concern, consider MRI with contrast. These may be due to a combination of osteoporotic and pathologic compression fractures. Micro Summary: 07/30 Liver aspirate: bact g/s many polys, rare monos, no organisms; cx alpha Strep (not Enterococcus), susceptibilities pending AFB smear neg, cx NGTD fungal stain neg, cx NGTD 07/30 Lyme IgG Ab neg, IgM Ab neg 07/28 full respiratory panel pathogen: neg 07/28 BCx x2 NGTD Prior 11/27/22 UCx: >100k Klebsiella oxytoca (I-cefazolin otherwise espinoza-S) Antibiotic Summary: vancomycin (07/28-present) cefepime (07/28-present) metronidazole (07/29-present) Abx Allergies: amoxicillin (rash ~35 years ago, no airway/throat symptoms) (3) Sepsis Sepsis acute organ dysfunction status: unspecified Sepsis type: sepsis due to unspecified organism Qualified Code(s): A41.9 - Sepsis, unspecified organism
[2023-08-01] MEDS ORDERED: AMOXICILLIN/CLAVULANATE 875 MG TAB PO ONE (14:22)
--- NOTE | 2023-08-07 12:54 | Coding Query ---
CODING QUERY To promote full compliance with coding requirements relating to patient care, provider participation is requested in all cases of idea man uncertainty. Please assist us with the question(s) below: Coding Question(s): Please specify below, in your clinical opinion, the most likely source of Sepsis: ( x ) most likely source is Liver Abscesses ( ) most likely source is Other: Please Specify Physician's Response(s): Thank you Rimma Yeager Principal Diagnosis: "that condition established after study, to be chiefly responsible for occasioning the admission of the patient to the hospital for care." Co-Existing Principal Diagnosis: "when two or more diagnoses equally meet the criteria for principal diagnosis as determined by the circumstances of admission, diagnostic work up, and/or therapy provided, and the Alphabetic Index, Tabular List, or another coding guideline does not provide sequencing direction, any one of the diagnoses may be sequenced first." "When the physician has documented what appears to be a current diagnosis in the body of the record, but has not included the diagnosis in the final diagnostic statement, the physician should be asked whether the diagnosis should be added." (Source Coding [facility] 2 QTR90. p3-4) DEYA
== END 2023-08-01 16:05 | disposition home or self-care (01) | DRG 871 ==
LOC: ED 17:54 → EDINP 20:20 → SUATTDRO 20:20 → 2N 22:17

== ENCOUNTER 2023-12-03 11:24 | Inpatient (IN) ==
[2023-12-03 13:01] LABS: Appearance Urine Clear (Clear); Bacteria Urine Automated None Seen (None Seen); Bilirubin Urine Negative (Negative); Blood Urine Negative (Negative); Cast Urine Automated 0-2 /lpf (0-2); Color Urine Yellow; Epithelial Cell Urine Auto 0-2 /hpf (0-2); Glucose Urine UA Negative (Negative); Ketones Urine Negative (Negative); Leukocyte Esterase Urine Trace (Negative); Nitrite Urine Negative (Negative); Protein Urine Negative (Negative); RBC Urine Automated 0-2 /hpf (0-2); Specific Gravity Urine 1.011 (1.000-1.030); Urobilinogen Urine Negative (Negative); WBC Urine Automated 0-5 /hpf (0-5); pH Urine 5.5 (4.5-7.5)
[2023-12-03 13:12] LABS: Basophils # (auto) 0.01 K/uL (0.00-0.20); Basophils % (auto) 0.1 %; Eosinophils # (auto) 0.03 K/uL (0.00-0.50); Eosinophils % (auto) 0.3 %; Hematocrit (blood only) 29.8 % (37.0-47.0); Hemoglobin 10.1 g/dl (12.0-16.0); Immature Granulocytes # (auto) 0.02 K/uL (0.01-0.20); Immature Granulocytes % (auto) 0.2 %; Lymphocytes # (auto) 0.64 K/uL (1.20-3.40); Lymphocytes % (auto) 5.9 %; Mean Corpuscular Hgb Conc 33.9 g/dL (32.0-36.0); Mean Corpuscular Volume 79.7 fL (80.0-100.0); Mean Platelet Volume 8.8 fL (9.4-12.4); Monocytes # (auto) 2.44 K/uL (0.11-0.59); Monocytes % (auto) 22.6 %; Neutrophils # (auto) 7.65 K/uL (1.40-6.50); Neutrophils % (auto) 70.9 %; Platelet Count 239 K/uL (130-400); RDW Coefficient of Variation 14.4 % (11.5-14.5); RDW Standard Deviation 41.9 fL (36.4-46.3); Red Blood Count 3.74 M/uL (4.20-5.40); White Blood Count 10.79 K/ul (4.8-10.8)
[2023-12-03] MEDS: oxyCODONE HCL IR 5 MG TAB (IMMEDIATE RELEASE) PO STA (13:25)
[2023-12-03 13:33] LABS: Albumin Level 3.5 gm/dl (3.4-5.0); BUN Creatinine Ratio 28.6 (10-20); Bilirubin Direct 0.4 mg/dl (0-0.2); Bilirubin,Total 1.2 mg/dl (0.2-1.0); Calcium 8.5 mg/dl (8.6-10.3); Creatinine Clr Calc Pharmacy 50.3 ml/min; Est GFR (African American) 97.5 ml/min; Est GFR (Non-African American) 84.1 ml/min; Potassium 3.9 mmol/L (3.5-5.1); Total Protein 6.2 gm/dl (6.0-8.3)
[2023-12-03 14:39] LABS: Adenovirus PCR Not Detected (NotDetected); Bordetella parapertussis PCR Not Detected (NotDetected); Bordetella pertussis PCR Not Detected (NotDetected); Chlamydia pneumoniae PCR Not Detected (NotDetected); Coronavirus 229E PCR Not Detected (NotDetected); Coronavirus CoV-2 (COVID19)PCR Not Detected (NotDetected); Coronavirus HKU1 PCR Not Detected (NotDetected); Coronavirus NL63 PCR Not Detected (NotDetected); Coronavirus OC43PCR Not Detected (NotDetected); Human Metapneumovirus PCR Not Detected (NotDetected); Influenza A PCR Not Detected (NotDetected); Influenza B PCR Not Detected (NotDetected); Mycoplasma pneumoniae PCR Not Detected (NotDetected); Parainfluenza Virus 1 PCR Not Detected (NotDetected); Parainfluenza Virus 2 PCR Not Detected (NotDetected); Parainfluenza Virus 3 PCR Not Detected (NotDetected); Parainfluenza Virus 4 PCR Not Detected (NotDetected); Respiratory Syncytial VirusPCR Not Detected (NotDetected); Rhinovirus/Enterovirus PCR Not Detected (NotDetected)
[2023-12-03] MEDS: OPTIRAY 320 100ml IV ONE (14:57)
--- NOTE | 2023-12-03 15:44 | CT Scan Report ---
ABDOMEN AND PELVIS CT WITH IV CONTRAST CT DOSE: 316.23 mGy.cm HISTORY: Acute generalized abdominal pain. Patient with history of lung cancer Cancer, abnormal LFTs , previous blockage/abscess TECHNIQUE: Multiaxial CT images of the abdomen and pelvis were performed following the IV administrat ion of 94 cc of Optiray, A dose lowering technique was utilized adhering to the principles of ALARA. COMPARISON STUDY: 11/06/2023 FINDINGS: Cardiomegaly with trace pericardial effusion. Coronary artery calcifications. Pulmonary emp hysema with bibasilar atelectasis versus scarring. No free air. Unremarkable spleen. Stable mild nodu lar adrenal gland thickening. Atrophic pancreas with unchanged pancreatic ductal dilation measuring u p to 6 mm. Air and debris-filled common bile duct stent is again noted with decreased pneumobilia and mildly progressed intrahepatic biliary ductal dilation. Cholelithiasis with gallbladder wall hyperem ia. Air is also present within the gallbladder lumen. The portal and hepatic veins appear patent. The previously noted phlegmonous change of the left hepatic lobe continues to improve. There is heteroge neity of the liver again noted. The region of the previously noted 8 mm right hepatic lobe cyst there is a peripherally enhancing multiloculated hypodense 1.6 x 1.1 cm lesion on image [address] ainable hepatic abscess identified. Bilateral renal cysts are again noted. Homogeneous enhancement of the kidneys. Nonobstructing calculi of the right kidney measure up to approximately 5 mm. No ureteral calculi or hydronephrosis is ident ified. Partially decompressed urinary bladder. There is an unchanged 5 mm calcification posterior to the left aspect of the urinary bladder. Severe atherosclerosis of the abdominal aorta and branch vess els is similar to prior. 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 Suboptimal evaluation of the veno us structures secondary to contrast bolus timing. No lymphadenopathy is identified. Mild nonspecific distal esophageal wall thickening is again noted. Moderate colonic fecal retention w ith gaseous distention of the rectum. No bowel obstruction or bowel wall thickening is identified. Th e appendix is reportedly surgically absent. Mild generalized body wall edema. Degenerative changes of the spine, pelvis and hips. 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 Chronic thoracic compression deformities. IMPRESSION: 1. Stable appearance of the osteoblastic skeletal metastasis with chronic compression deformities. No evidence of new or progressive metastatic disease within the abdomen or pelvis. 2. A common bile duct stent is again noted. There is decreased amount of pneumobilia with progressive biliary ductal dilation compared to the study from 11/06/2023. Follow-up recommended in order to excl ude stent dysfunction. 3. Interval development of a 1.6 cm peripherally enhancing multiloculated hypodensity in the region o f the previously described subcentimeter posterior right hepatic lobe cyst which is suspicious for a small developing abscess (the patient has a history of resolved left hepatic lobe abscess). No draina ble fluid collections identified. 4. Cholelithiasis with unchanged gallbladder wall hyperemia. 5. Nonobstructing right nephrolithiasis. 6. 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 7. Additional findings as above. ACT 112: Negative or not required by law. The above report was generated using voice recognition software. It may contain grammatical, syntax o r spelling errors. Electronically signed by: Atul Canales M.D. 12/03/2023 3:42 PM
[2023-12-03] MEDS ORDERED: VANCOMYCIN CONSULT ACTIVE PRN (16:51)
[2023-12-03] MEDS: PIPERACILLIN/TAZOBACTAM 4.5 GM/100 ML BAG IV ONE (17:04)
[2023-12-03] MEDS: VANCOMYCIN HCL 1,000 MG in SODIUM CHLORIDE 0.9% 500 ML IV ONE (17:25)
--- NOTE | 2023-12-03 18:23 | History & Physical Report ---
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 No areas amenable to drainage With associated chills, fever, elevated Pro-Kevin Previously was on Vanco/Zosyn/Flagyl and was transition to Augmentin 3-week outpatient therapy with good clinical improvement Received Vanco/Zosyn in the ER Will transition to Unasyn/vanc on admission. Past history of allergy to amoxicillin but has tolerated both Zosyn and Augmentin. prior E histolytica testing was negative, CMV testing negative, EBV testing consistent with prior infection quiescent. BC pending. Trend CBC daily CMP trended daily. If rapid rise in transaminases/bilirubin consistent with obstruction--> call back to [facility] for transfer for stent reevaluation. Case was reviewed with [facility] based on concern for increased CBD dilation and? Stent obstruction, patient was not recommended for transfer at time of admission. ID consulted for suspected recurrent abscess Blood cultures were ordered however antibiotics were given prior to these and may be sterilized (2) Metastatic non-small cell lung cancer: Plan: Keytruda held in the setting of suspected active infection [place] temporarily switched to oxycodone immediate release/Tylenol held due to acute transaminitis (3) GERD (gastroesophageal reflux disease): Plan: PPI daily (4) COPD (chronic obstructive pulmonary disease): Plan: Stable, continue inhalers (5) Anxiety: Plan: Continue home meds (6) Dyslipidemia: Plan: Continue statin Plan DVT prophylaxis: Lovenox Disposition: Medical surgical, no chest pain or cardiac symptoms prior to admission CODE STATUS: DNR/DNI Diet: No stent/procedures indicated, advanced to heart healthy due to past history of demand ischemia. History of Present Illness Primary Care Provider: Lea Traore MD Karoline is an 83-year-old female with a past medical history of anxiety, metastatic non-small cell lung cancer on Keytruda, GERD who presents withAbdominal discomfort, fevers, chills and suspected recurrent hepatic abscess.Recently discharged 08/01/2023 after admission for sepsis. Patient did have IR drainage of purulent fluid from a 3.6 cm abscess, others were phlegmon less than 2 cm. Suspected GI source with underlying cancer and immunosuppression, CBD stent in place. Cytology with no malignancy, consistent with abscess Fluid culture positive for alpha strep not Enterococcus Improved very quickly on antibiotics and leukocytosis down trended from 37 and Pro-Kevin of 8 down to near normal ID was consulted: Alvarado, cefepime, Flagyl were converted to Augmentin for 2 to 3- week total course. Imaging was not typically necessary and likely had clinical improvement, but was recommended in around 3 weeks to ensure stability. Metastatic non-small cell lung cancer with mets to bone/liver/parotid/mediastin um, right adrenal. On Keytruda which was held in the setting of infection. Per Pt: Marnie reports that she has been doing okay up until the last 2 days when she has had increased weakness, fatigue, a fever of 101.3 F, and night sweats. On ER evaluation she has elevated transaminitis and bilirubin with minimal pain, although does endorse an increase in GERD like symptoms and some discomfort that she thought was GERD with meals for the past several days. CT of the abdomen and pelvis shows a prior 8 mm hepatic lobe cyst now shows peripheral enhancement and is multiloculated with an increase in size to 1.6 x 1.1 cm. She has had a past history of liver abscesses, recurrent abscess is not excluded. Past cultures were positive for strep and anginosus pansensitive Klebsiella. Add additional resistance. She is treated with Zosyn on admission. Patient seen at bedside with multiple family members present who confirms story as noted. Due to potential increase in ductal dilation and concern for possible CBD stent dysfunction Case was reviewed with [facility]. Based on her relatively low bilirubin and mild imaging findings, which were pushed to [facility] for review, she is not recommended for transfer for any type of stent management or reevaluation via ERCP at this time. Is recommended for treatment as noted with CMP daily. If patient has a rapid rise in transaminases or bilirubin then can reassess for transfer at that time. This was discussed with patient and family who are agreeable to admission for antibiotic treatment as noted. Medical History: Reviewed Medications: Reviewed Surgical History: Reviewed Family history: Reviewed Allergies: Reviewed Social History: Reviewed Code Status: DNR/DNI Allergies Allergy/AdvReac Type Severity Reaction Status Date / Time amoxicillin Allergy Intermediate rash Verified 12/03/23 12:25 tramadol AdvReac Intermediate loss of Verified 12/03/23 12:25 apetite Home Medications Medication Instructions Recorded Confirmed Type calcium carbonate 600 mg PO QAM 02/12/19 12/03/23 History loratadine 10 mg capsule 10 mg PO QAM 09/14/19 12/03/23 History multivitamin 1 tab PO QAM 09/14/19 12/03/23 History albuterol sulfate 90 mcg/actuation 2 puffs inhalation Q6H PRN 10/07/19 12/03/23 Rx aerosol inhaler (Ventolin HFA) shortness of breath or wheezing #8.5 grams magnesium oxide 400 mg (241.3 mg 400 mg PO HS 05/08/21 12/03/23 History magnesium) tablet sennosides 8.6 mg tablet (Senokot) 8.6 mg PO HS 11/27/22 12/03/23 History hydrocodone 5 mg-acetaminophen 325 1 tab PO Q4H PRN Pain #60 tabs 12/05/22 12/03/23 Rx mg tablet cholecalciferol (vitamin D3) 25 25 mcg PO BID 12/10/22 12/03/23 History mcg (1,000 unit) tablet (Vitamin D3) polyethylene glycol 3350 17 17 g PO QAM PRN Constipation 12/10/22 12/03/23 History gram/dose oral powder (Miralax) Portable Oxygen E0431 #1 ea 01/01/23 11/26/23 Rx rosuvastatin 10 mg tablet 10 mg PO DAILY #90 tabs 01/21/23 12/03/23 Rx ondansetron HCl 8 mg tablet 8 mg PO Q8H PRN Nausea And Vomiting 07/29/23 12/03/23 History vitamin B complex 1 tab PO DAILY 07/29/23 12/03/23 History buspirone 5 mg tablet 5 mg PO BID #180 tabs 09/26/23 12/03/23 Rx budesonide-formoterol HFA 160 2 puff inhalation BID #10.2 grams 11/04/23 12/03/23 Rx mcg-4.5 mcg/actuation aerosol inhaler Breyna 160 mcg-4.5 mcg/actuation 2 puff inhalation BID #10.3 grams 11/24/23 12/03/23 Rx HFA aerosol inhaler (budesonide-formoterol) amlodipine 2.5 mg tablet 2.5 mg PO DAILY #90 tabs 11/26/23 12/03/23 Rx pantoprazole 40 mg tablet,delayed 40 mg PO BID #180 tabs 11/26/23 12/03/23 Rx release Past Med/Surg History Medical History (Updated 12/01/23 @ 15:49 by Lea Traore MD) Liver abscess Metastatic non-small cell lung cancer Peripheral neuropathy Vitamin D deficiency Osteoporosis declines Rx GERD (gastroesophageal reflux disease) Peripheral arterial disease Chronic venous insufficiency Seborrheic keratosis Impaired fasting glucose Hypertension Dyslipidemia COPD (chronic obstructive pulmonary disease) Anxiety Actinic keratosis Surgical History Port-A-Cath in place (12/12/22) Insertion of Access Port with Fluoroscopy(Not Applicable) - Ryan Valverde, History of ERCP 11/28/2223 Grade 1 view, MAC 3, ETT 7. biliary stent placement *2 WEEKS AGO AT [facility] S/P laparoscopic appendectomy (04/2020) 05/08/2020 Grade 1 view, MAC 3, ETT 7. History of colonoscopy 04/05/2020 History of tooth extraction History of cataract surgery RT/LEFT H/O tubal ligation History of section X 1 Family History Father Diabetes Family history of diabetes mellitus Mother No problems noted. Sister No problems noted. Brother Lung cancer Brother No problems noted. Brother No problems noted. Son No problems noted. Daughter No problems noted. Other No family history of adverse response to anesthesia Stroke Denies family history of Ovarian cancer Prostate cancer Myocardial infarction Breast cancer Colorectal cancer Social History (Updated 11/26/23 @ 09:41 by Sena Armando LPN) Smoking Status: Never smoker Tobacco Type: Cigarettes Age Started Using Tobacco: 17; Age Quit Using Tobacco: 65; packs per day: 1; Cigarettes Per Day: QUIT A FEW MONTHS AGO; Second Hand Exposure: No; Do You Dip or Chew Tobacco: No; Hx Alcohol Use: Yes Alcohol type: wine Alcohol Intake Frequency: 4 or More x per/Week Alcohol Intake Frequency Comment: 2 glasses of wine daily Hx Substance Use: No Preferred Language: Citizen Of [place] Communication Ability: Effective Visual Impairment: No Limitations Hearing Ability: Normal Catastrophe Claims Supervisor Required: No Beliefs That Will Affect Care: None marital status: Current Living Situation: Spouse current occupational status: retired 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 NAD. Cooperative. HEENT: Atraumatic, normocephalic. Pulm: CTAB A&P. -wheezes, -rales, -rhonchi. Symmetrical chest rise. No increased work of breathing. No respiratory distress. Cardiac: RRR, soft SM. Radial pulses intact and symmetrical. Abdominal: Mild epigastric TTP, no rebound/guarding. Soft. BS present. Ext: warm, dry Results & Data Results & Data Vital Signs (Past 12 Hours) Vital Signs Temp Pulse Pulse Resp BP BP Pulse Ox 12/03/23 18:00 77 22 156/75 H 94 12/03/23 17:00 70 20 171/81 H 91 12/03/23 16:50 72 12/03/23 15:00 80 16 149/75 H 92 12/03/23 13:36 75 16 153/72 H 94 12/03/23 12:52 74 12/03/23 12:01 77 14 162/95 H 98 12/03/23 11:49 36.9 C 66 16 121/71 94 O2 Del Method 12/03/23 18:00 Room Air 12/03/23 17:00 Room Air 12/03/23 16:50 12/03/23 15:00 Room Air 12/03/23 13:36 Room Air 12/03/23 12:52 12/03/23 12:01 Room Air 12/03/23 11:49 Room Air PG Care Time/CCT Total # of Minutes Spent Total Time Spent with Patient: Total time spent is greater than 50% in coordination of care (as documented) at patient's floor/unit and/or counseling patient: Coding Level of Care Code 39117 INT INP/OBS CARE 3/75MIN Diagnoses Liver abscess K75.0 Metastatic non-small cell lung cancer C34.90 GERD (gastroesophageal reflux disease) K21.9 COPD (chronic obstructive pulmonary disease) J44.9 Anxiety F41.9 Dyslipidemia E78.5
--- NOTE | 2023-12-03 18:36 | Emergency Department Note ---
Impression & Plan Abscess of liver, Abnormal transaminases ED Provider Note NAME: KRISTIE CHAMBERS AGE: 83 SEX: F : 1940 ARRIVES VIA: Walk-In INFORMANT: Patient, ED PROVIDER(S): Jalen Lang MD CHIEF COMPLAINT: Transaminitis HPI: This is an 83-year-old female with history of metastatic lung cancer on Keytruda, previous hepatic abscess/obstruction presenting for transaminitis. Patient with multiple 5 members who state that patient had history of metastatic lung cancer to multiple parts of her body. She is on Keytruda with significant improvement in her symptoms. She was here previously for hepatic obstruction requiring biliary stent. She then had an abscess which was treated here with IR drainage/antibiotics. She has been doing well recently and over the past 1 to 2 days has noticed some weakness/fatigue. She otherwise had blood work done this morning at the cancer center and was advised to come to the ED for further evaluation. She had a transaminitis as well as increased alk phos. She currently complains of no pain. She does feel somewhat fatigued. She says she had a fever up to 101 yesterday with no fever today. She felt chilled as well. No current shortness breath, chest pain, nausea, vomiting or diarrhea. She has not noticed any jaundice. ROS: See above HPI for pertinent positives & negatives. A total of 10 systems reviewed and were otherwise negative. PHYSICAL EXAMINATION: General: resting comfortably in no acute distress, thin Head: Normocephalic and atraumatic Eyes: Normal inspection, extraocular muscles intact Ear, nose, throat: Normal external exam Neck: Normal range of motion Respiratory: lungs clear to auscultation bilaterally Cardiovascular: Regular rate/rhythm, no murmur GI: soft, nontender, no guarding or rebound Extremities: nontender, moves all extremities Neuro: The patient awake and alert, appropriately conversive, no focal deficits, symmetric faces Skin: Warm, dry, and intact MEDICAL DECISION MAKING: This is an 83-year-old female history of metastatic lung cancer on Keytruda presenting for a transaminitis. Will repeat blood work here to assess for change as well as to CT imaging. Patient have an outpatient CT scheduled but this was declined by insurance. -She has hemoglobin of 10.1 otherwise sodium 131. Her bilirubin is only 1.2 with a direct bili of 0.4. Transaminitis is actually downtrending from previously done blood with this morning now at 181/288 AST/ALT with an alk phos of 746. -Urinalysis reveals no signs of UTI. -Viral panel negative -CT imaging reveals progressive intrahepatic biliary dilation since last CT imaging from 11/06/2023. Otherwise patient does have a developing abscess in the liver, no general abscess at this time. -Discussed care with hospitalist, Dr. Gray, for admission. He recommends discussion with GI at [facility] for the intrahepatic biliary dilation in the setting of a previous stent. Possibly whether this stent will need to be replaced in this current setting. -Discussed care with Dr. Nuñez, GI at [facility], who after evaluating imaging results and blood work results, would not advise emergent transfer at this time. Would recommend trending LFTs and bilirubin and if significantly elevating would recommend transfer at that time. Differential diagnosis: Choledocholithiasis, hepatitis, liver metastases, liver abscess ER treatment provided: See below Diagnostics interpreted by me: ECG: ECG independently interpreted by me with normal sinus rhythm, rate of 79, normal axis, normal AZ, normal QRS, normal QTc, no ST segment elevations consistent with STEMI criteria, occasional PVC Cardiac Monitoring: An order was placed for continuous cardiac monitoring. The monitor shows a rate of 86 with sinus rhythm. Laboratory studies: As stated above and show below. Imaging studies: See below. Past Med/Surg History Medical History (Updated 12/05/23 @ 19:17 by Jalen Lang MD) Liver abscess Metastatic non-small cell lung cancer Peripheral neuropathy Vitamin D deficiency Osteoporosis declines Rx GERD (gastroesophageal reflux disease) Peripheral arterial disease Chronic venous insufficiency Seborrheic keratosis Impaired fasting glucose Hypertension Dyslipidemia COPD (chronic obstructive pulmonary disease) Anxiety Actinic keratosis Surgical History Port-A-Cath in place (12/12/22) Insertion of Access Port with Fluoroscopy(Not Applicable) - Ryan Valverde, History of ERCP 11/28/2223 Grade 1 view, MAC 3, ETT 7. biliary stent placement *2 WEEKS AGO AT [facility] S/P laparoscopic appendectomy (04/2020) 05/08/2020 Grade 1 view, MAC 3, ETT 7. History of colonoscopy 04/05/2020 History of tooth extraction History of cataract surgery RT/LEFT H/O tubal ligation History of section X 1 Family History Father Diabetes Family history of diabetes mellitus Mother No problems noted. Sister No problems noted. Brother Lung cancer Brother No problems noted. Brother No problems noted. Son No problems noted. Daughter No problems noted. Other No family history of adverse response to anesthesia Stroke Denies family history of Ovarian cancer Prostate cancer Myocardial infarction Breast cancer Colorectal cancer Social History (Updated 11/26/23 @ 09:41 by Sena Armando LPN) Smoking Status: Former smoker Tobacco Type: Cigarettes Age Started Using Tobacco: 17; Age Quit Using Tobacco: 65; packs per day: 1; Cigarettes Per Day: QUIT A FEW MONTHS AGO; Second Hand Exposure: No; Do You Dip or Chew Tobacco: No; Hx Alcohol Use: No Hx Substance Use: No Preferred Language: Macedonian Communication Ability: Effective Visual Impairment: No Limitations Hearing Ability: Normal 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 Required: No Beliefs That Will Affect Care: None marital status: Current Living Situation: Spouse current occupational status: retired 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 How many Children do You have: 2 Feels Safe at Home: Yes Childhood Exposure to Second-Hand Smoke: Yes Diet: regular caffeine: Yes during the past year weight has: remained stable Dental Care, Regularly: No Seatbelt Use: always Assistive Devices: Walker and Other Allergies Allergies Allergy/AdvReac Type Severity Reaction Status Date / Time amoxicillin Allergy Intermediate rash Verified 12/03/23 12:25 tramadol AdvReac Intermediate loss of Verified 12/03/23 12:25 apetite Home Meds Home Medications Medication Instructions Recorded Confirmed calcium carbonate 600 mg PO QAM 02/12/19 12/03/23 loratadine 10 mg capsule 10 mg PO QAM 09/14/19 12/03/23 multivitamin 1 tab PO QAM 09/14/19 12/03/23 magnesium oxide 400 mg (241.3 mg 400 mg PO HS 05/08/21 12/03/23 magnesium) tablet sennosides 8.6 mg tablet (Senokot) 8.6 mg PO HS 11/27/22 12/03/23 cholecalciferol (vitamin D3) 25 25 mcg PO BID 12/10/22 12/03/23 mcg (1,000 unit) tablet (Vitamin D3) polyethylene glycol 3350 17 17 g PO QAM PRN Constipation 12/10/22 12/03/23 gram/dose oral powder (Miralax) ondansetron HCl 8 mg tablet 8 mg PO Q8H PRN Nausea And Vomiting 07/29/23 12/03/23 vitamin B complex 1 tab PO DAILY 07/29/23 12/03/23 Previous Rx's Medication Instructions Recorded albuterol sulfate 90 mcg/actuation 2 puffs inhalation Q6H PRN 10/07/19 aerosol inhaler (Ventolin HFA) shortness of breath or wheezing #8.5 grams hydrocodone 5 mg-acetaminophen 325 1 tab PO Q4H PRN Pain #60 tabs 12/05/22 mg tablet Portable Oxygen E0431 #1 ea 01/01/23 rosuvastatin 10 mg tablet 10 mg PO DAILY #90 tabs 01/21/23 buspirone 5 mg tablet 5 mg PO BID #180 tabs 09/26/23 budesonide-formoterol HFA 160 2 puff inhalation BID #10.2 grams 11/04/23 mcg-4.5 mcg/actuation aerosol inhaler Breyna 160 mcg-4.5 mcg/actuation 2 puff inhalation BID #10.3 grams 11/24/23 HFA aerosol inhaler (budesonide-formoterol) amlodipine 2.5 mg tablet 2.5 mg PO DAILY #90 tabs 11/26/23 pantoprazole 40 mg tablet,delayed 40 mg PO BID #180 tabs 11/26/23 release Results & Data (ED) Vital Signs Vital Signs - 24 hr 12/03/23 11:49 12/03/23 12:01 12/03/23 12:52 Temperature 36.9 C Temperature Source Temporal Artery Scan Pulse Rate 66 74 Pulse Rate [Left Finger] 77 Respiratory Rate 16 14 Respiratory Effort / Characteristics Non-Labored Spontaneous Non-Labored Spontaneous Respiratory Depth Normal Normal Respiratory Pattern Regular Blood Pressure 121/71 Blood Pressure [Right Arm] 162/95 H Blood Pressure Mean 87 Blood Pressure Mean [Right Arm] 117 Blood Pressure Position Sitting Blood Pressure Position [Right Arm] Pulse Oximetry 94 98 Oxygen Delivery Method Room Air Room Air Sepsis Recent Fever Within 48 Hours No Sepsis New/Unexplained Change in Mental Status N/A Sepsis Action Taken by Nursing No Action Required 12/03/23 13:36 12/03/23 15:00 12/03/23 16:50 Temperature Temperature Source Pulse Rate 72 Pulse Rate [Left Finger] 75 80 Respiratory Rate 16 16 Respiratory Effort / Characteristics Non-Labored Spontaneous Non-Labored Spontaneous Respiratory Depth Normal Normal Respiratory Pattern Regular Regular Blood Pressure Blood Pressure [Right Arm] 153/72 H 149/75 H Blood Pressure Mean Blood Pressure Mean [Right Arm] 99 99 Blood Pressure Position Blood Pressure Position [Right Arm] Semi-fowlers Semi-fowlers Pulse Oximetry 94 92 Oxygen Delivery Method Room Air Room Air Sepsis Recent Fever Within 48 Hours Sepsis New/Unexplained Change in Mental Status Sepsis Action Taken by Nursing 12/03/23 17:00 12/03/23 18:00 Temperature Temperature Source Pulse Rate Pulse Rate [Left Finger] 70 77 Respiratory Rate 20 22 Respiratory Effort / Characteristics Non-Labored Spontaneous Non-Labored Spontaneous Respiratory Depth Normal Normal Respiratory Pattern Regular Regular Blood Pressure Blood Pressure [Right Arm] 171/81 H 156/75 H Blood Pressure Mean Blood Pressure Mean [Right Arm] 111 102 Blood Pressure Position Blood Pressure Position [Right Arm] Semi-fowlers Lying Pulse Oximetry 91 94 Oxygen Delivery Method Room Air Room Air Sepsis Recent Fever Within 48 Hours Sepsis New/Unexplained Change in Mental Status Sepsis Action Taken by Nursing Laboratory Data 12/04/23 08:00 12/04/23 08:00 Lab Results 12/03/23 12/03/23 12/03/23 Range/Units 12:41 12:45 13:33 WBC 10.79 (4.8-10.8) K/ul RBC 3.74 L (4.20-5.40) M/uL Hgb 10.1 L (12.0-16.0) g/dl Hct 29.8 L (37.0-47.0) % MCV 79.7 L (80.0-100.0) fL MCH 27.0 (25.0-34.0) pg MCHC 33.9 (32.0-36.0) g/dL RDW Std Deviation 41.9 (36.4-46.3) fL RDW Coeff of Kisha 14.4 (11.5-14.5) % Plt Count 239 (130-400) K/uL MPV 8.8 L (9.4-12.4) fL Immature Gran % (Auto) 0.2 % Neut % (Auto) 70.9 % Lymph % (Auto) 5.9 % Kerr % (Auto) 22.6 % Eos % (Auto) 0.3 % Baso % (Auto) 0.1 % Neut # (Auto) 7.65 H (1.40-6.50) K/uL Lymph # (Auto) 0.64 L (1.20-3.40) K/uL Kerr # (Auto) 2.44 H (0.11-0.59) K/uL Eos # (Auto) 0.03 (0.00-0.50) K/uL Baso # (Auto) 0.01 (0.00-0.20) K/uL Immature Gran # (Auto) 0.02 (0.01-0.20) K/uL Sodium 131 L (136-145) mmol/L Potassium 3.9 (3.5-5.1) mmol/L Chloride 98 (98-107) mmol/L Carbon Dioxide 25 (21-32) mmol/L Anion Gap 8 (3-11) BUN 18 (6-23) mg/dl Creatinine 0.63 (0.6-1.2) mg/dl Est Cr Clr Drug Dosing 50.3 ml/min Est GFR ( Amer) 97.5 ml/min Est GFR (Non-Af Amer) 84.1 ml/min BUN/Creatinine Ratio 28.6 H (10-20) Glucose 90 (70-99(Fasting)) mg/dl Calcium 8.5 L (8.6-10.3) mg/dl Total Bilirubin 1.2 H (0.2-1.0) mg/dl Direct Bilirubin 0.4 H (0-0.2) mg/dl AST 181 H (13-39) U/L ALT 288 H (7-52) U/L Alkaline Phosphatase 746 H (34-104) U/L Total Protein 6.2 (6.0-8.3) gm/dl Albumin 3.5 (3.4-5.0) gm/dl Urine Color Yellow Urine Appearance Clear (Clear) Urine pH 5.5 (4.5-7.5) Ur Specific [place] 1.011 (1.000-1.030) Urine Protein Negative (Negative) Urine Glucose (UA) Negative (Negative) Urine Ketones Negative (Negative) Urine Blood Negative (Negative) Urine Nitrite Negative (Negative) Urine Bilirubin Negative (Negative) Urine Urobilinogen Negative (Negative) Ur Leukocyte Esterase Trace H (Negative) Urine WBC (Auto) 0-5 (0-5) /hpf Urine RBC (Auto) 0-2 (0-2) /hpf U Hyaline Cast (Auto) 0-2 (0-2) /lpf U Epithel Cells (Auto) 0-2 (0-2) /hpf Urine Bacteria (Auto) None Seen (None Seen) Adenovirus (PCR) Not Detected (NotDetected) B. pertussis DNA (PCR) Not Detected (NotDetected) B.parapertussis DNA PCR Not Detected (NotDetected) C. pneumoniae DNA (PCR) Not Detected (NotDetected) Coronavirus OC43 (PCR) Not Detected (NotDetected) Coronavirus HKU1 (PCR) Not Detected (NotDetected) Coronavirus 229E (PCR) Not Detected (NotDetected) SARS-CoV-2 (PCR) Not Detected (NotDetected) Coronavirus NL63 (PCR) Not Detected (NotDetected) Human Metapneumovir PCR Not Detected (NotDetected) Influenza Type A (PCR) Not Detected (NotDetected) Influenza Type B (PCR) Not Detected (NotDetected) M. pneumoniae (PCR) Not Detected (NotDetected) Parainfluenza 1 (PCR) Not Detected (NotDetected) Parainfluenza 2 (PCR) Not Detected (NotDetected) Parainfluenza 3 (PCR) Not Detected (NotDetected) Parainfluenza 4 (PCR) Not Detected (NotDetected) RSV (PCR) Not Detected (NotDetected) Entero/Rhino (PCR) Not Detected (NotDetected) Administered Medications Discontinued Medications Amlodipine Besylate (Amlodipine Besylate 5 Mg Tab) 2.5 mg PO DAILY OSMAN Stop: 01/03/24 08:59 Last Admin: 12/04/23 15:28 Dose: 2.5 mg Documented By: Admin: 12/04/23 07:48 Dose: 2.5 mg Documented By: NORI Buspirone HCl (Buspirone 5 Mg Tab) 5 mg PO BID OSMAN Stop: 01/02/24 20:59 Last Admin: 12/04/23 07:47 Dose: 5 mg Documented By: Admin: 12/03/23 21:31 Dose: Not Given Documented By: ALLAN Calcium Carbonate (Calcium Carbonate 1250mg Tab) 1,250 mg PO QAM [facility] Stop: 01/03/24 08:59 Last Admin: 12/04/23 07:48 Dose: 1,250 mg Documented By: NORI Enoxaparin Sodium (Enoxaparin Inj 40 Mg/0.4 Ml Syr) 40 mg SQ Q24H [facility] Stop: 01/02/24 20:59 Last Admin: 12/03/23 22:01 Dose: 40 mg Documented By: ALLAN Fluticasone/Vilanterol (Fluticasone/Vilanterol 100/25mcg 14 Puffs/Inhaler) 1 puffs INH DAILY [facility]; Protocol Stop: 01/03/24 08:59 Last Admin: 12/04/23 07:47 Dose: 1 puffs Documented By: NORI Piperacillin Sod/Tazobactam Sod (Zosyn) 4.5 gm in 100 mls @ 200 mls/hr IV NOW ONE Stop: 12/03/23 17:20 Last Infusion: 12/03/23 17:35 Dose: Infused Documented By: Admin: 12/03/23 17:04 Dose: 200 mls/hr Documented By: BALJIT Vancomycin HCl 1,000 mg/ (Sodium Chloride) 520 mls @ 200 mls/hr IV NOW ONE Stop: 12/03/23 19:26 Last Infusion: 12/03/23 20:44 Dose: Infused Documented By: Admin: 12/03/23 17:25 Dose: 200 mls/hr Documented By: BALJIT Ampicillin Sodium/Sulbactam Sodium 3,000 mg/ Sodium Chloride 100 mls @ 100 mls/hr IV Q6H [facility] Stop: 12/13/23 21:59 Last Infusion: 12/04/23 05:00 Dose: Infused Documented By: Admin: 12/04/23 03:58 Dose: 100 mls/hr Documented By: Infusion: 12/03/23 23:01 Dose: Infused Documented By: Admin: 12/03/23 22:01 Dose: 100 mls/hr Documented By: ALLAN Ceftriaxone Sodium 2,000 mg/ (Dextrose) 50 mls @ 100 mls/hr IV Q24H [facility]; Protocol Stop: 12/14/23 08:59 Last Infusion: 12/04/23 10:03 Dose: Infused Documented By: GLORIA Co-signed By: NORI Admin: 12/04/23 09:01 Dose: 100 mls/hr Documented By: GLORIA Co-signed By: NORI Vancomycin HCl 1,000 mg/ (Sodium Chloride) 270 mls @ 200 mls/hr IV Q18H [facility] Stop: 12/14/23 09:59 Last Infusion: 12/04/23 11:15 Dose: Infused Documented By: Admin: 12/04/23 09:54 Dose: 200 mls/hr Documented By: GLORIA Co-signed By: NORI Ioversol (Optiray 320 100ml) 94 ml IV ONCE ONE Stop: 12/03/23 14:58 Last Admin: 12/03/23 14:57 Dose: 94 ml Documented By: ROHAN Loratadine ([facility]adine 10 Mg Tab) [facility] [place]: 01/03/24 08:59 Last Admin: 12/04/23 07:47 Dose: 10 mg Documented By: NORI Magnesium Oxide (Magnesium Oxide 400 Mg Tab) 400 mg PO HS [facility] Stop: 01/02/24 20:59 Last Admin: 12/03/23 21:32 Dose: Not Given Documented By: ALLAN Metronidazole (Metronidazole 500 Mg Tab) 500 mg PO TID [facility]; Protocol Stop: 12/14/23 08:59 Last Admin: 12/04/23 13:53 Dose: 500 mg Documented By: Admin: 12/04/23 09:00 Dose: 500 mg Documented By: GLORIA Co-signed By: NORI [facility]ivitamins (Multivitamin Tab) [facility] Stop: 01/03/24 08:59 Last Admin: 12/04/23 07:49 Dose: 1 tab Documented By: NORI Oxycodone HCl (Oxycodone Hcl Ir 5 Mg Tab (Immediate Release)) 5 mg PO NOW STA Stop: 12/03/23 13:22 Last Admin: 12/03/23 13:25 Dose: 5 mg Documented By: TYREE Oxycodone HCl (Oxycodone Hcl Ir 5 Mg Tab (Immediate Release)) 5 mg PO Q4H PRN PRN Reason: Pain Stop: 12/17/23 18:50 Last Admin: 12/04/23 13:53 Dose: 5 mg Documented By: Admin: 12/04/23 05:55 Dose: 5 mg Documented By: Admin: 12/03/23 19:46 Dose: 5 mg Documented By: Pantoprazole Sodium (Pantoprazole 40 Mg Tab) 40 mg PO BID OSMAN Stop: 01/02/24 20:59 Last Admin: 12/04/23 07:49 Dose: 40 mg Documented By: Admin: 12/03/23 21:33 Dose: Not Given Documented By: ALLAN Rosuvastatin Calcium (Rosuvastatin Calcium 10 Mg Tab) 10 mg PO DAILY OSMAN Stop: 01/03/24 08:59 Last Admin: 12/04/23 07:47 Dose: 10 mg Documented By: NORI Sennosides (Senna 8.6 Mg Tab) 8.6 mg PO HS OSMNA Stop: 01/02/24 20:59 Last Admin: 12/03/23 21:33 Dose: Not Given Documented By: ALLAN Vitamin B Complex (Vitamin B Complex Tab) 1 tab PO DAILY OSMAN Stop: 01/03/24 08:59 Last Admin: 12/04/23 07:48 Dose: 1 tab Documented By: NORI Vitamin D (Cholecalciferol 25 Mcg (1000 Units) Tab) 25 mcg PO BID OSMAN Stop: 01/02/24 20:59 Last Admin: 12/04/23 07:49 Dose: 25 mcg Documented By: Admin: 12/03/23 21:31 Dose: Not Given Documented By: ALLAN Imaging Data Radiologist's Impression: Abdomen/Pelvis CT 12/03/23 12:[address] WITH IV CONTRAST CT DOSE: 316.23 mGy.cm HISTORY: Acute generalized abdominal pain. Patient with history of lung cancer Cancer, abnormal LFTs, previous blockage/abscess TECHNIQUE: Multiaxial CT images of the abdomen and pelvis were performed following the IV administration of 94 cc of Optiray, A dose lowering technique was utilized adhering to the principles of ALARA. COMPARISON STUDY: 11/06/2023 FINDINGS: Cardiomegaly with trace pericardial effusion. Coronary artery calcifications. Pulmonary emphysema with bibasilar atelectasis versus scarring. No free air. Unremarkable spleen. Stable mild nodular adrenal gland thickening. Atrophic pancreas with unchanged pancreatic ductal dilation measuring up to 6 mm. Air and debris-filled common bile duct stent is again noted with decreased pneumobilia and mildly progressed intrahepatic biliary ductal dilation. Cholelithiasis with gallbladder wall hyperemia. Air is also present within the gallbladder lumen. The portal and hepatic veins appear patent. The previously noted phlegmonous change of the left hepatic lobe continues to improve. There is heterogeneity of the liver again noted. The region of the previously noted 8 mm right hepatic lobe cyst there is a peripherally enhancing multiloculated hypodense 1.6 x 1.1 cm lesion on image 42 series 3. No drainable hepatic abscess identified. Bilateral renal cysts are again noted. Homogeneous enhancement of the kidneys. Nonobstructing calculi of the right kidney measure up to approximately 5 mm. No ureteral calculi or hydronephrosis is identified. Partially decompressed urinary bladder. There is an unchanged 5 mm calcification posterior to the left aspect of the urinary bladder. Severe atherosclerosis of the abdominal aorta and branch vessels is similar to prior. 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 Suboptimal evaluation of the venous structures secondary to contrast bolus timing. No lymphadenopathy is identified. Mild nonspecific distal esophageal wall thickening is again noted. Moderate colonic fecal retention with gaseous distention of the rectum. No bowel obstruction or bowel wall thickening is identified. The appendix is reportedly surgically absent. Mild generalized body wall edema. Degenerative changes of the spine, pelvis and hips. 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 Chronic thoracic compression deformities. IMPRESSION: 1. Stable appearance of the osteoblastic skeletal metastasis with chronic compression deformities. No evidence of new or progressive metastatic disease within the abdomen or pelvis. 2. A common bile duct stent is again noted. There is decreased amount of pneumobilia with progressive biliary ductal dilation compared to the study from 11/06/2023. Follow-up recommended in order to exclude stent dysfunction. 3. Interval development of a 1.6 cm peripherally enhancing multiloculated hypodensity in the region of the previously described subcentimeter posterior right hepatic lobe cyst which is suspicious for a small developing abscess (the patient has a history of resolved left hepatic lobe abscess). No drainable fluid collections identified. 4. Cholelithiasis with unchanged gallbladder wall hyperemia. 5. Nonobstructing right nephrolithiasis. 6. 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 7. Additional findings as above. ACT 112: Negative or not required by law. The above report was generated using voice recognition software. It may contain grammatical, syntax or spelling errors. Electronically signed by: Atul Canales M.D. 12/03/2023 3:42 PM Discharge Plan Visit Data Chief Complaint: Abnormal Labs/Diagnostic Testing Stated Complaint: ABNORMAL LABS ED Provider: Jalen Lang Discharge Problem: Abscess of liver, Abnormal transaminases Patient Disposition: Admitted As Inpatient Discharge Instructions Interventions: ED Discharge Assessment Last Done: 12/03/23 19:58
[2023-12-03] MEDS ORDERED: HYDROCODONE/ACETAMOPHEN 5/325MG TAB PO PRN (18:43)
[2023-12-03] MEDS: oxyCODONE HCL IR 5 MG TAB (IMMEDIATE RELEASE) PO PRN (19:46)
[2023-12-03] MEDS ORDERED: ONDANSETRON INJ 2 MG/ML 2 ML VIAL IV PRN (20:38)
[2023-12-03] MEDS ORDERED: POLYETHYLENE (MIRALAX) 17 GM PACK PO PRN (20:38)
[2023-12-03] MEDS ORDERED: ALBUTEROL HFA 8 GM INHALER INH PRN (20:38)
[2023-12-03] MEDS ORDERED: BUDESONIDE/FORMOTEROL FUMARATE 160/4.5 60 PUFFS/INHALER INH SCH (21:00)
--- NOTE | 2023-12-03 21:16 | Pharmacy Report ---
Pharmacy PK ABX Note - Date of Service December 03, 2023 - Assessment and Plan Assessment 83 year old F receiving vancomycin/unasyn for potential GI infection, concerns for recurrent liver abscess. Previously on augmentin 3 week therapy. Plan Vancomycin * Loading dose: 1000 mg IV x 1 * Maintenance dose: 1000 mg IV every 18 hours * Regimen is predicted to achieve target AUC/DEBORAH of 400-600 mg/L.hr * Patient with lower body weight - will collect random in AM to ensure dosing appropriate Pharmacy will continue to follow and will adjust dose/frequency as necessary. Thank you. Pharmacy has transitioned to AUC monitoring for vancomycin. AUC/DEBORAH is the preferred PK/PD target and is associated with decreased risk of nephrotoxicity compared to traditional trough targets.
[2023-12-03] MEDS: CHOLECALCIFEROL 25 MCG (1000 UNITS) TAB PO SCH (21:31)
[2023-12-03] MEDS: busPIRone 5 MG TAB PO SCH (21:31)
[2023-12-03] MEDS: MAGNESIUM OXIDE 400 MG TAB PO SCH (21:32)
[2023-12-03] MEDS: SENNA 8.6 MG TAB PO SCH (21:33)
[2023-12-03] MEDS: PANTOprazole 40 MG TAB PO SCH (21:33)
[2023-12-03] MEDS: ENOXAPARIN INJ 40 MG/0.4 ML SYR SQ SCH (22:01)
[2023-12-03] MEDS: AMPICILLIN/SULBACTAM SOD 3,000 MG in SODIUM CHLOR 0.9% MINI-B 100 ML IV SCH (22:01)
[2023-12-04] MEDS: FLUTICASONE/VILANTEROL 100/25MCG 14 PUFFS/INHALER INH SCH (07:47)
[2023-12-04] MEDS: LORATADINE 10 MG TAB PO SCH (07:47)
[2023-12-04] MEDS: ROSUVASTATIN CALCIUM 10 MG TAB PO SCH (07:47)
[2023-12-04] MEDS: amLODIPine BESYLATE 5 MG TAB PO SCH (07:48)
[2023-12-04] MEDS: VITAMIN B COMPLEX TAB PO SCH (07:48)
[2023-12-04] MEDS: CALCIUM CARBONATE 1250MG TAB PO SCH (07:48)
[2023-12-04] MEDS: MULTIVITAMIN TAB PO SCH (07:49)
[2023-12-04 08:24] LABS: Basophils # (auto) 0.01 K/uL (0.00-0.20); Basophils % (auto) 0.1 %; Eosinophils # (auto) 0.02 K/uL (0.00-0.50); Eosinophils % (auto) 0.2 %; Hematocrit (blood only) 28.9 % (37.0-47.0); Hemoglobin 9.7 g/dl (12.0-16.0); Immature Granulocytes # (auto) 0.02 K/uL (0.01-0.20); Immature Granulocytes % (auto) 0.2 %; Lymphocytes % (auto) 3.2 %; Mean Corpuscular Hgb Conc 33.6 g/dL (32.0-36.0); Mean Corpuscular Volume 80.5 fL (80.0-100.0); Mean Platelet Volume 8.8 fL (9.4-12.4); Monocytes # (auto) 1.67 K/uL (0.11-0.59); Monocytes % (auto) 17.6 %; Neutrophils # (auto) 7.48 K/uL (1.40-6.50); Neutrophils % (auto) 78.7 %; Platelet Count 231 K/uL (130-400); RDW Coefficient of Variation 14.4 % (11.5-14.5); RDW Standard Deviation 42.1 fL (36.4-46.3); Red Blood Count 3.59 M/uL (4.20-5.40)
--- NOTE | 2023-12-04 08:52 | Infectious Disease Consult ---
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 On admission, she was afebrile, vss. Initial labs with WBC 11.21, Cr 0.72, AST 221, ALT 315, T bili 1.3. PCT 1.0. UA 6-10 WBC. RPP negative. CTAP with IV cont on 12/02 showed interval development of 1.6 x 1.1 cm peripherally enhancing multiloculated hypodensity in the region of the previously described 8mm posterior R hepatic lobe cyst suspicious for a small developing abscess (h/o resolved left hepatic lobe abscess), no drainable collections; CBD stent with progressive ductal dilation, f/u recommended to exclude stent dysfunction; cholelithiasis; nonobstructing R nephrolithiasis. Cultures in process. CBD findings were reviewed with GI and no ERCP at this time. She has been started on empiric Unasyn and vancomycin. ID consulted 12/03 for assistance. Imaging finding with liver abscess, but in the right hepatic lobe this time. Imaging noted as no drainable collections. I would see if IR is able to do a biopsy for culture purposes so we can properly direct antibiotics to the organism. In terms of possible pathogens, would consider Strep from before and also bacteria from biliary tract given CBD stent findings on this CT. Since she does have a port, it is reasonable to also cover for S aureus while waiting for cultures to ensure no hematogenous spread. Given higher risk of E coli being resistant to Unasyn per guidelines, I will change Unasyn to CTX/flagyl. # Right hepatic lobe liver abscess # CBD stent with ductal dilation # h/o prior liver abscess 2/2 Strep anginosus group # Metastatic NSCLC, with chest port - if possible, would discuss with IR if there is a way to get a sample of the abscess for culture to determine causative organism - Jerri changed Unasyn to CTX 2g IV daily and metronidazole 500mg PO tid - continue vancomycin pharmacy dosed protocol for now - Jerri added CRP for baseline as a marker to follow during her course of therapy - will follow up on BCx sent on 12/02 ID will continue to follow. If questions or concerns, contact Infectious Disease Call Center . Mitzi Perales MD [facility], Division of Infectious Diseases [facility]: [phone] Consultation Information Consultation was provided via telemedicine using two-way real-time interactive telecommunication between the patient and the telemedicine provider. For the duration of the visit, the provider was performing the assessment from a different facility than the patient. This includesuse of bluetooth stethoscope forauscultationperformed by the telepresenter that the telemedicine provider can hear if described in the physical exam. Stranding Machine Operator Helper contact information: Please call [facility] Call Center [phone]. (Phone Number For Physician Use Only) After establishing a telemedicine visit, patient was: Patient was verified with two unique identifiers, Patient/authorized rep acknowledged consent and understa nding and Gave permission to continue telehealth session Time Spent with Patient: Initial => 75 min History of Present Illness Reason for Consultation: recurrent liver abscess Attending Physician: Patria Moise MD History of Present Illness 83yo F with h/o widely metastatic non-small cell lung cancer dx 10/2022 (mets to bone, parotid, mediastinal LN, R adrenal, ?pancreatic, bl lung nodules), s/p lung resection, XRT, on pembrolizumab since 11/2022 last dose on 11/26, +chest port since 11/2022, 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 During her last admission, she had a CTAP which noted new foci of hepatic metastatic disease including largest in the left hepatic lobe measuring up to 3.6cm with central necrosis. She underwent biopsy of this lesion on 07/30/23 with c/f abscess v necrotic metastatic lesion. Per IR report, 11cc of purulent fluid was aspirated. Cx from this espinoza-sensitive Strep anginosus group, no AFB or fungal isolated. Path report noted no tumor, moderate-severe acute on chronic inflammation, findings suggestive of abscess. Per ID at that time, she did not have exposure to well water, no recent travel outside the country though has been to [place]. E. histolytica serologies were negative. She was dcd on tx with augmentin 875mg twice daily x 3 weeks. CTAP on 08/21/23 had phlegmonous change and heterogeneity in left hepatic lobe, no residual drainable fluid. CTAP in 10/2023 with improvement of phlegmonous change in left hepatic lobe, right hepatic lobe cysts. On this presentation, she reported feeling weak, having fatigue and fever to 101.3 and night sweats x 2 days. On admission, she was afebrile, vss. Initial labs with WBC 11.21, Cr 0.72, AST 221, ALT 315, T bili 1.3. PCT 1.0. UA 6-10 WBC. RPP negative. CTAP with IV cont on 12/02 showed interval development of 1.6 x 1.1 cm peripherally enhancing multiloculated hypodensity in the region of the previously described 8mm post erior R hepatic lobe cyst suspicious for a small developing abscess (h/o resolved left hepatic lobe abscess), no drainable collections; CBD stent with progressive ductal dilation, f/u recommended to exclude stent dysfunction; cholelithiasis; nonobstructing R nephrolithiasis. Cultures in process. CBD findings were reviewed with GI and no ERCP at this time. She has been started on empiric Unasyn and vancomycin. On my evaluation, patient reports feeling better today. She says she had felt weak and had chills only when she had the one temp to 101. She has not had any abdominal pain but feels shes had some bloating and gassy. Also with reflux. No diarrhea, vomiting. No chest pain, SOB, rashes. She has baseline chronic back pain that is unchanged. She has not had any travel in the past year. Reports some metal implants in her jaw otherwise no other hardware. R chest port is without issues. Allergies Allergy/AdvReac Type Severity Reaction Status Date / Time amoxicillin Allergy Intermediate rash Verified 12/03/23 12:25 tramadol AdvReac Intermediate loss of Verified 12/03/23 12:25 apetite Home Medications Medication Instructions Recorded Confirmed Type calcium carbonate 600 mg PO QAM 02/12/19 12/03/23 History loratadine 10 mg capsule 10 mg PO QAM 09/14/19 12/03/23 History multivitamin 1 tab PO QAM 09/14/19 12/03/23 History albuterol sulfate 90 mcg/actuation 2 puffs inhalation Q6H PRN 10/07/19 12/03/23 Rx aerosol inhaler (Ventolin HFA) shortness of breath or wheezing #8.5 grams magnesium oxide 400 mg (241.3 mg 400 mg PO HS 05/08/21 12/03/23 History magnesium) tablet sennosides 8.6 mg tablet (Senokot) 8.6 mg PO HS 11/27/22 12/03/23 History hydrocodone 5 mg-acetaminophen 325 1 tab PO Q4H PRN Pain #60 tabs 12/05/22 12/03/23 Rx mg tablet cholecalciferol (vitamin D3) 25 25 mcg PO BID 12/10/22 12/03/23 History mcg (1,000 unit) tablet (Vitamin D3) polyethylene glycol 3350 17 17 g PO QAM PRN Constipation 12/10/22 12/03/23 History gram/dose oral powder (Miralax) Portable Oxygen E0431 #1 ea 01/01/23 11/26/23 Rx rosuvastatin 10 mg tablet 10 mg PO DAILY #90 tabs 01/21/23 12/03/23 Rx ondansetron HCl 8 mg tablet 8 mg PO Q8H PRN Nausea And Vomiting 07/29/23 12/03/23 History vitamin B complex 1 tab PO DAILY 07/29/23 12/03/23 History buspirone 5 mg tablet 5 mg PO BID #180 tabs 09/26/23 12/03/23 Rx budesonide-formoterol HFA 160 2 puff inhalation BID #10.2 grams 11/04/23 4 Rx mcg-4.5 mcg/actuation aerosol inhaler Breyna 160 mcg-4.5 mcg/actuation 2 puff inhalation BID #10.3 grams 11/24/23 12/03/23 Rx HFA aerosol inhaler (budesonide-formoterol) amlodipine 2.5 mg tablet 2.5 mg PO DAILY #90 tabs 11/26/23 12/03/23 Rx pantoprazole 40 mg tablet,delayed 40 mg PO BID #180 tabs 11/26/23 12/03/23 Rx release Patient History Medical History (Updated 12/01/23 @ 15:49 by Lea Traore MD) Liver abscess Metastatic non-small cell lung cancer Peripheral neuropathy Vitamin D deficiency Osteoporosis declines Rx GERD (gastroesophageal reflux disease) Peripheral arterial disease Chronic venous insufficiency Seborrheic keratosis Impaired fasting glucose Hypertension Dyslipidemia COPD (chronic obstructive pulmonary disease) Anxiety Actinic keratosis Surgical History Port-A-Cath in place (12/12/22) Insertion of Access Port with Fluoroscopy(Not Applicable) - Ryan Valverde, History of ERCP 11/28/2223 Grade 1 view, MAC 3, ETT 7. biliary stent placement *2 WEEKS AGO AT [facility] S/P laparoscopic appendectomy (04/2020) 05/08/2020 Grade 1 view, MAC 3, ETT 7. History of colonoscopy 04/05/2020 History of tooth extraction History of cataract surgery RT/LEFT H/O tubal ligation History of section X 1 Family History Father Diabetes Family history of diabetes mellitus Mother No problems noted. Sister No problems noted. Brother Lung cancer Brother No problems noted. Brother No problems noted. Son No problems noted. Daughter No problems noted. Other No family history of adverse response to anesthesia Stroke Denies family history of Ovarian cancer Prostate cancer Myocardial infarction Breast cancer Colorectal cancer Social History (Updated 11/26/23 @ 09:41 by Sena Armando LPN) Smoking Status: Former smoker Tobacco Type: Cigarettes Age Started Using Tobacco: 17; Age Quit Using Tobacco: 65; packs per day: 1; Cigarettes Per Day: QUIT A FEW MONTHS AGO; Second Hand Exposure: No; Do You Dip or Chew Tobacco: No; Tobacco Cessation Education Requested by Patient: No Hx Alcohol Use: No Hx Substance Use: No Preferred Language: Cypriot Communication Ability: Effective Visual Impairment: No Limitations Hearing Ability: Normal Presser And Shaper Knitted Goods Required: No Beliefs That Will Affect Care: None marital status: Current Living Situation: Spouse current occupational status: retired 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 Physical Exam Physical Exam: General: Awake, alert, no acute distress HEENT: NC/AT, EOMI, mmm Neck: supple Lungs: respirations non-labored Heart: nl peripheral perfusion Chest: right port site clean, nontender, no erythema Abdomen: soft, NT/ND Back: no rashes, normal cuvature Ext: no LE edema Skin: no rash Neuro: O x 3 Results & Data Vital Signs (Past 12 Hours) Vital Signs Temp Pulse Resp BP Pulse Ox O2 Del Method 12/04/23 07:29 36.8 C 94 H 16 167/80 H 92 Room Air 12/03/23 20:57 37.0 C 83 14 176/77 H 92 Room Air Laboratory Results labs reviewed Diagnostic Findings Imaging reviewed
[2023-12-04 08:55] LABS: Albumin Globulin Ratio 1.3 (0.9-2); Albumin Level 3.3 gm/dl (3.4-5.0); BUN Creatinine Ratio 21.3 (10-20); Bilirubin,Total 0.9 mg/dl (0.2-1.0); Creatinine Clr Calc Pharmacy 48.2 ml/min; Est GFR (African American) 98.5 ml/min; Globulin 2.6 gm/dl (2.5-4.0); Potassium 3.5 mmol/L (3.5-5.1); Total Protein 5.9 gm/dl (6.0-8.3)
[2023-12-04] MEDS: metroNIDAZOLE 500 MG TAB PO SCH (09:00)
[2023-12-04] MEDS: cefTRIAXone SODIUM 2,000 MG in DEXTROSE 5 % MINI-B 50 ML IV SCH (09:01)
[2023-12-04 09:05] LABS: C Reactive Protein 9.76 mg/dl (0-0.5)
[2023-12-04] MEDS: VANCOMYCIN HCL 1,000 MG in SODIUM CHLORIDE 0.9% 250 ML IV SCH (09:54)
--- NOTE | 2023-12-04 10:37 | Communication Note ---
Date of Service: December 04, 2023 I reviewed imaging with Dr. Mitchell. Given concern for biliary issues, would recommend patient be transferred to a tertiary facility for further evaluation. I had contacted Patria Moise MD and made her aware of this. per primary, transfer is being planned.
[2023-12-04] MEDS ORDERED: VANCOMYCIN HCL 1,000 MG in SODIUM CHLORIDE 0.9% 250 ML IV SCH (12:00)
--- NOTE | 2023-12-04 13:21 | Discharge Summary ---
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 Patient did have IR drainage of purulent fluid from a 3.6 cm abscess, others were phlegmon less than 2 cm. Suspected GI source with underlying cancer and immunosuppression, CBD stent in place. Cytology with no malignancy, consistent with abscess Fluid culture positive for alpha strep not Enterococcus Improved very quickly on antibiotics and leukocytosis down trended from 37 and Pro-Kevin of 8 down to near normal ID was consulted: Alvarado, cefepime, Flagyl were converted to Augmentin for 2 to 3- week total course. Imaging was not typically necessary and likely had clinical improvement, but was recommended in around 3 weeks to ensure stability. Metastatic non-small cell lung cancer with mets to bone/liver/parotid/mediastinum, right adrenal. On Keytruda which was held in the setting of infection. Per Pt: Marnie reports that she has been doing okay up until the last 2 days when she has had increased weakness, fatigue, a fever of 101.3 F, and night sweats. On ER evaluation she has elevated transaminitis and bilirubin with minimal pain, although does endorse an increase in GERD like symptoms and some discomfort that she thought was GERD with meals for the past several days. CT of the abdomen and pelvis shows a prior 8 mm hepatic lobe cyst now shows peripheral enhancement and is multiloculated with an increase in size to 1.6 x 1.1 cm. She has had a past history of liver abscesses, recurrent abscess is not excluded. Past cultures were positive for strep and anginosus pansensitive Klebsiella. Add additional resistance. She is treated with Zosyn on admission. Patient seen at bedside with multiple family members present who confirms story as noted. Due to potential increase in ductal dilation and concern for possible CBD stent dysfunction Case was reviewed with [facility] gastroenterology. Based on her relatively low bilirubin and mild imaging findings, which were pushed to [facility] for review, she is not recommended for transfer for any type of stent management or reevaluation via ERCP at this time. Is recommended for treatment as noted with CMP daily. If patient has a rapid rise in transaminases or bilirubin then can reassess for transfer at that time. This was discussed with patient and family who are agreeable to admission for antibiotic treatment as noted. Patient was discussed with [facility] and accepted in transfer to [facility] , antibiotics , iv fluids to hold during transfer, stable for transfer Medical History: Reviewed Medications: Reviewed Surgical History: Reviewed Family history: Reviewed Allergies: Reviewed Social History: Reviewed Code Status: DNR/DNI Principal Diagnosis sepsis, biliary stent occlusion? Discharge Data Allergies Allergy/AdvReac Type Severity Reaction Status Date / Time amoxicillin Allergy Intermediate rash Verified 12/03/23 12:25 tramadol AdvReac Intermediate loss of Verified 12/03/23 12:25 apetite Consultations 12/03/23 17:36 Radiology Transfer Of Images Stat 12/03/23 18:28 ED Decision to Admit Stat 12/03/23 18:55 Consult Infectious Diseases Routine 12/04/23 07:39 Consult Gastroenterology Routine 12/04/23 08:14 Consult Gastroenterology Routine Ordered Studies 12/03/23 12:18 CT Abd and Pelvis [CT abd pelvis IV con only] Stat 12/04/23 07:38 MR MRCP Routine Hospital Course (1) Liver abscess: Suspect recurrent liver abscess CTA/P with previously suspected cystic 8 mm focus increased to 1.1, now peripherally enhancing and complex in appearance. No areas amenable to drainage With associated chills, fever, elevated Pro-Kevin Previously was on Vanco/Zosyn/Flagyl and was transition to Augmentin 3-week outpatient therapy with good clinical improvement Received Vanco/Zosyn in the ER Will transition to Unasyn/vanc on admission. Past history of allergy to amoxicillin but has tolerated both Zosyn and Augmentin. prior E histolytica testing was negative, CMV testing negative, EBV testing consistent with prior infection quiescent. BC pending. Trend CBC daily CMP trended daily. If rapid rise in transaminases/bilirubin consistent with obstruction--> call back to [facility] GI for transfer for stent reevaluation. Case was reviewed with [facility] GI based on concern for increased CBD dilation and? Stent obstruction, patient was not recommended for transfer at time of admission. ID consulted for suspected recurrent abscess Blood cultures were ordered however antibiotics were given prior to these and may be sterilized continue iv antibiotics (2) Metastatic non-small cell lung cancer: Keytruda held in the setting of suspected active infection [place] temporarily switched to oxycodone immediate release/Tylenol held due to acute transaminitis (3) GERD (gastroesophageal reflux disease): PPI daily (4) COPD (chronic obstructive pulmonary disease): Stable, continue inhalers (5) Anxiety: Continue home meds (6) Dyslipidemia: Continue statin Plan DVT prophylaxis: Lovenox Disposition: Medical surgical, no chest pain or cardiac symptoms prior to admission CODE STATUS: DNR/DNI Diet: No stent/procedures indicated, advanced to heart healthy due to past history of demand ischemia. Total Time Total Time Spent Total Time Spent (In Minutes): 60 min Discharge Plan Discharge Items Patient Disposition: Transfer Acute Care Hospital Reason For Visit: SUSPECTED LIVER ABSCESS Discharge Diagnosis: sepsis Activity: Resume your previous activity Non-emergency contact: Primary Care Provider Call non-emergency contact if: your symptoms worsen Follow-up/Referrals: Lea Traore MD [Primary Care Provider] - Diet: Heart Healthy Addtl Attending Provider Instructions: follow up with pcp Pending Studies at Discharge: No Stand-Alone Forms: [employer]uck Skilled Items Patient informed of condition?: Yes DNR: No Discharge Level of Care: Other Communicable Disease: No Discharge Prognosis: Stable Lines: Peripheral IV Urinary Catheter: No Medications and DC Order Prescriptions: No Action albuterol sulfate [Ventolin HFA] 90 mcg/actuation HFA aerosol inhaler 2 puffs INH Q6H PRN (Reason: shortness of breath or wheezing) Qty: 8.5 1RF rosuvastatin 10 mg tablet 10 mg PO DAILY Qty: 90 3RF buspirone 5 mg tablet 5 mg PO BID Qty: 180 3RF budesonide-formoterol 160-4.5 mcg/actuation HFA aerosol inhaler 2 puff INH BID Qty: 10.2 11RF budesonide-formoterol [Breyna] 160-4.5 mcg/actuation HFA aerosol inhaler 2 puff inhalation BID Qty: 10.3 11RF magnesium oxide 400 mg (241.3 mg magnesium) tablet 400 mg PO HS hydrocodone-acetaminophen 5-325 mg tablet 1 tab PO Q4H PRN (Reason: Pain) Qty: 60 0RF pantoprazole 40 mg tablet,delayed release (DR/EC) 40 mg PO BID Qty: 180 3RF amlodipine 2.5 mg tablet 2.5 mg PO DAILY Qty: 90 3RF multivitamin Tablet 1 tab PO QAM (DME) Portable Oxygen E0431 Misc See Rx Instructions .Route Qty: 1 0RF Rx Instructions: Portable oxygen concentrator flow rate of 4 L/min to be used at all times calcium carbonate 600 mg calcium (1,500 mg) tablet 600 mg PO QAM loratadine 10 mg capsule 10 mg PO QAM Patient Comments: QAM sennosides [Senokot] 8.6 mg Tablet 8.6 mg PO HS cholecalciferol (vitamin D3) [Vitamin D3] 25 mcg (1,000 unit) Tablet 25 mcg PO BID polyethylene glycol 3350 [Miralax] 17 gram/dose Powder 17 g PO QAM PRN (Reason: Constipation) vitamin B complex Tablet 1 tab PO DAILY ondansetron HCl 8 mg tablet 8 mg PO Q8H PRN (Reason: Nausea And Vomiting) Discharge Orders: Discharge Order (Routine); Ordered 12/04/23 Ordered By: Patria Moise Admission Data Admit Date/Time: 12/03/23 18:51 Attending Provider: Patria Moise Admit Provider: Jonah Gray Primary Care Provider: Lea Traore Other Providers: Jonah Gray; Lauren Junior; Veronica Olmstead; Armani Grant; Samra Barber; Mitzi Perales; Melina Wilks; Cristiana Smiley; Amrita Temple; Keli Laughlin; Verna Mckenzie; Cheryl Oleary; Kaity Fowler Jr; Melissa Juares; Fadi Mitchell; Jevon Wang; Tommy Nielsen; Jose E Renteria; Everette Estrada; Lynn Zuniga; Estephania Juarez; Corinne Vickers; Jarett Bajwa; Navya Whitney; Carol Ann Flanagan; Luzma Vasquez; Sha Chan; Starr Morley; Marina Das; Anushka Kulkarni Coding Level of Care Code 48770 INP/OBS DISCH >30 MIN Diagnoses Liver abscess K75.0 Metastatic non-small cell lung cancer C34.90 GERD (gastroesophageal reflux disease) K21.9 COPD (chronic obstructive pulmonary disease) J44.9 Anxiety F41.9 Dyslipidemia E78.5
--- NOTE | 2023-12-04 13:29 | Discharge Summary ---
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 Patient did have IR drainage of purulent fluid from a 3.6 cm abscess, others were phlegmon less than 2 cm. Suspected GI source with underlying cancer and immunosuppression, CBD stent in place. Cytology with no malignancy, consistent with abscess Fluid culture positive for alpha strep not Enterococcus Improved very quickly on antibiotics and leukocytosis down trended from 37 and Pro-Kevin of 8 down to near normal ID was consulted: Alvarado, cefepime, Flagyl were converted to Augmentin for 2 to 3- week total course. Imaging was not typically necessary and likely had clinical improvement, but was recommended in around 3 weeks to ensure stability. Metastatic non-small cell lung cancer with mets to bone/liver/parotid/mediastinum, right adrenal. On Keytruda which was held in the setting of infection. Per Pt: Marnie reports that she has been doing okay up until the last 2 days when she has had increased weakness, fatigue, a fever of 101.3 F, and night sweats. On ER evaluation she has elevated transaminitis and bilirubin with minimal pain, although does endorse an increase in GERD like symptoms and some discomfort that she thought was GERD with meals for the past several days. CT of the abdomen and pelvis shows a prior 8 mm hepatic lobe cyst now shows peripheral enhancement and is multiloculated with an increase in size to 1.6 x 1.1 cm. She has had a past history of liver abscesses, recurrent abscess is not excluded. Past cultures were positive for strep and anginosus pansensitive Klebsiella. Add additional resistance. She is treated with Zosyn on admission. Patient seen at bedside with multiple family members present who confirms story as noted. Due to potential increase in ductal dilation and concern for possible CBD stent dysfunction Case was reviewed with [facility] gastroenterology. Based on her relatively low bilirubin and mild imaging findings, which were pushed to [facility] for review, she is not recommended for transfer for any type of stent management or reevaluation via ERCP at this time. Is recommended for treatment as noted with CMP daily. If patient has a rapid rise in transaminases or bilirubin then can reassess for transfer at that time. This was discussed with patient and family who are agreeable to admission for antibiotic treatment as noted. Patient was discussed with C and accepted in transfer to [facility] , antibiotics , iv fluids to hold during transfer, stable for transfer Medical History: Reviewed Medications: Reviewed Surgical History: Reviewed Family history: Reviewed Allergies: Reviewed Social History: Reviewed Code Status: DNR/DNI Principal Diagnosis biliary stent obstruction Discharge Data Allergies Allergy/AdvReac Type Severity Reaction Status Date / Time amoxicillin Allergy Intermediate rash Verified 12/03/23 12:25 tramadol AdvReac Intermediate loss of Verified 12/03/23 12:25 apetite Consultations 12/03/23 17:36 Radiology Transfer Of Images Stat 12/03/23 18:28 ED Decision to Admit Stat 12/03/23 18:55 Consult Infectious Diseases Routine 12/04/23 07:39 Consult Gastroenterology Routine 12/04/23 08:14 Consult Gastroenterology Routine Ordered Studies 12/03/23 12:18 CT Abd and Pelvis [CT abd pelvis IV con only] Stat 12/04/23 07:38 MR MRCP Routine Total Time Total Time Spent Total Time Spent (In Minutes): biliary stent obstruction Discharge Plan Discharge Items Patient Disposition: Transfer Acute Care Hospital Reason For Visit: SUSPECTED LIVER ABSCESS Discharge Diagnosis: sepsis Activity: Resume your previous activity Non-emergency contact: Primary Care Provider Call non-emergency contact if: your symptoms worsen Follow-up/Referrals: Lea Traore MD [Primary Care Provider] - Diet: Heart Healthy Addtl Attending Provider Instructions: follow up with pcp Pending Studies at Discharge: No Stand-Alone Forms: [facility] Skilled Items Patient informed of condition?: Yes DNR: No Discharge Level of Care: Other Communicable Disease: No Discharge Prognosis: Stable Lines: Peripheral IV Urinary Catheter: No Medications and DC Order Prescriptions: No Action albuterol sulfate [Ventolin HFA] 90 mcg/actuation HFA aerosol inhaler 2 puffs INH Q6H PRN (Reason: shortness of breath or wheezing) Qty: 8.5 1RF rosuvastatin 10 mg tablet 10 mg PO DAILY Qty: 90 3RF buspirone 5 mg tablet 5 mg PO BID Qty: 180 3RF budesonide-formoterol 160-4.5 mcg/actuation HFA aerosol inhaler 2 puff INH BID Qty: 10.2 11RF budesonide-formoterol [Breyna] 160-4.5 mcg/actuation HFA aerosol inhaler 2 puff inhalation BID Qty: 10.3 11RF magnesium oxide 400 mg (241.3 mg magnesium) tablet 400 mg PO HS hydrocodone-acetaminophen 5-325 mg tablet 1 tab PO Q4H PRN (Reason: Pain) Qty: 60 0RF pantoprazole 40 mg tablet,delayed release (DR/EC) 40 mg PO BID Qty: 180 3RF amlodipine 2.5 mg tablet 2.5 mg PO DAILY Qty: 90 3RF multivitamin Tablet 1 tab PO QAM (DME) Portable Oxygen E0431 Misc See Rx Instructions .Route Qty: 1 0RF Rx Instructions: Portable oxygen concentrator flow rate of 4 L/min to be used at all times calcium carbonate 600 mg calcium (1,500 mg) tablet 600 mg PO QAM loratadine 10 mg capsule 10 mg PO QAM Patient Comments: QAM sennosides [Senokot] 8.6 mg Tablet 8.6 mg PO HS cholecalciferol (vitamin D3) [Vitamin D3] 25 mcg (1,000 unit) Tablet 25 mcg PO BID polyethylene glycol 3350 [Miralax] 17 gram/dose Powder 17 g PO QAM PRN (Reason: Constipation) vitamin B complex Tablet 1 tab PO DAILY ondansetron HCl 8 mg tablet 8 mg PO Q8H PRN (Reason: Nausea And Vomiting) Discharge Orders: Discharge Order (Routine); Ordered 12/04/23 Ordered By: Patria Moise Admission Data Admit Date/Time: 12/03/23 18:51 Attending Provider: Patria Moise Admit Provider: Jonah Gray Primary Care Provider: Lea Traore Other Providers: Jonah Gray; Lauren Junior; Veronica Olmstead; Armani Grant; Samra Barber; Mitzi Perales; Melina Wilks; Cristiana Smiley; Amrita Temple; Keli Laughlin; Verna Mckenzie; Cheryl Oleary; Kaity Fowler Jr; Melissa Juares; Fadi Mitchell; Jevon Wang; Tommy Nielsen; Jose E Renteria; Everette Estrada; Lynn Zuniga; Estephania Juarez; Corinne Vickers; Jarett Bajwa; Navya Whitney; Carol Ann Flanagan; Luzma Vasquez; Sha Chan; Starr Morley; Marina Das; Anushka Kulkarni. Coding Level of Care Code 85893 INP/OBS DISCH >30 MIN
--- NOTE | 2023-12-05 09:47 | Electrocardiogram Report ---
Test Reason : Blood Pressure : / mmHG Vent. Rate : 079 BPM Atrial Rate : 079 BPM P-R Int : 142 ms QRS Dur : 086 ms QT Int : 408 ms P-R-T Axes : 074 066 060 degrees QTc Int : 467 ms Sinus rhythm with frequent Premature ventricular complexes Minimal voltage criteria for LVH, may be normal variant Poor R wave progression, consider anterior MT vs. lead placement vs. LVH Abnormal ECG When compared with ECG of 28-JUL-2023 18:49, Premature atrial complexes are no longer Present Confirmed by León Zabala ([id number]) on 12/05/2023 9:47:11 AM Referred By: REFERRED SELF Confirmed By:León Zabala
--- NOTE | 2023-12-07 16:57 | Coding Query ---
sepsis due to liver abscess or ascending cholangitis SEPSIS To promote full compliance with coding requirements relating to patient care, physician participation is requested in all cases of cognos report developer uncertainty. Please assist us with the question(s) below: In responding to this query, please exercise your independent professional judgement. The fact that a question is asked does not imply that any particular answer is desired or expected. We appreciate your clarification on this issue. Throughout the medical record, you have clearly documented a localized infection (liver abscess) and your discharge summary notes sepsis. If the patient has sepsis, severe sepsis, from an urinary source or some other source, or if sepsis was ruled out, please clarify in your response below. The medical record reflects the following admitting clinical findings: Temp-98.6 WBC-10.7 RR-14 HR-83 Blood Cx-prelim negative ____ ()Bacteremia (Nonspecific laboratory finding of bacteria in the blood) Specify Organism () Present on Admission () Not present on admission () Unable to clinically determine () Septicemia (Systemic disease associated with the presence of pathogenic microorganisms in the blood): Specify Organism () Present on Admission () Not present on admission () Unable to clinically determine () Sepsis Specify Organism Specify Associated Condition/Diagnosis () Present on Admission () Not present on admission () Unable to clinically determine () Severe Sepsis (Sepsis associated with acute organ dysfunction) Specify Organism Specify Associated Condition/Diagnosis () Present on Admission () Not present on admission () Unable to clinically determine () Septic Shock (Severe sepsis with acute circulatory failure, unexplained by other causes) () Present on Admission () Not present on admission () Unable to clinically determine () No Sepsis/not septic MTDD
== END 2023-12-04 18:02 | disposition short-term general hospital (02) | DRG 871 ==
LOC: ED 11:24 → 3N 18:51 → SUATTDRO 18:51 → 3N 19:58